=== PATIENT | female | born 1980 | race Caucasian/White ===

== ENCOUNTER 2017-12-02 13:20 | Emergency (ER) | payer OTHER ==
--- NOTE | 2017-12-02 13:48 | EDPHYS ---
Physician Documentation [facility] Name: Dionne Ventura Age: 37 yrs Sex: Female : 1980 Arrival Date: 12/02/2017 Time: 13:23 Bed 14 Private MD: out of town, doctor ED Physician Den Nogueira HPI: 12/02 14:09 This 37 yrs old Female presents to ER via Ambulatory with complaints of snw Asthma Exacerbation. 14:09 The patient presents to the emergency department with wheezing, Current therapy: snw albuterol inhaler, out because pharmacy would not fill proair. Onset: The symptoms/episode began/occurred gradually, 4 day(s) ago, and became persistent. Modifying factors: the symptoms are aggravated by damp environment. Associated signs and symptoms: The patient has no apparent associated signs or symptoms. Severity of symptoms: At their worst the symptoms were moderate. The patient has experienced similar episodes in the past. Dr. Sin. 6 mo , G1, hx of epilepsy. Seeing Neuro and OB. 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 - Social history:: Smoking status: unknown. - Ebola Screening: : Patient denies exposure to infectious person Patient denies travel to an Ebola-affected area in the 21 days before illness onset. ROS: 14:08 Constitutional: Negative for fever, chills, and weight loss, Eyes: Negative for injury, snw pain, redness, and discharge, ENT: Negative for injury, pain, and discharge, Neck: Negative for injury, pain, and swelling, Cardiovascular: Negative for chest pain, palpitations, and edema, Respiratory: Negative for cough, wheezing, and pleuritic chest pain, + SOB, especially at night Abdomen/GI: Negative for abdominal pain, nausea, vomiting, diarrhea, and constipation, Back: Negative for injury and pain, : Negative for injury, bleeding, discharge, and swelling, MS/Extremity: Negative for injury and deformity, Skin: Negative for injury, rash, and discoloration, Neuro: Negative for headache, weakness, numbness, tingling, and seizure. Exam: 14:04 Constitutional: This is a well developed, well nourished patient who is awake, alert, snw and in no acute distress. Head/Face: Normocephalic, atraumatic. Eyes: Pupils equal round and reactive to light, extra-ocular motions intact. Lids and lashes normal. Conjunctiva and sclera are non-icteric and not injected. Cornea within normal limits. Periorbital areas with no swelling, redness, or edema. ENT: Nares patent. No nasal discharge, no septal abnormalities noted. Tympanic membranes are normal and external auditory canals are clear. Oropharynx with no redness, swelling, or masses, exudates, or evidence of obstruction, uvula midline. Mucous membranes moist. Neck: Trachea midline, no thyromegaly or masses palpated, and no cervical lymphadenopathy. Supple, full range of motion without nuchal rigidity, or vertebral point tenderness. No Meningismus. Chest/axilla: Normal chest wall appearance and motion. Nontender with no deformity. No lesions are appreciated. Cardiovascular: Regular rate and rhythm with a normal S1 and S2. No gallops, murmurs, or rubs. Normal PMI, no JVD. No pulse deficits. Back: No spinal tenderness. No costovertebral tenderness. Full range of motion. Skin: Warm, dry with normal turgor. Normal color with no rashes, no lesions, and no evidence of cellulitis. MS/ Extremity: Pulses equal, no cyanosis. Neurovascular intact. Full, normal range of motion. Neuro: Awake and alert, GCS 15, oriented to person, place, time, and situation. Cranial nerves II-XII grossly intact. Motor strength 5/5 in all extremities. Sensory grossly intact. Cerebellar exam normal. Normal gait. Psych: Awake, alert, with orientation to person, place and time. Behavior, mood, and affect are within normal limits. 14:04 Respiratory: the patient does not display signs of respiratory distress, Respirations: shallow respirations, tachypnea, Breath sounds: wheezing: expiratory is heard diffusely. 14:04 Abdomen/GI: Inspection: gravid appearance, is noted, Bowel sounds: normal, Palpation: nontender. Vital Signs: 13:26 BP 116 / 71; Pulse 79; Resp 22; Temp 98.4; Pulse Ox 97% ; Weight 69.85 kg; Height 5 ft. sv 1 in. (154.94 cm); Pain 7/10; 14:23 Pulse 74; Resp 17; Pulse Ox 99% on R/A; Pain 0/10; ss 13:26 Body Mass Index 29.10 (69.85 kg, 154.94 cm) sv MDM: 13:35 Patient medically screened. snw 14:07 Data reviewed: vital signs, nurses notes. Data interpreted: Pulse oximetry: on room air snw is 97 %. Interpretation: normal. Counseling: I had a detailed discussion with the patient and/or guardian regarding: the historical points, exam findings, and any diagnostic results supporting the discharge/admit diagnosis, the need for outpatient follow up, to return to the emergency department if symptoms worsen or persist or if there are any questions or concerns that arise at home. Special discussion: Based on the history and exam findings, there is no indication for further emergent testing or inpatient evaluation. I discussed with the patient/guardian the need to see the OB Gyne specialist for further evaluation of the symptoms. I discussed with the patient/guardian the need to see the primary care provider for further evaluation of the symptoms. 12/02 13:43 Order name: FHT's; Complete Time: 13:53 snw Administered Medications: 13:55 Drug: Albuterol 2.5 mg Route: Inhalation; rb1 13:55 Drug: Decadron 10 mg Route: IM; Site: right deltoid; rb1 14:26 Follow up: Response: No adverse reaction; Marked relief of symptoms ss Disposition: 14:32 Co-signature as Attending Physician, Den Nogueira MD I agree with the assessment and roly plan of care. Disposition: 12/02/17 13:47 Discharged to Home. Impression: Unspecified asthma with (acute) exacerbation, state, Patient's unintentional underdosing of medication regimen for other reason. - Condition is Stable. - Discharge Instructions: Asthma, Adult, Medicine Refill at the Emergency Department, Medicines During , Immunizations and , Form - Asthma Action Plan, Adult, Second Trimester of , [id number]. - Prescriptions for Albuterol Sulfate 90 mcg/actuation - inhale 1-2 puff by INHALATION route every 4-6 hours; 1 Inhaler. - Medication Reconciliation Form, Thank You Letter, Antibiotic Education, Prescription Opioid Use form. - Follow up: Private Physician; When: 2 - 3 days; Reason: Recheck today's complaints, Continuance of care, Re-evaluation by your physician. Follow up: Emergency Department; When: As needed; Reason: Worsening of condition. Signatures: Brigid Field, RN Den Andrea MD MD cha Therrien, Shelly, JUDY-C CROTCH PIECE BASTER-Heather Arizmendi RN RN ss Corie Lucero RN RN rb1 Corrections: (The following items were deleted from the chart) 14:26 13:47 12/02/2017 13:47 Discharged to Home. Impression: Unspecified asthma with (acute) ss exacerbation; state; Patient's unintentional underdosing of medication regimen for other reason. Condition is Stable. Forms are Medication Reconciliation Form, Thank You Letter, Antibiotic Education, Prescription Opioid Use. Follow up: Private Physician; When: 2 - 3 days; Reason: Recheck today's complaints, Continuance of care, Re-evaluation by your physician. Follow up: Emergency Department; When: As needed; Reason: Worsening of condition. snw
--- NOTE | 2017-12-02 13:48 | ER ---
Nurse's Notes [facility] Name: Dionne Ventura Age: 37 yrs Sex: Female : 1980 Arrival Date: 12/02/2017 Time: 13:23 Bed 14 Private MD: out of town, doctor Diagnosis: Unspecified asthma with (acute) exacerbation; state;Patient's unintentional underdosing of medication regimen for other reason Presentation: 12/02 13:24 Presenting complaint: Patient states: SOB x4 hours ago. Dyspnea at night. Ran out of sv inhaler medication. Transition of care: patient was not received from another setting of care. Onset of symptoms was December 02, 2017. 13:24 Method Of Arrival: Ambulatory sv 13:24 Acuity: TRINIDAD 3 sv 14:25 Risk Assessment: Do you want to hurt yourself or someone else? Patient reports no ss desire to harm self or others. Initial Sepsis Screen: Does the patient meet any 2 criteria? No. Patient's initial sepsis screen is negative. Does the patient have a suspected source of infection? No. Patient's initial sepsis screen is negative. Care prior to arrival: None. 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 - Social history:: Smoking status: unknown. - Ebola Screening: : Patient denies exposure to infectious person Patient denies travel to an Ebola-affected area in the 21 days before illness onset. Screenin:20 Abuse screen: Denies threats or abuse. Denies injuries from another. Nutritional ss screening: No deficits noted. Tuberculosis screening: Never had TB. Fall Risk None identified. Assessment: 13:30 General: Appears in no apparent distress. comfortable, Behavior is calm, cooperative. rb1 Pain: Complains of pain in lungs Pain currently is 7 out of 10 on a pain scale. Neuro: Level of Consciousness is awake, alert, obeys commands, Oriented to person, place, time, situation. Cardiovascular: Capillary refill < 3 seconds is brisk in bilateral fingers. Respiratory: Breath sounds with wheezes bilaterally. 13:30 GI: No signs and/or symptoms were reported involving the gastrointestinal system. : rb1 No signs and/or symptoms were reported regarding the genitourinary system. Musculoskeletal: Range of motion: intact in all extremities. 14:23 Reassessment: Patient appears in no apparent distress at this time. Patient and/or ss family updated on plan of care and expected duration. Pain level reassessed. Patient states feeling better. Patient states symptoms have improved. Respiratory: Breath sounds are clear bilaterally. Derm: Skin is pink, warm \T\ dry. normal. Vital Signs: 13:26 BP 116 / 71; Pulse 79; Resp 22; Temp 98.4; Pulse Ox 97% ; Weight 69.85 kg; Height 5 ft. sv 1 in. (154.94 cm); Pain 7/10; 14:23 Pulse 74; Resp 17; Pulse Ox 99% on R/A; Pain 0/10; ss 13:26 Body Mass Index 29.10 (69.85 kg, 154.94 cm) sv Vitals: 13:51 Heart Tones: 150. dh3 ED Course: 13:23 Patient arrived in ED. mr 13:23 out of town, doctor is Private Physician. mr 13:25 Triage completed. sv 13:27 Arm band placed on left wrist. sv 13:35 Katharine Rizzo FNP-C is PHCP. snw 13:35 Den Nogueira MD is Attending Physician. snw 13:47 Corie Lucero, JEFRY is Primary Nurse. rb1 14:20 Patient has correct armband on for positive identification. ss 14:20 No provider procedures requiring assistance completed. Patient did not have IV access ss during this emergency room visit. Administered Medications: 13:55 Drug: Albuterol 2.5 mg Route: Inhalation; rb1 13:55 Drug: Decadron 10 mg Route: IM; Site: right deltoid; rb1 14:26 Follow up: Response: No adverse reaction; Marked relief of symptoms Outcome: 13:47 Discharge ordered by MD. cm 14:20 Discharged to home ambulatory. 14:20 Condition: improved 14:20 Discharge instructions given to patient, family, Instructed on discharge instructions, follow up and referral plans. medication usage, Demonstrated understanding of instructions, follow-up care, medications, Prescriptions given X 1. 14:26 Patient left the ED. Signatures: Brigid Field RN RN Katharine Rizzo, PET FOOD DEBONER-C PET FOOD DEBONER-Csnw Gabriela Grider mr Heather Abrams RN RN ss Corie Lucero RN RN [facility] Ameena Restrepo count includes the [facility]
[2017-12-02] MEDS ORDERED: ALBUTEROL 2.5 MG/3 ML NEB SOL ONE (13:50)
[2017-12-02] MEDS ORDERED: DEXAMETHASONE 10 MG/ML VIAL ONE (13:50)
== END 2017-12-02 14:26 | disposition home or self-care (01) ==
LOC: ER 13:20
DX: J45.901 Unspecified asthma with (acute) exacerbation (principal); Z91.138 Patient's unintentional underdosing of medication regimen for other reason; O99.352 Diseases of the nervous system complicating pregnancy, second trimester; G40.909 Epilepsy, unspecified, not intractable, without status epilepticus; Z88.0 Allergy status to penicillin; Z88.1 Allergy status to other antibiotic agents; Z88.2 Allergy status to sulfonamides; Z88.3 Allergy status to other anti-infective agents
CPT/HCPCS: 96372; 99284; J1100; 99218

== ENCOUNTER 2018-03-18 20:41 | Emergency (ER) | payer OTHER ==
--- OUTSIDE RECORDS SUMMARY | 2018-03-18 20:44 | XMS REPORT | Continuity of Care Document ---
:1980 Author Organization [facility] Care Team Providers Name Role Phone MD Pete, Trevor Unavailable Unavailable Insurance Providers Payer name Policy type / Policy ID Covered democrat ID Policy Sosa [place]age type [place] [employer] UNSPECIFIED REMIT PAYOR [[id number]] [place] UNSPECIFIED REMIT PAYOR [[id number]] [place] - TRAD[place]AL UNSPECIFIED REMIT PAYOR [[id number]] UNSPECIFIED REMIT PAYOR [[id number]] [place] TM[place] TRADITIONAL UNSPECIFIED REMIT PAYOR [[id number]] [place] TM[place] TRADITIONAL UNSPECIFIED REMIT PAYOR [[id number]] [place] TM[place] - TRADITIONAL UNSPECIFIED REMIT PAYOR [[id number]] [place] TM[place] - TRADITIONAL UNSPECIFIED REMIT PAYOR [[id number]] [place] TMHP - TRADITIONAL UNSPECIFIED REMIT PAYOR [[id number]] [place] TMHP - TRADITIONAL UNSPECIFIED REMIT PAYOR [[id number]] [place] TMHP - TRADITIONAL UNSPECIFIED REMIT PAYOR [[id number]] [place] TM[place] - TRADITIONAL UNSPECIFIED REMIT PAYOR [[id number]] [place] TM[place] - TRADITIONAL UNSPECIFIED REMIT PAYOR [[id number]] [place] TM[place] - TRADITIONAL UNSPECIFIED REMIT PAYOR [[id number]] [employer] [place] - COMMUNITY [place] STAR PL[place] ACS - TMHP - TRADITIONAL UNSPECIFIED REMIT PAYOR [[id number]] [place] - TMHP - TRADITIONAL UNSPECIFIED REMIT PAYOR [[id number]] Encounters Encounter Performer Location Date Lab Report Trevor Freeman MD [facility] Jan Allergies, Adverse Reactions, Alerts Type Substance Reaction Status Drug allergy SULFA Active Drug allergy AUGMENTIN Active Drug allergy CEPHALEXIN Active Drug allergy ADVIL Active Problems Problem Effective Dates Problem Status EPILEPSY Active ASTHMA Active INSOMNIA Active LOW BACK PAIN Jan 17, 2014 Active Procedures Date Description Comments Jan 17, 2014 smoking status Current every day smoker Jan 17, 2014 smoking/tobacco cessation, patient education yes and counseling Medications Medication Instructions Start Date Status OXCARBAZEPINE 600 MG TABS 1 po bid November 23, 2012 Active PROAIR HFA 108 (90 BASE) MCG/ACT AERS 2 puffs q 4 hrs prn Apr 07, 2013 Active CLONAZEPAM 1 MG TABS Take 1 po tid December 01, 2012 Active ZOLPIDEM TARTRATE 10 MG TABS 1 po qhs Aug 17, 2013 Active Vital Signs Date Description Test Result Jan 17, 2014 height E&M HEIGHT 62 in Jan 17, 2014 weight E&M WEIGHT 107 lb Jan 17, 2014 temperature E&M TEMPERATURE 98.4 deg f Jan 17, 2014 respiratory rate E&M RESP RATE 16 /min Jan 17, 2014 pulse rate E&M PULSE RATE 84 /min Jan 17, 2014 blood pressure, systolic BP SYSTOLIC 122 mm Hg Jan 17, 2014 blood pressure, diastolic BP DIASTOLIC 86 mm Hg Results Date Description Test Name Value Reference Interpretation Status Jan 17, hemoglobin, blood HGB 13.1 g/dL 12.0-16.0 2013Jan 17, hematocrit, blood HCT 38.0 % 36.0-48.0 2013Jan 17, platelet count PLATELETS 336 K/CMM 815-170 6029 /mm3 Jan 17, hemoglobin, blood HGB 13.1 g/dL 12.0-16.0 2013Jan 17, hematocrit, blood HCT 38.0 % 36.0-48.0 2013Jan 17, platelet count PLATELETS 336 K/CMM 684-222 0981 /mm3 Jan 17, sodium, serum SODIUM 140 MEQ/L 905-787 3777 mmol/L Jan 17, potassium, serum POTASSIUM 3.8 MEQ/L 3.5-5.1 2013 mmol/L Jan 17, creatinine, serum CREATININE 0.6 mg/dL 0.5-1.4 2013Jan 17, urea nitrogen, blood BUN 13 mg/dL 7-22 2013Jan 17, urea BUN/CREAT 22 null 6-25 2013 nitrogen/creatinine ratio, serum Jan 17, albumin, serum ALBUMIN 4.5 g/dL 3.5-5.0 2013Jan 17, calcium, serum CALCIUM 9.1 mg/dL 8.5-10.5 2013Jan 17, alanine SGPT (ALT) 17 U/L 0-65 2013 aminotransferase (SGPT), serum Jan 17, aspartate SGOT (AST) 14 U/L 0-37 2013 aminotransferase (SGOT), serum Jan 17, alkaline phosphatase, ALK PHOS 59 U/L 39-136 2013 serum Jan 17, sodium, serum SODIUM 140 MEQ/L 394-660 8077 mmol/L Jan 17, potassium, serum POTASSIUM 3.8 MEQ/L 3.5-5.1 2013 mmol/L Jan 17, creatinine, serum CREATININE 0.6 mg/dL 0.5-1.4 2013Jan 17, urea nitrogen, blood BUN 13 mg/dL 7-2013Jan 17, urea BUN/CREAT 22 null 6-25 2013 nitrogen/creatinine ratio, serum Jan 17, albumin, serum ALBUMIN 4.5 g/dL 3.5-5.0 2013Jan 17, calcium, serum CALCIUM 9.1 mg/dL 8.5-10.5 2013Jan 17, alanine SGPT (ALT) 17 U/L 0-65 2013 aminotransferase (SGPT), serum Jan 17, aspartate SGOT (AST) 14 U/L 0-37 2013 aminotransferase (SGOT), serum Jan 17, alkaline phosphatase, ALK PHOS 59 U/L 39-136 2013 serum
--- OUTSIDE RECORDS SUMMARY | 2018-03-18 20:44 | XMS REPORT | Continuity of Care Document ---
:1980 Author Organization [facility] Care Team Providers Name Role Phone MD Pete, Trevor Unavailable Unavailable Insurance Providers Payer name Policy type / Policy ID Covered green party ID Policy Sosa Coverage type [place] [employer] SOLUTIONS UNSPECIFIED REMIT PAYOR [[id number]] [place]: [place]UTIONS UNSPECIFIED REMIT PAYOR [[id number]] [place] TRADITIONAL UNSPECIFIED REMIT PAYOR [[id number]] UNSPECIFIED REMIT PAYOR [[id number]] [place] TM[place] - TRADITIONAL UNSPECIFIED REMIT PAYOR [[id number]] [place] TM[place] - TRADITIONAL UNSPECIFIED REMIT PAYOR [[id number]] [place] TM[place] - TRADITIONAL UNSPECIFIED REMIT PAYOR [[id number]] [place] TM[place] - TRADITIONAL UNSPECIFIED REMIT PAYOR [[id number]] [place] TMHP - TRADITIONAL UNSPECIFIED REMIT PAYOR [[id number]] [place] TMHP - TRADITIONAL UNSPECIFIED REMIT PAYOR [[id number]] [place] TMHP - TRADITIONAL UNSPECIFIED REMIT PAYOR [[id number]] [place] TMHP - TRADITIONAL UNSPECIFIED REMIT PAYOR [[id number]] [place] TM[place] - TRADITIONAL UNSPECIFIED REMIT PAYOR [[id number]] [place] TMHP - TRADITIONAL UNSPECIFIED REMIT PAYOR [[id number]] [employer] [place] - COMMUN[place] - STAR PL[place] ACS - TMHP - TRADITIONAL UNSPECIFIED REMIT PAYOR [[id number]] [place] TMHP - TRADITIONAL UNSPECIFIED REMIT PAYOR [[id number]] Encounters Encounter Performer Location Date Office Visit Trevor Freeman MD [facility] Jan 17, 2014 Allergies, Adverse Reactions, Alerts Type Substance Reaction [...] 2013Jan 17, platelet count PLATELETS 336 K/CMM 252-851 9182 /mm3 Jan 17, hemoglobin, blood HGB 13.1 g/dL 12.0-16.0 2013Jan 17, hematocrit, blood HCT 38.0 % 36.0-48.0 2013Jan 17, platelet count PLATELETS 336 K/CMM 994-288 0556 /mm3 Jan 17, sodium, serum SODIUM 140 MEQ/L 893-684 2852 mmol/L Jan 17, potassium, serum POTASSIUM 3.8 [...] Jan 17, sodium, serum SODIUM 140 MEQ/L 180-536 7988 mmol/L Jan 17, potassium, serum POTASSIUM 3.8 [...]
--- OUTSIDE RECORDS SUMMARY | 2018-03-18 20:44 | XMS REPORT | Continuity of Care Document ---
:1980 Author Organization Interface Problems Problem Status Onset Classification Date Comments Source Date Reported LOW BACK PAIN Active Condition 01/17/2014 [facility] EPILEPSY Active Condition 01/17/2014 Medical Group ASTHMA Active Condition 01/17/2014 Medical Group INSOMNIA Active Condition 01/17/2014 Medical Group Medications Medication Details Route Status Patient Ordering Order Source Instructions Provider Date ZOLPIDEM 1 po qhs Active TARTRATE 10 MG 014 Medical TABS Group PROAIR HFA 108 2 puffs q Active (90 BASE) 4 hrs prn 013 Medical MCG/ACT AERS Group CLONAZEPAM 1 MG Take 1 po Active TABS tid 013 Medical Group OXCARBAZEPINE 1 po bid Active 600 MG TABS 013 Medical Group Allergies, Adverse Reactions, Alerts Substance Category Reaction Severity Reaction Status Date Comments Source type Reported SULFA Drug SULFA allergy Medical Group AUGMENTIN Drug AUGMENTIN allergy Medical Group CEPHALEXIN Drug CEPHALEXIN allergy Medical Group ADVIL Drug ADVIL allergy Medical Group Immunizations Immunization Date Given Site Status Last Updated Comments Source Results Order Name Results Value Reference Date Interpretation Comments Source Range Chemistry SODIUM 140 135 - 145 MEQ/L 2013 Medical mmol/L Group Chemistry POTASSIUM 3.8 3.5 - 5.1 MEQ/L 2013 Medical mmol/L Group Chemistry CREATININE 0.6 0.5 - 1.4 mg/dL 2013 Medical Group Chemistry BUN 13 7 - 22 mg/dL 2013 Medical Group Chemistry BUN/CREAT 22 6 - 25 2013 Medical Group Chemistry ALBUMIN 4.5 3.5 - 5.0 g/dL 2013 Medical [facility] Chemistry CALCIUM 9.1 8.5 - 10.5 mg/dL 2013 Medical Group Chemistry SGPT (ALT) 17 U/L 0 - 65 2013 Medical Group Chemistry SGOT (AST) 14 U/L 0 - 37 2013 Medical Group Chemistry ALK PHOS 59 U/L 39 - 136 2013 Medical Group Chemistry SODIUM 140 135 - 145 MEQ/L 2013 Medical mmol/L Group Chemistry POTASSIUM 3.8 3.5 - 5.1 MEQ/L 2013 Medical mmol/L Group Chemistry CREATININE 0.6 0.5 - 1.4 mg/dL 2013 Medical Group Chemistry BUN 13 7 - 22 mg/dL 2013 Medical Group Chemistry BUN/CREAT 22 6 - 25 2013 Medical Group Chemistry ALBUMIN 4.5 3.5 - 5.0 g/dL 2013 Medical Group Chemistry CALCIUM 9.1 8.5 - 10.5 mg/dL 2013 Medical Group Chemistry SGPT (ALT) 17 U/L 0 - 65 2013 Medical Group Chemistry SGOT (AST) 14 U/L 0 - 37 2013 Medical Group Chemistry ALK PHOS 59 U/L 39 - 136 2013 Medical Group Hematology HGB 13.1 12.0 - 16.0 g/dL 2013 Medical Group Hematology HCT 38.0 % 36.0 - 48.0 2013 Medical Group Hematology PLATELETS 336 133 - 450 [facility] 2013 Medical /mm3 Group Hematology HGB 13.1 12.0 - 16.0 g/dL 2013 Medical Group Hematology HCT 38.0 % 36.0 - 48.0 2013 Medical [facility] Hematology PLATELETS 336 133 - 450 [facility] 2013 Medical /mm3 Group Vital Signs Vital Sign Value Date Comments Source Height 62 01/17/2014 Medical Group Weight 107 01/17/2014 Medical Group Temperature Oral (F) 98.4 F 01/17/2014 Medical Group Respitory Rate 16 01/17/2014 Medical Group Heart Rate 84 01/17/2014 Medical Group Systolic (mm Hg) 122 01/17/2014 Medical Group Diastolic (mm Hg) 86 01/17/2014 Medical Group Encounters Location Location Encounter Encounter Reason Attending ADM DC Status Source Details Type Number For Provider Date Date Visit [facility] Lab Report [id number] Trevor 01/17 01/17 [facility] [address], /2013 [facility] [place] [facility] Office [id number] Trevor 01/17 01/17 [place] Visit [address], [facility] [place] Outpatient [id number] TREVOR 02/14 [facility] [id number] ADILIA 10/22 [facility] [id number] [facility] 08/14 [facility] [id number] ADILIA 09/23 [facility] [id number] ADILIA 10/25 [facility] [id number] TREV[place] 11/20 [facility] [id number] TREV[facility] 12/13 Active [facility] [id number] ADILIA 01/13 Active [facility] [id number] ADILIA 02/07 Active [facility] [id number] ADILIA 02/21 Active [facility] [id number] ADILIA 02/28 Active [facility] [id number] TREVOR 04/08 Active [facility] [id number] ADILIA 04/15 Active [facility] [id number] ADILIA 05/06 Active [facility] [id number] ADILIA 05/13 Active [facility] [id number] ROSI 07/02 Active [facility] [id number] VINCENT 07/14 Active [facility] [id number] [facility] 07/25 Active [facility] Procedures Procedure Code Date Perfomer Comments Source smoking/tobacco 01/17/2014 yes Medical cessation, patient Group education and counseling
[2018-03-18] MEDS ORDERED: MEPERIDINE HCL 50 MG/ML AMP ONE (21:33)
[2018-03-18] MEDS ORDERED: PROMETHAZINE 25 MG/ML VIAL ONE (21:33)
[2018-03-18 21:56] LABS: Absolute Lymphocytes (CBC) 0.4 K/uL (0.7-4.9); Absolute Monocytes 0.5 K/uL (0.1-1.3); Basophils % 0.1 % (0-1.3); Eosinophils % 0.2 % (0-4.4); Hematocrit 30.1 % (36.0-45.0); Lymphocytes % 3.4 % (15.3-44.8); MCH 34.9 pg (27.0-35.0); MCV 99.8 fL (80-100); MPV 7.3 fL (7.6-11.3); Monocytes % 4.2 % (3.3-12.3); RBC Red Blood Cell Count 3.02 M/uL (3.86-4.86)
[2018-03-18 22:09] LABS: ALT/SGPT 16 U/L (12-78); AST/SGOT 18 U/L (15-37); Albumin 2.5 g/dL (3.4-5.0); Alkaline Phosphatase 68 U/L (45-117); BUN Blood Urea Nitrogen 13 mg/dL (7-18); Bicarbonate 25 mmol/L (21-32); Bilirubin Direct 0.1 mg/dL (0-0.2); Bilirubin Total 0.3 mg/dL (0.2-1.0); Glucose Level 106 mg/dL (74-106); Lipase 63 U/L (73-393); Potassium 3.4 mmol/L (3.5-5.1); Protein, Total 6.3 g/dL (6.4-8.2); Sodium Level 135 mmol/L (136-145)
[2018-03-18 22:30] LABS: Blood Morphology Comment NOT SEEN (NOT SEEN); Platelet Estimate ADEQ
--- NOTE | 2018-03-19 00:11 | ER ---
Nurse's Notes [facility] Name: Dionne Ventura Age: 38 yrs Sex: Female : 1980 Arrival Date: 03/18/2018 Time: 20:42 Bed 18 Private MD: Diagnosis: Post surgical pain secondary to Presentation: 03/18 20:43 Presenting complaint: Patient states: She had a March 17, she had some aj1 bloating afterward and was told it was gas. Now she's having constipation, and abdominal pain. Reports running fever at home of 102 a couple hours ago. Transition of care: patient was not received from another setting of care. Onset of symptoms was March 17, 2018. Risk Assessment: Do you want to hurt yourself or someone else? Patient reports no desire to harm self or others. Initial Sepsis Screen: Does the patient meet any 2 criteria? HR > 90 bpm. No. Patient's initial sepsis screen is negative. Does the patient have a suspected source of infection? Yes: Acute abdominal pain. Care prior to arrival: None. 20:43 Method Of Arrival: Wheelchair aj1 20:43 Acuity: TRINID[place] 3 aj1 Triage Assessment: 20:47 General: Appears uncomfortable, Behavior is cooperative, anxious, restless. Pain: aj1 Complains of pain in right lower quadrant and left lower quadrant Pain currently is 10 out of 10 on a pain scale. Neuro: Level of Consciousness is awake, alert, obeys commands. Cardiovascular: Patient's skin is warm and dry. Respiratory: Airway is patent Respiratory effort is even, unlabored, Respiratory pattern is regular, symmetrical. 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 - Social history:: Smoking status: Patient/guardian denies using tobacco. - Ebola Screening: : Patient denies travel to an Ebola-affected area in the 21 days before illness onset. Screenin:00 Abuse screen: Denies threats or abuse. Nutritional screening: No deficits noted. jd3 Tuberculosis screening: No symptoms or risk factors identified. Fall Risk Ambulatory Aid- None/Bed Rest/Nurse Assist (0 pts). Gait- Weak (10 pts.). Mental Status- Oriented to own ability (0 pts). Total Pablo Fall Scale indicates No Risk (0-24 pts). Assessment: 20:56 General: Appears uncomfortable, Behavior is cooperative, anxious. Pain: Complains of jd3 pain in abdomen Pain currently is 10 out of 10 on a pain scale. Quality of pain is described as sharp, tender. Neuro: Level of Consciousness is awake, alert, obeys commands, Oriented to person, place, time, situation. Cardiovascular: Capillary refill < 3 seconds Patient's skin is warm and dry. Respiratory: Airway is patent Respiratory effort is even, unlabored, Respiratory pattern is regular, symmetrical, Breath sounds are clear bilaterally. GI: Abdomen is round distended, Bowel sounds present X 4 quads. Reports lower abdominal pain, upper abdominal pain, bloating, constipation, cramping. : No signs and/or symptoms were reported regarding the genitourinary system. EENT: No signs and/or symptoms were reported regarding the EENT system. Derm: Skin is intact, Skin is dry, Skin is normal, Skin temperature is warm Wound noted suprapubic area Wound is Post surgery site. site looks clean, dry, no redness or swelling noted. Musculoskeletal: Circulation, motion, and sensation intact. Range of motion: intact in all extremities. 21:47 Reassessment: Patient appears in no apparent distress at this time. No changes from jd3 previously documented assessment. Patient and/or family updated on plan of care and expected duration. Pain level reassessed. Patient is alert, oriented x 3, equal unlabored respirations, skin warm/dry/pink. 22:49 Reassessment: Patient appears in no apparent distress at this time. No changes from jd3 previously documented assessment. Patient and/or family updated on plan of care and expected duration. Pain level reassessed. Patient is alert, oriented x 3, equal unlabored respirations, skin warm/dry/pink. 23:47 Reassessment: Patient appears in no apparent distress at this time. Patient and/or jd3 family updated on plan of care and expected duration. Pain level reassessed. Patient is alert, oriented x 3, equal unlabored respirations, skin warm/dry/pink. resting in bed with eyes closed, call light in reach. 03/19 00:22 Reassessment: Patient appears in no apparent distress at this time. Patient and/or jd3 family updated on plan of care and expected duration. Pain level reassessed. Patient is alert, oriented x 3, equal unlabored respirations, skin warm/dry/pink. discharge to [facility] to wait for ride. Vital Signs: 03/18 20:47 BP 120 / 78; Pulse 95; Resp 24; Temp 99.5(O); Pulse Ox 97% on R/A; Height 5 ft. 1 in. aj1 (154.94 cm) (R); Pain 10/10; 21:48 BP 95 / 80; Pulse 80; Resp 20 S; Pulse Ox 94% on R/A; jd3 22:48 BP 110 / 54; Pulse 76; Resp 20 S; Pulse Ox 96% on R/A; jd3 23:48 BP 133 / 90; Pulse 81; Resp 20 S; Temp 98.8(O); Pulse Ox 94% on R/A; jd3 ED Course: 20:42 Patient arrived in ED. es 20:46 Triage completed. aj1 20:47 Arm band placed on Patient placed in an exam room. aj1 20:56 Shimon Chapman, RN is Primary Nurse. jd3 21:01 Patient has correct armband on for positive identification. Placed in gown. Bed in low jd3 position. Call light in reach. Side rails up X 1. 21:07 Carlos Nathan PA is PHCP. jr8 21:07 Den Nogueira MD is Attending Physician. jr8 21:13 Missed attempt(s): 20 gauge in left antecubital area. Inserted saline lock: 22 gauge in lp1 right forearm, using aseptic technique. 22:02 Radiology exam delayed due to lab results not completed at this time. (BUN/Creatinine). vm2 22:[address] 2 22:32 Abdomen In Process Unspecified. EDMS 03/19 00:23 No provider procedures requiring assistance completed. IV discontinued, intact, jd3 bleeding controlled, No redness/swelling at site. Pressure dressing applied. Administered Medications: 03/18 21:34 Drug: Demerol 25 mg Route: IVP; Site: right forearm; [facility] 03/19 00:24 Follow up: Response: No adverse reaction jd3 03/18 21:34 Drug: Promethazine 12.5 mg Route: IVP; Site: right forearm; [facility] 03/19 00:25 Follow up: Response: No adverse reaction jd3 Outcome: 00:10 Discharge ordered by . 8 00:23 Discharged to home via wheelchair. jd3 00:23 Condition: stable 00:23 Discharge instructions given to patient, Instructed on discharge instructions, follow up and referral plans. Demonstrated understanding of instructions, follow-up care. 00:24 Patient left the ED. jd3 Signatures: Dispatcher [employer] Kelin Mcneil, RN RN aj1 Indu Dinero Laura, RN RN lp1 Carlos Nathan PA PA jr8 Lucia Cook 2 Shimon Chapman RN RN jd3 Corrections: (The following items were deleted from the chart) 03/18 23:50 23:46 BP 121 / 82; Pulse 55bpm; Resp 16bpm; Spontaneous; Pulse Ox 100% RA; jd3 jd3 23:52 23:47 Reassessment: Patient appears in no apparent distress at this time. Patient jd3 and/or family updated on plan of care and expected duration. Pain level reassessed. Patient is alert, oriented x 3, equal unlabored respirations, skin warm/dry/pink. jd3
--- NOTE | 2018-03-19 00:11 | EDPHYS ---
Physician Documentation [facility] Name: Dionne Ventura Age: 38 yrs Sex: Female : 1980 Arrival Date: 03/18/2018 Time: 20:42 Bed 18 Private MD: ED Physician Den Nogueira HPI: 03/18 21:50 This 38 yrs old Female presents to ER via Wheelchair with complaints of Post jr8 Surgical Pain. 21:50 The patient presents with abdominal pain that is diffuse. Onset: The symptoms/episode jr8 began/occurred acutely, today. The symptoms do not radiate. Associated signs and symptoms: none. The symptoms are described as vague. Modifying factors: The symptoms are alleviated by nothing, the symptoms are aggravated by movement. Severity of pain: At its worst the pain was moderate in the emergency department the pain is unchanged. The patient has not experienced similar symptoms in the past. The patient has been recently seen by a physician:. Patient had 03/17/18. Stated that stomach had gone back to almost near normal size post surgery. Was feeling ok till this AM when she was discharged. Stated that she noticed her abdomen to be getting larger. Stated that they attributed it to gas. Had bowel movent today. Came to ED tonight for abdominal pain that is getting worse with worsening of distention . 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 - Social history:: Smoking status: Patient/guardian denies using tobacco. - Ebola Screening: : Patient denies travel to an Ebola-affected area in the 21 days before illness onset. ROS: 21:50 Eyes: Negative for injury, pain, redness, and discharge, ENT: Negative for injury, jr8 pain, and discharge, Neck: Negative for injury, pain, and swelling, Cardiovascular: Negative for chest pain, palpitations, and edema, Respiratory: Negative for shortness of breath, cough, wheezing, and pleuritic chest pain, Back: Negative for injury and pain, MS/Extremity: Negative for injury and deformity, Skin: Negative for injury, rash, and discoloration, Neuro: Negative for headache, weakness, numbness, tingling, and seizure. 21:50 Abdomen/GI: Positive for abdominal pain, abdominal distension, Negative for nausea, vomiting, and diarrhea. Exam: 21:50 Eyes: Pupils equal round and reactive to light, extra-ocular motions intact. Lids and jr8 lashes normal. Conjunctiva and sclera are non-icteric and not injected. Cornea within normal limits. Periorbital areas with no swelling, redness, or edema. ENT: Nares patent. No nasal discharge, no septal abnormalities noted. Tympanic membranes are normal and external auditory canals are clear. Oropharynx with no redness, swelling, or masses, exudates, or evidence of obstruction, uvula midline. Mucous membranes moist. Neck: Trachea midline, no thyromegaly or masses palpated, and no cervical lymphadenopathy. Supple, full range of motion without nuchal rigidity, or vertebral point tenderness. No Meningismus. Cardiovascular: Regular rate and rhythm with a normal S1 and S2. No gallops, murmurs, or rubs. Normal PMI, no JVD. No pulse deficits. Respiratory: Lungs have equal breath sounds bilaterally, clear to auscultation and percussion. No rales, rhonchi or wheezes noted. No increased work of breathing, no retractions or nasal flaring. Back: No spinal tenderness. No costovertebral tenderness. Full range of motion. Skin: Warm, dry with normal turgor. Normal color with no rashes, no lesions, and no evidence of cellulitis. MS/ Extremity: Pulses equal, no cyanosis. Neurovascular intact. Full, normal range of motion. Neuro: Awake and alert, GCS 15, oriented to person, place, time, and situation. Cranial nerves II-XII grossly intact. Motor strength 5/5 in all extremities. Sensory grossly intact. Cerebellar exam normal. Normal gait. 21:50 Constitutional: The patient appears alert, awake, in obvious pain, uncomfortable. 21:50 Abdomen/GI: Inspection: distension, that is moderate, lower abdominal incision with gini noted. No erythema or discharge. No Dehiscence , Bowel sounds: active, Palpation: soft, in all quadrants, moderate abdominal tenderness, in the abdomen diffusely, mass, is not appreciated, rebound tenderness, is not appreciated, voluntary guarding, is not appreciated, involuntary guarding, is not appreciated, no appreciated organomegaly, Indicators: McBurney's point is not tender, Jones's sign is negative. Vital Signs: 20:47 BP 120 / 78; Pulse 95; Resp 24; Temp 99.5(O); Pulse Ox 97% on R/A; Height 5 ft. 1 in. aj1 (154.94 cm) (R); Pain 10/10; 21:48 BP 95 / 80; Pulse 80; Resp 20 S; Pulse Ox 94% on R/A; jd3 22:48 BP 110 / 54; Pulse 76; Resp 20 S; Pulse Ox 96% on R/A; jd3 23:48 BP 133 / 90; Pulse 81; Resp 20 S; Temp 98.8(O); Pulse Ox 94% on R/A; jd3 MDM: 21:07 Patient medically screened. jr8 03/19 00:08 Data reviewed: vital signs, nurses notes, lab test result(s), radiologic studies, CT jr8 scan, and as a result, I will discharge patient. Data interpreted: Pulse oximetry: on room air is 95 %. Interpretation: normal. Counseling: I had a detailed discussion with the patient and/or guardian regarding: the historical points, exam findings, and any diagnostic results supporting the discharge/admit diagnosis, lab results, radiology results, the need for outpatient follow up, an OB/Gyne specialist, to return to the emergency department if symptoms worsen or persist or if there are any questions or concerns that arise at home. Response to treatment: the patient's symptoms have markedly improved after treatment. ED course: No intraabdominal infection or acute finding noted on CT. surgical scar without acute finding. Patient doing better after medication. Told her that she still has a good amount of stool in colon. To continue laxative that they gave her. Needs to f/u with them tomorrow. If worse to come back . 03/18 21:48 Order name: Basic Metabolic Panel; Complete Time: 22:19 [facility] 03/18 21:48 Order name: Liver (Hepatic) Function; Complete Time: 22:19 [facility] 03/18 21:48 Order name: Lipase; Complete Time: 22:19 [facility] 03/18 21:48 Order name: Creatinine (Radiology Only); Complete Time: 22:19 [facility] 03/18 21:48 Order name: CBC with Automated Diff; Complete Time: 22:41 [facility] 03/18 21:50 Order name: Abdomen [facility] 03/18 21:57 Order name: Manual Differential; Complete Time: 22:41 [facility] 03/18 21:21 Order name: IV Saline Lock; Complete Time: 21:23 jr 03/18 21:21 Order name: Labs collected and sent; Complete Time: 21:38 jr Administered Medications: 03/18 21:34 Drug: Demerol 25 mg Route: IVP; Site: right forearm; [facility] 03/19 00:24 Follow up: Response: No adverse reaction jd3 03/18 21:34 Drug: Promethazine 12.5 mg Route: IVP; Site: right forearm; [facility] 03/19 00:25 Follow up: Response: No adverse reaction j Disposition: 06:51 Co-signature as Attending Physician, Den Nogueira MD I agree with the assessment and [facility] plan of care. Disposition: 03/19/18 00:10 Discharged to Home. Impression: Post surgical pain secondary to . - Condition is Stable. - Discharge Instructions: Delivery, Care After. - Medication Reconciliation Form, Thank You Letter, Antibiotic Education, Prescription Opioid Use form. - Follow up: Private Physician; When: Tomorrow; Reason: Recheck today's complaints, Continuance of care, Re-evaluation by your physician. - Problem is new. - Symptoms have improved. Signatures: Dispatcher [employer] Kelin Mcneil, RN RN Den Lopez MD MD cha Roszak, Josh, PA PA jr8 Shimon Chapman RN RN jd3 Corrections: (The following items were deleted from the chart) 03/18 21:56 21:52 Abdomen Pelvis W Con+CT.RAD.BRZ ordered. [facility] :58 21:52 BASIC METABOLIC PANEL+C.LAB.BRZ ordered. [facility] :58 21:52 CBC+H.LAB.BRZ ordered. [facility] 58 21:52 Creatinine for Radiology+C.LAB.BRZ ordered. [facility] 58 21:52 HEPATIC FUNCTION+C.LAB.BRZ ordered. [facility] :58 21:52 LIPASE+C.LAB.BRZ ordered. [facility] 03/19 00:24 00:10 03/19/2018 00:10 Discharged to Home. Impression: Post surgical pain secondary to jd3 . Condition is Stable. Forms are Medication Reconciliation Form, Thank You Letter, Antibiotic Education, Prescription Opioid Use. Follow up: Private Physician; When: Tomorrow; Reason: Recheck today's complaints, Continuance of care, Re-evaluation by your physician. Problem is new. Symptoms have improved. jr8
--- NOTE | 2018-03-19 08:44 | RAD REPORT ---
EXAM DESCRIPTION: CT - Abdomen Pelvis W Contrast - 03/19/2018 5:22 am CLINICAL HISTORY: Abdominal pain with constipation. yesterday COMPARISON: none. TECHNIQUE: Computed axial tomography of the abdomen pelvis was obtained. 100 cc Isovue-300 was admin istered intravenously. Oral contrast was not requested which limits evaluation of bowel. Preliminary report was generated by [employer] and reviewed prior to this dictation All CT scans are performed using dose optimization technique as appropriate and may include automated exposure control or mA/KV adjustment according to patient size. FINDINGS: The liver, pancreas, adrenal and kidneys appear unremarkable. Splenic granulomata are see n. There is no evidence of diverticulitis. A mild to moderate amount of stool is present throughout the colon. A uterus is seen without significant abnormality visualized. Post surgical changes of a ce sarean section are noted. A minimal amount of free fluid and pneumoperitoneum is expected. Minimal right pleural effusion is present. A pectus deformity is seen. IMPRESSION: Postsurgical changes of a section without visualization of a significant abnorm ality
== END 2018-03-19 00:24 | disposition home or self-care (01) ==
LOC: ER 20:41
DX: G89.18 Other acute postprocedural pain (principal); Z98.890 Other specified postprocedural states; F41.9 Anxiety disorder, unspecified; G40.909 Epilepsy, unspecified, not intractable, without status epilepticus; J45.909 Unspecified asthma, uncomplicated; Z88.0 Allergy status to penicillin; Z88.1 Allergy status to other antibiotic agents; Z88.2 Allergy status to sulfonamides; Z88.3 Allergy status to other anti-infective agents
CPT/HCPCS: 36415; 74177; 80048; 80076; 83690; 85025; 96374; 96375; 99284; J2175; J2550; Q9967

== ENCOUNTER 2018-04-26 11:10 | Emergency (ER) | payer OTHER ==
--- OUTSIDE RECORDS SUMMARY | 2018-04-26 11:13 | XMS REPORT | Summary of Care ---
:1980 Author Organization [facility] [place] Address [address] [place] [address]- Encounter HQ Carmelitar_dick(FIN) [id number] Date(s): 07/25/17 - 07/25/17 [facility] [place] [address] [place] [phone] Discharge Disposition: Home or Self Care Attending Physician: Trevor Freeman MD Vital Signs Most recent to oldest [Reference Range]: 1 Height 154.94 cm (07/25/17 2:14 PM) Temperature Oral [96.4-99.1 DegF] 98.0 DegF (07/25/17 2:14 PM) Blood Pressure [90-140/60-90 mmHg] 125/84 mmHg (07/25/17 2:14 PM) Peripheral Pulse Rate [60-100 bpm] 105 bpm *HI* (07/25/17 2:14 PM) Weight 54.364 kg (07/25/17 2:14 PM) Body Mass Index 22.65 m2 (07/25/17 2:14 PM) Problem List Condition Effective Dates Status Health Status Informant Anxiety states(Confirmed) < 10/23/15 Resolved Asthma1 Active Epilepsy(Confirmed) Active Epilepsy2 Active Insomnia3 Active Low back pain4 01/17/14 Resolved 1Data migrated from [employer] on 12/03/14.2Data migrated from [employer] on 12/03/14.3Data migrated from [employer] on 12/03/14.4Data migrated from [employer] on 12/03/14. Allergies, Adverse Reactions, Alerts Substance Reaction Severity Status penicillins Rash Active sulfa drugs1 vomiting Active ciprofloxacin Pruritic rash, NOS Active ibuprofen2 Active cephalexin3 Active aspirin vomiting Active Keflex Active 1Data migrated from [employer] on 02/02/15. Originally documented as SULFA.2Data migrated from [employer] on 11/04/14. Originally documented as ADVIL.3Data migrated from [employer] on 11/04/14. Originally documented as CEPHALEXIN. Medications No Known Medications Results No data available for this section Immunizations No data available for this section Procedures Procedure Date Related Diagnosis Body Site Status LEEP procedure of cervix Completed Tonsillectomy Completed Social History Social History Type Response Substance Abuse Use: None. Alcohol Never, Previous treatment: None. Smoking Status Current every day smoker; Type: Cigarettes; Concerns about tobacco use in household: No; Lives with someone who smokes; Cigarette Smoking Last 365 Days Yes; Reg Smoking Cessation Counseling Yes; Tobacco use per day: 4 ; Started at age: 15.0; entered on: 07/25/17 Assessment and Plan No data available for this section
--- OUTSIDE RECORDS SUMMARY | 2018-04-26 11:13 | XMS REPORT | Continuity of Care Document ---
:1980 [address] [facility] Care Team Providers Name Role Phone MD Pete, Trevor Unavailable Unavailable Insurance Providers Payer name Policy type / Policy ID Covered democrat ID Policy Sosa [place]age type [place] [employer] UNSPECIFIED REMIT PAYOR [[id number]] [place] [employer] U[place]PEC[employer]IED REMIT PAYOR [[id number]] [place] - TRADITIONAL UNSPECIFIED REMIT PAYOR [[id number]] UNSPECIFIED REMIT PAYOR [[id number]] [place] TRADITIONAL UNSPECIFIED REMIT PAYOR [[id number]] [place] TRADITIONAL UNSPECIFIED REMIT PAYOR [[id number]] [place] TRADITIONAL UNSPECIFIED REMIT PAYOR [[id number]] [place] TRADITIONAL UNSPECIFIED REMIT PAYOR [[id number]] [place] TRADITIONAL UNSPECIFIED REMIT PAYOR [[id number]] [place] - TRADITIONAL UNSPECIFIED REMIT PAYOR [[id number]] [place] - TRADITIONAL UNSPECIFIED REMIT PAYOR [[id number]] [place] - TRADITIONAL UNSPECIFIED REMIT PAYOR [[id number]] [place] TM[place] - TRADITIONAL UNSPECIFIED REMIT PAYOR [[id number]] [place] - TRADITIONAL UNSPECIFIED REMIT PAYOR [[id number]] [employer] [place] - COMM[place] - [place] [facility] - TRADITIONAL UNSPECIFIED REMIT PAYOR [[id number]] [place] [facility] - TRADITIONAL UNSPECIFIED REMIT PAYOR [[id number]] Encounters Encounter Performer Location Date Office Visit Trevor Freeman MD [facility] Jan 17, 2014 Allergies, Adverse Reactions, Alerts [...] 2013Jan 17, platelet count PLATELETS 336 K/CMM [phone] /mm3 Jan 17, hemoglobin, blood HGB 13.1 g/dL 12.0-16.0 2013Jan 17, hematocrit, blood HCT 38.0 % 36.0-48.0 2013Jan 17, platelet count PLATELETS 336 K/CMM [phone] /mm3 Jan 17, sodium, serum SODIUM 140 MEQ/L [phone] mmol/L Jan 17, potassium, serum POTASSIUM 3.8 [...] Jan 17, sodium, serum SODIUM 140 MEQ/L [phone] mmol/L Jan 17, potassium, serum POTASSIUM 3.8 [...]
--- OUTSIDE RECORDS SUMMARY | 2018-04-26 11:13 | XMS REPORT | Continuity of Care Document ---
:1980 Author Organization [facility] Care Team Providers Name Role Phone MD Pete, Trevor Unavailable Unavailable Insurance Providers Payer name Policy type / Policy ID Covered republican ID Policy Sosa Coverage type [place] [employer] UNSPECIFIED REMIT PAYOR [[id number]] [place] [employer] U[place]PECIFIED REMIT PAYOR [[id number]] [place] TM[place] - TRADITIONAL UNSPECIFIED REMIT PAYOR [[id number]] UNSPECIFIED REMIT PAYOR [[id number]] [place] TM[place] TRADITIONAL UNSPECIFIED REMIT PAYOR [[id number]] [place] TM[place] TRADITIONAL UNSPECIFIED REMIT PAYOR [[id number]] [place] TM[place] TRADITIONAL UNSPECIFIED REMIT PAYOR [[id number]] [place] TM[place] TRADITIONAL UNSPECIFIED REMIT PAYOR [[id number]] [place] TM[place] TRADITIONAL UNSPECIFIED REMIT PAYOR [[id number]] [place] TM[place] TRADITIONAL UNSPECIFIED REMIT PAYOR [[id number]] [place] TM[place] - TRADITIONAL UNSPECIFIED REMIT PAYOR [[id number]] [place] TM[place] - TRADITIONAL UNSPECIFIED REMIT PAYOR [[id number]] [place] TM[place] - TRADITIONAL UNSPECIFIED REMIT PAYOR [[id number]] [place] TM[place] - TRADITIONAL UNSPECIFIED REMIT PAYOR [[id number]] [employer] [place] - COMMUNITY CARE - STAR PL[place] TM[place] - TRADITIONAL UNSPECIFIED REMIT PAYOR [[id number]] [place] TMHP - TRADITIONAL UNSPECIFIED REMIT PAYOR [[id number]] Encounters Encounter Performer Location Date Lab Report Trevor Freeman MD [facility] Jan Allergies, Adverse Reactions, Alerts Type Substance [...] 2013Jan 17, platelet count PLATELETS 336 K/CMM 176-705 8619 /mm3 Jan 17, hemoglobin, blood HGB 13.1 g/dL 12.0-16.0 2013Jan 17, hematocrit, blood HCT 38.0 % 36.0-48.0 2013Jan 17, platelet count PLATELETS 336 K/CMM 361-984 6035 /mm3 Jan 17, sodium, serum SODIUM 140 MEQ/L 249-720 3651 mmol/L Jan 17, potassium, serum POTASSIUM 3.8 [...] Jan 17, sodium, serum SODIUM 140 MEQ/L [phone] mmol/L Jan 17, potassium, serum POTASSIUM 3.8 [...]
--- OUTSIDE RECORDS SUMMARY | 2018-04-26 11:13 | XMS REPORT | Summary of Care ---
:1980 Author Organization [facility] [place] Address [address] [place] [address]- Encounter HQ Carmelitar_dick(FIN) [id number] Date(s): 07/14/17 - 07/14/17 [facility] [place] [address] [place] [phone] Discharge Disposition: Home or Self Care Attending Physician: Toribio Estrada MD Vital Signs Most recent to oldest [Reference Range]: 1 Height 154.94 cm (07/14/17 4:05 PM) Temperature Oral [96.4-99.1 DegF] 98.2 DegF (07/14/17 4:05 PM) Blood Pressure [90-140/60-90 mmHg] 124/82 mmHg (07/14/17 4:05 PM) Weight 50.545 kg (07/14/17 4:05 PM) Body Mass Index 21.05 m2 (07/14/17 4:05 PM) Problem List Condition Effective Dates Status [...] 02/02/15. Originally documented as SULFA.2Data migrated from [employer] on 11/04/14. Originally documented as ADVIL.3Data migrated from [employer] on 11/04/14. Originally documented as CEPHALEXIN. Medications ProAir HFA 90 mcg/inh inhalation aerosol with adapter 180 microgram=2 puff, INHALER, Q4H, PRN wheezing, coughing, or shortness of breath, # 1 ea, 2 Refill(s), Pharmacy: [place] [id number] Start Date: 07/14/17 Stop Date: 10/12/17 Status: OrderedTamiFLU 75 mg oral capsule 75 mg, PO, Q12H, X 5 day, # 10 cap, 0 Refill(s), Pharmacy: [place] [id number] Start Date: 07/14/17 Stop Date: 07/14/17 Status: DiscontinuedTamiFLU 75 mg oral capsule 75 mg, PO, Q12H, X 5 day, # 10 cap, 0 Refill(s), Pharmacy: [id number] Start Date: 07/14/17 Stop Date: 07/19/17 Status: Completed Results No data available for this section [...]
--- OUTSIDE RECORDS SUMMARY | 2018-04-26 11:13 | XMS REPORT | Summary of Care ---
:1980 Author Organization [facility] [place] Address [address] [place] [address]- Encounter HQ Encntr_alias(FIN) [id number] Date(s): 09/15/17 - 09/16/17 [facility] [place] [address] [place] [phone] Vital Signs No data available for this section Problem List Condition Effective Dates Status Health Status Informant Anxiety states(Confirmed) < 10/23/15 Resolved Asthma1 Active Epilepsy(Confirmed) Active Epilepsy2 Active Insomnia3 Active Low back pain4 01/17/14 Resolved (Confirmed) Active 1Data migrated from [employer] on 12/03/14.2Data migrated from [employer] on 12/03/14.3Data migrated from [employer] on 12/03/14.4Data migrated from [employer] on 12/03/14. Allergies, Adverse Reactions, Alerts Substance Reaction Severity Status penicillins Rash Active sulfa drugs1 vomiting Active ciprofloxacin Pruritic rash, NOS Active ibuprofen2 Active clindamycin Active cephalexin3 Active aspirin vomiting Active Keflex Active 1Data migrated from [employer] on 02/02/15. Originally documented as SULFA.2Data migrated from [employer] on 11/04/14. Originally documented as ADVIL.3Data migrated from [employer] on 11/04/14. Originally documented as CEPHALEXIN. Medications No data available for this section Results No data available for this section Immunizations No data available for this section Procedures Procedure Date Related Diagnosis Body Site Status LEEP procedure of cervix Completed Tonsillectomy Completed Social History Social History Type Response Substance Abuse Use: Past. Type: Cocaine. Recreational Drug Route: Inhaled. IV drug use: No. Alcohol Never, Previous treatment: None. Smoking Status Former smoker; Type: Cigars; Concerns about tobacco use in household: No; Exposure to Tobacco Smoke None; Cigarette Smoking Last 365 Days Yes; Reg Smoking Cessation Counseling Yes; Tobacco use per day: 4; Started at age: [age]; entered on: 12/12/17 Assessment and Plan No data available for this section
--- OUTSIDE RECORDS SUMMARY | 2018-04-26 11:13 | XMS REPORT | Summary of Care ---
:1980 Author Organization [facility] [place] Address [address] [place] [address]- Encounter HQ Katelynnntr_dick(FIN) [id number] Date(s): 07/17/17 - 07/18/17 [facility] [place] [address] [place] [address] [phone] Vital Signs No data available for this [...] on 11/04/14. Originally documented as CEPHALEXIN. Medications Macrobid 100 mg oral capsule 100 mg=1 cap, PO, BID, X 7 day, # 14 cap, 0 Refill(s), Pharmacy: [facility] [id number] Start Date: 07/17/17 Stop Date: 07/24/17 Status: Completed Results No data available for [...]
--- OUTSIDE RECORDS SUMMARY | 2018-04-26 11:13 | XMS REPORT | Continuity of Care Document ---
:1980 Author Organization Interface Problems Problem Status Onset Classification Date Comments Source Date Reported Anxiety Resolved Problem 12/23/2017 Medical states 6 Group Low back Resolved Problem 12/23/2017 Data migrated Medical pain<sup>4</s 4 from Group up> [employer] on 12/03/14. LOW BACK PAIN Active Condition 01/17/2014 Medical 4 Group Asthma<sup>1< Active Problem 12/23/2017 Data migrated Medical /sup> from [facility] on 12/03/14. Epilepsy Active Problem 12/23/2017 Medical Group Epilepsy<sup> Active Problem 12/23/2017 Data migrated Medical 2</sup> from [facility] on 12/03/14. Insomnia<sup> Active Problem 12/23/2017 Data migrated Medical 3</sup> from Group [employer] on 12/03/14. Active Problem 12/23/2017 Medical Group EPILEPSY Active Condition 01/17/2014 Medical Group ASTHMA Active Condition 01/17/2014 Medical Group INSOMNIA Active Condition 01/17/2014 Medical Group Medications Medication Details Route Status Patient Ordering Order Source Instructions Provider Date Nitrofurantoin 100 mg=1 No Longer 100 MG Oral cap, PO, Active 018 Medical Capsule BID, X 7 Group [Macrobid] day, # 14 cap, 0 Refill(s), Pharmacy: [facility] [address] 200 ACTUAT 180 Active Albuterol 0.09 microgram=2 018 Medical MG/ACTUAT Metered puff, Group Dose Inhaler INHALER, [ProAir HFA] Q4H, PRN wheezing, coughing, or shortness of breath, # 1 ea, 2 Refill(s), Pharmacy: [facility] [address] Oseltamivir 75 MG 75 mg, PO, No Longer Oral Capsule Q12H, X 5 Active 018 Medical [Tamiflu] day, # 10 Group cap, 0 Refill(s), Pharmacy: [facility] 256 Oseltamivir 75 MG 75 mg, PO, Inactive Oral Capsule Q12H, X 5 018 Medical [Tamiflu] day, # 10 Group cap, 0 Refill(s), Pharmacy: [facility] 343 ZOLPIDEM TARTRATE 1 po qhs Active MH 10 MG TABS 014 Medical Group PROAIR HFA 108 2 puffs q 4 Active MH (90 BASE) MCG/ACT hrs prn 013 Medical AERS Group CLONAZEPAM 1 MG Take 1 po Active MH TABS tid 013 Medical Group OXCARBAZEPINE 600 1 po bid Active MH MG TABS 013 Medical Group Allergies, Adverse Reactions, Alerts Substance Category Reaction Severity Reaction Status Date Comments Source type Reported penicillins Assertion Rash Drug Active allergy Medical Group sulfa Assertion vomiting Drug Active Data drugs<sup>1< allergy migrated Medical /sup> from [facility] on 02/02/15. Originally documented as SULFA. ciprofloxaci Assertion Pruritic Drug Active n rash, NOS allergy Medical Group ibuprofen<ramirez Assertion Drug Active Data p>2</sup> allergy migrated Medical from [facility] on 11/04/14. Originally documented as ADVIL. clindamycin Assertion Drug Active allergy Medical Group cephalexin<s Assertion Drug Active Data up>3</sup> allergy migrated Medical from [facility] on 11/04/14. Originally documented as CEPHALEXIN . aspirin Assertion vomiting Drug Active allergy Medical Group Keflex Assertion Propensity Active to adverse Medical reactions Group to drug SULFA Drug SULFA allergy Medical Group AUGMENTIN Drug AUGMENTIN allergy Medical Group CEPHALEXIN Drug CEPHALEXIN allergy Medical Group ADVIL Drug ADVIL allergy Medical Group Immunizations Immunization Date Given Site Status Last Updated Comments Source Results Order Name Results Value Reference Date Interpretation Comments Source Range Chemistry SODIUM 140 135 - 145 01/17/ MEQ/L 2013 Medical mmol/L Group Chemistry POTASSIUM 3.8 3.5 - 5.1 01/17/ MEQ/L 2013 Medical mmol/L Group Chemistry CREATININE 0.6 0.5 - 1.4 01/17/ mg/dL 2013 Medical Group Chemistry BUN 13 [...] Group Hematology PLATELETS 336 133 - 450 K/CMM 2013 Medical /mm3 Group Hematology HGB 13.1 12.0 - 16.0 g/dL 2013 Medical Group Hematology HCT 38.0 % 36.0 - 48.0 2013 Medical Group Hematology PLATELETS 336 133 - 450 K/CMM 2013 Medical /mm3 Group Vital Signs Vital Sign Value Date Comments Source Height 154.94 cm 07/25/2017 Medical Group Weight 54.364 07/25/2017 Medical Group BMI Calculated 22.65 07/25/2017 Medical Group Temperature Oral (F) 98.0 F 07/25/2017 Medical Group Heart Rate 105 07/25/2017 Medical Group Systolic (mm Hg) 125 07/25/2017 Medical Group Diastolic (mm Hg) 84 07/25/2017 Medical Group Height 154.94 cm 07/14/2017 Medical Group Weight 50.545 07/14/2017 Medical Group Temperature Oral (F) 98.2 F 07/14/2017 Medical Group BMI Calculated 21.05 07/14/2017 Medical Group Systolic (mm Hg) 124 07/14/2017 Medical Group Diastolic (mm Hg) 82 07/14/2017 Medical Group Height 62 01/17/2014 Medical Group Weight 107 01/17/2014 Medical Group Temperature Oral (F) 98.4 F 01/17/2014 Medical Group Respitory Rate 16 01/17/2014 Medical Group Heart Rate 84 01/17/2014 Medical Group Systolic (mm Hg) 122 01/17/2014 Medical Group Diastolic (mm Hg) 86 01/17/2014 Medical Group Encounters Location Location Encounter Encounter Reason Attending ADM DC Status Source Details Type Number For Provider Date Date Visit [facility] Report [id number] 01/17 [place] 690 , Medical Medical MD Group Group [facility] Office [id number] 01/17 [facility] Visit 270 , Medical Medical MD Group Group [place] Outpatient [id number] TREVOR02/14 [facility] Outpatient [id number] ADILIA 10/22 [facility] [place] Outpatient [id number] TREVOR08/14 [facility] Outpatient [id number] ADILIA 09/23 [facility] [place] Outpatient [id number] ADILIA 10/25 [facility] Outpatient [id number] TREVOR11/20 [facility] [place] Outpatient [id number] TREVOR12/13 [facility] [place] Outpatient [id number] ADILIA 01/13 [facility] [place] Outpatient [id number] ADILIA [facility]07 [facility] [id number] ADILIA [facility] [place] [facility] [id number] ADILIA 02/[address] [facility] [place] Outpatient [id number] TREVOR 04/[address] [facility] [place] Outpatient [id number] ADILIA 04/[address] [facility] [id number] ADILIA 05/[address] [facility] [place] Outpatient [id number] ADILIA 05/[address] [facility] Out[facility] [id number] ROSI 07/[address] [facility] [id number] VINCENT 07/14 [facility] [id number] Vincent 07/14 07/15 Primary Estrada /2017 [facility] [place] [facility] Phone [phone] 07/17 07/19 Primary Message /2017 [facility] [place] Outpatient [id number] TREVOR 07/[address] [facility] Outpatient [id number] Trevor 07/25 07/26 Primary Janecek /2017 [facility] [place] [facility] Phone [phone] 09/15 09/17 Primary Message /2017 [facility] [place] Outpatient [id number] ABIEL 11/05 [facility] [place] Outpatient [id number] ABIEL 11/25 [facility] [place] Outpatient [id number] ABIEL 12/12 [facility] Outpatient [id number] ABIEL 04/10 [facility] Outpatient [id number] ABIEL 07/10 [facility] [place] Procedures Procedure Code Date Perfomer Comments Source smoking/tobacco 14 01/17/2014 yes Medical cessation, patient Group education and counseling LEEP procedure of [id number] Medical cervix Group Tonsillectomy [id number] Medical Group
--- NOTE | 2018-04-26 12:34 | EDPHYS ---
Physician Documentation [facility] Name: Dionne Ventura Age: 38 yrs Sex: Female : 1980 Arrival Date: 04/26/2018 Time: 11:13 Bed 15 Private MD: out of town, doctor ED Physician Kye Gray HPI: 04/26 12:42 This 38 yrs old Female presents to ER via Ambulatory with complaints of Runny jr8 Nose, Sore Throat. 12:42 The patient or guardian reports cough, that is intermittent, described as mild, jr8 rhinorrhea, sore throat. Onset: The symptoms/episode began/occurred acutely, 3 day(s) ago. Severity of symptoms: At their worst the symptoms were mild, in the emergency department the symptoms are unchanged. Modifying factors: The symptoms are alleviated by nothing, the symptoms are aggravated by nothing. Associated signs and symptoms: The patient has no apparent associated signs or symptoms. The patient has not experienced similar symptoms in the past. The patient has not recently seen a physician. 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 - Social history:: Smoking status: Patient/guardian denies using tobacco. - Ebola Screening: : Patient denies travel to an Ebola-affected area in the 21 days before illness onset. ROS: 12:42 Eyes: Negative for injury, pain, redness, and discharge, Neck: Negative for injury, jr8 pain, and swelling, Cardiovascular: Negative for chest pain, palpitations, and edema, Abdomen/GI: Negative for abdominal pain, nausea, vomiting, diarrhea, and constipation, Back: Negative for injury and pain, MS/Extremity: Negative for injury and deformity, Skin: Negative for injury, rash, and discoloration, Neuro: Negative for headache, weakness, numbness, tingling, and seizure. 12:42 ENT: Positive for rhinorrhea, sinus congestion, sore throat. 12:42 Respiratory: Positive for cough, Negative for dyspnea on exertion, shortness of breath, sputum production, wheezing. Exam: 12:42 Eyes: Pupils equal round and reactive to light, extra-ocular motions intact. Lids and jr8 lashes normal. Conjunctiva and sclera are non-icteric and not injected. Cornea within normal limits. Periorbital areas with no swelling, redness, or edema. ENT: Nares patent. No nasal discharge, no septal abnormalities noted. Tympanic membranes are normal and external auditory canals are clear. Oropharynx with no redness, swelling, or masses, exudates, or evidence of obstruction, uvula midline. Mucous membranes moist. Neck: Trachea midline, no thyromegaly or masses palpated, and no cervical lymphadenopathy. Supple, full range of motion without nuchal rigidity, or vertebral point tenderness. No Meningismus. Cardiovascular: Regular rate and rhythm with a normal S1 and S2. No gallops, murmurs, or rubs. Normal PMI, no JVD. No pulse deficits. Respiratory: Lungs have equal breath sounds bilaterally, clear to auscultation and percussion. No rales, rhonchi or wheezes noted. No increased work of breathing, no retractions or nasal flaring. Abdomen/GI: Soft, non-tender, with normal bowel sounds. No distension or tympany. No guarding or rebound. No evidence of tenderness throughout. Back: No spinal tenderness. No costovertebral tenderness. Full range of motion. Skin: Warm, dry with normal turgor. Normal color with no rashes, no lesions, and no evidence of cellulitis. MS/ Extremity: Pulses equal, no cyanosis. Neurovascular intact. Full, normal range of motion. Neuro: Awake and alert, GCS 15, oriented to person, place, time, and situation. Cranial nerves II-XII grossly intact. Motor strength 5/5 in all extremities. Sensory grossly intact. Cerebellar exam normal. Normal gait. Vital Signs: 11:27 BP 126 / 93; Pulse 69; Resp 16; Temp 97.2; Pulse Ox 98% on R/A; Weight 70.76 kg (R); aj1 Height 5 ft. 1 in. (154.94 cm) (R); 12:30 BP 122 / 82; Pulse 63; Resp 17; Pulse Ox 98% on R/A; rb1 13:15 BP 121 / 80; Pulse 64; Resp 16; Pulse Ox 99% on R/A; rb1 11:27 Body Mass Index 29.48 (70.76 kg, 154.94 cm) aj1 MDM: 11:38 Patient medically screened. jr8 12:33 Data reviewed: vital signs, nurses notes, and as a result, I will discharge patient. jr8 Data interpreted: Pulse oximetry: on room air is 98 %. Interpretation: normal. Counseling: I had a detailed discussion with the patient and/or guardian regarding: the historical points, exam findings, and any diagnostic results supporting the discharge/admit diagnosis, the need for outpatient follow up, a family practitioner, to return to the emergency department if symptoms worsen or persist or if there are any questions or concerns that arise at home. 04/26 11:47 Order name: Strep; Complete Time: 12:33 jr8 04/26 11:47 Order name: Influenza Screen (a \T\ B); Complete Time: 12:33 jr8 04/26 12:30 Order name: Throat Culture EDMS Administered Medications: No medications were administered Disposition: 15:17 Co-signature as Attending Physician, Kye Gray MD I agree with the assessment and kdr plan of care. Disposition: 04/26/18 12:33 Discharged to Home. Impression: Acute upper respiratory infection, unspecified. - Condition is Stable. - Discharge Instructions: Upper Respiratory Infection, Adult. - Prescriptions for Prednisone 20 mg Oral Tablet - take 1 tablet by ORAL route once daily for 5 days; 5 tablet. Tessalon Perles 100 mg Oral Capsule - take 1 capsule by ORAL route every 8 hours As needed; 15 capsule. - Medication Reconciliation Form, Thank You Letter, Antibiotic Education, Prescription Opioid Use form. - Follow up: Private Physician; When: 5 - 6 days; Reason: Recheck today's complaints, Continuance of care, Re-evaluation by your physician. - Problem is new. - Symptoms have improved. Signatures: Dispatcher [employer] EDKelin Patel RN RN aj1 Kye Gray MD MD kdr Roszak, Josh, PA PA jr8 Corie Lucero, RN RN rb1 Corrections: (The following items were deleted from the chart) 13:18 12:33 04/26/2018 12:33 Discharged to Home. Impression: Acute upper respiratory rb1 infection, unspecified. Condition is Stable. Forms are Medication Reconciliation Form, Thank You Letter, Antibiotic Education, Prescription Opioid Use. Follow up: Private Physician; When: 5 - 6 days; Reason: Recheck today's complaints, Continuance of care, Re-evaluation by your physician. Problem is new. Symptoms have improved. jr8
--- NOTE | 2018-04-26 12:34 | ER ---
Nurse's Notes [facility] Name: Dionne Ventura Age: 38 yrs Sex: Female : 1980 Arrival Date: 04/26/2018 Time: 11:13 Bed 15 Private MD: out of town, doctor Diagnosis: Acute upper respiratory infection, unspecified Presentation: 04/26 11:24 Presenting complaint: Patient states: She's had a sore throat, runny nose, and post aj1 nasal drip for the past 3 to 4 days. Denies fever. Reports pain with swallowing. Transition of care: patient was not received from another setting of care. Onset of symptoms was April 22, 2018. Risk Assessment: Do you want to hurt yourself or someone else? Patient reports no desire to harm self or others. Initial Sepsis Screen: Does the patient meet any 2 criteria? No. Patient's initial sepsis screen is negative. Does the patient have a suspected source of infection? No. Patient's initial sepsis screen is negative. Care prior to arrival: None. 11:24 Method Of Arrival: Ambulatory aj1 11:24 Acuity: TRINIDAD 4 aj1 Triage Assessment: 11:27 General: Appears in no apparent distress. uncomfortable, Behavior is calm, cooperative, aj1 appropriate for age. Pain: Complains of pain in left aspect of posterior pharynx and right aspect of posterior pharynx Pain currently is 8 out of 10 on a pain scale. EENT: Reports sore throat, pain while swallowing, runny nose, post nasal drip. Neuro: Level of Consciousness is awake, alert, obeys commands. Cardiovascular: Patient's skin is warm and dry. Respiratory: Airway is patent Respiratory effort is even, unlabored, Respiratory pattern is regular, symmetrical. 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 - Social history:: Smoking status: Patient/guardian denies using tobacco. - Ebola Screening: : Patient denies travel to an Ebola-affected area in the 21 days before illness onset. Screenin:35 Abuse screen: Denies threats or abuse. Nutritional screening: No deficits noted. rb1 Tuberculosis screening: No symptoms or risk factors identified. Fall Risk None identified. Assessment: 11:35 General: Appears uncomfortable, Behavior is calm, cooperative, Denies fever. Pain: rb1 Complains of pain in throat Pain currently is 6 out of 10 on a pain scale. Neuro: Level of Consciousness is awake, alert, obeys commands, Oriented to person, place, time, situation. Cardiovascular: Capillary refill < 3 seconds is brisk in bilateral fingers. Respiratory: Airway is patent Respiratory effort is even, unlabored, Respiratory pattern is regular, symmetrical. Respiratory: Reports shortness of breath cough that is non-productive. GI: No signs and/or symptoms were reported involving the gastrointestinal system. : No signs and/or symptoms were reported regarding the genitourinary system. EENT: Nares are clear with drainage noted Reports pain when swallowing. Derm: Skin is pink, warm \T\ dry. Musculoskeletal: Range of motion: intact in all extremities. 11:35 EENT: Throat is reddened. rb1 11:35 Respiratory: Breath sounds are clear bilaterally. rb1 12:30 Reassessment: Patient appears in no apparent distress at this time. No changes from rb1 previously documented assessment. 13:00 Reassessment: Patient appears in no apparent distress at this time. Patient and/or rb1 family updated on plan of care and expected duration. Pain level reassessed. Patient is alert, oriented x 3, equal unlabored respirations, skin warm/dry/pink. Vital Signs: 11:27 BP 126 / 93; Pulse 69; Resp 16; Temp 97.2; Pulse Ox 98% on R/A; Weight 70.76 kg (R); aj1 Height 5 ft. 1 in. (154.94 cm) (R); 12:30 BP 122 / 82; Pulse 63; Resp 17; Pulse Ox 98% on R/A; rb1 13:15 BP 121 / 80; Pulse 64; Resp 16; Pulse Ox 99% on R/A; rb1 11:27 Body Mass Index 29.48 (70.76 kg, 154.94 cm) 1 ED Course: 11:13 Patient arrived in ED. mr 11:13 out of town, doctor is Private Physician. mr 11:26 Triage completed. aj1 11:27 Arm band placed on Patient placed in an exam room. aj1 11:35 Patient has correct armband on for positive identification. Bed in low position. Call rb1 light in reach. Side rails up X 1. Pulse ox on. NIBP on. 11:38 Carlos Nathan PA is PHCP. jr8 11:38 Kye Gray MD is Attending Physician. jr8 11:39 Corie Lucero, RN is Primary Nurse. rb1 13:18 No provider procedures requiring assistance completed. Patient did not have IV access rb1 during this emergency room visit. Administered Medications: No medications were administered Outcome: 12:33 Discharge ordered by . jr8 13:18 Patient left the ED. rb1 13:18 Discharged to home ambulatory. rb1 13:18 Condition: stable 13:18 Discharge instructions given to patient, Instructed on discharge instructions, follow up and referral plans. medication usage, Demonstrated understanding of instructions, follow-up care, medications, Prescriptions given X 2. Signatures: Kelin Camp RN RN aj1 Dionne Grider mr Carlos Nathan PA PA jr8 Corie Lucero, RN RN rb1 Corrections: (The following items were deleted from the chart) 13:37 13:37 Respiratory: rb1 rb1
== END 2018-04-26 13:18 | disposition home or self-care (01) ==
LOC: ER 11:10
DX: J06.9 Acute upper respiratory infection, unspecified (principal); G40.909 Epilepsy, unspecified, not intractable, without status epilepticus; J45.909 Unspecified asthma, uncomplicated; F41.9 Anxiety disorder, unspecified; Z88.0 Allergy status to penicillin; Z88.2 Allergy status to sulfonamides; Z88.1 Allergy status to other antibiotic agents
CPT/HCPCS: 87070; 87081; 87804; 99283

== ENCOUNTER 2018-07-31 17:54 | Emergency (ER) | payer OTHER ==
--- OUTSIDE RECORDS SUMMARY | 2018-07-31 17:56 | XMS REPORT | Continuity of Care Document ---
:1980 Author Organization [facility] Care Team Providers Name Role Phone MD Pete, Trevor Unavailable Unavailable Insurance Providers Payer name Policy type / Policy ID Covered libertarian ID Policy Sosa Coverage type [place]IONS UNSPECIFIED REMIT PAYOR [[id number]] [place] [employer] UNSPECIFIED REMIT PAY[place] [[id number]] [place] TM[place] - TRADITIONAL UNSPECIFIED REMIT PAYOR [[id number]] UNSPECIFIED REMIT PAYOR [[id number]] [place] TMHP - TRADITIONAL UNSPECIFIED REMIT PAYOR [[id number]] [place] TM[place] - TRADITIONAL UNSPECIFIED REMIT PAYOR [[id number]] [place] TM[place] - TRADITIONAL UNSPECIFIED REMIT PAYOR [[id number]] [place] TM[place] - TRADITIONAL UNSPECIFIED REMIT PAYOR [[id number]] [place] TMHP - TRADITIONAL UNSPECIFIED REMIT PAYOR [[id number]] [place] TMHP - TRADITIONAL UNSPECIFIED REMIT PAYOR [[id number]] [place] TMHP - TRADITIONAL UNSPECIFIED REMIT PAYOR [[id number]] [place] TMHP - TRADITIONAL UNSPECIFIED REMIT PAYOR [[id number]] [place] TMHP - TRADITIONAL UNSPECIFIED REMIT PAYOR [[id number]] [place] TMHP - TRADITIONAL UNSPECIFIED REMIT PAYOR [[id number]] [employer] [place] - COMMUNITY C[place] - STAR PL[place] ACS - TMHP - TRADITIONAL UNSPECIFIED REMIT PAYOR [[id number]] [place] - TMHP - TRADITIONAL UNSPECIFIED REMIT PAYOR [[id number]] Encounters Encounter Performer Location Date Office Visit Trevor Freeman MD [facility] Jan 17, 2014 Allergies, Adverse Reactions, Alerts [...] 2013Jan 17, platelet count PLATELETS 336 K/CMM 208-675 9689 /mm3 Jan 17, hemoglobin, blood HGB 13.1 g/dL 12.0-16.0 2013Jan 17, hematocrit, blood HCT 38.0 % 36.0-48.0 2013Jan 17, platelet count PLATELETS 336 K/CMM 317-305 4557 /mm3 Jan 17, sodium, serum SODIUM 140 MEQ/L 748-005 9920 mmol/L Jan 17, potassium, serum POTASSIUM 3.8 [...] Jan 17, sodium, serum SODIUM 140 MEQ/L 820-075 2634 mmol/L Jan 17, potassium, serum POTASSIUM 3.8 [...]
--- OUTSIDE RECORDS SUMMARY | 2018-07-31 17:56 | XMS REPORT | Continuity of Care Document ---
:1980 Author Organization Interface Problems Problem Status Onset Classification Date Comments Source Date Reported Anxiety Resolved Problem 12/23/2017 Medical states 6 Group Low back Resolved Problem 12/23/2017 Data migrated Medical pain<sup>4</s 4 from Group up> Centricity on 12/03/14. LOW BACK PAIN Active Condition 01/17/2014 Medical 4 Group Asthma<sup>1< Active Problem 12/23/2017 Data migrated Medical /sup> from [facility] Centricity on 12/03/14. Epilepsy Active Problem 12/23/2017 Medical Group Epilepsy<sup> Active Problem 12/23/2017 Data migrated Medical 2</sup> from [facility] Centricity on 12/03/14. Insomnia<sup> Active Problem [...] day, # 14 cap, 0 Refill(s), Pharmacy: [place] [id number] 200 ACTUAT 180 Active Albuterol 0.09 microgram=2 018 Medical MG/ACTUAT Metered puff, Group Dose Inhaler INHALER, [ProAir HFA] Q4H, PRN wheezing, coughing, or shortness of breath, # 1 ea, 2 Refill(s), Pharmacy: [place] [id number] Oseltamivir 75 MG 75 mg, PO, No Longer Oral Capsule Q12H, X 5 Active 018 Medical [Tamiflu] day, # 10 Group cap, 0 Refill(s), Pharmacy: [facility] 256 Oseltamivir 75 MG 75 mg, PO, Inactive Oral Capsule Q12H, X 5 018 Medical [Tamiflu] day, # 10 Group cap, 0 Refill(s), Pharmacy: [facility] 343 ZOLPIDEM TARTRATE 1 po qhs [...] Data drugs<sup>1< allergy migrated Medical /sup> from [facility] on 02/02/15. Originally documented as SULFA. ciprofloxaci Assertion Pruritic Drug Active n rash, NOS allergy Medical Group ibuprofen<ramirez Assertion Drug Active Data p>2</sup> allergy migrated Medical from [facility] on 11/04/14. Originally documented as ADVIL. cephalexin<s Assertion Drug Active Data up>3</sup> allergy migrated Medical from [facility] on 11/04/14. Originally documented as CEPHALEXIN . aspirin Assertion vomiting Drug Active allergy Medical Group Keflex Assertion Propensity Active to adverse Medical reactions Group to drug clindamycin Assertion Drug Active allergy Medical Group SULFA Drug SULFA allergy Medical Group AUGMENTIN [...] 3.8 3.5 - 5.1 01/17/ MEQ/L 2013 [facility] mmol/L Group Chemistry CREATININE 0.6 0.5 - [...] Provider Date Date Visit [facility] Report [id number] 01/17 Supa 690 , Medical Medical MD Group Group [facility] Office [id number] 01/17 [facility] Visit 270 , Medical Medical MD Group Group [place] [facility] [id number] TREVOR02/14 [facility] [place] Outpatient [id number] ADILIA 10/22 [facility] [place] Outpatient [id number] TREVOR08/14 [facility] [place] Outpatient [id number] ADILIA 09/23 [facility] [place] Outpatient [id number] ADILIA 10/25 Formerly named [facility] [place] Outpatient [id number] TREVOR11/20 [facility] [place] Outpatient [id number] TREVOR12/13 [facility] [place] Outpatient [id number] ADILIA 01/13 [facility] [place] Outpatient [id number] ADILIA 02/07 [facility] [id number] ADILIA 02/21 [facility] [id number] ADILIA 02/28 [facility] [id number] TREVOR 04/08 [facility] [place] [facility] [id number] ADILIA 04/15 [facility] [id number] ADILIA 05/[address] [facility] [place] Outpatient [id number] ADILIA 05/13 [facility] [place] [facility] [id number] ROSI 07/[address] [facility] Outpatient [id number] VINCENT 07/[address] [facility] [place] MG Outpatient [id number] Vincent 07/14 07/15 Primary Estrada /2017 [facility] MG Phone [id number] 07/17 07/19 Primary Message /2017 [facility] Outpatient [id number] TREVOR 07/[address] [facility] Outpatient [id number] Trevor 07/25 07/26 Primary Janecek /2017 [facility] MG Phone [id number] 09/15 09/17 Primary Message /2017 [facility] Outpatient [id number] ABIEL 11/[address] [facility] [place] Outpatient [id number] ABIEL 11/[address] [facility] Outpatient [id number] ABIEL 12/[address] [facility] [place] Outpatient [id number] ABIEL 04/[address] [facility] [place] Outpatient [id number] ABIEL 07/[address] [facility] [place] Outpatient [id number] ABIEL 07/[address] [facility] Outpatient [id number] ABIEL 10/09 [facility] [place] Procedures Procedure Code Date Perfomer Comments Source smoking/tobacco 01/17/2014 yes Medical cessation, patient Group education and counseling LEEP procedure of [id number] Medical cervix Group Tonsillectomy [id number] Medical Group
--- OUTSIDE RECORDS SUMMARY | 2018-07-31 17:57 | XMS REPORT ---
:1980 Author Organization [facility] Address [address] [place] [id number] Care Team Providers Name Role Phone Unavailable Unavailable Unavailable Problems This patient has no known problems. Allergies, Adverse Reactions, Alerts This patient has no known allergies or adverse reactions. Medications This patient has no known medications.
--- OUTSIDE RECORDS SUMMARY | 2018-07-31 17:57 | XMS REPORT | Continuity of Care Document ---
:1980 Author Organization [facility] Care Team Providers Name Role Phone MD Pete, Trevor Unavailable Unavailable Insurance Providers Payer name Policy type / Policy ID Covered alliance party ID Policy Sosa Coverage type [place]OVITAS SOLUTIONS UNSPECIFIED REMIT PAYOR [[id number]] [place]: [place]UTIONS UNSPECIFIED REMIT PAYOR [[id number]] [place] - TRADITIONAL UNSPECIFIED REMIT PAYOR [[id number]] UNSPECIFIED REMIT [place]YOR [[id number]] [place] TM[place] - TRADITIONAL UNSPECIFIED REMIT PAYOR [[id number]] [place] TM[place] - TRADITIONAL UNSPECIFIED REMIT PAYOR [[id number]] [place] TMHP - TRADITIONAL UNSPECIFIED REMIT PAYOR [[id number]] [place] TMHP - TRADITIONAL UNSPECIFIED REMIT PAYOR [[id number]] [place] TMHP - TRADITIONAL UNSPECIFIED REMIT PAYOR [[id number]] [place] TMHP - TRADITIONAL UNSPECIFIED REMIT PAYOR [[id number]] [place] - TMHP - TRADITIONAL UNSPECIFIED REMIT PAYOR [[id number]] [place] TMHP - TRADITIONAL UNSPECIFIED REMIT PAYOR [[id number]] [place] TM[place] - TRADITIONAL UNSPECIFIED REMIT PAYOR [[id number]] [place]: [place] TM[place] - TRADITIONAL UNSPECIFIED REMIT PAYOR [[id number]] [employer] [place] - COMMUN[place] - STAR PL[place] - TMHP - TRADITIONAL UNSPECIFIED REMIT PAYOR [[id number]] [place] - TMHP - TRADITIONAL UNSPECIFIED REMIT PAYOR [[id number]] Encounters Encounter Performer Location Date Lab Report Trevor Freeman MD [facility] Jan Allergies, Adverse Reactions, Alerts Type [...] 2013Jan 17, platelet count PLATELETS 336 K/CMM 495-859 3935 /mm3 Jan 17, hemoglobin, blood HGB 13.1 g/dL 12.0-16.0 2013Jan 17, hematocrit, blood HCT 38.0 % 36.0-48.0 2013Jan 17, platelet count PLATELETS 336 K/CMM 244-166 1071 /mm3 Jan 17, sodium, serum SODIUM 140 MEQ/L 819-393 8440 mmol/L Jan 17, potassium, serum POTASSIUM 3.8 [...] Jan 17, sodium, serum SODIUM 140 MEQ/L 463-407 6460 mmol/L Jan 17, potassium, serum POTASSIUM 3.8 [...]
[2018-07-31] MEDS ORDERED: NA CHLORIDE 0.9% 1,000 ML ONE (18:29)
[2018-07-31] MEDS ORDERED: MORPHINE 4 MG/ML SYR ONE (18:29)
[2018-07-31] MEDS ORDERED: ONDANSETRON 4 MG/2 ML VIAL ONE (18:29)
[2018-07-31 18:40] LABS: Absolute Lymphocytes (CBC) 2.6 K/uL (0.7-4.9); Absolute Monocytes 0.5 K/uL (0.1-1.3); Absolute Neutrophil 4.7 K/uL (1.8-8.0); Basophils % 0.9 % (0-1.3); Eosinophils % 1.2 % (0-4.4); Hematocrit 39.7 % (36.0-45.0); Lymphocytes % 32.5 % (15.3-44.8); MPV 7.7 fL (7.6-11.3); RBC Red Blood Cell Count 4.07 M/uL (3.86-4.86)
[2018-07-31 18:53] LABS: ALT/SGPT 28 U/L (12-78); AST/SGOT 14 U/L (15-37); Albumin 4.2 g/dL (3.4-5.0); Alkaline Phosphatase 85 U/L (45-117); BUN Blood Urea Nitrogen 13 mg/dL (7-18); Bicarbonate 25 mmol/L (21-32); Bilirubin Direct < 0.1 mg/dL (0-0.2); Bilirubin Total 0.1 mg/dL (0.2-1.0); Glucose Level 92 mg/dL (74-106); Lipase 109 U/L (73-393); Potassium 3.8 mmol/L (3.5-5.1); Protein, Total 7.6 g/dL (6.4-8.2); Sodium Level 140 mmol/L (136-145)
[2018-07-31 19:03] LABS: Urine Blood NEGATIVE (NEG); Urine Glucose NEGATIVE (NEG); Urine Protein NEGATIVE (NEG); Urine Specific Gravity 1.025 (1.005-1.030)
[2018-07-31 19:04] LABS: Urine Bacteria 20-50 /HPF (<20); Urine Culture Reflex Order NOT NEEDED; Urine RBC <5 /HPF (NONE SEEN)
--- NOTE | 2018-07-31 21:41 | RAD REPORT ---
EXAM DESCRIPTION: CT - Abdomen Pelvis W Contrast - 07/31/2018 9:12 pm CLINICAL HISTORY: Abdominal pain. Right lower quadrant pain COMPARISON: March 2018 TECHNIQUE: Computed axial tomography of the abdomen and pelvis was obtained. 100 cc Isovue-300 is ad ministered intravenously. Oral contrast was given. There was extravasation of IV contrast into the ar m during the examination. The arm was elevated and cold compresses applied after the procedure. All CT scans are performed using dose optimization technique as appropriate and may include automated exposure control or mA/KV adjustment according to patient size. FINDINGS: The liver, pancreas and adrenals appear unremarkable. Splenic granulomata are seen. A 1 millimeter nonobstructing left renal calculus is present. Right kidney appears unremarkable. The appendix is normal caliber. There is no evidence of diverticulitis A 3.8 centimeter left ovarian cyst without significant free fluid Small umbilical hernia IMPRESSION: A 3.8 centimeter left ovarian cyst without significant free fluid
[2018-07-31] MEDS ORDERED: KETOROLAC 30 MG/ML INJ ONE (22:04)
--- NOTE | 2018-07-31 22:43 | ER ---
Nurse's Notes [facility] Name: Dionne Ventura Age: 38 yrs Sex: Female : 1980 Arrival Date: 07/31/2018 Time: 17:57 Bed 23 Private MD: Brady Acevedo H Diagnosis: Lower abdominal pain, unspecified;Other ovarian cysts Presentation: 07/31 17:57 Presenting complaint: Patient states: RLQ pain that radiates down to the RLE and right sv flank. Not urinating as much. Transition of care: patient was not received from another setting of care. Onset of symptoms is unknown. Care prior to arrival: None. 17:57 Method Of Arrival: Ambulatory sv 17:57 Acuity: TRINIDAD 3 sv 18:33 Risk Assessment: Do you want to hurt yourself or someone else? Patient reports no mg2 desire to harm self or others. Initial Sepsis Screen: Does the patient meet any 2 criteria? No. Patient's initial sepsis screen is negative. Does the patient have a suspected source of infection? No. Patient's initial sepsis screen is negative. STEWARD RACETRACK: 23:00 lmp unknown mg2 Historical: - Allergies: 17:58 Augmentin; sv 17:58 Ciprofloxacin; sv 17:58 Clindamycin; sv 17:58 PENICILLINS; sv 17:58 Sulfa (Sulfonamide Antibiotics); sv - Home Meds: 22:17 clonazepam 1 mg Oral tab 1 tab 3 times per day for Epilepsy and Anxiety [Active]; mg2 oxcarbazepine 600 mg Oral tab 2 times per day for epilepsy [Active]; Ventolin HFA 90 mcg/actuation Nebulizer HFAA 2 puffs every 6 hours [Active]; Zoloft 50 mg Oral tab 1 tab once daily [Active]; - PMHx: 17:58 Anxiety; epilepsy; Asthma; sv - PSHx: 17:58 ; Tonsillectomy; sv - Immunization history:: Flu vaccine status is unknown. - Social history:: Smoking status: unknown. - Ebola Screening: : No symptoms or risks identified at this time. Screenin:33 Abuse screen: Denies threats or abuse. Denies injuries from another. Nutritional mg2 screening: No deficits noted. Tuberculosis screening: No symptoms or risk factors identified. Fall Risk IV access (20 points). Assessment: 18:31 General: Appears in no apparent distress. comfortable, Behavior is calm, cooperative. mg2 Pain: Complains of pain in RLQ Pain radiates to right leg Pain currently is 9 out of 10 on a pain scale. Quality of pain is described as aching, Pain began gradually, 2-3 days ago. Is intermittent. Neuro: Level of Consciousness is awake, alert, obeys commands, Oriented to person, place, time, situation. Cardiovascular: Capillary refill < 3 seconds Patient's skin is warm and dry. Respiratory: Airway is patent Respiratory effort is even, unlabored, Respiratory pattern is regular, symmetrical. GI: Abdomen is round non-distended. GI: Reports lower abdominal pain. : Urine is clear. EENT: No signs and/or symptoms were reported regarding the EENT system. Derm: Skin is intact, is healthy with good turgor, Skin is pink, warm \T\ dry. normal. Musculoskeletal: Circulation, motion, and sensation intact. Capillary refill < 3 seconds. 19:53 Reassessment: Patient appears in no apparent distress at this time. Patient and/or mg2 family updated on plan of care and expected duration. Pain level reassessed. Patient is alert, oriented x 3, equal unlabored respirations, skin warm/dry/pink. 21:05 Reassessment: patient sent to ct scan. mg2 22:16 Reassessment: ultrasound at bedside now. mg2 Vital Signs: 17:58 BP 121 / 83; Pulse 73; Resp 20; Temp 97.6; Pulse Ox 96% ; Weight 74.39 kg; Height 5 ft. sv 2 in. (157.48 cm); Pain 9/10; 19:53 BP 126 / 75; Pulse 59; Resp 18; Pulse Ox 100% ; Pain 4/10; mg2 21:26 BP 118 / 75; Pulse 66; Resp 18; Pulse Ox 99% on R/A; ea 23:00 BP 120 / 79; Pulse 69; Resp 18; Pulse Ox 100% ; Pain 2/10; mg2 17:58 Body Mass Index 30.00 (74.39 kg, 157.48 cm) sv ED Course: 17:57 Patient arrived in ED. sb2 17:57 Brady Acevedo DO is Private Physician. sb2 17:58 Triage completed. sv 18:00 Bernardino Lama, JEFRY is Primary Nurse. mg2 18:00 Den Navarro PA is PHCP. cp 18:00 Jaswant Judge MD is Attending Physician. cp 18:00 Arm band placed on. sv 18:29 No provider procedures requiring assistance completed. Inserted saline lock: 22 gauge mg2 in right wrist, using aseptic technique. Blood collected. 18:33 Patient has correct armband on for positive identification. Placed in gown. Bed in low mg2 position. Side rails up X 1. Pulse ox on. NIBP on. Door closed. Warm blanket given. 20:[address] nj 21:13 CT completed. Patient tolerated procedure well. Patient moved back from CT. hi 21:13 CT Abd/Pelvis - W/Contrast In Process Unspecified. EDMS 23:00 IV discontinued, intact, bleeding controlled, No redness/swelling at site. Pressure mg2 dressing applied. 23:04 US Transvaginal Study (Probe) In Process Unspecified. EDMS Administered Medications: 18:29 Drug: NS 0.9% 1000 ml Route: IV; Rate: 1 bolus; Site: right wrist; mg2 18:29 Drug: morphine 2 mg Route: IVP; Site: right wrist; mg2 19:52 Follow up: Response: No adverse reaction; Marked relief of symptoms mg2 18:29 Drug: Zofran 4 mg Route: IVP; Site: right wrist; mg2 19:52 Follow up: Response: No adverse reaction; Marked relief of symptoms mg2 21:34 Drug: morphine 2 mg Route: IVP; Site: right wrist; ea 22:36 Follow up: Response: No adverse reaction; Marked relief of symptoms mg2 21:56 Drug: TORadol 30 mg Route: IVP; Site: right wrist; mg2 22:37 Follow up: Response: No adverse reaction; Marked relief of symptoms mg2 Outcome: 22:42 Discharge ordered by . cp 23:01 Discharged to home via wheelchair. mg2 23:01 Condition: stable 23:01 Discharge instructions given to patient, Instructed on discharge instructions, follow up and referral plans. medication usage, Demonstrated understanding of instructions, follow-up care, medications, Prescriptions given X 3. 23:01 Patient left the ED. mg2 Signatures: Dispatcher [employer] EDMS Brigid Field RN RN sv Page, Corey, PA PA cp Jordan, Nathan nj Antunez, Elena, RN RN ea Billeau, Sheri sb2 Bernardino Lama, RN RN mg2
--- NOTE | 2018-07-31 22:43 | EDPHYS ---
Physician Documentation [facility] Name: Dionne Ventura Age: 38 yrs Sex: Female : 1980 Arrival Date: 07/31/2018 Time: 17:57 Bed 23 Private MD: Brady Acevedo H ED Physician Jaswant Judge HPI: 07/31 18:15 This 38 yrs old Female presents to ER via Ambulatory with complaints of RT cp SIDE PAIN. 18:15 The patient presents with abdominal pain right lower quadrant. Onset: The cp symptoms/episode began/occurred 2-3 days ago. 18:15 The symptoms radiate to the right flank. Associated signs and symptoms: Pertinent cp positives: vaginal discharge, Pertinent negatives: blood in stools, constipation, diarrhea, dysuria, fever, hematuria, vomiting. Modifying factors: the symptoms are aggravated by pressure. Severity of pain: in the emergency department the pain is actually worse moderately. 18:15 The symptoms are described as achy. 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 - Social history:: Smoking status: unknown. - Ebola Screening: : No symptoms or risks identified at this time. ROS: 18:20 Constitutional: Negative for body aches, chills, fever, poor PO intake. cp 18:20 Eyes: Negative for injury, pain, redness, and discharge. cp 18:20 ENT: Negative for drainage from ear(s), ear pain, sore throat, difficulty swallowing, difficulty handling secretions. 18:20 Cardiovascular: Negative for chest pain, edema, palpitations. 18:20 Respiratory: Negative for cough, shortness of breath, wheezing. 18:20 Abdomen/GI: Positive for abdominal pain, nausea, Negative for vomiting, diarrhea, constipation, black/tarry stool, rectal bleeding. 18:20 Back: Positive for radiated pain, of the right low back, Negative for injury or acute deformity, decreased range of motion. 18:20 : Positive for vaginal discharge, Negative for urinary symptoms, vaginal bleeding. 18:20 Skin: Negative for cellulitis, rash. 18:20 Neuro: Negative for altered mental status, headache, weakness. 18:20 All other systems are negative. Exam: 18:30 Constitutional: The patient appears in no acute distress, alert, awake, cp non-diaphoretic, non-toxic, well developed, well nourished, uncomfortable. 18:30 Head/Face: Normocephalic, atraumatic. cp 18:30 Eyes: Periorbital structures: appear normal, Conjunctiva: normal, no exudate, no injection, Sclera: no appreciated abnormality, Lids and lashes: appear normal, bilaterally. 18:30 ENT: External ear(s): are unremarkable, Ear canal(s): are normal, clear, TM's: bulging, is not appreciated, bilaterally, dullness, bilaterally, erythema, is not appreciated, bilaterally, Nose: is normal, Mouth: Lips: moist, Oral mucosa: pink and intact, moist, Posterior pharynx: is normal, airway is patent, no erythema, no exudate. 18:30 Neck: ROM/movement: is normal, is supple, without pain, no range of motions limitations, no meningismus, no nuchal rigidity. 18:30 Chest/axilla: Inspection: normal, Palpation: is normal, no crepitus, no tenderness. 18:30 Cardiovascular: Rate: normal, Rhythm: regular. 18:30 Respiratory: the patient does not display signs of respiratory distress, Respirations: normal, no use of accessory muscles, no retractions, no splinting, no tachypnea, labored breathing, is not present, Breath sounds: are clear throughout, no decreased breath sounds, no stridor, no wheezing. 18:30 Abdomen/GI: Inspection: abdomen appears normal, Bowel sounds: active, all quadrants, Palpation: soft, in all quadrants, moderate abdominal tenderness, in the suprapubic area and right lower quadrant, rebound tenderness, is not appreciated, voluntary guarding, is elicited in the suprapubic area and right lower quadrant. 18:30 Back: pain, that is mild, of the right low back, ROM is normal, CVA tenderness, is absent. 18:30 Skin: cellulitis, is not appreciated, no rash present. 18:30 Neuro: Orientation: to person, place \T\ time. Mentation: is normal, Cerebellar function: is grossly normal, Motor: moves all fours, strength is normal, Sensation: is normal, Gait: is steady. 21:50 : Pelvic Exam: The exam is refused by the patient/guardian. The risks and cp consequences are understood by the patient. Vital Signs: 17:58 BP 121 / 83; Pulse 73; Resp 20; Temp 97.6; Pulse Ox 96% ; Weight 74.39 kg; Height 5 ft. sv 2 in. (157.48 cm); Pain 9/10; 19:53 BP 126 / 75; Pulse 59; Resp 18; Pulse Ox 100% ; Pain 4/10; mg2 21:26 BP 118 / 75; Pulse 66; Resp 18; Pulse Ox 99% on R/A; ea 23:00 BP 120 / 79; Pulse 69; Resp 18; Pulse Ox 100% ; Pain 2/10; mg2 17:58 Body Mass Index 30.00 (74.39 kg, 157.48 cm) sv MDM: 18:00 Patient medically screened. cp 19:00 Differential diagnosis: Ectopic , non-specific abd pain, Ovarian Torsion, cp Pelvic Inflammatory Disease, Pyelonephritis, Tubal Ovarian Abcess, Ureterolithiasis, urinary tract infection. 22:40 Data reviewed: vital signs, nurses notes, lab test result(s), radiologic studies, CT cp scan, ultrasound. 22:40 Counseling: I had a detailed discussion with the patient and/or guardian regarding: the cp historical points, exam findings, and any diagnostic results supporting the discharge/admit diagnosis, lab results, radiology results, the need for outpatient follow up, a family practitioner, an OB/Gyne specialist, to return to the emergency department if symptoms worsen or persist or if there are any questions or concerns that arise at home. Response to treatment: the patient's symptoms have mildly improved after treatment. Special discussion: Based on the patient's Hx, exam, and Dx evaluation, there is no indication for emergent surgery or inpatient Tx. It is understood by the patient/guardian that if the Sx's persist or worsen they need to return immediately for re-evaluation. ED course: VSS. CT abdomen/pelvis results discussed that reported negative appendicitis. Will discharge to home with RX for oral Macrobid and continued monitoring. 07/31 18:13 Order name: Basic Metabolic Panel 07/31 18:13 Order name: CBC with Diff 07/31 18:13 Order name: Creatinine for Radiology 07/31 18:13 Order name: Hepatic Function 07/31 18:13 Order name: Lipase 07/31 18:13 Order name: Urine Microscopic Only 07/31 18:32 Order name: Urine Dipstick--Ancillary (enter results) [facility] 07/31 18:32 Order name: Urine --Ancillary (enter results) [facility] 07/31 18:45 Order name: CBC with Automated Diff; Complete Time: 19:02 [facility] 07/31 19:02 Interpretation: Reviewed. 07/31 18:51 Order name: Creatinine (Radiology Only); Complete Time: 19:02 [facility] 07/31 18:53 Order name: Basic Metabolic Panel; Complete Time: 19:02 [facility] 07/31 19:02 Interpretation: Normal except: CL 108. 07/31 18:53 Order name: Liver (Hepatic) Function; Complete Time: 19:02 [facility] 07/31 19:02 Interpretation: Normal except: AST 14; BILIT 0.1. 07/31 18:53 Order name: Lipase; Complete Time: 19:02 [facility] 07/31 19:04 Order name: Urine --Ancillary; Complete Time: 19:38 [facility] 07/31 18:13 Order name: IV Saline Lock; Complete Time: 18:29 07/31 18:13 Order name: Labs collected and sent; Complete Time: 18:29 07/31 18:13 Order name: CT Abd/Pelvis - W/Contrast; Complete Time: 21:45 07/31 18:13 Order name: Urine Dipstick-Ancillary (obtain specimen); Complete Time: 18:29 07/31 18:13 Order name: Urine Test (obtain specimen); Complete Time: 18:29 07/31 19:04 Order name: Urine Dipstick-Ancillary; Complete Time: 19:38 EDMS 07/31 19:05 Order name: Urine Microscopic Only; Complete Time: 19:38 EDMS 07/31 19:38 Interpretation: Normal except: UBACT 20-50; SQEPI >50. cp 07/31 21:49 Order name: Transvaginal Study (Probe) cp Administered Medications: 18:29 Drug: NS 0.9% 1000 ml Route: IV; Rate: 1 bolus; Site: right wrist; mg2 18:29 Drug: morphine 2 mg Route: IVP; Site: right wrist; mg2 19:52 Follow up: Response: No adverse reaction; Marked relief of symptoms mg2 18:29 Drug: Zofran 4 mg Route: IVP; Site: right wrist; mg2 19:52 Follow up: Response: No adverse reaction; Marked relief of symptoms mg2 21:34 Drug: morphine 2 mg Route: IVP; Site: right wrist; ea 22:36 Follow up: Response: No adverse reaction; Marked relief of symptoms mg2 21:56 Drug: TORadol 30 mg Route: IVP; Site: right wrist; mg2 22:37 Follow up: Response: No adverse reaction; Marked relief of symptoms mg2 Disposition: 07/31/18 22:42 Discharged to Home. Impression: Lower abdominal pain, unspecified, Other ovarian cysts. - Condition is Stable. - Discharge Instructions: Abdominal Pain, Adult, Ovarian Cyst. - Prescriptions for Naprosyn 500 mg Oral Tablet - take 1 tablet by ORAL route 2 times per day take with food; 20 tablet. Tramadol 50 mg Oral Tablet - take 1 tablet by ORAL route every 8 hours as needed; 15 tablet. Macrobid 100 mg Oral Capsule - take 1 capsule by ORAL route every 12 hours for 7 days; 14 capsule. - Medication Reconciliation Form, Thank You Letter, Antibiotic Education, Prescription Opioid Use form. - Follow up: Private Physician; When: 2 - 3 days; Reason: Recheck today's complaints. - Problem is new. - Symptoms have improved. Addendum: 08/03/2018 07:03 Co-signature as Attending Physician, Jaswant yousif a2 Signatures: Dispatcher [employer] Brigid Jones RN RN sv Page, Corey, PA PA cp Antunez, Elena, RN RN ea Alzahri, Mohammad, MD MD ma2 Bernardino Lama RN RN mg2 Corrections: (The following items were deleted from the chart) 07/31 23:01 22:42 07/31/2018 22:42 Discharged to Home. Impression: Lower abdominal pain, mg2 unspecified; Other ovarian cysts. Condition is Stable. Forms are Medication Reconciliation Form, Thank You Letter, Antibiotic Education, Prescription Opioid Use. Follow up: Private Physician; When: 2 - 3 days; Reason: Recheck today's complaints. Problem is new. Symptoms have improved. cp
--- NOTE | 2018-08-01 07:50 | RAD REPORT ---
EXAM DESCRIPTION: US - Transvaginal Study Probe - 07/31/2018 11:03 pm CLINICAL HISTORY: Lower abdominal pain, preliminary findings provided at the time of the study. COMPARISON: None. TECHNIQUE: Endovaginal sonography was performed. FINDINGS: Both ovaries are identified. A 3 centimeter thin-walled anechoic left ovarian cyst is pres ent. No cyst rupture or hemorrhage findings seen. No solid mass of either ovary. No adnexal abnormali ties. Doppler evaluation shows good blood flow within the ovarian stroma. No urinary bladder abnormality seen. A 5-6 mm endometrial stripe is identified. No endometrial mass, polyp or abnormal fluid collections s een. Uterine size is normal. Myometrium is somewhat heterogeneous along the posterior margin. A poste rior fundal fibroid is possible but not confirmed. No blood or fluid in the cul de sac. IMPRESSION: Left ovarian 3 centimeter benign appearing cyst. No significant or suspicious left adnex al finding otherwise noted. No right ovarian or right adnexal suspicious finding. Uterine heterogeneity that may represent a posterior fundal fibroid. Significant acute uterine findin g is not seen.
== END 2018-07-31 23:01 | disposition home or self-care (01) ==
LOC: ER 17:54
DX: N83.299 Other ovarian cyst, unspecified side (principal); G40.909 Epilepsy, unspecified, not intractable, without status epilepticus; F41.9 Anxiety disorder, unspecified; J45.909 Unspecified asthma, uncomplicated; Z88.0 Allergy status to penicillin; Z88.1 Allergy status to other antibiotic agents; Z88.2 Allergy status to sulfonamides; Z88.3 Allergy status to other anti-infective agents
CPT/HCPCS: 36415; 74177; 76830; 80048; 80076; 81025; 83690; 85025; 96374; 96375; 99284; J2405; J7030; Q9967; 81003; 81015

== ENCOUNTER 2018-12-14 19:00 | Emergency (ER) | payer OTHER ==
--- OUTSIDE RECORDS SUMMARY | 2018-12-14 19:04 | XMS REPORT | Continuity of Care Document ---
:1980 Author Organization Interface Problems Problem Status Onset Classification Date Comments Source Date Reported Anxiety Resolved Problem 11/20/2018 Medical states 6 Group,Misc her Neuro Low back Resolved Problem 11/20/2018 Data migrated Medical pain<sup>4</s 4 from [facility] Group,Misc up> Centricity on her Neuro 12/03/14. LOW BACK PAIN Active Condition 01/17/2014 Medical 4 Group Asthma<sup>1< Active Problem 11/20/2018 Data migrated Medical /sup> from Group,Misc Centricity on her Neuro 12/03/14. Epilepsy Active Problem 11/20/2018 Medical Group,Mis her Neuro Epilepsy<sup> Active Problem 11/20/2018 Data migrated Medical 2</sup> from Group,Misc [facility]ricity on her Neuro 12/03/14. Hand pain Active Problem 11/20/2018 [facility], Medical Group Insomnia<sup> Active Problem 11/20/2018 Data migrated Medical 3</sup> from Group,Misc Centricity on her Neuro 12/03/14. Resolved Problem 11/20/2018 Medical Group,[facility] Carpal tunnel Active Problem 11/20/2018 [facility] syndrome, Neuro left upper limb EPILEPSY Active Condition 01/17/2014 Medical Group ASTHMA Active Condition 01/17/2014 Medical Group INSOMNIA Active Condition 01/17/2014 Medical Group Medications Medication Details Route Status Patient Ordering Order Source Instructions Provider Date lamotrigine 25 MG 25 mg=1 Active [facility] Tablet tab, PO, 019 Neuro [Lamictal] BID, # 60 tab, 3 Refill(s), Pharmacy: [facility] [id number] Clonazepam 1 MG 1 mg=1 tab, Active [facility] Tablet PO, TID, # 019 Neuro [Klonopin] 90 tab, 2 Refill(s), called to pharmacy OXcarbazepine 600 600 mg=1 Active [facility] mg oral tablet tab, PO, 019 Neuro TID, # 90 tab, 3 Refill(s), Pharmacy: [facility] 149 OXcarbazepine 600 See No Longer [facility] mg oral tablet Instruction Active 018 Neuro s, TAKE 1.5 TABLET BY MOUTH TWICE A DAY, # 90 tab, 3 Refill(s), Pharmacy: [facility] 149 Sertraline 50 MG 50 mg=1 Active [facility] Tablet tab, PO, 018 Neuro [Zoloft] Daily, # 30 tab, 0 Refill(s) Symbicort 160/4.5 2 puff, Active [facility] inhalation INHALATION, 018 Neuro aerosol with BID, 0 adapter Refill(s) Clonazepam 0.5 MG 0.5 mg=1 No Longer [facility] Tablet tab, PO, Active 018 Neuro [Klonopin] Bedtime, X 30 day, # 30 tab, 3 Refill(s), called to pharmacy Nitrofurantoin 100 mg=1 No Longer MH 100 MG Oral cap, PO, Active 018 Medical Capsule BID, X 7 Group [Macrobid] day, # 14 cap, 0 Refill(s), Pharmacy: [facility] [id number] 200 ACTUAT 180 Active Albuterol 0.09 microgram=2 018 Medical MG/ACTUAT Metered puff, Group Dose Inhaler INHALER, [ProAir HFA] Q4H, PRN wheezing, coughing, or shortness of breath, # 1 ea, 2 Refill(s), Pharmacy: [facility] 343 Oseltamivir 75 MG 75 mg, PO, No Longer MH Oral Capsule Q12H, X 5 Active 018 Medical [Tamiflu] day, # 10 Group cap, 0 Refill(s), Pharmacy: [facility] 256 Oseltamivir 75 MG 75 mg, PO, Inactive MH Oral Capsule Q12H, X 5 018 Medical [Tamiflu] day, # 10 Group cap, 0 Refill(s), Pharmacy: [facility] 343 ZOLPIDEM TARTRATE 1 po qhs [...] type Reported penicillins Assertion Rash Drug Active [facility] allergy Neuro sulfa Assertion vomiting Drug Active Data [facility] drugs<sup>1< allergy migrated Neuro /sup> from [facility] on 02/02/15. Originally documented as SULFA. ciprofloxaci Assertion Pruritic Drug Active [facility] n rash, NOS allergy Neuro ibuprofen<ramirez Assertion Drug Active Data [facility] p>2</sup> allergy migrated Neuro from [facility] on 11/04/14. Originally documented as ADVIL. cephalexin<s Assertion Drug Active Data [facility] up>3</sup> allergy migrated Neuro from [facility] on 11/04/14. Originally documented as CEPHALEXIN . aspirin Assertion vomiting Drug Active [facility] allergy Neuro Keflex Assertion Propensity Active [facility] to adverse Neuro reactions to drug clindamycin Assertion Drug Active [facility] allergy Neuro SULFA Drug SULFA allergy Medical Group AUGMENTIN [...] SGPT (ALT) 17 U/L 0 - 65 072013 Medical Group Chemistry SGOT (AST) 14 U/L [...] Group Hematology PLATELETS 336 133 - 450 K/CM 2013 Medical /mm3 Group Hematology HGB 13.1 12.0 - 16.0 g/dL 2013 Medical Group Hematology HCT 38.0 % 36.0 - 48.0 2013 Medical Group Hematology PLATELETS 336 133 - 450 K/[facility] 2013 Medical /mm3 Group Vital Signs Vital Sign Value Date Comments Source Weight 74.545 11/18/2018 [facility] Height 157.48 cm 11/18/2018 [facility] BMI Calculated 30.06 11/18/2018 [facility] Systolic (mm Hg) 94 [facility] Diastolic (mm Hg) 70 11/18/2018 [facility] Heart Rate 76 11/18/2018 [facility] Respitory Rate 16 11/18/2018 [facility] BMI Calculated 29.54 04/10/2018 [facility] Weight 70.909 04/10/2018 [facility] Height 154.94 cm 04/10/2018 [facility] Heart Rate 79 04/10/2018 [facility] Systolic (mm Hg) 110 04/10/2018 [facility] Diastolic (mm Hg) 81 04/10/2018 [facility] Height 154.94 cm 07/25/2017 Medical Group Weight [...] Type Number For Provider Date Date Visit [facility] Lab Report [id number] Trevor 01/17 01/17 [facility] 2690 [facility] [place] [facility] Office [id number] Trevor 01/17 01/17 [facility] Visit 227 Medical Medical MD [facility] [place] Outpatient [id number] 02/14 [facility] [place] Outpatient [id number] DAILIA 10/22 [facility] [place] Outpatient [id number] 08/14 [facility] Outpatient [id number] ADILIA 09/23 [facility] [place] Outpatient [id number] ADILIA 10/25 [facility] [place] [facility] [id number] TREVOR 11/20 [facility] [id number] TREVOR 12/13 [facility] Outpatient [id number] ADILIA 01/13 [facility]patient [id number] ADILIA 02/07 [facility] [place] Outpatient [id number] ADILIA 02/21 [facility]patient [id number] ADILIA 02/28 [facility]patient [id number] TREVOR 04/08 [facility]patient [id number] ADILIA 04/15 [facility] [place] Outpatient [id number] ADILIA 05/06 Active [facility] Outpatient [id number] ADILIA 05/13 [facility] [place] Outpatient [id number] ROSI 07/02 [facility] [place] Outpatient [id number] VINCENT 07/14 [facility] [place] [facility] Outpatient [id number] Vincent 07/14 07/15 Primary Estrada /2017 [facility] Phone [id number] 07/17 07/19 Primary Message /2017 [facility] Outpatient [id number] TREVOR 07/25 [facility] Outpatient [id number] Trevor 07/25 07/26 Primary Janecek /2017 [facility] Phone [id number] 09/15 09/17 Primary Message /2017 [facility] Outpatient [id number] ABIEL 11/05 [facility] [place] Outpatient [id number] ABIEL 11/25 Active [facility] Outpatient [id number] ABIEL 12/12 [facility] [id number] 03/31 04/02 Primary Medical /2017 [facility] Outpatient [id number] ABIEL 04/10 [facility] [place] [facility] Outpatient [id number] Abiel 04/10 04/11 [facility] Krell /2017 [facility] Phone [id number] 04/22 04/24 [facility] Message /2017 [facility] [place] [facility] Outpatient [id number] ABIEL 07/10 Active [facility] Outpatient [id number] ABIEL 07/17 [facility] [place] Outpatient [id number] Abiel 10/09 [facility] [place] [facility] Phone [id number] 11/12 11/14 [facility] Message /2018 [facility] Phone [id number] 11/12 11/14 [facility] Message /2018 [facility] Phone [id number] 11/12 11/14 [facility] Message /2018 [facility] [place] [facility] Outpatient [id number] Abiel 11/18 [facility] [place] [facility] Outpatient [id number] Abiel 11/18 11/19 [facility]2018 [facility] [place] [facility] Outpatient [id number] Abiel 01/20 [facility] [place] Procedures Procedure Code Date Perfomer Comments Source smoking/tobacco 14 01/17/2014 yes Medical cessation, patient Group education and counseling LEEP procedure of [id number] Medical cervix Group Tonsillectomy [id number] Medical Group LEEP procedure [place] [id number] [facility] cervix Tonsillectomy [id number] [facility]
--- OUTSIDE RECORDS SUMMARY | 2018-12-14 19:04 | XMS REPORT | Summary of Care ---
:1980 Author Organization [facility] [place] Address [address] [place] [address]- Care Team Providers Name Role Phone Galdino Hill Primary Care Physician Encounter [facility] Katelynnmilesvenu_dick(FIN) [id number] Date(s): 04/22/18 - 04/23/18 [facility] [place] [address] [place] [address]- [phone] Vital Signs No data available for this section Problem List Condition Effective Dates Status Health Status Informant Anxiety states(Confirmed) < 10/23/15 Resolved Asthma1 Active Epilepsy(Confirmed) Active Epilepsy2 Active Hand pain(Confirmed) Active Insomnia3 Active Low back pain4 01/17/14 Resolved (Confirmed) Resolved 1Data migrated from [facility] Centricity on [...] on 11/04/14. Originally documented as CEPHALEXIN. Medications OXcarbazepine 600 mg oral tablet See Instructions, TAKE 1.5 TABLET BY MOUTH TWICE A DAY, # 90 tab, 3 Refill(s), Pharmacy: [facility] [facility] [id number] Start Date: 04/22/18 Stop Date: 07/17/18 Status: Discontinued Results No data available for this section [...] 4; Started [age] age: [age]; entered on: 10/09/18 Assessment and Plan No data available for this section
--- OUTSIDE RECORDS SUMMARY | 2018-12-14 19:05 | XMS REPORT | Summary of Care ---
:1980 Author Organization [facility] [place] Address [address] [place] [address]- Care Team Providers Name Role Phone Toribio Estrada Primary Care Physician Encounter [facility] Katelynnmilesvenu_dick(FIN) [id number] Date(s): 11/12/18 - 11/13/18 [facility] [address], [place] [address]- [phone] Vital Signs No data available for this [...] on 11/04/14. Originally documented as CEPHALEXIN. Medications KlonoPIN 1 mg oral tablet 1 mg=1 tab, PO, TID, # 90 tab, 2 Refill(s), called to pharmacy Start Date: 11/12/18 Stop Date: 02/10/19 Status: OrderedOXcarbazepine 600 mg oral tablet 600 mg=1 tab, PO, TID, # 90 tab, 3 Refill(s), Pharmacy: [facility] [id number] Start Date: 11/12/18 Stop Date: 03/12/19 Status: Ordered Results No data available for this section [...]
--- OUTSIDE RECORDS SUMMARY | 2018-12-14 19:05 | XMS REPORT | Summary of Care ---
:1980 Author Organization [facility] Neu[facility] [place] Address [address] [place] [address]- Care Team Providers Name Role Phone Toribio Estrada Primary Care Physician Encounter [facility] Carmelitar_dick(FIN) [id number] Date(s): 11/12/18 - 11/13/18 [facility] [address], [place] [address]- [phone] Vital Signs No data available for this [...]
--- OUTSIDE RECORDS SUMMARY | 2018-12-14 19:05 | XMS REPORT | Continuity of Care Document ---
:1980 Author Organization [facility] Care Team Providers Name Role Phone MD Pete, Trevor Unavailable Unavailable Insurance Providers Payer name Policy type / Policy ID Covered libertarian ID Policy Sosa Coverage type [place] [employer] UNSPECIFIED REMIT PAYOR [[id number]] [place]: [place] [employer] U[place]PECIFIED REMIT PAYOR [[id number]] [place] - TRADITIONAL UNSPECIFIED REMIT PAYOR [[id number]] UNSPECIFIED [place]IT PAY[place] [[id number]] [place] TM[place] TRADITIONAL UNSPECIFIED [place]IT [place] [[id number]] [place] TM[place] TRADITIONAL UNSPECIFIED REMIT [place]YOR [[id number]] [place] TM[place] TRADITIONAL UNSPECIFIED REMIT PAYOR [[id number]] [place] - TMHP - TRADITIONAL UNSPECIFIED REMIT PAYOR [[id number]] [place] ACS - TMHP - TRADITIONAL UNSPECIFIED REMIT PAYOR [[id number]] [place] TMHP - TRADITIONAL UNSPECIFIED REMIT PAYOR [[id number]] [place] TM[place] - TRADITIONAL UNSPECIFIED REMIT PAYOR [[id number]] [place] TM[place] - TRADITIONAL UNSPECIFIED REMIT PAYOR [[id number]] [place] TM[place] TRADITIONAL UNSPECIFIED REMIT [place]YOR [[id number]] [place]: [place] TM[place] - TRADITIONAL UNSPECIFIED REMIT PAYOR [[id number]] [employer] [place] - COMMUN[place] STAR [place] - TMHP - TRADITIONAL UNSPECIFIED REMIT PAYOR [[id number]] [place] TMHP - TRADITIONAL UNSPECIFIED REMIT PAYOR [[id number]] Encounters Encounter Performer Location Date Office Visit Trevor Freeman MD [facility] Jan 17, 2014 Allergies, Adverse Reactions, Alerts [...] 2013Jan 17, platelet count PLATELETS 336 K/CMM [phone] /mm3 Jan 17, hemoglobin, blood HGB 13.1 g/dL 12.0-16.0 2013Jan 17, hematocrit, blood HCT 38.0 % 36.0-48.0 2013Jan 17, platelet count PLATELETS 336 K/CMM 508-064 4088 /mm3 Jan 17, sodium, serum SODIUM 140 MEQ/L 077-084 5660 mmol/L Jan 17, potassium, serum POTASSIUM 3.8 [...] Jan 17, sodium, serum SODIUM 140 MEQ/L [phone] mmol/L Jan 17, potassium, serum POTASSIUM 3.8 [...]
--- OUTSIDE RECORDS SUMMARY | 2018-12-14 19:05 | XMS REPORT | Summary of Care ---
:1980 Author Organization [facility] Address [address] [place] [address]- Care Team Providers Name Role Phone Toribio Estrada Primary Care Physician Encounter HQ Encntr_alilois(FIN) [id number] Date(s): 11/12/18 - 11/13/18 [facility] [place] [address] [place], [place] [address]- [phone] Vital Signs No data available for this [...]
--- OUTSIDE RECORDS SUMMARY | 2018-12-14 19:05 | XMS REPORT | Summary of Care ---
:1980 Author Organization [facility] [place] Address [address] [place] [address]- Encounter HQ Carmelitar_dick(FIN) [id number] Date(s): 04/10/18 - 04/10/18 [facility] [address] [place], [place] [address]- [phone] Discharge Disposition: Home or Self Care Attending Physician: Galdino Hill MD Referring Physician: Galdino Hill MD Vital Signs Most recent to oldest [Reference Range]: 1 Height 154.94 cm (04/10/18 8:52 AM) Blood Pressure [90-140/60-90 mmHg] 110/81 mmHg (04/10/18 8:52 AM) Peripheral Pulse Rate [60-100 bpm] 79 bpm (04/10/18 8:52 AM) Weight 70.909 kg (04/10/18 8:52 AM) Body Mass Index 29.54 m2 (04/10/18 8:52 AM) Problem List Condition Effective Dates Status Health [...] 11/04/14. Originally documented as CEPHALEXIN. Medications KlonoPIN 0.5 mg oral tablet 0.5 mg=1 tab, PO, Bedtime, X 30 day, # 30 tab, 3 Refill(s), called to pharmacy Start Date: 04/07/18 Stop Date: 06/05/18 Status: CompletedSymbicort 160/4.5 inhalation aerosol with adapter 2 puff, INHALATION, BID, 0 Refill(s) Start Date: 04/10/18 Status: OrderedZoloft 50 mg oral tablet 50 mg=1 tab, PO, Daily, # 30 tab, 0 Refill(s) Start Date: 04/10/18 Status: Ordered Results No data available for [...]
--- OUTSIDE RECORDS SUMMARY | 2018-12-14 19:05 | XMS REPORT | Summary of Care ---
:1980 Author Organization [facility] Address [address] [place] [address]- Care Team Providers Name Role Phone Toribio Estrada Primary Care Physician Encounter HQ Carmelitalondon(JUANA) [id number] Date(s): 11/18/18 - 11/18/18 [facility] [place] [address] [place] [address]- [phone] Discharge Disposition: Home or Self Care Attending Physician: Galdino Hill MD Referring Physician: Galdino Hill MD Vital Signs Most recent to oldest [Reference Range]: 1 Height 157.48 cm (11/18/18 1:37 PM) Blood Pressure [90-140/60-90 mmHg] 94/70 mmHg (11/18/18 1:37 PM) Respiratory Rate [14-20 BRMIN] 16 BRMIN (11/18/18 1:37 PM) Peripheral Pulse Rate [60-100 bpm] 76 bpm (11/18/18 1:37 PM) Weight 74.545 kg (11/18/18 1:37 PM) Body Mass Index 30.06 m2 (11/18/18 1:37 PM) Problem List Condition Effective Dates Status Health Status Informant Anxiety states(Confirmed) < 10/23/15 Resolved Asthma1 Active Carpal tunnel syndrome, left upper Active limb(Confirmed) Epilepsy(Confirmed) Active Epilepsy2 Active Hand pain(Confirmed) Active [...] on 11/04/14. Originally documented as CEPHALEXIN. Medications LaMICtal 25 mg oral tablet 25 mg=1 tab, PO, BID, # 60 tab, 3 Refill(s), Pharmacy: [facility] [facility] [id number] Start Date: 11/18/18 Stop Date: 03/18/19 Status: Ordered Results No data available for [...] 4; Started [age] age: [age]; entered on: 11/18/18 Assessment and Plan No data available for this section
--- OUTSIDE RECORDS SUMMARY | 2018-12-14 19:05 | XMS REPORT | Summary of Care ---
:1980 Author Organization [facility] [place] Address [address] [place] [address]- Encounter HQ Encntr_alias(FIN) [id number] Date(s): 03/31/18 - 04/01/18 [facility] [place] [address] [place] [address] [phone] Vital Signs No data available for this [...]
--- OUTSIDE RECORDS SUMMARY | 2018-12-14 19:06 | XMS REPORT ---
:1980 [facility] Address [address] [place] [address] Care Team Providers Name Role Phone Unavailable Unavailable Unavailable Problems This patient has no known problems. Allergies, Adverse Reactions, Alerts This patient has no known allergies or adverse reactions. Medications This patient has no known medications.
--- OUTSIDE RECORDS SUMMARY | 2018-12-14 19:06 | XMS REPORT | Continuity of Care Document ---
:1980 Author Organization [facility] Care Team Providers Name Role Phone MD Pete, Trevor Unavailable Unavailable Insurance Providers Payer name Policy type / Policy ID Covered alliance party ID Policy Sosa Coverage type [place] [employer] UNSPECIFIED REMIT PAYOR [[id number]] [place]: [place] UNSPECIFIED REMIT PAYOR [[id number]] [place] TRADITIONAL UNSPECIFIED REMIT PAYOR [[id number]] UNSPECIFIED REMIT PAYOR [[id number]] [place] - TRADITIONAL UNSPECIFIED REMIT PAYOR [[id number]] [place] - TRADITIONAL UNSPECIFIED REMIT PAYOR [[id number]] [place] - TRADITIONAL UNSPECIFIED REMIT PAYOR [[id number]] [place] TM[place] - TRADITIONAL UNSPECIFIED REMIT PAYOR [[id number]] [place] TM[place] - TRADITIONAL UNSPECIFIED REMIT PAYOR [[id number]] [place] TM[place] - TRADITIONAL UNSPECIFIED REMIT PAYOR [[id number]] [place] - TMHP - TRADITIONAL UNSPECIFIED REMIT PAYOR [[id number]] [place] TM[place] - TRADITIONAL UNSPECIFIED REMIT PAYOR [[id number]] [place] - TRADITIONAL UNSPECIFIED REMIT PAYOR [[id number]] [place] TM[place] - TRADITIONAL UNSPECIFIED REMIT PAYOR [[id number]] [employer] [place]: [place] - TM[place] - TRADITIONAL UNSPECIFIED REMIT PAYOR [[id number]] [place] TM[place] - TRADITIONAL UNSPECIFIED REMIT PAYOR [[id number]] Encounters Encounter Performer Location Date Lab Report Trevor Freeman MD [facility] Jan Allergies, Adverse Reactions, [...] 2013Jan 17, platelet count PLATELETS 336 K/CMM 657-503 3550 /mm3 Jan 17, hemoglobin, blood HGB 13.1 g/dL 12.0-16.0 2013Jan 17, hematocrit, blood HCT 38.0 % 36.0-48.0 2013Jan 17, platelet count PLATELETS 336 K/CMM 758-087 9258 /mm3 Jan 17, sodium, serum SODIUM 140 MEQ/L 472-732 7391 mmol/L Jan 17, potassium, serum POTASSIUM 3.8 [...] Jan 17, sodium, serum SODIUM 140 MEQ/L [phone] mmol/L Jan 17, potassium, serum POTASSIUM 3.8 [...]
[2018-12-14 20:17] LABS: Urine Blood NEGATIVE (NEG); Urine Glucose NEGATIVE (NEG); Urine Protein NEGATIVE (NEG)
[2018-12-14] MEDS ORDERED: MAGNE/ALUM HYDROXD 30 ML UCUP ONE (20:24)
[2018-12-14] MEDS ORDERED: LIDOCAINE VISCOUS 2% SOLN 15 ML UDC ONE (20:24)
--- NOTE | 2018-12-14 20:42 | EDPHYS ---
Physician Documentation [facility] Name: Dionne Ventura Age: 38 yrs Sex: Female : 1980 Arrival Date: 12/14/2018 Time: 19:06 Bed 10 Private MD: ED Physician Jaswant Judge HPI: 12/14 20:10 This 38 yrs old Female presents to ER via Ambulatory with complaints of Sore kb Throat. 20:10 The patient presents with sore throat. The patient describes throat pain as constant. kb Onset: The symptoms/episode began/occurred yesterday. Severity of symptoms: At their worst the symptoms were moderate, in the emergency department the symptoms are unchanged. Modifying factors: The symptoms are alleviated by nothing, the symptoms are aggravated by swallowing, Patient's oral intake status: limited fluid intake, limited food intake. Associated signs and symptoms: Pertinent positives: chills, Sore throat. The patient has not experienced similar symptoms in the past. The patient has not recently seen a physician. Historical: - Allergies: 19:27 Augmentin; aj 19:27 Ciprofloxacin; aj 19:27 Clindamycin; aj 19:27 PENICILLINS; aj 19:27 Sulfa (Sulfonamide Antibiotics); aj - Immunization history:: Adult Immunizations unknown. - Social history:: Smoking status: Patient/guardian denies using tobacco. ROS: 20:07 Neck: Negative for injury, pain, and swelling, Cardiovascular: Negative for chest pain, kb palpitations, and edema, Respiratory: Negative for shortness of breath, cough, wheezing, and pleuritic chest pain, Abdomen/GI: Negative for abdominal pain, nausea, vomiting, diarrhea, and constipation, MS/Extremity: Negative for injury and deformity, Skin: Negative for injury, rash, and discoloration, Neuro: Negative for headache, weakness, numbness, tingling, and seizure. 20:07 Constitutional: Positive for chills, Negative for body aches, fatigue, fever, malaise, poor PO intake, weight loss. 20:07 ENT: Positive for sore throat. Exam: 20:07 Constitutional: This is a well developed, well nourished patient who is awake, alert, kb and in no acute distress. Head/Face: Normocephalic, atraumatic. Neck: Trachea midline, no thyromegaly or masses palpated, and no cervical lymphadenopathy. Supple, full range of motion without nuchal rigidity, or vertebral point tenderness. No Meningismus. Chest/axilla: Normal chest wall appearance and motion. Nontender with no deformity. No lesions are appreciated. Cardiovascular: Regular rate and rhythm with a normal S1 and S2. No gallops, murmurs, or rubs. Normal PMI, no JVD. No pulse deficits. Respiratory: Lungs have equal breath sounds bilaterally, clear to auscultation and percussion. No rales, rhonchi or wheezes noted. No increased work of breathing, no retractions or nasal flaring. Abdomen/GI: Soft, non-tender, with normal bowel sounds. No distension or tympany. No guarding or rebound. No evidence of tenderness throughout. Skin: Warm, dry with normal turgor. Normal color with no rashes, no lesions, and no evidence of cellulitis. MS/ Extremity: Pulses equal, no cyanosis. Neurovascular intact. Full, normal range of motion. Neuro: Awake and alert, GCS 15, oriented to person, place, time, and situation. Cranial nerves II-XII grossly intact. Motor strength 5/5 in all extremities. Sensory grossly intact. Cerebellar exam normal. Normal gait. 20:07 ENT: External ear(s): are unremarkable, Ear canal(s): are normal, TM's: are normal, Nose: is normal, Mouth: is normal, Posterior pharynx: Airway: normal, no evidence of obstruction, Tonsils: bilaterally enlarged, Uvula: normal, midline, swelling, that is mild, erythema, that is mild, exudate, is not appreciated, peritonsillar mass, is not appreciated. Vital Signs: 19:27 BP 131 / 73; Pulse 63; Resp 19; Temp 98.0; Pulse Ox 99% on R/A; Weight 74.39 kg; Height aj 5 ft. 2 in. (157.48 cm); 20:51 ed1 19:27 Body Mass Index 30.00 (74.39 kg, 157.48 cm) aj 20:51 Unable to obtain discharge vitals. See nurses notes ed1 MDM: 19:44 Patient medically screened. kb 20:06 Data reviewed: vital signs, nurses notes. Data interpreted: Pulse oximetry: on room air kb is 99 %. Interpretation: normal. 20:41 Counseling: I had a detailed discussion with the patient and/or guardian regarding: the kb historical points, exam findings, and any diagnostic results supporting the discharge/admit diagnosis, lab results, the need for outpatient follow up, a family practitioner, to return to the emergency department if symptoms worsen or persist or if there are any questions or concerns that arise at home. 12/14 19:36 Order name: Strep; Complete Time: 20:41 kb 12/14 20:11 Order name: Urine Dipstick--Ancillary (enter results); Complete Time: 20:18 mw2 12/14 20:11 Order name: Urine --Ancillary (enter results); Complete Time: 20:18 mw2 12/14 20:44 Order name: Throat Culture EDUT Administered Medications: 20:12 Drug: GI Cocktail without - (Maalox Suspension 30 ml, Lidocaine Liquid 2 % 15 ed1 ml) Route: PO; Disposition: 12/15 02:20 Co-signature as Attending Physician, Jaswant Judge MD. ma2 Disposition: 12/14/18 20:41 Discharged to Home. Impression: Acute pharyngitis. - Condition is Stable. - Discharge Instructions: Pharyngitis, [id number], Sore Throat, [id number]. - Medication Reconciliation Form, Thank You Letter, Antibiotic Education, Prescription Opioid Use form. - Follow up: Emergency Department; When: As needed; Reason: Worsening of condition. Follow up: Private Physician; When: 2 - 3 days; Reason: Recheck today's complaints, Continuance of care, Re-evaluation by your physician. Signatures: Dispatcher [employer] EDMS Chiquita Pham, JUDY-C BUTTON MAKER-Jeanne Carlton RN RN Oksana Prakash RN RN ed1 Jaswant Judge MD MD ma2 Corrections: (The following items were deleted from the chart) 12/14 20:10 20:07 ENT: External ear(s): are unremarkable, Ear canal(s): are normal, TM's: are kb normal, Nose: is normal, Mouth: is normal, Posterior pharynx: Airway: normal, no evidence of obstruction, Tonsils: enlarged on the left, Uvula: normal, midline, swelling, that is mild, erythema, that is mild, exudate, is not appreciated, peritonsillar mass, is not appreciated, kb 20:53 20:41 12/14/2018 20:41 Discharged to Home. Impression: Acute pharyngitis. Condition is ed1 Stable. Forms are Medication Reconciliation Form, Thank You Letter, Antibiotic Education, Prescription Opioid Use. Follow up: Emergency Department; When: As needed; Reason: Worsening of condition. Follow up: Private Physician; When: 2 - 3 days; Reason: Recheck today's complaints, Continuance of care, Re-evaluation by your physician. kb
--- NOTE | 2018-12-14 20:42 | ER ---
Nurse's Notes [facility] Name: Dionne Ventura Age: 38 yrs Sex: Female : 1980 Arrival Date: 12/14/2018 Time: 19:06 Bed 10 Private MD: Diagnosis: Acute pharyngitis Presentation: 12/14 19:27 Presenting complaint: Patient states: Sore throat for 2 days. Care prior to arrival: aj None. 19:27 Method Of Arrival: Ambulatory aj 19:27 Acuity: TRINIDAD 4 aj Triage Assessment: 19:27 General: Appears in no apparent distress. comfortable, Behavior is calm, cooperative, aj appropriate for age. Pain: Complains of pain in left aspect of posterior pharynx and right aspect of posterior pharynx. EENT: Reports pain when swallowing. Respiratory: Airway is patent Respiratory effort is even, unlabored, Respiratory pattern is regular, symmetrical. Derm: Skin is intact, is healthy with good turgor, Skin is pink, warm \T\ dry. normal. Historical: - Allergies: 19:27 Augmentin; aj 19:27 Ciprofloxacin; aj 19:27 Clindamycin; aj 19:27 PENICILLINS; aj 19:27 Sulfa (Sulfonamide Antibiotics); aj - Immunization history:: Adult Immunizations unknown. - Social history:: Smoking status: Patient/guardian denies using tobacco. Screenin:53 Abuse screen: Denies threats or abuse. Denies injuries from another. Nutritional ed1 screening: No deficits noted. Tuberculosis screening: No symptoms or risk factors identified. Fall Risk None identified. Assessment: 19:53 General: Appears uncomfortable, Behavior is calm, cooperative. Pain: Complains of pain ed1 in throat Pain does not radiate. Pain currently is 8 out of 10 on a pain scale. Quality of pain is described as burning, Pain began 2-3 days ago. Is continuous. Neuro: Level of Consciousness is awake, alert, obeys commands, Oriented to person, place, time, situation. Cardiovascular: Denies chest pain, Heart tones S1 S2 present. Respiratory: Airway is patent Respiratory effort is even, unlabored, Respiratory pattern is regular, symmetrical, Breath sounds are clear bilaterally. Denies cough, shortness of breath. GI: No signs and/or symptoms were reported involving the gastrointestinal system. : No signs and/or symptoms were reported regarding the genitourinary system. EENT: Throat is reddened. Derm: Skin is intact, is healthy with good turgor, Skin is dry, Skin is normal, Skin temperature is warm. Musculoskeletal: Circulation, motion, and sensation intact. Range of motion: intact in all extremities. 20:51 Reassessment: Unable to reassess. Pt left room after speaking with Chiquita. No ed1 discharge instructions were given. Vital Signs: 19:27 BP 131 / 73; Pulse 63; Resp 19; Temp 98.0; Pulse Ox 99% on R/A; Weight 74.39 kg; Height aj 5 ft. 2 in. (157.48 cm); 20:51 ed1 19:27 Body Mass Index 30.00 (74.39 kg, 157.48 cm) aj 20:51 Unable to obtain discharge vitals. See nurses notes ed1 ED Course: 19:06 Patient arrived in ED. es 19:27 Triage completed. aj 19:27 Arm band placed on right wrist. Patient placed in waiting room, Patient notified of wait time. 19:42 Chiquita Pham FNP-C is PHCP. kb 19:42 Jaswant Judge MD is Attending Physician. kb 19:53 Oksana Cuellar, JEFRY is Primary Nurse. ed1 19:53 Patient has correct armband on for positive identification. Call light in reach. ed1 20:51 No provider procedures requiring assistance completed. Patient did not have IV access ed1 during this emergency room visit. Administered Medications: 20:12 Drug: GI Cocktail without - (Maalox Suspension 30 ml, Lidocaine Liquid 2 % 15 ed1 ml) Route: PO; Outcome: 20:41 Discharge ordered by . kb 20:51 Discharged to home ed1 20:51 Condition: good 20:51 Discharge instructions given to Unable to give discharge instructions 20:53 Patient left the ED. ed1 Signatures: Chiquita Pham FNP-C FNP-Jeanne Carlton RN RN aj Salyer, Edna Oksana Cuellar RN RN ed1
== END 2018-12-14 20:53 | disposition home or self-care (01) ==
LOC: ER 19:00
DX: J02.9 Acute pharyngitis, unspecified (principal); Z88.1 Allergy status to other antibiotic agents; Z88.0 Allergy status to penicillin; Z88.3 Allergy status to other anti-infective agents; Z88.2 Allergy status to sulfonamides
CPT/HCPCS: 81003; 81025; 87070; 87081; 99283

== ENCOUNTER 2019-09-05 14:09 | Emergency (ER) | payer OTHER ==
--- OUTSIDE RECORDS SUMMARY | 2019-09-05 14:12 | XMS REPORT ---
:1980 [facility] Address [address] [place] [address] Care Team Providers Name Role Phone Unavailable Unavailable Unavailable Problems This patient has no known problems. Allergies, Adverse Reactions, Alerts This patient has no known allergies or adverse reactions. Medications This patient has no known medications.
--- OUTSIDE RECORDS SUMMARY | 2019-09-05 14:13 | XMS REPORT | Summary of Care ---
:1980 Author Organization [facility] Address [address] [place] [address] Care Team Providers Name Role Phone Pcp, Patient Does Not Have A Primary Care Provider Reason for Visit Reason Comments Rx Concern/Question Medication Interaction Notification Encounter Details Date Type Department Care Team Description 07/20/2019 Telephone [facility] Women[facility] SinShari MD Rx Concern/Question Healthcare- [address] ([address], [address] Notification) [place] [id number] [phone] Allergies Active Allergy Reactions Severity Noted Date Comments Amoxicillin-Pot Clavulanate Hives 07/30/2017 Clindamycin Hives 07/30/2017 Penicillins Nausea and/or Vomiting 07/30/2017 Sulfa (Sulfonamide Antibiotics) Nausea and/or Vomiting 07/30/2017 documented as of this encounter (statuses as of 07/21/2019) Medications Medication Sig Dispensed Refills Start Date End Date Status albuterol 90 Inhale 2 Puffs 8.5 g 1 12/22/2017 Active mcg/actuation inhaler every 6 (six) hours as needed for Wheezing or Shortness of Breath. ipratropium 17 Inhale 2 Puffs 3 12.9 g 5 2018 Active mcg/actuation (three) times inhalerIndications: daily. Moderate persistent asthma, unspecified whether complicated clonazePAM 0.5 mg 0 03/04/2018 Active tablet OXcarbazepine 600 mg 0 03/20/2018 Active tablet fluconazole (DIFLUCAN) Take 1 tablet by 1 tablet 1 07/29/2018 Active 200 mg mouth daily. tabletIndications: Vaginal yeast infection meloxicam 15 mg tablet 0 11/20/2018 Active lamoTRIgine 25 mg 0 11/18/2018 Active tablet budesonide-formoterol Inhale 2 Puffs 2 10.2 g 0 03/17/2019 Active (SYMBICORT) 80-4.5 (two) times daily. mcg/actuation inhaler SERTraline (ZOLOFT) 50 Take 1 tablet by 30 tablet 0 03/17/2019 Active mg tabletIndications: mouth daily. depression Betamethasone Valerate Apply 2-3g to the 3 03/11/2019 Active 0.12 % foam affected area 2-4x/daily or as directed. Max 10 g/day clonazePAM 1 mg tablet TK 1 T PO TID 2 03/18/2019 Active norgestimate-ethinyl Take 1 tablet by 1 Package 12 03/31/2019 Active estradiol 0.25-35 mouth daily. mg-mcg per tabletIndications: Encounter for BCP ( control pills) initial prescription acyclovir 400 mg TAKE ONE TABLET BY 15 tablet 0 07/13/2019 Active tablet MOUTH THREE TIMES A DAY FOR 5 DAYS FOR OUTBREAK documented as of this encounter (statuses as of 07/21/2019) Active Problems Problem Noted Date wound infection 03/24/2018 delivery delivered 03/18/2018 Vaginal bleeding in , third trimester 03/16/2018 38 weeks gestation of 03/16/2018 High risk , antepartum 03/12/2018 Seizure disorder during in third trimester 03/12/2018 Herpes simplex type 2 (HSV-2) infection affecting , antepartum 2017 Obesity (BMI 30-39.9) 03/02/2018 Asthma complicating , antepartum 02/27/2018 Round ligament pain 01/19/2018 Excessive weight gain 01/19/2018 Herpes simplex virus type 2 (HSV-2) infection affecting in 2017 second trimester History of herpes genitalis 09/25/2017 Moderate persistent asthma with acute exacerbation 09/25/2017 Seizure disorder 09/25/2017 Anxiety disorder, unspecified type 09/25/2017 Bipolar affective disorder, remission status unspecified 09/25/2017 History of substance use 09/25/2017 Drug abuse, marijuana, quit 08/04/2017 Missed menses 08/04/2017 documented as of this encounter (statuses as of 07/21/2019) Resolved Problems Problem Noted Date Resolved Date Threatened premature labor in third trimester 03/03/2018 03/24/2018 36 weeks gestation of 03/03/2018 03/24/2018 documented as of this encounter (statuses as of 07/21/2019) Immunizations Name Administration Dates Next Due Influenza Virus Vaccine Quad .5 mL IM 6+ MO 04/14/2018 Rho (d) Immune Globulin 12/17/2017, 07/31/2017 Tdap 01/19/2018 documented as of this encounter Social History Tobacco Use Types Packs/Day Years Used Date Former Smoker Cigarettes Smokeless Tobacco: Never Used Alcohol Use Drinks/Week oz/Week Comments No Sex Assigned at Date Recorded Not on file Job Start Date Occupation Industry Not on file Not on file Not on file Travel History Travel Start Travel End No recent travel history available. documented as of this encounter Last Filed Vital Signs Not on filedocumented in this encounter Plan of Treatment Health Maintenance Due Date Last Done Comments PNEUMOCOCCAL 0-64 YEARS COMBINED SERIES (1 of - 01/27/1988 PPSV23) INFLUENZA VACCINE (#1) 2019 04/14/2018 PAP SMEAR 08/21/2022 08/21/2017 DTaP,Tdap,and Td Vaccines (2 - Td) 01/20/2028 01/19/2018 documented as of this encounter Results Not on filedocumented in this encounter Insurance Payer Benefit Plan / Subscriber ID Effective Dates Phone Address Type Group MEDICARE MEDICARE PART xxxxxxxxxxx 2005-Óscar [id number] [place] [id number] documented as of this encounter
--- OUTSIDE RECORDS SUMMARY | 2019-09-05 14:13 | XMS REPORT | Summary of Care ---
:1980 Author Organization [facility] Address [address] [place] [address] Care Team Providers Name Role Phone Pcp, Patient Does Not Have A Primary Care Provider Reason for Visit Reason Comments Notification Encounter Details Date Type Department Care Team Description 08/18/2019 Telephone [facility] Women's SinShari MD Notification Healthcare- [address] [facility], [address] [place] [address] [place] [phone] Allergies Active Allergy Reactions Severity Noted Date Comments Amoxicillin-Pot Clavulanate Hives 07/30/2017 Clindamycin Hives 07/30/2017 Penicillins Nausea and/or Vomiting 07/30/2017 Sulfa (Sulfonamide Antibiotics) Nausea and/or Vomiting 07/30/2017 documented as of this encounter (statuses as of 08/18/2019) Medications Medication Sig Dispensed Refills Start Date [...] as of this encounter (statuses as of 08/18/2019) Active Problems Problem Noted Date wound infection [...] as of this encounter (statuses as of 08/18/2019) Resolved Problems Problem Noted Date Resolved Date Threatened premature labor in third trimester 03/03/2018 03/24/2018 36 weeks gestation of 03/03/2018 03/24/2018 documented as of this encounter (statuses as of 08/18/2019) Immunizations Name Administration Dates Next Due Influenza [...] PNEUMOCOCCAL 0-64 YEARS COMBINED SERIES (1 of 1 - 01/27/1988 PPSV23) INFLUENZA VACCINE (#1) 2019 04/14/2018 PAP SMEAR 08/21/2022 08/21/2017 DTaP,Tdap,and Td Vaccines (2 - Td) 01/20/2028 01/19/2018 documented as of this encounter Results Not on filedocumented in this encounter Insurance Payer Benefit Plan / Subscriber ID Effective Dates Phone Address Type Group MEDICARE MEDICARE PART xxxxxxxxxxx 2005-Óscar [phone] [address] Medicare A & B t 2 [id number] [place] [id number] documented as of this encounter
--- OUTSIDE RECORDS SUMMARY | 2019-09-05 14:13 | XMS REPORT | Summary of Care ---
:1980 Author Organization [facility] Address [address] [place] [address] Care Team Providers Name Role Phone Pcp, Patient Does Not Have A Primary Care Provider Reason for Visit Reason Comments Refill Request Encounter Details Date Type Department Care Team Description 03/17/2019 Case Management [facility] Women's SinShari MD Refill Request [facility]- [address] [place] [address] [place], [place] [id number] Allergies Active Allergy Reactions Severity Noted Date Comments Amoxicillin-Pot Clavulanate Hives 07/30/2017 Clindamycin Hives 07/30/2017 Penicillins Nausea and/or Vomiting 07/30/2017 Sulfa (Sulfonamide Antibiotics) Nausea and/or Vomiting 07/30/2017 documented as of this encounter (statuses as of 03/17/2019) Medications Medication Sig Dispensed Refills Start Date End Date Status albuterol 90 Inhale 2 Puffs 8.5 g 1 12/22/2017 Active mcg/actuation every 6 (six) inhaler hours as needed for Wheezing or Shortness of Breath. ipratropium 17 Inhale 2 Puffs 12.9 g 5 2018 Active mcg/actuation 3 (three) times inhalerIndications: daily. Moderate persistent asthma, unspecified whether complicated clonazePAM 0.5 mg 0 03/04/2018 Active tablet OXcarbazepine 600 0 03/20/2018 Active mg tablet fluconazole Take 1 tablet 1 tablet 1 07/29/2018 Active (DIFLUCAN) 200 mg by mouth daily. tabletIndications: Vaginal yeast infection acyclovir 400 mg Take one tablet 15 tablet 1 11/13/2018 Active tablet by mouth three times daily X 5 days for outbreak meloxicam 15 mg 0 11/20/2018 Active tablet lamoTRIgine 25 mg 0 11/18/2018 Active tablet budesonide-formoter Inhale 2 Puffs 10.2 g 0 03/17/2019 Active ol (SYMBICORT) 2 (two) times 80-4.5 daily. mcg/actuation inhaler SERTraline (ZOLOFT) Take 1 tablet 30 tablet 0 03/17/2019 Active 50 mg by mouth daily. tabletIndications: depression budesonide-formoter Inhale 2 Puffs 10.2 g 6 2018 Discontinued ol 160-4.5 2 (two) times 9 mcg/actuation daily. inhalerIndications: Moderate persistent asthma, unspecified whether complicated SERTraline (ZOLOFT) Take 1 tablet 30 tablet 6 07/30/2018 Discontinued 50 mg by mouth daily. 9 tabletIndications: depression documented as of this encounter (statuses as of 03/17/2019) Active Problems Problem Noted Date wound infection [...] as of this encounter (statuses as of 03/17/2019) Resolved Problems Problem Noted Date Resolved Date Threatened premature labor in third trimester 03/03/2018 03/24/2018 36 weeks gestation of 03/03/2018 03/24/2018 documented as of this encounter (statuses as of 03/17/2019) Immunizations Name Administration Dates Next Due Influenza [...] filedocumented in this encounter Plan of Treatment Date Type Specialty Care Team Description 03/31/2019 Office Visit Obstetrics & Gynecology Shari Sin MD [address] [place] [address] [place] [address] [phone] Health Maintenance Due Date Last Done Comments INFLUENZA VACCINE (#1) 2019 04/14/2018 PAP SMEAR 08/21/2022 08/21/2017 DTaP,Tdap,and Td Vaccines (2 - Td) 01/20/2028 01/19/2018 PNEUMOCOCCAL 0-64 YEARS COMBINED Aged Out No longer eligible based on SERIES patient's age to complete this topic documented as of this encounter Results Not on filedocumented in this encounter Visit Diagnoses Diagnosis depression Mental disorders of mother, complicating , childbirth, or the puerperium, unspecified as to episode of care documented in this encounter Insurance Payer Benefit Plan / Subscriber ID Effective Dates Phone Address Type Group MEDICARE MEDICARE PART xxxxxxxxxxx 2005-Óscar [phone] [address] Medicare A & B t 2 [id number] [place] [id number] documented as of this encounter
--- OUTSIDE RECORDS SUMMARY | 2019-09-05 14:13 | XMS REPORT | Summary of Care ---
:1980 Author Organization [facility] Address [address] [place] [address] Care Team Providers Name Role Phone Pcp, Patient Does Not Have A Primary Care Provider Reason for Visit Reason Comments Refill Request Encounter Details Date Type Department Care Team Description 07/29/2019 Refill [facility] Women's SinShari MD Refill Request Healthcare- [address] [place] [address], [address] [place] [address] [place] [phone] Allergies Active Allergy Reactions Severity Noted Date Comments Amoxicillin-Pot Clavulanate Hives 07/30/2017 Clindamycin Hives 07/30/2017 Penicillins Nausea and/or Vomiting 07/30/2017 Sulfa (Sulfonamide Antibiotics) Nausea and/or Vomiting 07/30/2017 documented as of this encounter (statuses as of 08/03/2019) Medications Medication Sig Dispensed Refills Start Date [...] as of this encounter (statuses as of 08/03/2019) Active Problems Problem Noted Date wound infection [...] as of this encounter (statuses as of 08/03/2019) Resolved Problems Problem Noted Date Resolved Date Threatened premature labor in third trimester 03/03/2018 03/24/2018 36 weeks gestation of 03/03/2018 03/24/2018 documented as of this encounter (statuses as of 08/03/2019) Immunizations Name Administration Dates Next Due Influenza [...] BOX Medicare A & B t 2 [id number] [place] [id number] documented as of this encounter
--- OUTSIDE RECORDS SUMMARY | 2019-09-05 14:14 | XMS REPORT | Summary of Care ---
:1980 Author Organization [facility] Address [address] [place] [address] Care Team Providers Name Role Phone Pcp, Patient Does Not Have A Primary Care Provider Reason for Visit Reason Comments Notification Encounter Details Date Type Department Care Team Description 08/20/2019 Telephone [facility] Women's SinShari MD Notification Healthcare- [address] [facility], [address] [place] [address] [place] [phone] Allergies Active Allergy Reactions Severity Noted Date Comments Amoxicillin-Pot Clavulanate Hives 07/30/2017 Clindamycin Hives 07/30/2017 Penicillins Nausea and/or Vomiting 07/30/2017 Sulfa (Sulfonamide Antibiotics) Nausea and/or Vomiting 07/30/2017 documented as of this encounter (statuses as of 08/23/2019) Medications Medication Sig Dispensed Refills Start Date [...] as of this encounter (statuses as of 08/23/2019) Active Problems Problem Noted Date wound infection [...] as of this encounter (statuses as of 08/23/2019) Resolved Problems Problem Noted Date Resolved Date Threatened premature labor in third trimester 03/03/2018 03/24/2018 36 weeks gestation of 03/03/2018 03/24/2018 documented as of this encounter (statuses as of 08/23/2019) Immunizations Name Administration Dates Next Due Influenza [...] BOX Medicare A & B t 2 [id number] [place] [id number] documented as of this encounter
--- OUTSIDE RECORDS SUMMARY | 2019-09-05 14:14 | XMS REPORT | Summary of Care ---
:1980 Author Organization [facility] Address [address] [place] [address] Care Team Providers Name Role Phone Pcp, Patient Does Not Have A Primary Care Provider Reason for Visit Reason Comments Refill Request valtrex- patient needs to be seen. Encounter Details Date Type Department Care Team Description 08/24/2019 Telephone [facility] Women's SinShari MD Refill Request Healthcare- [address] (valtrex- patient [address] [place] [address], needs to be seen.) [address] [place] [address] [phone] Allergies Active Allergy Reactions Severity Noted Date Comments Amoxicillin-Pot Clavulanate Hives 07/30/2017 Clindamycin Hives 07/30/2017 Penicillins Nausea and/or Vomiting 07/30/2017 Sulfa (Sulfonamide Antibiotics) Nausea and/or Vomiting 07/30/2017 documented as of this encounter (statuses as of 08/24/2019) Medications Medication Sig Dispensed Refills Start Date [...] as of this encounter (statuses as of 08/24/2019) Active Problems Problem Noted Date wound infection [...] as of this encounter (statuses as of 08/24/2019) Resolved Problems Problem Noted Date Resolved Date Threatened premature labor in third trimester 03/03/2018 03/24/2018 36 weeks gestation of 03/03/2018 03/24/2018 documented as of this encounter (statuses as of 08/24/2019) Immunizations Name Administration Dates Next Due Influenza [...] BOX Medicare A & B t 2 [id number] [place] [phone] documented as of this encounter
--- OUTSIDE RECORDS SUMMARY | 2019-09-05 14:14 | XMS REPORT | Summary of Care ---
:1980 Author Organization [facility] Address [address] [place] [address] Care Team Providers Name Role Phone Pcp, Patient Does Not Have A Primary Care Provider Reason for Visit Reason Comments Refill Request Encounter Details Date Type Department Care Team Description 08/09/2019 Refill [facility] Women's SinShari MD Refill Request Healthcare- [address] [place] [address], [address] [place] [address] [place] [address] [phone] Allergies Active Allergy Reactions Severity Noted Date Comments Amoxicillin-Pot Clavulanate Hives 07/30/2017 Clindamycin Hives 07/30/2017 Penicillins Nausea and/or Vomiting 07/30/2017 Sulfa (Sulfonamide Antibiotics) Nausea and/or Vomiting 07/30/2017 documented as of this encounter (statuses as of 08/10/2019) Medications Medication Sig Dispensed Refills Start Date [...] as of this encounter (statuses as of 08/10/2019) Active Problems Problem Noted Date wound infection [...] as of this encounter (statuses as of 08/10/2019) Resolved Problems Problem Noted Date Resolved Date Threatened premature labor in third trimester 03/03/2018 03/24/2018 36 weeks gestation of 03/03/2018 03/24/2018 documented as of this encounter (statuses as of 08/10/2019) Immunizations Name Administration Dates Next Due Influenza [...] BOX Medicare A & B t 2 [id number] [place] [phone] documented as of this encounter
[2019-09-05 14:57] LABS: Absolute Lymphocytes (CBC) 1.2 K/uL (0.7-4.9); Basophils % 0.5 % (0-1.3); Hematocrit 36.4 % (36.0-45.0); Lymphocytes % 15.3 % (15.3-44.8); MPV 7.5 fL (7.6-11.3); RBC Red Blood Cell Count 3.89 M/uL (3.86-4.86)
--- NOTE | 2019-09-05 15:38 | RAD REPORT ---
EXAM DESCRIPTION: CT - [id number] - 09/05/2019 3:21 pm CLINICAL HISTORY: Trauma, head and neck injury. Headache COMPARISON: No comparisons TECHNIQUE: Axial 5 mm thick images of the head were obtained. Axial 2 mm thick images of the cervical spine were obtained with sagittal and coronal reconstruction images generated and reviewed. All CT scans are performed using dose optimization technique as appropriate and may include automated exposure control or mA/KV adjustment according to patient size. FINDINGS: CT HEAD WITHOUT CONTRAST: No acute hemorrhage, hydrocephalus or extra-axial collection is identified.No areas of brain edema or midline shift. The paranasal sinuses and mastoids are clear.The calvarium is intact. CT CERVICAL SPINE WITHOUT CONTRAST: No fracture or subluxation.Mild lower cervical spondylosis.No prevertebral soft tissues swelling is i dentified. 5 mm pleural abutting nodule right upper lobe posteriorly. IMPRESSION: No acute intracranial or cervical spine findings.
[2019-09-05] MEDS ORDERED: KETOROLAC 30 MG/ML INJ ONE (15:47)
[2019-09-05 16:17] LABS: Protime INR 0.99
[2019-09-05 16:39] LABS: ALT/SGPT 18 U/L (12-78); AST/SGOT 14 U/L (15-37); Albumin 3.5 g/dL (3.4-5.0); Alkaline Phosphatase 87 U/L (45-117); BUN Blood Urea Nitrogen 8 mg/dL (7-18); Bicarbonate 24 mmol/L (21-32); Bilirubin Direct < 0.1 mg/dL (0-0.2); Bilirubin Total 0.2 mg/dL (0.2-1.0); Glucose Level 95 mg/dL (74-106); Potassium 3.8 mmol/L (3.5-5.1); Protein, Total 7.3 g/dL (6.4-8.2); Sodium Level 133 mmol/L (136-145)
[2019-09-05 16:40] LABS: Urine Blood NEGATIVE (NEG); Urine Glucose NEGATIVE (NEG); Urine Protein NEGATIVE (NEG); Urine Specific Gravity 1.025 (1.005-1.030)
[2019-09-05 16:45] LABS: Barbiturates NEGATIVE (NEGATIVE); Benzodiazepines POSITIVE (NEGATIVE); Cocaine NEGATIVE (NEGATIVE); METHAMPHETAM NEGATIVE (NEGATIVE); Methadone NEGATIVE (NEGATIVE); Opiates NEGATIVE (NEGATIVE); Phencyclidine NEGATIVE (NEGATIVE); THC Cannibis NEGATIVE (NEGATIVE)
--- NOTE | 2019-09-05 17:16 | EDPHYS ---
Physician Documentation [facility] Name: Dionne Ventura Age: 39 yrs Sex: Female : 1980 Arrival Date: 09/05/2019 Time: 14:11 Bed 27 Private MD: HAI Physician Den Nogueira HPI: 09/04 14:50 This 39 yrs old Female presents to ER via EMS with complaints of Seizure. pm1 14:50 The patient presents with a history of multiple seizures, a total of 3, the episode(s) pm1 was witnessed, by a significant other, boyfriend. Character of seizure(s): unknown. Witnessed by boyfriend per EMS. No seizures in route. No apparent postictal period per EMS. Seizure onset: just prior to arrival. Context: Contributing factors: unknown. Seizure Hx: Seizure medications: clonazepam, Lamictal, tegretol, Patient reports compliance with medications. Associated injury: The patient did not suffer any apparent associated injury. EMS care: versed, IV. Current symptoms: headache. Patient sees Sergio for seizure management and treatment. Historical: - Allergies: 14:14 Augmentin; iw 14:14 Ciprofloxacin; iw 14:14 Clindamycin; iw 14:14 PENICILLINS; iw 14:14 Sulfa (Sulfonamide Antibiotics); iw - Home Meds: 14:14 clonazepam 1 mg Oral tab 1 tab 3 times per day for Epilepsy and Anxiety [Active]; iw oxcarbazepine 600 mg Oral tab 2 times per day for epilepsy [Active]; Ventolin HFA 90 mcg/actuation Nebulizer HFAA 2 puffs every 6 hours [Active]; Zoloft 50 mg Oral tab 1 tab once daily [Active]; - PMHx: 14:14 Anxiety; Asthma; epilepsy; iw - Immunization history:: Flu vaccine is up to date. - Social history:: Smoking status: Patient/guardian denies using tobacco. - History obtained from: spouse. ROS: 14:50 Constitutional: Negative for fever, chills, and weight loss, Respiratory: Negative for pm1 shortness of breath, cough, wheezing, and pleuritic chest pain. 14:50 Abdomen/GI: Negative for abdominal pain, nausea, vomiting, diarrhea, and constipation, Back: Negative for injury and pain, MS/Extremity: Negative for injury and deformity, Skin: Negative for injury, rash, and discoloration. 14:50 Cardiovascular: Positive for chest pain, Negative for edema, palpitations. 14:50 Neuro: Positive for headache, seizure activity, Negative for numbness, tingling, weakness. 14:50 All other systems are negative. Exam: 14:50 Constitutional: This is a well developed, well nourished patient who is awake, alert, pm1 and in no acute distress. Head/Face: Normocephalic, atraumatic. Cardiovascular: Regular rate and rhythm with a normal S1 and S2. No gallops, murmurs, or rubs. Normal PMI, no JVD. No pulse deficits. Respiratory: Lungs have equal breath sounds bilaterally, clear to auscultation and percussion. No rales, rhonchi or wheezes noted. No increased work of breathing, no retractions or nasal flaring. 14:50 Abdomen/GI: Soft, non-tender, with normal bowel sounds. No distension or tympany. No guarding or rebound. No evidence of tenderness throughout. Back: No spinal tenderness. No costovertebral tenderness. Full range of motion. Skin: Warm, dry with normal turgor. Normal color with no rashes, no lesions, and no evidence of cellulitis. MS/ Extremity: Pulses equal, no cyanosis. Neurovascular intact. Full, normal range of motion. 14:50 Chest/axilla: Inspection: normal, Palpation: tenderness, of the mid-sternal area, that totally reproduces the patient's complaints. 14:50 Neuro: Orientation: is normal, Mentation: is normal, Motor: is normal, moves all fours, Sensation: is normal, no obvious gross deficits. Vital Signs: 14:13 BP 132 / 101; Pulse 88; Resp 20; Temp 98.0; Pulse Ox 97% ; aj1 14:15 BP 132 / 101; Pulse 90; Resp 16; Pulse Ox 96% on R/A; Weight 74.39 kg; Height 5 ft. 4 iw in. (162.56 cm); Pain 10/10; 15:15 BP 117 / 81; Pulse 88; Resp 18; Pulse Ox 97% ; aj1 16:15 BP 125 / 85; Pulse 84; Resp 18; Pulse Ox 98% on R/A; aj1 17:15 BP 127 / 86; Pulse 82; Resp 18; Pulse Ox 97% on R/A; aj1 18:14 BP 113 / 84; Pulse 87; Resp 18; Pulse Ox 97% on R/A; aj1 14:15 Body Mass Index 28.15 (74.39 kg, 162.56 cm) iw [place] Coma Score: 16:15 Eye Response: spontaneous(4). Verbal Response: oriented(5). Motor Response: obeys aj1 commands(6). Total: 15. MDM: 14:20 Patient medically screened. roly 16:47 Data reviewed: vital signs. Data interpreted: Pulse oximetry: on room air is 96 %. pm1 Interpretation: normal. 17:14 Counseling: I had a detailed discussion with the patient and/or guardian regarding: the pm1 historical points, exam findings, and any diagnostic results supporting the discharge/admit diagnosis, lab results, radiology results, the need for outpatient follow up, for definitive care, a neurologist, to return to the emergency department if symptoms worsen or persist or if there are any questions or concerns that arise at home. 17:23 ED course: Informed patient that her Tegretol level is nontherapeutic despite pm1 compliance. Patient's only new medication is Ambien. Boyfriend believes that it is the likely drug interaction causing decreased level. Additionally patient has gained weight since taking Tegretol. Has taken it for 8 years. 09/04 14:36 Order name: Acetaminophen; Complete Time: 16:41 pm1 09/04 14:36 Order name: Basic Metabolic Panel; Complete Time: 16:41 pm1 09/04 14:36 Order name: CBC with Diff; Complete Time: 15:28 pm1 09/04 14:36 Order name: ETOH Level; Complete Time: 16:41 pm1 09/04 14:36 Order name: Hepatic Function; Complete Time: 16:41 pm1 09/04 14:36 Order name: PT-INR; Complete Time: 16:41 pm1 09/04 14:36 Order name: CT Head C Spine; Complete Time: 15:44 pm1 09/04 14:36 Order name: Ptt, Activated; Complete Time: 16:41 pm1 09/04 14:36 Order name: Salicylate; Complete Time: 17:15 pm1 09/04 14:36 Order name: Urine Drug Screen; Complete Time: 16:46 pm1 09/04 14:36 Order name: Carbamazepine (tegretol); Complete Time: 16:41 pm1 09/04 16:25 Order name: Urine Dipstick--Ancillary (enter results); Complete Time: 16:46 ms 09/04 16:25 Order name: Urine --Ancillary (enter results); Complete Time: 16:41 ms 09/04 14:36 Order name: Urine Test (obtain specimen); Complete Time: 14:56 pm1 09/04 14:36 Order name: EKG; Complete Time: 14:38 pm1 09/04 14:36 Order name: EKG - Nurse/Tech; Complete Time: 15:44 pm1 09/04 14:36 Order name: IV Saline Lock; Complete Time: 14:57 pm1 09/04 14:36 Order name: Labs collected and sent; Complete Time: 14:57 pm1 09/04 15:03 Order name: Labs - recollect needed; Complete Time: 15:58 ms Administered Medications: 15:57 Drug: TORadol - Ketorolac 15 mg Route: IVP; Site: right wrist; aj1 16:30 Follow up: Response: No adverse reaction; Pain is unchanged, physician notified; RASS: [facility] Alert and Calm (0) 17:40 Drug: morphine 4 mg {Note: RASS score 0 .} Route: IVP; Site: right hand; aj1 18:12 Follow up: Response: No adverse reaction; Pain is decreased; RASS: Alert and Calm (0) aj1 17:44 Drug: Zofran (Ondansetron) 4 mg Route: IVP; Site: right hand; aj1 18:12 Follow up: Response: No adverse reaction aj Disposition: 18:23 Co-signature as Attending Physician, Den Nogueira MD I agree with the assessment and roly plan of care. Disposition: 09/05/19 17:15 Discharged to Home. Impression: Epilepsy and recurrent seizures. - Condition is Stable. - Discharge Instructions: Seizure, Adult, [id number]. - Medication Reconciliation Form, Thank You Letter, Antibiotic Education, Prescription Opioid Use form. - Follow up: Emergency Department; When: As needed; Reason: Worsening of condition. Follow up: Galdino Hill MD; When: 2 - 3 days; Reason: Recheck today's complaints, Continuance of care, Re-evaluation by your physician. - Problem is new. - Symptoms have improved. Signatures: Dispatcher [employer] EDKelin Patel RN RN aj1 Den Nogueira MD MD cha Williams, Irene, RN Gabriela Jean ms CrispinCole, REHAB CONSULTANT REHAB CONSULTANT pm1 Corrections: (The following items were deleted from the chart) 18:15 17:15 09/05/2019 17:15 Discharged to Home. Impression: Epilepsy and recurrent seizures. aj1 Condition is Stable. Forms are Medication Reconciliation Form, Thank You Letter, Antibiotic Education, Prescription Opioid Use. Follow up: Emergency Department; When: As needed; Reason: Worsening of condition. Follow up: Galdino Hill; When: 2 - 3 days; Reason: Recheck today's complaints, Continuance of care, Re-evaluation by your physician. Problem is new. Symptoms have improved. pm1
--- NOTE | 2019-09-05 17:16 | ER ---
Nurse's Notes [facility] Name: Dionne Ventura Age: 39 yrs Sex: Female : 1980 Arrival Date: 09/05/2019 Time: 14:11 Bed 27 Private MD: Diagnosis: Epilepsy and recurrent seizures Presentation: 09/04 14:11 Chief complaint: EMS states: seizure X 3 in 30 min time span, witnessed by boyfriend, iw +hx of seizures, last episode was 4 months ago , EMS administered versed 5 mg intranasally , pt appears drowsy but cooperative, VSS. Coronavirus screen: The patient has NOT traveled to [place] in the past 14 days. Proceed with normal triage procedures. Ebola Screen: Patient negative for fever greater than or equal to 101.5 degrees Fahrenheit, and additional compatible Ebola Virus Disease symptoms Patient denies exposure to infectious person. Patient denies travel to an Ebola-affected area in the 21 days before illness onset. No symptoms or risks identified at this time. Initial Sepsis Screen: Does the patient meet any 2 criteria? No. Patient's initial sepsis screen is negative. Does the patient have a suspected source of infection? No. Patient's initial sepsis screen is negative. Risk Assessment: Do you want to hurt yourself or someone else? Patient reports no desire to harm self or others. 14:11 Method Of Arrival: EMS: [facility] iw 14:11 Acuity: TRINIDAD 3 iw 14:14 Care prior to arrival: Medication(s) given: versed 5 mg IN IV initiated. 24 right hand iw Glucose check: 94. Triage Assessment: 16:15 General: Appears in no apparent distress. comfortable, Behavior is calm, cooperative, aj1 appropriate for age. Historical: - Allergies: 14:14 Augmentin; iw 14:14 Ciprofloxacin; iw 14:14 Clindamycin; iw 14:14 PENICILLINS; iw 14:14 Sulfa (Sulfonamide Antibiotics); iw - Home Meds: 14:14 clonazepam 1 mg Oral tab 1 tab 3 times per day for Epilepsy and Anxiety [Active]; iw oxcarbazepine 600 mg Oral tab 2 times per day for epilepsy [Active]; Ventolin HFA 90 mcg/actuation Nebulizer HFAA 2 puffs every 6 hours [Active]; Zoloft 50 mg Oral tab 1 tab once daily [Active]; - PMHx: 14:14 Anxiety; Asthma; epilepsy; iw - Immunization history:: Flu vaccine is up to date. - Social history:: Smoking status: Patient/guardian denies using tobacco. - History obtained from: spouse. Screenin:31 Abuse screen: Denies threats or abuse. Denies injuries from another. Nutritional aj1 screening: No deficits noted. Tuberculosis screening: No symptoms or risk factors identified. 18:15 Fall Risk None identified. aj1 Assessment: 15:31 Pain: Complains of pain in scalp Pain radiates to scalp, back of head Pain currently is aj1 9 out of 10 on a pain scale. Pain began after seizure activity. Is. Neuro: Level of Consciousness is awake, alert, obeys commands, drowsy. 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 Full function Gait is not observed. Speech is normal, Facial symmetry appears normal, Reports headache occipital area, since Post ictal Seizure activity reported prior to arrival. Seizure was witnessed by patient's boyfriend, patient is not post-ictal at this time. Patient appears drowsy, but awaken easily to verbal stimuli and follows commands. Patient was given Versed by EMS prior to arrival to emergency room. 15:31 General: Appears in no apparent distress. comfortable, Behavior is calm, cooperative, aj1 appropriate for age. 15:31 Cardiovascular: Patient's skin is warm and dry. Respiratory: Airway is patent aj1 Respiratory effort is even, unlabored, Respiratory pattern is regular, symmetrical. GI: No signs and/or symptoms were reported involving the gastrointestinal system. : No signs and/or symptoms were reported regarding the genitourinary system. EENT: No signs and/or symptoms were reported regarding the EENT system. Derm: No signs and/or symptoms reported regarding the dermatologic system. Skin is pink, warm \T\ dry. normal. Musculoskeletal: No signs and/or symptoms reported regarding the musculoskeletal system. Circulation, motion, and sensation intact. 16:43 Reassessment: Patient appears in no apparent distress at this time. No changes from aj1 previously documented assessment. Patient and/or family updated on plan of care and expected duration. Pain level reassessed. Patient is alert, oriented x 3, equal unlabored respirations, skin warm/dry/pink. 17:45 Reassessment: Patient and/or family updated on plan of care and expected duration. Pain aj1 level reassessed. General: Appears in no apparent distress. comfortable, Behavior is calm, cooperative, appropriate for age. Neuro: Level of Consciousness is awake, alert, obeys commands, Oriented to person, place, time, situation. Cardiovascular: Patient's skin is warm and dry. Respiratory: Airway is patent Respiratory effort is even, unlabored, Respiratory pattern is regular, symmetrical. Derm: No signs and/or symptoms reported regarding the dermatologic system. Skin is pink, warm \T\ dry. normal. Musculoskeletal: No signs and/or symptoms reported regarding the musculoskeletal system. Circulation, motion, and sensation intact. 18:13 Reassessment: Patient appears in no apparent distress at this time. No changes from aj1 previously documented assessment. Patient and/or family updated on plan of care and expected duration. Pain level reassessed. Patient is alert, oriented x 3, equal unlabored respirations, skin warm/dry/pink. Vital Signs: 14:13 BP 132 / 101; Pulse 88; Resp 20; Temp 98.0; Pulse Ox 97% ; aj1 14:15 BP 132 / 101; Pulse 90; Resp 16; Pulse Ox 96% on R/A; Weight 74.39 kg; Height 5 ft. 4 iw in. (162.56 cm); Pain 10/10; 15:15 BP 117 / 81; Pulse 88; Resp 18; Pulse Ox 97% ; aj1 16:15 BP 125 / 85; Pulse 84; Resp 18; Pulse Ox 98% on R/A; aj1 17:15 BP 127 / 86; Pulse 82; Resp 18; Pulse Ox 97% on R/A; aj1 18:14 BP 113 / 84; Pulse 87; Resp 18; Pulse Ox 97% on R/A; aj1 14:15 Body Mass Index 28.15 (74.39 kg, 162.56 cm) iw Lauren Coma Score: 16:15 Eye Response: spontaneous(4). Verbal Response: oriented(5). Motor Response: obeys aj1 commands(6). Total: 15. ED Course: 14:11 Patient arrived in ED. iw 14:13 Triage completed. iw 14:14 Arm band placed on. iw 14:19 Cole Roa NP is PHCP. pm1 14:19 Den Nogueira MD is Attending Physician. pm1 14:30 Kelin Camp, RN is Primary Nurse. aj1 14:30 Seizure precautions initiated. aj1 15:21 CT completed. Patient tolerated procedure well. Patient moved back from CT. bq 15:21 CT Head C Spine In Process Unspecified. EDMS 15:31 Patient has correct armband on for positive identification. aj1 15:31 No provider procedures requiring assistance completed. aj1 15:44 EKG done, by ED staff. lt1 17:15 Galdino Hill MD is Referral Physician. pm1 18:15 IV discontinued, intact, bleeding controlled, No redness/swelling at site. Pressure aj1 dressing applied. Administered Medications: 15:57 Drug: TORadol - Ketorolac 15 mg Route: IVP; Site: right wrist; aj1 16:30 Follow up: Response: No adverse reaction; Pain is unchanged, physician notified; RASS: aj1 Alert and Calm (0) 17:40 Drug: morphine 4 mg {Note: RASS score 0 .} Route: IVP; Site: right hand; aj1 18:12 Follow up: Response: No adverse reaction; Pain is decreased; RASS: Alert and Calm (0) aj1 17:44 Drug: Zofran (Ondansetron) 4 mg Route: IVP; Site: right hand; aj1 18:12 Follow up: Response: No adverse reaction aj1 Outcome: 17:15 Discharge ordered by MD. pm1 18:15 Discharged to home via wheelchair, with significant other. aj1 18:15 Condition: good 18:15 Discharge instructions given to patient, significant other, Instructed on discharge instructions, follow up and referral plans. Demonstrated understanding of instructions, follow-up care. 18:15 Patient left the ED. aj1 Signatures: Dispatcher [employer] EDKY Kelin Camp, RN RN aj1 Odilia Britt bq Marianna Ellington, JEFRY RN iw Cole Roa, EMERY GRINDER EMERY GRINDER pm1 Oanh Cote lt1 Corrections: (The following items were deleted from the chart) 14:17 14:15 BP 132 / 101; Pulse 90bpm; Resp 16bpm; Pulse Ox 96% RA; iw iw 15:41 15:31 General: Appears uncomfortable, Behavior is calm, cooperative, drowsy, Reports aj1 fatigue for 0-12 hours, Headache and body aches status post epilepticus Denies aj1 : 15:31 General: Reports fatigue for 0-12 hours, Headache and body aches status post aj1 epilepticus. aj1 : 15:31 Neuro: Level of Consciousness is obeys commands, lethargic, post ictal, Oriented aj1 to person, place, time, situation, Appropriate for age Civil Engineering Project Manager are Moves all extremities. Speech is normal, Facial symmetry appears normal, Reports headache occipital area, since Post ictal Seizure activity Patient is post-ictal at this time. aj1 : 15:31 General: Appears uncomfortable, Behavior is calm, cooperative, drowsy, Reports aj1 fatigue for 0-12 hours, Headache and body aches Denies aj1
[2019-09-05] MEDS ORDERED: ONDANSETRON 4 MG/2 ML VIAL ONE (17:40)
[2019-09-05] MEDS ORDERED: MORPHINE 4 MG/ML SYR ONE (17:40)
[2019-09-05 19:13] VITALS: TEMP 98
[2019-09-05 19:20] VITALS: O2SAT 97
[2019-09-05 19:22] VITALS: BP 113/84
--- NOTE | 2019-09-06 15:35 | EKG ---
Test Date: 2019-09-05 Test Time: 14:30:47 Perforating Machine Operator: KRISHAN MEASUREMENT RESULTS: Intervals: Rate: 85 NH: 152 QRSD: 76 QT: 344 QTc: 409 Marshall: P: 58 NH: 152 QRS: 9 T: 44 INTERPRETIVE STATEMENTS: Normal sinus rhythm Possible Left atrial enlargement Low voltage QRS Inferior infarct, age undetermined Possible Anterolateral infarct, age undetermined Abnormal ECG Compared to ECG 03/15/2008 04:57:14 Low QRS voltage now present Myocardial infarct finding still present Electronically Signed On 09-06-19 15:34:22 TOBACCO WETTER by Wade Espinal
== END 2019-09-05 18:15 | disposition home or self-care (01) ==
LOC: ER 14:09
DX: G40.802 Other epilepsy, not intractable, without status epilepticus (principal); F41.9 Anxiety disorder, unspecified; J45.909 Unspecified asthma, uncomplicated
CPT/HCPCS: 93005; 85025; 80048; 36415; 80320; 80156; 80329 ×2; 81025; 85610; 80076; 80307 ×8; 85730; 81003; 70450; 72125; 99284; J2405

== ENCOUNTER 2019-09-06 13:10 | Emergency (ER) | payer OTHER ==
--- OUTSIDE RECORDS SUMMARY | 2019-09-06 13:13 | XMS REPORT ---
:1980 Author Organization [facility] Address [address] [place] [id number] Care Team Providers Name Role Phone Unavailable Unavailable Unavailable Problems This patient has no known problems. Allergies, Adverse Reactions, Alerts This patient has no known allergies or adverse reactions. Medications This patient has no known medications.
[2019-09-06 14:19] LABS: Absolute Lymphocytes (CBC) 1.4 K/uL (0.7-4.9); Basophils % 0.4 % (0-1.3); Lymphocytes % 21.2 % (15.3-44.8); MPV 7.7 fL (7.6-11.3); RBC Red Blood Cell Count 3.75 M/uL (3.86-4.86)
[2019-09-06 14:32] LABS: ALT/SGPT 14 U/L (12-78); AST/SGOT 14 U/L (15-37); Albumin 3.6 g/dL (3.4-5.0); Alkaline Phosphatase 86 U/L (45-117); BUN Blood Urea Nitrogen 9 mg/dL (7-18); Bicarbonate 25 mmol/L (21-32); Bilirubin Direct 0.1 mg/dL (0-0.2); Bilirubin Total 0.2 mg/dL (0.2-1.0); CKMB Creatine Kinase MB < 1.0 ng/mL (0.3-3.6); Creatine Phosphokinase 83 U/L (26-192); Glucose Level 87 mg/dL (74-106); Lipase 69 U/L (73-393); Magnesium 1.7 mg/dL (1.8-2.4); Potassium 3.9 mmol/L (3.5-5.1); Protein, Total 7.3 g/dL (6.4-8.2); Sodium Level 135 mmol/L (136-145)
[2019-09-06 15:18] LABS: Barbiturates NEGATIVE (NEGATIVE); Benzodiazepines POSITIVE (NEGATIVE); Cocaine NEGATIVE (NEGATIVE); METHAMPHETAM NEGATIVE (NEGATIVE); Methadone NEGATIVE (NEGATIVE); Opiates NEGATIVE (NEGATIVE); Phencyclidine NEGATIVE (NEGATIVE); THC Cannibis NEGATIVE (NEGATIVE)
--- NOTE | 2019-09-06 15:37 | EDPHYS ---
Physician Documentation [facility] Name: Dionne Ventura Age: 39 yrs Sex: Female : 1980 Arrival Date: 09/06/2019 Time: 13:18 Bed 27 Private MD: ED Physician Jhonny Schmitt HPI: 09/05 20:02 This 39 yrs old Female presents to ER via EMS with complaints of seizure. tw4 20:02 The patient presents with a history of multiple seizures, a total of 3. Character of tw4 seizure(s): Loss of consciousness: the patient experienced loss of consciousness, Motor activity: generalized. Seizure onset: just prior to arrival. Associated injury: The patient did not suffer any apparent associated injury. Historical: - Allergies: 14:17 Augmentin; vc 14:17 Ciprofloxacin; vc 14:17 Clindamycin; vc 14:17 PENICILLINS; vc 14:17 Sulfa (Sulfonamide Antibiotics); vc - Home Meds: 14:17 clonazepam 1 mg Oral tab 1 tab 3 times per day for Epilepsy and Anxiety [Active]; vc Ventolin HFA 90 mcg/actuation Nebulizer HFAA 2 puffs every 6 hours [Active]; oxcarbazepine 600 mg Oral tab 2 times per day for epilepsy [Active]; prednisone 20 mg Oral tab 3 tabs [Active]; mirtazapine 15 mg Oral tab 1 tab nightly [Active]; innospire elegance duc neb 4-6 hours PRN for SOB [Active]; ipratropium bromide 0.02 % inhalation soln 1.25 mL after meals and before bedtime [Active]; albuterol sulfate 2.5 mg /3 mL (0.083 %) Nebulizer nebu 3 mL every 6 hours [Active]; Symbicort 160-4.5 mcg/actuation inhalation HFAA 2 puffs 2 times per day [Active]; sertraline oral [Active]; - PMHx: 14:17 Anxiety; Asthma; epilepsy; vc - Immunization history:: Adult Immunizations up to date. - Social history:: Smoking status: Patient denies any tobacco usage or history of. ROS: 20:02 Constitutional: Negative for fever, chills, and weight loss, Cardiovascular: Negative tw4 for chest pain, palpitations, and edema, Respiratory: Negative for shortness of breath, cough, wheezing, and pleuritic chest pain, Abdomen/GI: Negative for abdominal pain, nausea, vomiting, diarrhea, and constipation, Back: Negative for injury and pain, MS/Extremity: Negative for injury and deformity, Skin: Negative for injury, rash, and discoloration. 20:02 Neuro: Positive for seizure activity, Negative for altered mental status, dizziness, gait disturbance, headache, loss of consciousness, numbness, tinnitus, tremor, weakness. Exam: 20:02 Constitutional: This is a well developed, well nourished patient who is awake, alert, tw4 and in no acute distress. Head/Face: Normocephalic, atraumatic. Chest/axilla: Normal chest wall appearance and motion. Nontender with no deformity. No lesions are appreciated. Cardiovascular: Regular rate and rhythm with a normal S1 and S2. No gallops, murmurs, or rubs. Normal PMI, no JVD. No pulse deficits. Respiratory: Lungs have equal breath sounds bilaterally, clear to auscultation and percussion. No rales, rhonchi or wheezes noted. No increased work of breathing, no retractions or nasal flaring. Abdomen/GI: Soft, non-tender, with normal bowel sounds. No distension or tympany. No guarding or rebound. No evidence of tenderness throughout. Back: No spinal tenderness. No costovertebral tenderness. Full range of motion. MS/ Extremity: Pulses equal, no cyanosis. Neurovascular intact. Full, normal range of motion. 20:02 Neuro: Orientation: to person, place \T\ time. Mentation: slow to respond, confused, somnolent, Memory: is normal, Cranial nerves: grossly normal, Motor: is normal, strength is 5/5 in all extremities, Sensation: no obvious gross deficits. Vital Signs: 13:15 BP 121 / 87; Pulse 71; Resp 20; Pulse Ox 96% on R/A; vc 14:30 BP 134 / 92; Pulse 65; Resp 16; Temp 98.4(O); Pulse Ox 99% on R/A; Pain 0/10; ls4 15:52 BP 135 / 98; Pulse 64; Resp 14; Temp 98.2(O); Pulse Ox 99% on R/A; Pain 0/10; ls4 MDM: 13:26 Patient medically screened. tw4 20:57 Differential diagnosis: drug overdose. Data reviewed: vital signs, nurses notes. Data tw4 interpreted: Pulse oximetry: Interpretation: normal. Counseling: I had a detailed discussion with the patient and/or guardian regarding: the historical points, exam findings, and any diagnostic results supporting the discharge/admit diagnosis. Special discussion: I discussed with the patient/guardian in detail that at this point there is no indication for admission to the hospital. It is understood, however, that if the symptoms persist or worsen the patient needs to return immediately for re-evaluation. 09/05 13:28 Order name: UDS 4 09/05 13:28 Order name: Basic Metabolic Panel tw4 09/05 13:28 Order name: CBC with Diff 4 09/05 13:28 Order name: Ckmb tw 09/05 13:28 Order name: CPK 09/05 13:28 Order name: Hepatic Function 09/05 13:28 Order name: Lipase 09/05 13:28 Order name: Magnesium 09/05 13:28 Order name: Cardiac monitoring; Complete Time: 13:57 4 09/05 13:28 Order name: IV Saline Lock; Complete Time: 13:57 4 09/05 13:28 Order name: Labs collected and sent; Complete Time: 15:56 tw4 09/05 13:28 Order name: NPO; Complete Time: 13:57 tw4 09/05 13:28 Order name: O2 Per Protocol; Complete Time: 13:57 4 09/05 13:28 Order name: O2 Sat Monitoring; Complete Time: 13:57 4 09/05 13:28 Order name: Urine Dipstick-Ancillary (obtain specimen); Complete Time: 15:14 tw4 Administered Medications: No medications were administered Disposition: 09/06/19 15:36 Discharged to Home. Impression: Epilepsy and recurrent seizures. - Condition is Stable. - Discharge Instructions: Seizure, Adult. - Medication Reconciliation Form, Thank You Letter, Antibiotic Education, Prescription Opioid Use form. - Follow up: Private Physician; When: Upon discharge from the Emergency Department; Reason: Recheck today's complaints, Continuance of care, Re-evaluation by your physician. Follow up: Galdino Hill MD; When: Upon discharge from the Emergency Department; Reason: If symptoms return, Recheck today's complaints, Continuance of care. - Problem is new. - Symptoms have improved. Signatures: Dispatcher [employer] Jhonny Shrestha MD MD tw4 Mari De Anda RN RN ls4 Lulú Khan RN RN Corrections: (The following items were deleted from the chart) 16:05 15:36 09/06/2019 15:36 Discharged to Home. Impression: Epilepsy and recurrent seizures. ls4 Condition is Stable. Forms are Medication Reconciliation Form, Thank You Letter, Antibiotic Education, Prescription Opioid Use. Follow up: Private Physician; When: Upon discharge from the Emergency Department; Reason: Recheck today's complaints, Continuance of care, Re-evaluation by your physician. Follow up: Galdino Hill; When: Upon discharge from the Emergency Department; Reason: If symptoms return, Recheck today's complaints, Continuance of care. Problem is new. Symptoms have improved. tw4
--- NOTE | 2019-09-06 15:37 | ER ---
Nurse's Notes [facility] Name: Dionne Ventura Age: 39 yrs Sex: Female : 1980 Arrival Date: 09/06/2019 Time: 13:18 Bed 27 Private MD: Diagnosis: Epilepsy and recurrent seizures Presentation: 09/05 13:15 Chief complaint: EMS states: Patient had four witnessed seizures. The first one lasted vc one minute and was witnessed by family. The last three we witnessed and they lasted 20-30 seconds each.". Coronavirus screen: The patient has NOT traveled to [place] in the past 14 days. Proceed with normal triage procedures. Ebola Screen: No symptoms or risks identified at this time. 13:15 Method Of Arrival: EMS: [facility] vc 13:15 Initial Sepsis Screen: Does the patient meet any 2 criteria? No. Patient's initial vc sepsis screen is negative. Does the patient have a suspected source of infection? No. Patient's initial sepsis screen is negative. Risk Assessment: Do you want to hurt yourself or someone else? Patient reports no desire to harm self or others. 13:15 Acuity: TRINIDAD 3 vc Historical: - Allergies: 14:17 Augmentin; vc 14:17 Ciprofloxacin; vc 14:17 Clindamycin; vc 14:17 PENICILLINS; vc 14:17 Sulfa (Sulfonamide Antibiotics); vc - Home Meds: 14:17 clonazepam 1 mg Oral tab 1 tab 3 times per day for Epilepsy and Anxiety [Active]; vc Ventolin HFA 90 mcg/actuation Nebulizer HFAA 2 puffs every 6 hours [Active]; oxcarbazepine 600 mg Oral tab 2 times per day for epilepsy [Active]; prednisone 20 mg Oral tab 3 tabs [Active]; mirtazapine 15 mg Oral tab 1 tab nightly [Active]; innospire elegance duc neb 4-6 hours PRN for SOB [Active]; ipratropium bromide 0.02 % inhalation soln 1.25 mL after meals and before bedtime [Active]; albuterol sulfate 2.5 mg /3 mL (0.083 %) Nebulizer nebu 3 mL every 6 hours [Active]; Symbicort 160-4.5 mcg/actuation inhalation HFAA 2 puffs 2 times per day [Active]; sertraline oral [Active]; - PMHx: 14:17 Anxiety; Asthma; epilepsy; vc - Immunization history:: Adult Immunizations up to date. - Social history:: Smoking status: Patient denies any tobacco usage or history of. Screenin:38 Abuse screen: Denies threats or abuse. Denies injuries from another. Nutritional ls4 screening: No deficits noted. Tuberculosis screening: No symptoms or risk factors identified. Fall Risk None identified. Assessment: 14:00 General: Appears in no apparent distress. Behavior is listless, Post ictal . Pain: ls4 Denies pain. Neuro: Level of Consciousness is post ictal, Oriented to not speaking . Seizure activity reported prior to arrival. witnessed by ems. Cardiovascular: No deficits noted. Respiratory: No deficits noted. GI: No deficits noted. : No deficits noted. Derm: No deficits noted. Musculoskeletal: No deficits noted. 15:37 Reassessment: Patient appears in no apparent distress at this time. Patient and/or ls4 family updated on plan of care and expected duration. Pain level reassessed. Patient is alert, oriented x 3, equal unlabored respirations, skin warm/dry/pink. Patient states symptoms have improved. ANSWERING QUESTIONS BETTER. STILL DROWSY AND WEEK . 15:52 Reassessment: Patient appears in no apparent distress at this time. Patient and/or ls4 family updated on plan of care and expected duration. Pain level reassessed. Patient is alert, oriented x 3, equal unlabored respirations, skin warm/dry/pink. STATES THAT NEUROLOGIST CALLED IN PRESCRIPTIONS FOR PATIENT AND HE WOULD LIKE TO TAKE HER HOME. PT IMPROVED. Vital Signs: 13:15 BP 121 / 87; Pulse 71; Resp 20; Pulse Ox 96% on R/A; vc 14:30 BP 134 / 92; Pulse 65; Resp 16; Temp 98.4(O); Pulse Ox 99% on R/A; Pain 0/10; ls4 15:52 BP 135 / 98; Pulse 64; Resp 14; Temp 98.2(O); Pulse Ox 99% on R/A; Pain 0/10; ls4 ED Course: 13:18 Patient arrived in ED. vc 13:26 Jhonny Schmitt MD is Attending Physician. tw4 13:48 Mari De Anda RN is Primary Nurse. ls4 14:00 Arm band placed on. ls4 14:00 Patient has correct armband on for positive identification. Bed in low position. Call ls4 light in reach. Side rails up X 1. 14:02 Triage completed. vc 15:34 Galdino Hill MD is Referral Physician. tw4 15:38 No provider procedures requiring assistance completed. Maintain EMS IV. Dressing ls4 intact. Good blood return noted. Site clean \\T\\ dry. Gauge \\T\\ site: 24 LEFT HAND . Patient maintains SpO2 saturation greater than 95% on room air. 15:54 intact, bleeding controlled, No redness/swelling at site. Pressure dressing applied. ls4 Administered Medications: No medications were administered Outcome: 15:36 Discharge ordered by MD. tw4 15:53 Discharged to home ambulatory, with family. ls4 15:53 Condition: stable 15:53 Discharge instructions given to patient, family, Instructed on discharge instructions, follow up and referral plans. medication usage, Demonstrated understanding of instructions, follow-up care, medications. 16:05 Patient left the ED. ls4 Signatures: Jhonny Schmitt MD MD [facility] Mari De Anda, RN RN 4 Lulú Khan, RN RN Corrections: (The following items were deleted from the chart) 03/03 01:54 03/02 15:28 BP 134 / 92; Pulse 65bpm; Resp 16bpm; Pulse Ox 99% RA; Temp 98.4F Oral; ls4 Pain 0/10; ls4
[2019-09-06 16:11] VITALS: O2SAT 99
[2019-09-06 16:12] VITALS: BP 135/98; TEMP 98.2
== END 2019-09-06 16:05 | disposition home or self-care (01) ==
LOC: ER 13:10
DX: G40.909 Epilepsy, unspecified, not intractable, without status epilepticus (principal); Z88.0 Allergy status to penicillin; Z88.1 Allergy status to other antibiotic agents; Z88.2 Allergy status to sulfonamides; J45.909 Unspecified asthma, uncomplicated; F41.9 Anxiety disorder, unspecified
CPT/HCPCS: 36415; 80048; 80076; 80307; 82550; 82553; 83690; 83735; 85025; 99284

== ENCOUNTER 2020-08-03 09:03 | Emergency (ER) | payer OTHER ==
--- OUTSIDE RECORDS SUMMARY | 2020-08-03 09:10 | XMS REPORT | Summary of Care ---
:1980 Author Organization [facility] [place] Address [address] [place] [address]- phone Encounter HQ Carmelitar_dick(FIN) [phone] Date(s): 05/09/20 - 05/09/20 [facility] [address] [place] [address]- [phone] Discharge Disposition: Home or Self Care Attending Physician: Galdino Hill MD Vital Signs Most recent to oldest [Reference Range]: 1 Height 157.48 cm (05/09/20 9:36 AM) Blood Pressure [90-140/60-90 mmHg] 130/91 mmHg (05/09/20 9:36 AM) Respiratory Rate [14-20 BRMIN] 16 BRMIN (05/09/20 9:36 AM) Peripheral Pulse Rate [60-100 bpm] 83 bpm (05/09/20 9:36 AM) Weight 81.818 kg (05/09/20 9:36 AM) Body Mass Index 32.99 m2 (05/09/20 9:36 AM) Problem List Condition Effective Dates Status Health Status Informant Anxiety states(Confirmed) < 10/23/15 Resolved Asthma1 Active Carpal tunnel syndrome, left upper Active limb(Confirmed) Epilepsy2 Active Epilepsy(Confirmed) Active Hand pain(Confirmed) Active Insomnia3 Active Low back pain4 01/17/14 Resolved Migraine(Confirmed) Active (Confirmed) Resolved 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 Allergies, Adverse Reactions, Alerts Substance Reaction Severity Status penicillins Rash Active sulfa drugs1 vomiting Active aspirin vomiting Active Keflex Active ciprofloxacin Pruritic rash, NOS Active ibuprofen2 Active cephalexin3 Active clindamycin Active 1Data migrated from [employer] on 02/02/15. Originally documented as SULFA.2 Data migrated from [employer] on 11/04/14. Originally documented as ADVIL.3Data migrated from [employer] on 11/04/14. Originally documented as CEPHALEXIN. Medications lamoTRIgine 100 mg oral tablet = 1 tab, PO, BID, # 60 tab, 2 Refill(s), Pharmacy: [facility], 157.48, cm, 05/09/20 9:36:00 CABLE FORMER, Height, 81.818, kg, 05/09/20 9:36:00 CABLE FORMER, Weight Start Date: 05/09/20 Stop Date: 08/07/20 Status: Ordered Results No data available for this section Immunizations No data available for this section Procedures Procedure Date Related Diagnosis Body Site Status LEEP procedure of cervix Com pleted Tonsillectomy Completed Social History Social History Type Response Alcohol Never, Previous treatment: N one. Substance Abuse Use: Past. Type: Cocaine. Recreational Drug Route: Inhaled. IV drug use: No. Smoking Status Former smoker; Type: Cigars; Concerns about tobacco use in household: No; Exposure to Tobacco Smoke None; Cigarette Smoking Last 365 Days Yes; Reg Smoking Cessation Counseling Yes; Tobacco use per day: 4; Started at age: 15.0; 1 entered on: 05/09/20 1Quit 3 yrs ago Assessment and Plan No data available for this section
--- OUTSIDE RECORDS SUMMARY | 2020-08-03 09:10 | XMS REPORT | Continuity of Care Document ---
:1980 Author Organization [employer] Care Team Providers Name Role Phone [employer] [place] Unavailable Un available Problems Problem Status Onset Classification Date Comments Sourc e Date Reported Anxiety state Resolved 10/23/19 Problem 05/12/2020 Me dical (finding) 16 Group,[facility] her Neuro Low back pain Resolved 01/18/20 Problem 05/12/2020 Data migrated H Medical (disorder) 14 from [facility] on her Ne uro 12/03/14. LOW BACK PAIN Active 01/18/20 Condition 01/17/2014 [facility] dical 14 Group Asthma Active Problem 05/12/2020 Data migrated [facility] dical (disorder) from [facility],Mis c Centricity on her Ne uro 12/03/14. Epilepsy Active Problem 05/12/2020 Data migrated [facility] dical (disorder) from [facility],Mis c Centricity on her Ne uro 12/03/14. Hand pain Active Problem 05/12/2020 Medica l (finding) Group,[facility] her Neuro Insomnia Active Problem 05/12/2020 Data migrated [facility] dical (disorder) from [facility],Mis c Centricity on her Ne uro 12/03/14. Patient Resolved Problem 05/12/2020 Medica l currently Group,[facility] her Neuro (finding) Carpal tunnel Active Problem 05/12/2020 Me dical syndrome Group,Misc (disorder) her Neuro Status Active Problem 05/12/2020 [facility] epilepticus due Neur o to complex partial epileptic seizure (disorder) Migraine Active Problem 05/12/2020 [facility] (disorder) Neuro EPILEPSY Active Condition 01/17/2014 Medica l Group ASTHMA Active Condition 01/17/2014 Medica l Group INSOMNIA Active Condition 01/17/2014 Medica l Group Medications Medication Details Route Status Patient Ordering Order Source Instructions Provider Date lamotrigine 100 = 1 tab, Active Mischer MG Oral Tablet PO, BID, # 020 Neuro 60 tab, 2 Refill(s), Pharmacy: [facility] 149, 157.48, cm, 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, Height, 81.818, kg, 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, Weight sertraline 50 mg See Active Mischer oral tablet Instruction 020 Neuro s, TAKE ONE TABLET BY MOUTH DAILY, # 30 tab, 2 Refill(s), Pharmacy: [facility] [id number], 157.48, cm, 12/23/19 16:09:00 CDT, Height, 77.273, kg, 12/23/19 16:09:00 CDT, Weight lamotrigine 100 = 1 tab, Active Mischer MG Oral Tablet PO, BID, # 020 Neuro 60 tab, 2 Refill(s), Pharmacy: [facility] 149, 157.48, cm, 12/23/19 16:09:00 CDT, Height, 77.273, kg, 12/23/19 16:09:00 CDT, Weight Mirtazapine 15 MG See Active Mische r Oral Tablet Instruction 020 Neuro s, TAKE ONE TABLET BY MOUTH EVERY NIGHT AT BEDTIME, # 30 tab, 4 Refill(s), Pharmacy: [facility] [id number], 157.48, cm, 12/23/19 16:09:00 CDT, Height, 77.273, kg, 12/23/19 16:09:00 CDT, Weight sertraline 50 mg See Active Mischer oral tablet Instruction 020 Neuro s, TAKE ONE TABLET BY MOUTH DAILY, # 30 tab, 0 Refill(s), Pharmacy: [facility] [id number], 157.48, cm, 12/23/19 16:09:00 CDT, Height, 77.273, kg, 12/23/19 16:09:00 CDT, Weight OXcarbazepine 600 = 1 tab, Active Misch er mg oral tablet PO, TID, # 020 Neuro 90 tab, 5 Refill(s), Pharmacy: [facility] 149, 157.48, cm, 12/23/19 16:09:00 CDT, Height, 77.273, kg, 06/18/20 16:09:00 CDT, Weight sertraline 50 mg See Active Mischer oral tablet Instruction 020 Neuro s, # 30 tab, Refill(s) 1, TAKE ONE TABLET BY MOUTH DAILY, Pharmacy: [place] [address] 4 ML Diazepam 15 mg, NC, Active Mischer 0.005 MG/MG ONCE, # 1 020 Neuro Prefilled kit, 2 Applicator Refill(s), Pharmacy: [place] [address] lamotrigine 100 100 mg = 1 Active Misch er MG Oral Tablet tab, PO, 020 Neuro BID, # 60 tab, 2 Refill(s), Pharmacy: [place] [address] OXcarbazepine 600 = 1 tab, Active Misch er mg oral tablet PO, TID, # 020 Neuro 90 tab, Refill(s) 5, Pharmacy: [place] [address] Mirtazapine 15 MG = 1 tab, Active Misch er Oral Tablet PO, 020 Neuro Bedtime, # 30 tab, Refill(s) 5, Pharmacy: [place] [address] Mirtazapine 15 MG = 1 tab, Active Misch er Oral Tablet PO, 019 Neuro Bedtime, # 30 tab, Refill(s) 2, Pharmacy: [place] [address] Sertraline 50 MG 50 mg = 1 Active Misch er Oral Tablet tab, PO, 019 Neuro [Zoloft] Daily, # 30 tab, 3 Refill(s), Pharmacy: [place] [address] Mirtazapine 15 MG 15 mg = 1 No Longer Mi marry Oral Tablet tab, PO, Active 019 Neuro [Remeron] Bedtime, # 30 tab, 1 Refill(s), Pharmacy: [place] [address] Clonazepam 1 MG 1 mg = 1 Active Mischer Oral Tablet tab, PO, 019 Neuro [Klonopin] TID, # 90 tab, 2 Refill(s), called to pharmacy Acetaminophen 300 1 - 2 tab, Active Mis fanny MG / Codeine PO, Q4H, 019 Neuro Phosphate 30 MG PRN Pain, # Oral Tablet 20 tab, 0 [Tylenol with Refill(s) Codeine #3] lamotrigine 25 MG 50 mg = 2 Active Misc her Oral Tablet tab, PO, 019 Neuro [Lamictal] BID, # 120 tab, 2 Refill(s), Pharmacy: [place] [address] lamotrigine 25 MG 50 mg = 2 No Longer Mi marry Oral Tablet tab, PO, Active 019 Neuro [Lamictal] BID, X 30 day, # 120 tab, 2 Refill(s), [id number] lamotrigine 25 MG 25 mg = 1 Active Misc her Oral Tablet tab, PO, 019 Neuro [Lamictal] BID, # 60 tab, 3 Refill(s), Pharmacy: [place] [address] Clonazepam 1 MG 1 mg = 1 Active Mischer Oral Tablet tab, PO, 019 Neuro [Klonopin] TID, # 90 tab, 2 Refill(s), called to pharmacy OXcarbazepine 600 600 mg = 1 Active Mis fanny mg oral tablet tab, PO, 019 Neuro TID, # 90 tab, 3 Refill(s), Pharmacy: [place] [address] OXcarbazepine 600 600 mg = 1 No Longer M ischer mg oral tablet tab, PO, Active 019 Neuro TID, X 30 day, # 90 tab, 3 Refill(s), Pharmacy: [place] [address] Clonazepam 1 MG 1 mg = 1 No Longer Misch er Oral Tablet tab, PO, Active 018 Neuro [Klonopin] TID, X 30 day, # 90 tab, 1 Refill(s), called to pharmacy Clonazepam 1 MG 1 mg = 1 No Longer Misch er Oral Tablet tab, PO, Active 018 Neuro [Klonopin] Bedtime, X 30 day, # 30 tab, 1 Refill(s), called to pharmacy OXcarbazepine 600 See No Longer Misc her mg oral tablet Instruction Active 018 Neuro s, TAKE 1.5 TABLET BY MOUTH TWICE A DAY, # 90 tab, 3 Refill(s), Pharmacy: [place] [address] Sertraline 50 MG 50 mg = 1 Active Misch er Oral Tablet tab, PO, 018 Neuro [Zoloft] Daily, # 30 tab, 0 Refill(s) Symbicort 160/4.5 2 puff, Active Mische r inhalation INHALATION, 018 Neuro aerosol with BID, 0 adapter Refill(s) Clonazepam 0.5 MG 0.5 mg = 1 No Longer M ischer Oral Tablet tab, PO, Active 018 Neuro [Klonopin] Bedtime, X 30 day, # 30 tab, 3 Refill(s), called to pharmacy Nitrofurantoin 100 mg = 1 No Longer MH 100 MG Oral cap, PO, Active 018 Medical Capsule BID, X 7 Group [Macrobid] day, # 14 cap, 0 Refill(s), Pharmacy: [place] [id number] 200 ACTUAT 180 Active MH Albuterol 0.09 microgram = 018 Medic al MG/ACTUAT Metered 2 puff, Group Dose Inhaler INHALER, [ProAir HFA] Q4H, PRN wheezing, coughing, or shortness of breath, # 1 ea, 2 Refill(s), Pharmacy: [facility] 343 Oseltamivir 75 MG 75 mg, PO, No Longer M H Oral Capsule Q12H, X 5 Active 018 Medical [Tamiflu] day, # 10 Group cap, 0 Refill(s), Pharmacy: [facility] 256 Oseltamivir 75 MG 75 mg, PO, Inactive MH Oral Capsule Q12H, X 5 018 Medical [Tamiflu] day, # 10 Group cap, 0 Refill(s), Pharmacy: [facility] 343 ZOLPIDEM TARTRATE 1 po qhs Active MH 10 MG TABS 014 Medical Group PROAIR HFA 108 2 puffs q 4 Active MH (90 BASE) MCG/ACT hrs prn 013 Medica l AERS Group CLONAZEPAM 1 MG Take 1 po Active MH TABS tid 013 Medical Group OXCARBAZEPINE 600 1 po bid Active MH MG TABS 013 Medical Group Allergies, Adverse Reactions, Alerts Substance Category Reaction Severity Reaction Status Date Comments S ource type Reported penicillins Assertion Rash Drug Active Mi marry allergy Neuro sulfa Assertion vomiting Drug Active Data Misch er drugs<sup>1< allergy migrated Ne uro /sup> from [facility] on 02/02/15. Originally documented as SULFA. ciprofloxaci Assertion Pruritic Drug Active Mischer n rash, NOS allergy Neuro ibuprofen<ramirez Assertion Drug Active Data M ischer p>2</sup> allergy migrated Neuro from [employer] on 11/04/14. Originally documented as ADVIL. clindamycin Assertion Drug Active Mi marry allergy Neuro cephalexin<s Assertion Drug Active Data M ischer up>3</sup> allergy migrated Neur o from [employer] on 11/04/14. Originally documented as CEPHALEXIN . aspirin Assertion vomiting Drug Active Misch er allergy Neuro Keflex Assertion Propensity Active Mis fanny to adverse Neuro reactions to drug SULFA Drug SULFA allergy Medical Group AUGMENTIN Drug AUGMENTIN allergy Medical Group CEPHALEXIN Drug CEPHALEXIN allergy Medical Group ADVIL Drug ADVIL allergy Medical Group Immunizations No Data Provided for This Section Results Order Name Results Value Reference Date Interpretation Comments Vida rce Range Chemistry SODIUM 140 135 - 145 MEQ/L 2013 Medical Group Chemistry POTASSIUM 3.8 3.5 - 5.1 MEQ/L 2013 Medical Group Chemistry CREATININE 0.6 0.5 - 1.4 2013 Medical Group Chemistry BUN 13 7 - 22 2013 Medical Group Chemistry BUN/CREAT 22 6 - 25 2013 Medical Group Chemistry ALBUMIN 4.5 3.5 - 5.0 2013 Medical Group Chemistry CALCIUM 9.1 8.5 - 10.5 2013 Medical Group Chemistry SGPT (ALT) 17 0 - 65 2013 Medical Group Chemistry SGOT (AST) 14 0 - 37 2013 [facility] Group Chemistry ALK PHOS 59 39 - 136 2013 [facility] Chemistry SODIUM 140 135 - 145 MEQ/L 2013 Medical Group Chemistry POTASSIUM 3.8 3.5 - 5.1 MEQ/L 2013 Medical Group Chemistry CREATININE 0.6 0.5 - 1.4 2013 Medical Group Chemistry BUN 13 7 - 22 2013 [facility] Chemistry BUN/CREAT 22 6 - 25 2013 [facility] Chemistry ALBUMIN 4.5 3.5 - 5.0 2013 Medical [facility] Chemistry CALCIUM 9.1 8.5 - 10.5 2013 Medical [facility] Chemistry SGPT (ALT) 17 0 - 65 2013 Medical [facility] Chemistry SGOT (AST) 14 0 - 37 2013 Medical [facility] Chemistry ALK PHOS 59 39 - 136 2013 Medical [facility] Hematology HGB 13.1 12.0 - 16.0 2013 Medical [facility] Hematology HCT 38.0 36.0 - 48.0 2013 [facility] Hematology PLATELETS 336 133 - 450 [facility] 2013 [facility] Hematology HGB 13.1 12.0 - 16.0 2013 [facility] Hematology HCT 38.0 36.0 - 48.0 2013 [facility] Hematology PLATELETS 336 133 - 450 [facility] 2013 [facility] Pathology Reports No Data Provided for This Section Diagnostic Reports No Data Provided for This Section Consultation Notes No Data Provided for This Section Discharge Summaries No Data Provided for This Section History and Physicals No Data Provided for This Section Vital Signs Vital Sign Value Date Comments Source Systolic (mm Hg) 130 [facility]09[facility]2020 [facility] Diastolic (mm Hg) 91 05/09/2020 [facility] Heart Rate 83 05/09/2020 [facility] Respitory Rate 16 05/09/2020 [facility] Height 157.48 cm 05/09/2020 [facility] Weight 81.818 05/09/2020 [facility] BMI Calculated 32.99 05/09/2020 [facility] Systolic (mm Hg) 132 12/23/2019 [facility] Leah ro Diastolic (mm Hg) 90 12/23/2019 [facility] Heart Rate 76 12/23/2019 [facility] Respitory Rate 16 12/23/2019 [facility] Height 157.48 cm 12/23/2019 [facility] Weight 77.273 12/23/2019 [facility] BMI Calculated 31.16 12/23/2019 [facility] Systolic (mm Hg) 109 09/22/2019 [facility] Leah ro Diastolic (mm Hg) 81 09/22/2019 [facility] Heart Rate 78 09/22/2019 [facility] Respitory Rate 16 09/22/2019 [facility] Height 160.02 cm 09/22/2019 [facility] Neuro Weight 75 09/22/2019 [facility] Neuro BMI Calculated 29.29 09/22/2019 [facility] Neuro Systolic (mm Hg) 140 09/07/2019 [facility] Leah ro Diastolic (mm Hg) 96 09/07/2019 [facility] Ne uro Heart Rate 72 09/07/2019 [facility] Respitory Rate 16 09/07/2019 [facility] Neuro Height 160.02 cm 09/07/2019 [facility] Neuro Weight 75 09/07/2019 [facility] Neuro BMI Calculated 29.29 09/07/2019 [facility] BMI Calculated 29.11 01/20/2019 [facility] Weight 74.545 01/20/2019 [facility] Height 160.02 cm 01/20/2019 [facility] Neuro Systolic (mm Hg) 116 01/20/2019 [facility] Leah ro Diastolic (mm Hg) 82 01/20/2019 [facility] Heart Rate 76 01/20/2019 [facility] Respitory Rate 16 01/20/2019 [facility] Weight 74.545 11/18/2018 [facility] Height 157.48 cm 11/18/2018 [facility] BMI Calculated 30.06 11/18/2018 [facility] Systolic (mm Hg) 94 11/18/2018 [facility] Diastolic (mm Hg) 70 11/18/2018 [facility] Heart Rate 76 11/18/2018 [facility] Respitory Rate 16 11/18/2018 [facility] Height 157.48 cm 07/17/2018 [facility] BMI Calculated 20.53 07/17/2018 [facility] Weight 50.909 07/17/2018 [facility] Systolic (mm Hg) 121 07/17/2018 [facility] Leah ro Diastolic (mm Hg) 74 07/17/2018 [facility] Heart Rate 71 07/17/2018 [facility] Respitory Rate 16 07/17/2018 [facility] BMI Calculated 29.54 04/10/2018 [facility] Weight 70.909 04/10/2018 [facility] Height 154.94 cm 04/10/2018 [facility] Heart Rate 79 04/10/2018 [facility] Neuro Systolic (mm Hg) 110 04/10/2018 [facility] Leah ro Diastolic (mm Hg) 81 04/10/2018 [facility] Ne uro Height 154.94 cm 07/25/2017 [facility] p Weight 54.364 07/25/2017 Medical Gr[facility] p BMI Calculated 22.65 07/25/2017 Medical Gr oup Temperature Oral (F) 98.0 F 07/25/2017 [facility]i [facility] Group Heart Rate 105 07/25/2017 Medical Grou p Systolic (mm Hg) 125 07/25/2017 Medical Group Diastolic (mm Hg) 84 07/25/2017 Medical Group Height 154.94 cm 07/14/2017 Medical Grou p Weight 50.545 07/14/2017 Medical Grou p Temperature Oral (F) 98.2 F 07/14/2017 [facility]i [facility] Group BMI Calculated 21.05 07/14/2017 Medical Gr oup Systolic (mm Hg) 124 07/14/2017 Medical Group Diastolic (mm Hg) 82 07/14/2017 Medical Group Height 62 01/17/2014 Medical Grou p Weight 107 01/17/2014 Medical Grou p Temperature Oral (F) 98.4 F 01/17/2014 Medi harlan Group Respitory Rate 16 01/17/2014 Medical Gr oup Heart Rate 84 01/17/2014 Medical Grou p Systolic (mm Hg) 122 01/17/2014 Medical Group Diastolic (mm Hg) 86 01/17/2014 Medical Group Encounters Location Location Encounter Encounter Reason Attending ADM DC Stat us Source Details Type Number For Provider Date Date Visit [facility] Lab Report [id number] 01/17 [facility] 269 Medical Medical MD Group Group [facility] Office [id number] Trevor 01/17 01/17 [facility] Supa Visit 227 Medical Medical MD Group Group [place] [facility] [id number] TREVOR 02/14 [facility] Outpatient [id number] ADILIA 10/22 [facility] [place] Outpatient [id number] TREVOR 08/14 [facility] [place] Outpatient [id number] ADILIA 09/23 [facility] [place] Outpatient [id number] ADILIA 10/25 [facility] Outpatient [id number] TREVOR 11/20 [facility] Outpatient [id number] TREVOR 12/13 [facility] [place] Outpatient [id number] ADILIA 01/13 [facility]2017 Sup[facility] Outpatient [id number] ADILIA 02/07 [facility] [place] [facility] [id number] ADILIA 02/21 [facility] Outpatient [id number] ADILIA 02/28 [facility] [place] Outpatient [id number] TREVOR 04/08 Active [facility] Outpatient [id number] ADILIA 04/15 Active [facility] [place] Outpatient [id number] ADILIA 05/06 Active [facility] Outpatient [id number] ADILIA 05/13 Active [facility] [place] Outpatient [id number] ROSI 07/02 Active [facility] Outpatient [id number] TORIBIO 07/14 Active [facility] Outpatient [id number] Toribio 07/14 07/15 Primary Estrada /2017 [facility] Phone [id number] 07/17 07/19 Primary Message /2017 [facility] Outpatient [id number] [facility] [id number] Trevor 07/25 07/26 MH Primary Janecek /2017 [facility] Phone [phone] 09/15 09/17 Primary Message /2017 [facility] Outpatient [id number] ABIEL 11/[address] [facility] Supa Outpatient [id number] ABIEL 11/[address] [facility] Outpatient [id number] ABIEL 12/[address] [facility] [id number] 03/31 04/02 Primary Medical /2017 [facility] Outpatient [id number] ABIEL 04/10 Active [facility] Outpatient [id number] Abiel 04/10 04/11 [facility] [place] /2017 [facility] [place] [facility] Phone [id number] 04/22 04/24 Misc her Neurology Message /2017 [facility] [place] [facility] Phone [id number] 06/05 06/07 Misc her Neurology Message /2017 [facility] [place] [facility] Phone [id number] 06/05 06/07 Misc her Neurology Message /2017 [facility] [place] [facility] Phone [id number] 06/08 06/10 Primary Message /2017 [facility] MNA Phone [id number] 06/09 06/11 Misc her Neurology Message /2017 [facility] [place] Outpatient [id number] ABIEL 07/10 Active [facility] Ambulatory [id number] Abiel 07/10 07/10 [facility] Neu[facility] Pre-Reg [place] /2018 [facility] [place] Outpatient [id number] ABIEL 07/17 Active [facility] Outpatient [id number] Abiel 07/17 07/18 [facility] [place]rell /2018 [facility] [place] Outpatient [id number] Abiel 10/09 Active [facility] [place] [facility] Phone [id number] 11/12 11/14 Misc her Neurology Message /2018 [facility] [place] [facility] Phone [id number] 11/12 11/14 Misc her Neurology Message /2018 [facility] [place] [facility] Phone [id number] 11/12 11/14 Misc her Neurology Message /2018 [facility] [place] Outpatient [id number] Abiel 11/18 Active [facility] Outpatient [id number] Abiel 11/18 11/19 [facility] [place] /2018 [facility] [place] Outpatient [id number] Abiel 01/20 Active [facility] [place] [facility] Outpatient [id number] Abiel 01/20 01/21 [facility] [place] /2018 [facility] [place] Outpatient [id number] Abiel 04/07 Active [facility] Ambulatory [id number] Abiel 04/07 04/07 [facility] Pre-Reg [place] [facility] [place] Outpatient [id number] Abiel 04/21 Active [facility] [place] Outpatient [id number] Abiel 04/21 Active [facility] Ambulatory [id number] Abiel 04/21 04/21 [facility] Pre-Reg [place] [facility] [place] [facility] Outpatient [id number] Abiel 04/21 04/22 [facility] [place] /2018 [facility] [place] Outpatient [id number] Abiel 05/26 Active [facility] Ambulatory [id number] Abiel 05/26 05/26 [facility] Pre-Reg [place] [facility] [place] Outpatient [id number] Abiel 08/20 Active [facility] Ambulatory [id number] Abiel 08/20 08/20 [facility] Pre-Reg [place] /2019 [facility] [place] Outpatient [id number] Abiel 09/06 Active [facility] [place] [facility] Outpatient [id number] Abiel 09/06 09/07 [facility] [place] /2019 [facility] [place] Outpatient [id number] Abiel 09/21 Active [facility] [place] [facility] Outpatient [id number] Abiel 09/21 09/22 [facility]2019 [facility] [place] Outpatient [id number] Abiel 12/22 [facility] [place] [facility] Outpatient [id number] Abiel 12/22 12/23 [facility] /2019 [facility] [place] [facility] Between [id number] 01/09 01/10 Mis fanny Neurology Visit /2019 [facility] [place] [facility] Between [id number] 02/09 02/10 Mis fanny Neurology Visit /2019 [facility] [place] Outpatient [id number] Abiel 03/24 Active [facility] [place] Outpatient [id number] Abiel 03/24 Active [facility] Ambulatory [id number] Abiel 03/24 03/24 [facility] Pre-Reg [place] /2019 [facility] [place] [facility] Ambulatory [id number] Abiel 03/24 03/24 [facility] Pre-Reg [place] /2019 [facility] [place] Outpatient [id number] Abiel 05/09 Active [facility] [place] [facility] Outpatient [id number] Abiel 05/09 05/10 [facility] [place] /2019 [facility] [place] Outpatient [id number] Abiel 09/05 [facility] [place] Procedures Procedure Code Date Perfomer Comments Source smoking/tobacco 14 01/17/2014 yes Medica l cessation, patient Group education and counseling LEEP procedure of [id number] [facility] harlan cervix [facility] [id number] Medical Group,[facility] Assessment and Plan No Data Provided for This Section Plan of Care No Data Provided for This Section Social History Social History Date Source Social History TypeResponse 11/05/2017 Medical [facility] Substance Abuse Use: Past. Type: Cocaine. Recreational Drug Route: I nhaled. IV drug use: No. Alcohol Never, Previous treatment: None. Smoking Status Former smoker; Type: Cigars; Concerns ab out tobacco use in household: No; Exposure to Tobacco Smoke None; Cigarette Smoking Last 365 Days Yes; Reg Smoking Cessation Counseling Yes; Tobacco use per day: 4; Started at age: 15.0; entered on: 11/18/18 Social History TypeResponse 02/14/2015 [facility] Never, Previous treatment: None. Substance Abuse Use: Past. Type: Cocaine. Recreational Drug Route: I nhaled. IV drug use: No. Smoking Status Former smoker; Type: Cigars; Concerns ab out tobacco use in household: No; Exposure to Tobacco Smoke None; Cigarette Smoking Last 365 Days Yes; Reg Smoking Cessation Counseling Yes; Tobacco use per day: 4; Started at age: 15.0; 1 entered on: 05/09/20 1Quit 3 yrs ago Family History No Data Provided for This Section Advance Directives No Data Provided for This Section Functional Status No Data Provided for This Section
--- OUTSIDE RECORDS SUMMARY | 2020-08-03 09:11 | XMS REPORT | Summary of Care ---
:1980 Author Organization [facility] Address [address] [place] [id number] Care Team Providers Name Role Phone Pcp, Does Not Have A Primary Care Provider Reason for Visit Reason Comments Rx Concern/Question diflucan for vaginitis Encounter Details Date Type Department Care Team Description 06/20/2020 Telephone [facility] Jesse Chiu, Rx C oncern/Question [facility] Ritu [place] (diflucan for [address] [place] [address] [address] [place] [address] [place], [place] [phone] Allergies Active Allergy Reactions Severity Noted Date Comments Amoxicillin-Pot Clavulanate Hives 07/30/2017 Clindamycin Hives 07/30/2017 Penicillins Nausea and/or Vomiting 07/30/2017 Sulfa (Sulfonamide Antibiotics) Nausea and/or Vomiting 07/30/2017 documented as of this encounter (statuses as of 06/20/2020) Medications Medication Sig Dispensed Refills Start Date End Date Status albuterol 90 Inhale 2 Puffs 8.5 g 1 12/22/2017 A ctive mcg/actuation inhaler every 6 (six) hours as needed for Wheezing or Shortness of Breath. ipratropium 17 Inhale 2 Puffs 3 12.9 g 5 2018 Active mcg/actuation (three) times inhalerIndications: daily. Moderate persistent asthma, unspecified whether complicated clonazePAM 0.5 mg 0 03/04/2018 A ctive tablet OXcarbazepine 600 mg 0 03/20/2018 Active tablet fluconazole (DIFLUCAN) Take 1 tablet by 1 tablet 1 07/29/2018 Active 200 mg mouth daily. tabletIndications: Vaginal yeast infection meloxicam 15 mg tablet 0 11/20/2018 Active lamoTRIgine 25 mg 0 11/18/2018 A ctive tablet budesonide-formoterol Inhale 2 Puffs 2 10.2 g 0 03/17/2019 Active (SYMBICORT) 80-4.5 (two) times daily. mcg/actuation inhaler SERTraline (ZOLOFT) 50 Take 1 tablet by 30 tablet 0 03/17/2019 Active mg tabletIndications: mouth daily. depression Betamethasone Valerate Apply 2-3g to the 3 9 Active 0.12 % foam affected area 2-4x/daily or as directed. Max 10 g/day clonazePAM 1 mg tablet TK 1 T PO TID 2 03/18/2019 Active acyclovir 400 mg TAKE ONE TABLET BY 15 tablet 0 07/13/2019 Active tablet MOUTH THREE TIMES A DAY FOR 5 DAYS FOR OUTBREAK mirtazapine 15 mg 0 04/11/2020 A ctive tablet zolpidem 10 mg tablet 0 04/13/2020 Active norgestimate-ethinyl Take 1 tablet by 1 Package 12 05/02/2020 Active estradioL 0.25-35 mouth daily. 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, antepartum 03/12/2018 Obesity (BMI 30-39.9) 03/02/2018 Asthma complicating , antepartum 02/27/2018 Round ligament pain 01/19/2018 Excessive weight gain 01/19/2018 Herpes simplex virus type 2 (HSV-2) infection affectin g in 12/13/2017 second trimester History of herpes genitalis 09/25/2017 Moderate persistent asthma with acute exacerbation Seizure disorder 09/25/2017 Anxiety disorder, unspecified type 09/25/2017 Bipolar affective disorder, remission status unspecifi ed 09/25/2017 History of substance use 09/25/2017 Drug abuse, marijuana, quit 08/04/2017 Missed menses 08/04/2017 documented as of this encounter (statuses as of 06/20/2020) Resolved Problems Problem Noted Date Resolved Date Threatened premature labor in third trimester 03/03/2018 03/24/2018 36 weeks gestation of 03/03/2018 03/24/20 18 documented as of this encounter (statuses as of 06/20/2020) Immunizations Name Administration Dates Next Due Influenza Virus Vaccine Quad .5 mL IM 6+ MO 04/14/2018 Rho (d) Immune Globulin 12/17/2017, 07/31/2017 TDAP 01/19/2018 documented as of this encounter Social History Tobacco Use Types Packs/Day Years Used Date Former Smoker Cigarettes Smokeless Tobacco: Never Used Alcohol Use Drinks/Week oz/Week Comments No Sex Assigned at Date Recorded Not on file documented as of this encounter Last Filed Vital Signs Not on filedocumented in this encounter Miscellaneous Notes Telephone Encounter - Kev Munguia MA - 06/20/2020 1:34 PM CSTCalled patient regarding Diflucan Rx refill request. Explained that we cannot send Rx w/o evaluation in clinic. Patient declined and stated that she would just take OTC Monistat for her symptoms. Kev Munguia MA 06/20/2020 1:35 PM documented in this encounter Plan of Treatment Date Type Specialty Care Team Description 05/02/2021 Office Visit Obstetrics & Gynecology Jesse Chiu PA-C [address] [place] [address] [phone] Health Maintenance Due Date Last Done Comments PNEUMOCOCCAL 0-64 YEARS COMBINED SERIES (1 of - 01[birth year]27/1988 PPSV23) Depression Screening 1994 INFLUENZA VACCINE (#1) 2020 04/14/2018 PAP SMEAR 08/21/2022 08/21/2017 DTaP,Tdap,and Td Vaccines (2 - Td) 01/20/2028 01/19/2018 documented as of this encounter Results Not on filedocumented in this encounter Insurance Payer Benefit Plan / Subscriber ID Effective Phone Address T e Group Dates [facility] [id number] 2020-Pres Medic are Adv HEALTHCARE - HEALTH[place]ARE [place] O MEDICARE documented as of this encounter
--- OUTSIDE RECORDS SUMMARY | 2020-08-03 09:11 | XMS REPORT | Continuity of Care Document ---
:1980 Author Organization [facility] t Address [address] [place] [address] Care Team Providers Name Role Phone Apple SANFORD Attending Clinician Doctor Unassigned, Name Attending Clinician Unavailable Yahir Hill Attending Clinician 2, Lab Attending Clinician Unavailable Eric Freeman Attending Clinician Cash Estrada Attending Clinician Problems Condition Condition Condition Status Onset Resolution Last Treating Co mments Source Name Details Category Date Date Treatment Clinician Date LOW BACK Condition Active 2014-01-17 M emoria PAIN 01-17 17:25:00 l LOW BACK 00:00: Candido n PAIN 00 Active 01/17/2014 Condition 4 Medical [facility] Patient Problem Resolve 2020-05-12 Mem oria currently d 01:54:55 l Patient Kareen nn (finding) currently (finding) Resolved Problem 05/12/2020 [facility] her Neuro Asthma Problem Active 2020-05-12 Memor ia (disorder) 01:54:55 l Asthma Supa (disorder) Active Problem 05/12/2020 Data migrated from [facility] [employer] on 12/03/14. [facility] her Neuro Epilepsy Problem Active 2020-05-12 Mem oria (disorder) 01:54:55 l Epilepsy Candido n (disorder) Active Problem 05/12/2020 Data migrated from [facility] [employer] on 12/03/14. [facility] her Neuro Hand pain Problem Active 2020-05-12 Me moria (finding) 01:54:55 l Hand Supa pain (finding) Active Problem 05/12/2020 Medical [facility] [place] her Neuro Insomnia Problem Active 2020-05-12 Mem oria (disorder) 01:54:55 l Insomnia Candido n (disorder) Active Problem 05/12/2020 Data migrated from [employer] [employer] on 12/03/14. 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 (disorder) Active Problem 05/12/2020 [facility] Migraine Problem Active 2020-05-12 Mem oria (disorder) 01:54:55 l Migraine Candido n (disorder) [facility] EPILEPSY Condition Active 2014-01-17 M emoria 17:25:00 l EPILEPSY Candido n Active Condition 01/17/2014 Medical Group ASTHMA Condition Active 2014-01-17 Mem oria 17:25:00 l ASTHMA Supa Active Condition 01/17/2014 Medical Group INSOMNIA Condition Active 2014-01-17 M emoria 17:25:00 l INSOMNIA Candido n Active Condition 01/17/2014 Medical [facility] History of Past Illness Condition Condition Condition Status Onset Resolution Last Treating Co mments Source Name Details Category Date Date Treatment Clinician Date Anxiety Problem Resolve 2020-05-12 2020-05-12 Memoria state d 4-18 01:54:55 01:54:55 l (finding) Anxiety 00:00: Herm chauncey state 00 (finding) Resolved 10/23/2015 Problem 05/12/2020 Medical [facility] her Neuro Low back Problem Resolve 2020-05-12 2020-05-12 Memoria pain d 7-14 01:54:55 01:54:55 l (disorder) Low back 00:00: He rmann pain 00 (disorder) Resolved 01/17/2014 Problem 05/12/2020 Data migrated from [facility] on 12/03/14. Medical Group,[facility] [place] her Neuro Allergies, Adverse Reactions, Alerts Allergy Allergy Status Severity Reaction(s) Onset Inactive Treating Comm ents Source Name Type Date Date Clinician penicill penicill Active Memori a ins ins l Supa sulfa sulfa Active Memoria drugs<ramirez drugs<ramirez l p>1</sup p>1</sup Candido n > > ciproflo ciproflo Active Memori a xacin xacin l Supa ibuprofe ibuprofe Active Memori a n<sup>2< n<sup>2< l /sup> /sup> [place] clindamy clindamy Active Memori a brionna brionna l [place] aspirin aspirin Active Memoria l Supa Keflex Keflex Active Memoria l Supa SULFA SULFA Active Memoria l [place] AUGMENTI AUGMENTI Active Memori a N N l Supa CEPHALEX CEPHALEX Active Memori a IN IN l Supa ADVIL ADVIL Active Memoria l Supa Social History Social Habit Start Date Stop Date Quantity Comments Source Social History 2015-02-14 2015-02-14 [facility] 15:20:00 15:20:00 Medications Ordered Filled Start Stop Current Ordering Indication Dosage Frequency Signature Comments Components Source Medication Medication Date Date Medication? 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, Weight sertraline 2019-0 Yes See Memoria 50 mg oral 8-06 Instructio l tablet 19:38: ns, TAKE [place] 00 ONE TABLET BY MOUTH DAILY, # 30 tab, 2 Refill(s), Pharmacy: [facility] [id number], 157.48, cm, 12/23/19 16:09:00 CDT, Height, 77.273, kg, 12/23/19 16:09:00 CDT, Weight lamotrigine 2020-0 Yes = 1 tab, Me moria 100 MG Oral 7-23 PO, BID, # l Tablet 19:05: 60 tab, 2 Candido n 00 Refill(s), Pharmacy: [facility] [address], 157.48, cm, 12/23/19 16:09:00 CDT, Height, 77.273, kg, 12/23/19 16:09:00 CDT, Weight Mirtazapine 2020-0 Yes See Memori a 15 MG Oral 7-06 Instructio l Tablet 20:56: ns, TAKE [place] 00 ONE TABLET BY MOUTH EVERY NIGHT AT BEDTIME, # 30 tab, 4 Refill(s), Pharmacy: [facility] [id number], 157.48, cm, 12/23/19 16:09:00 CDT, Height, 77.273, kg, 12/23/19 16:09:00 CDT, Weight sertraline 2020-0 Yes See Memoria 50 mg oral 7-06 Instructio l tablet 20:56: ns, TAKE Supa 00 ONE TABLET BY MOUTH DAILY, # 30 tab, 0 Refill(s), Pharmacy: [facility] [id number], 157.48, cm, 12/23/19 16:09:00 CDT, Height, 77.273, kg, 12/23/19 16:09:00 CDT, Weight OXcarbazepi 2020-0 Yes = 1 tab, Me moria ne 600 mg 6-18 PO, TID, # l oral tablet 21:24: 90 tab, 5 H ermann 00 Refill(s), Pharmacy: [facility] [address], 157.48, cm, 12/23/19 16:09:00 CDT, Height, 77.273, kg, 12/23/19 16:09:00 CDT, Weight sertraline 2020-0 Yes See Memoria 50 mg oral 5-04 Instructio l tablet 19:59: ns, # 30 [place] 06 tab, Refill(s) 1, TAKE ONE TABLET BY MOUTH DAILY, Pharmacy: [facility] [address] 4 ML 2020-0 Yes 15 mg, [place], Memoria Diazepam 3-03 ONCE, # 1 l 0.005 MG/MG 19:33: kit, 2 Herm chauncey Prefilled 00 Refill(s), Applicator Pharmacy: [facility] [facility] [address] lamotrigine 2020-0 Yes 100 mg = 1 Memoria 100 MG Oral 3-02 tab, PO, l Tablet 20:12: BID, # 60 Candido n 00 tab, 2 Refill(s), Pharmacy: [facility] [address] OXcarbazepi 2019-0 Yes = 1 tab, Me moria ne 600 mg 1-03 PO, TID, # l oral tablet 14:32: 90 tab, Her ugalde 49 Refill(s) 5, Pharmacy: [facility] [address] Mirtazapine Yes = 1 tab, Me moria 15 MG Oral 1-03 PO, l Tablet 14:32: Bedtime, # Kareen nn 49 30 tab, Refill(s) 5, Pharmacy: [facility] [address] Mirtazapine 2018-07 Yes = 1 tab, Me moria 15 MG Oral 0-17 PO, l Tablet 13:25: Bedtime, # Kareen nn 18 30 tab, Refill(s) 2, Pharmacy: [facility] [address] Sertraline 2018-07 Yes 50 mg = 1 Me moria 50 MG Oral 0-16 tab, PO, l Tablet 22:39: Daily, Nita Cowart [Zoloft] 00 30 tab, 3 Refill(s), Pharmacy: [facility] [address] Mirtazapine No 15 mg = 1 M emoria 15 MG Oral 8-21 tab, PO, l Tablet 14:15: Bedtime, # Kareen nn [Remeron] 00 30 tab, 1 Refill(s), Pharmacy: [facility] [address] Clonazepam Yes 1 mg = 1 Mem oria 1 MG Oral 8-09 tab, PO, l Tablet 13:21: TID, # 90 Candido n [Klonopin] 03 tab, 2 Refill(s), called to pharmacy Acetaminoph Yes 1 - 2 tab, Memoria en 300 MG / 7-17 PO, Q4H, l Codeine 15:42: PRN Pain, Kareen nn Phosphate 00 # 20 tab, 30 MG Oral 0 Tablet Refill(s) [Tylenol with Codeine #3] lamotrigine Yes 50 mg = 2 M emoria 25 MG Oral 5-30 tab, PO, l Tablet 14:46: BID, # 120 Kareen nn [Lamictal] 22 tab, 2 Refill(s), Pharmacy: [facility] [address] lamotrigine No 50 mg = 2 M emoria 25 MG Oral 5-29 tab, PO, l Tablet 15:36: BID, X 30 Candido n [Lamictal] 55 day, # 120 tab, 2 Refill(s), Pharmacy: [facility] [id number] lamotrigine Yes 25 mg = 1 M emoria 25 MG Oral 5-15 tab, PO, l Tablet 19:55: BID, # 60 Candido n [Lamictal] 00 tab, 3 Refill(s), Pharmacy: [facility] [facility] [address] Clonazepam Yes 1 mg = 1 Mem oria 1 MG Oral 5-09 tab, PO, l Tablet 21:18: TID, # 90 Candido n [Klonopin] 58 tab, 2 Refill(s), called to pharmacy OXcarbazepi Yes 600 mg = 1 Memoria ne 600 mg 5-09 tab, PO, l oral tablet 21:18: TID, # 90 H ermann 44 tab, 3 Refill(s), Pharmacy: [facility] [address] OXcarbazepi No 600 mg = 1 Memoria ne 600 mg 1-11 tab, PO, l oral tablet 17:19: TID, X 30 H ermann 01 day, # 90 tab, 3 Refill(s), Pharmacy: [facility] [address] Clonazepam 2017-07 No 1 mg = 1 Mem oria 1 MG Oral 2-05 tab, PO, l Tablet 15:08: TID, X 30 Candido n [Klonopin] 46 day, # 90 tab, 1 Refill(s), called to pharmacy Clonazepam 2017-07 No 1 mg = 1 Mem oria 1 MG Oral 2-01 tab, PO, l Tablet 00:27: Bedtime, X Kareen nn [Klonopin] 00 30 day, # 30 tab, 1 Refill(s), called to pharmacy OXcarbazepi 2017-07 No See Memori a ne 600 mg 0-17 Instructio l oral tablet 15:32: ns, TAKE He rmann 51 1.5 TABLET BY MOUTH TWICE A DAY, # 90 tab, 3 Refill(s), Pharmacy: [facility] [address] Sertraline 2017-07 Yes 50 mg = 1 Me moria 50 MG Oral 0-05 tab, PO, l Tablet 14:19: Daily, # [place] [Zoloft] 00 30 tab, 0 Refill(s) Symbicort 2017-07 Yes 2 puff, Memor ia 160/4.5 0-05 INHALATION l inhalation 14:16: , BID, 0 Her ugalde aerosol 00 Refill(s) with adapter Clonazepam 2017-07 No 0.5 mg = 1 M emoria 0.5 MG Oral 0-02 tab, PO, l Tablet 22:08: Bedtime, X Kareen nn [Klonopin] 29 30 day, # 30 tab, 3 Refill(s), called to pharmacy Nitrofurant No 100 mg = 1 Memoria oin 100 MG 1-11 cap, PO, l Oral 18:27: BID, X 7 [place] Capsule 00 day, # 14 [Macrobid] cap, 0 Refill(s), Pharmacy: [facility] [facility] [address] 200 ACTUAT Yes 180 Memoria Albuterol 1-08 microgram l 0.09 22:29: = 2 puff, [place] MG/ACTUAT 02 INHALER, Metered Q4H, PRN Dose wheezing, Inhaler coughing, [ProAir or HFA] shortness of breath, # 1 ea, 2 Refill(s), Pharmacy: [facility] 343 Oseltamivir No 75 mg, PO, Memoria 75 MG Oral 1-08 Q12H, X 5 l Capsule 22:24: day, # 10 Kareen nn [Tamiflu] 57 cap, 0 Refill(s), Pharmacy: [facility] 256 Oseltamivir No 75 mg, PO, Memoria 75 MG Oral 1-08 Q12H, X 5 l Capsule 22:21: day, # 10 Kareen nn [Tamiflu] 00 cap, 0 Refill(s), Pharmacy: [facility] 343 ZOLPIDEM Yes 1 po qhs Memor ia TARTRATE 10 2-11 l MG TABS 00:00: [place] 00 PROAIR HFA 2012-07 Yes 2 puffs q Me moria 108 (90 0-02 4 hrs prn l BASE) 00:00: [place] MCG/ACT 00 AERS CLONAZEPAM Yes Take 1 po Me moria 1 MG TABS 5-28 tid l 00:00: Supa 00 OXCARBAZEPI Yes 1 po bid Me moria NE 600 MG 5-20 l TABS 00:00: [place] 00 Vital Signs Vital Name Observation Time Observation Value Comments Source Systolic (mm Hg) 2020-05-09 15:36:00 Farooq rial Supa Diastolic (mm Hg) 2020-05-09 15:36:00 Mem orial [place] Heart Rate 2020-05-09 15:36:00 Memorial Supa Respitory Rate 2020-05-09 15:36:00 Memori al [place] Height 2020-05-09 15:36:00 157.48 cm Memorial Supa Weight 2020-05-09 15:36:00 Memorial [place] BMI Calculated 2020-05-09 15:36:00 Memori al [place] Systolic (mm Hg) 2019-12-23 21:09:00 Farooq rial [place] Diastolic (mm Hg) 2019-12-23 21:09:00 Mem orial Supa Heart Rate 2019-12-23 21:09:00 [facility] Supa Respitory Rate 2019-12-23 21:09:00 Memori al Supa Height 2019-12-23 21:09:00 157.48 cm Memorial Supa Weight 2019-12-23 21:09:00 Memorial [place] BMI Calculated 2019-12-23 21:09:00 Memori al Supa Systolic (mm Hg) 2019-09-22 21:21:00 Farooq rial Supa Diastolic (mm Hg) 2019-09-22 21:21:00 Mem orial [place] Heart Rate 2019-09-22 21:21:00 [facility] Supa Respitory Rate 2019-09-22 21:21:00 Memori al Supa Height 2019-09-22 21:21:00 160.02 cm Memorial [place] Weight 2019-09-22 21:21:00 Memorial Supa BMI Calculated 2019-09-22 21:21:00 Memori al Supa Systolic (mm Hg) 2019-09-07 19:15:00 Farooq rial Supa Diastolic (mm Hg) 2019-09-07 19:15:00 Mem orial Supa Heart Rate 2019-09-07 19:15:00 Memorial Supa Respitory Rate 2019-09-07 19:15:00 Memori al [place] Height 2019-09-07 19:15:00 160.02 cm Memorial [place] Weight 2019-09-07 19:15:00 Memorial Supa BMI Calculated 2019-09-07 19:15:00 Memori al [place] BMI Calculated 2019-01-20 15:32:00 Memori al Supa Weight 2019-01-20 15:32:00 Memorial Supa Height 2019-01-20 15:32:00 160.02 cm [facility] Supa Systolic (mm Hg) 2019-01-20 15:32:00 Farooq rial [place] Diastolic (mm Hg) 2019-01-20 15:32:00 Mem orial Supa Heart Rate 2019-01-20 15:32:00 Memorial Supa Respitory Rate 2019-01-20 15:32:00 Memori al [place] Weight 2018-11-18 18:37:00 [facility] Supa Height 2018-11-18 18:37:00 157.48 cm Memorial Supa BMI Calculated 2018-11-18 18:37:00 Memori al Supa Systolic (mm Hg) 2018-11-18 18:37:00 Farooq rial [place] Diastolic (mm Hg) 2018-11-18 18:37:00 Mem orial Supa Heart Rate 2018-11-18 18:37:00 Memorial [place] Respitory Rate 2018-11-18 18:37:00 Memori al [place] Height 2018-07-17 16:56:00 157.48 cm Memorial Supa BMI Calculated 2018-07-17 16:56:00 Memori al [place] Weight 2018-07-17 16:56:00 Memorial [place] Systolic (mm Hg) 2018-07-17 16:56:00 Farooq rial Supa Diastolic (mm Hg) 2018-07-17 16:56:00 Mem orial [place] Heart Rate 2018-07-17 16:56:00 Memorial [place] Respitory Rate 2018-07-17 16:56:00 Memori al [place] BMI Calculated 2018-04-10 13:52:00 Memori al Supa Weight 2018-04-10 13:52:00 [facility] Supa Height 2018-04-10 13:52:00 154.94 cm Memorial [place] Heart Rate 2018-04-10 13:52:00 Memorial [place] Systolic (mm Hg) 2018-04-10 13:52:00 Farooq rial Supa Diastolic (mm Hg) 2018-04-10 13:52:00 Mem orial Supa Height 2017-07-25 20:14:00 154.94 cm [facility] Supa Weight 2017-07-25 20:14:00 [facility] [place] BMI Calculated 2017-07-25 20:14:00 Memori al Supa Temperature Oral (F) 2017-07-25 20:14:00 98.0 F Memorial [place] Heart Rate 2017-07-25 20:14:00 [facility] [place] Systolic (mm Hg) 2017-07-25 20:14:00 Farooq rial [place] Diastolic (mm Hg) 2017-07-25 20:14:00 Mem orial [place] Height 2017-07-14 22:05:00 154.94 cm Memorial [place] Weight 2017-07-14 22:05:00 Memorial [place] Temperature Oral (F) 2017-07-14 22:05:00 98.2 F [facility] [place] BMI Calculated 2017-07-14 22:05:00 Memori al [place] Systolic (mm Hg) 2017-07-14 22:05:00 Farooq rial [place] Diastolic (mm Hg) 2017-07-14 22:05:00 Mem orial [place] Height 2014-01-17 21:21:31 [facility] Supa Weight 2014-01-17 21:21:31 [facility] Supa Temperature Oral (F) 2014-01-17 21:21:31 98.4 F [facility] Supa Respitory Rate 2014-01-17 21:21:31 Memori al Supa Heart Rate 2014-01-17 21:21:31 Memorial [place] Systolic (mm Hg) 2014-01-17 21:21:31 Farooq rial [place] Diastolic (mm Hg) 2014-01-17 21:21:31 Mem orial [place] Procedures Procedure Date / Time Performed Performing Clinician [facility] e smoking/tobacco cessation, 2014-01-17 21:21:31 M emorial Supa patient education and counseling LEEP procedure of cervix Alyssaoria l Supa Tonsillectomy [facility]a Encounters Start End Encounter Admission Attending Care Care Encounter Source Date/Time Date/Time Type Type Clinicians Facility Department ID 2020-06-20 2020-06-20 SISI Bhakta [id number] 00:00:00 00:00:00 Elaina Chaney [id number] [place] [id number] Professio [phone] [facility] 134 [facility] 2020-06-20 2020-06-20 Telephone [facility] [id number] 00:00:00 00:00:00 Elaina Chaney [id number] [place] [id number] Professio [phone] [facility] 134 [facility] 2020-05-21 2020-05-21 Orders Doctor RADHA [id number] 00:00:00 00:00:00 Only Unassigned, LATRICE [id number] [place] [facility] [id number] [facility] 2020-05-09 2020-05-09 Outpatient RILEY HillSCHER RILEYSCHER [id number] 09:30:00 23:59:59 [place] 19 [facility] 2020-05-09 2020-05-09 [facility] [id number] 00:00:00 00:00:00 Elaina Chaney [id number] [place] [id number] Professio [phone] [facility] 134 [facility] 2020-05-04 2020-05-04 Case [facility] [id number] 00:00:00 00:00:00 Management Elaina Chaney [id number] [place] [id number] Professio [id number] [address] 2020-05-02 2020-05-02 News Internship 2, Adc Lab [facility] [id number] 11:01:55 11:16:55 Visit Ritu [id number] [place] [id number] Professio [id number] [address] 2020-03-24 2020-03-24 Outpatient RILEY HillSCHER LAURAMISCHER [id number] 15:30:00 15:30:00 [place] 17 [facility] 2020-03-24 2020-03-24 Outpatient RILEY HillSCHER LAURAMISCHER [id number] 15:30:00 15:30:00 [place] 18 Yahir 2020-02-10 2020-02-11 Outpatient MHMISCHER MHMISCHER [id number] 14:38:26 14:38:26 54 2020-01-10 2020-01-11 Outpatient MHMISCHER MHMISCHER [id number] 15:55:56 15:55:56 53 2019-12-23 2019-12-23 Outpatient Krenelsy, MHMISCHER MHMISCHER [id number] 15:45:00 23:59:59 [place] 16 Yahir 2019-09-22 2019-09-22 Outpatient Sergio, MHMISCHER MHMISCHER [id number] 16:15:00 23:59:59 [place] 13 Yahir 2019-09-07 2019-09-07 Outpatient Krenelsy, MHMISCHER MHMISCHER [id number] 13:00:00 23:59:59 [place] 15 Yahir 2019-08-20 2019-08-20 Outpatient Sergio, MHMISCHER MHMISCHER [id number] 16:30:00 16:30:00 [place] 14 Yahir 2019-05-26 2019-05-26 Outpatient Sergio, MHMISCHER MHMISCHER [id number] 11:45:00 11:45:00 [place] 12 Yahir 2019-04-21 2019-04-21 Outpatient Sergio, MHMISCHER MHMISCHER [id number] 15:00:00 23:59:59 [place] 11 Yahir 2019-04-21 2019-04-21 Outpatient Sergio, MHMISCHER MHMISCHER [id number] 11:00:00 11:00:00 [place] 09 Yahir 2019-04-07 2019-04-07 Outpatient Sergio, MHMISCHER MHMISCHER [id number] 15:00:00 15:00:00 [place] 10 Yahir 2019-01-20 2019-01-20 Outpatient Sergio, MHMISCHER MHMISCHER [id number] 10:45:00 23:59:59 [place] 08 Yahir 2018-11-18 2018-11-18 Outpatient Krell, MHMISCHER MHMISCHER [id number] 13:45:00 23:59:59 [place] 07 Yahir 2018-11-12 2018-11-13 Outpatient MHMISCHER MHMISCHER [id number] 14:08:52 23:59:59 41 2018-11-12 2018-11-13 Outpatient MHMISCHER MHMISCHER [id number] 14:05:59 23:59:59 40 2018-11-12 2018-11-13 Outpatient MHMISCHER MHMISCHER [id number] 13:56:37 23:59:59 39 2018-07-17 2018-07-17 Outpatient Sergio, MHMISCHER MHMISCHER [id number] 11:00:00 23:59:59 Galdinochapincito Sinclair 2018-07-10 2018-07-10 Outpatient Sergio, MHMISCHER MHMISCHER [id number] 09:00:00 09:00:00 Galdinochapincito Sinclair 2018-06-09 2018-06-10 Outpatient MHMISCHER MHMISCHER [id number] 11:57:00 23:59:59 38 2018-06-08 2018-06-09 Outpatient MHMG MHMG [id number] 13:59:00 23:59:59 37 2018-06-05 2018-06-06 Outpatient MHMISCHER MHMISCHER [id number] 14:42:00 23:59:59 36 2018-06-05 2018-06-06 Outpatient MHMISCHER MHMISCHER [id number] 10:16:00 23:59:59 35 2018-04-22 2018-04-23 Outpatient MHMISCHER MHMISCHER [id number] 10:14:00 23:59:59 34 2018-04-10 2018-04-10 Outpatient Sergio, MHMISCHER MHMISCHER [id number] 09:00:00 23:59:59 Galdinochapincito Sinclair 2018-03-31 2018-04-01 Outpatient MHMG MH[facility] [id number] 09:16:00 23:59:59 33 2017-09-15 2017-09-16 Outpatient MHMG MHMG [id number] 08:44:00 23:59:59 32 2017-07-25 2017-07-25 Outpatient Pete, MHMG MHMG [id number] 14:15:00 23:59:59 Trevor Reyes 2017-07-17 2017-07-18 Outpatient MH[facility] MH[facility] [id number] 10:56:00 23:59:59 31 2017-07-14 2017-07-14 Kinjal Estrada [facility] [id number] 16:00:00 23:59:59 Toribio Cash 16 Results Test Description Test Time Test Comments Results Result Comments Source Chemistry 2014-01-17 140 MEQ/L [facility] K[facility]en nn 22:25:00 Chemistry 2014-01-17 3.8 MEQ/L [facility] [place] nn 22:25:00 Chemistry 2014-01-17 0.6 [facility] [place] nn 22:25:00 Chemistry 2014-01-17 13 [facility] K[facility]en nn 22:25:00 Chemistry 2014-01-17 22:25:00 Test Item Value Reference Range Interpretation Comme nts BUN/CREAT (test code = BUN/CREAT) 22 1 6 Memorial LmucewnNxpefgygk9069-86-07 22:25:004.5[facility] HermannChemistry 2014-01-17 22:25:009.1[facility] BwpnlydFnfwmjbly9984-71-15 22:25:0017Mem[facility] IpdcosuGokaysduc6582-70-82 22:25:0014Memorial DgpjgenRoizbvhvt4373-30-76 22:25:0059Memorial ZhoovzjBmvtjsnmq6721-12-20 22:25:59801 MEQ/LMemorial Supa Gquyivrwp6404-15-52 22:25:003.8 MEQ/LMemorial LcqdskwDsotwwpyh7946-86-43 22:25:000.6Memorial WwiveeeXbptljfpc0774-01-48 22:25:0013[facility] Supa Nvcolojau9173-07-80 22:25:00 Test Item Value Reference Range Interpretation Comments BUN/CREAT (test code = BUN/CREAT) 22 12-29 Memorial PgfhaznXbrpgaebu1046-20-34 22:25:004.5[facility] HermannChemistry 2014-01-17 22:25:009.1[facility]orial OonouriFpvcwhnql2289-63-01 22:25:0017Mem[facility] KgcmcyoJsahzgnel5115-50-11 22:25:0014Mem[facility] ApeorqjClnnpjupt8382-63-74 22:25:0059Mem[facility] FawkbzmEpfiiesvem5483-08-47 22:25:0013.1[facility] Supa Jayatmumpz7124-93-42 22:25:0038.0[facility] TaoxfvhLiubuzeudg5019-28-59 22:25:00 336 K/CMMMemorial GgwidfwYxitsymswu4851-16-13 22:25:0013.1[facility] Zmavghivqp0059-42-51 22:25:0038.0[facility]orial WxwtmydMldxmlrbhi0506-26-05 22:25:00 336 K/CMMMemorial Supa
--- OUTSIDE RECORDS SUMMARY | 2020-08-03 09:11 | XMS REPORT | Summary of Care ---
:1980 Author Organization [facility] Address [address] [place] [address] Care Team Providers Name Role Phone Pcp, Does Not Have A Primary Care Provider Reason for Visit Reason Comments Refill Request Encounter Details Date Type Department Care Team Description 06/20/[address] [facility] Women's Ratna Chiu PA-C Refill Request Healthcare- [address] 146 [facility] [address] [place] [address] [place] [address] 112 [phone] Allergies Active Allergy Reactions Severity Noted Date [...] Visit Obstetrics & Gynecology Jesse Chiu PA-C [address] [place] [address] [phone] Health Maintenance Due Date Last Done Comments PNEUMOCOCCAL 0-64 YEARS COMBINED SERIES (1 of - 01/27/1988 PPSV23) Depression Screening 1994 INFLUENZA VACCINE (#1) 2020 04/14/2018 PAP SMEAR 08/21/2022 08/21/2017 DTaP,Tdap,and Td Vaccines (2 - Td) 01/20/2028 01/19/2018 documented as of this encounter Results Not on filedocumented in this encounter Visit Diagnoses Diagnosis Vaginal yeast infection Candidiasis of vulva and vagina documented in this encounter Insurance Payer Benefit Plan / Subscriber ID Effective Phone Address T ype Group Dates [place] [id number] 2020-Pres Medic are Adv HEALTHCARE - [place] MEDICARE documented as of this encounter
--- OUTSIDE RECORDS SUMMARY | 2020-08-03 09:11 | XMS REPORT | Summary of Care ---
:1980 Author Organization [facility] Address [address] [place] [id number] Care Team Providers Name Role Phone Pcp, Does Not Have A Primary Care Provider Reason for Visit Reason Comments Assessment yeast infection Encounter Details Date Type Department Care Team Description 05/09/2020 Telephone [facility] Women's Jesse Chiu Asse ssment (yeast [facility] infection) [address] [place] [address], [address] [place] [id number] [place], [place] [phone] Allergies Active Allergy Reactions Severity Noted Date Comments Amoxicillin-Pot Clavulanate Hives 07/30/2017 Clindamycin Hives 07/30/2017 Penicillins Nausea and/or Vomiting 07/30/2017 Sulfa (Sulfonamide Antibiotics) Nausea and/or Vomiting 07/30/2017 documented as of this encounter (statuses as of 05/09/2020) Medications Medication Sig Dispensed Refills Start Date [...] as of this encounter (statuses as of 05/09/2020) Active Problems Problem Noted Date wound infection [...] as of this encounter (statuses as of 05/09/2020) Resolved Problems Problem Noted Date Resolved Date Threatened premature labor in third trimester 03/03/2018 03/24/2018 36 weeks gestation of 03/03/2018 03/24/20 18 documented as of this encounter (statuses as of 05/09/2020) Immunizations Name Administration Dates Next Due Influenza Virus Vaccine Quad .5 mL IM 6+ MO 04/14/2018 Rho (d) Immune Globulin 12/17/2017, 07/31/2017 TDAP 01/19/2018 documented as of this encounter Social History Tobacco Use Types Packs/Day Years Used Date Former Smoker Cigarettes Smokeless Tobacco: Never Used Alcohol Use Drinks/Week oz/Week Comments No Sex Assigned at Date Recorded Not on file COVID-19 Exposure Response Date Recorded In the last month, have you been in contact with No / Unsure 05/02/2020 10:12 AM CDT someone who was confirmed or suspected to have Coronavirus / COVID-19? documented as of this encounter Last Filed Vital Signs Not on filedocumented in this encounter Miscellaneous Notes Telephone Encounter - Lucia Sanders RN - 05/09/2020 1:15 PM CSTRN spoke with patient, name and verified. RN advised patient that it can take a week for full resolution of symptoms especially if the vagina was very irritated when treatment started. Patient verbalized understanding. 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 documented in this encounter Plan of Treatment Date Type Specialty Care Team Description 05/02/2021 Office Visit Obstetrics & Gynecology [place] , Jesse, [place] [phone] Health Maintenance Due Date Last Done Comments PNEUMOCOCCAL 0-64 YEARS COMBINED SERIES (1 of 1 - 01/27/1988 PPSV23) Depression Screening 1994 INFLUENZA VACCINE (#1) 2020 04/14/2018 PAP SMEAR 08/21/2022 08/21/2017 DTaP,Tdap,and Td Vaccines (2 - Td) 01/20/2028 01/19/2018 documented as of this encounter Results Not on filedocumented in this encounter Insurance Payer Benefit Plan / Subscriber ID Effective Phone Address T ype Group Dates [facility] [id number] 2020-Pres Medic are Adv HEALTHCARE - HEALTHCARE DUAL ent [place]NA[place] COM[place]TE O MEDICARE documented as of this encounter
--- OUTSIDE RECORDS SUMMARY | 2020-08-03 09:11 | XMS REPORT | Summary of Care ---
:1980 Author Organization [facility] Address [address] [place] [address] Care Team Providers Name Role Phone Pcp, Does Not Have A Primary Care Provider Encounter Details Date Type Department Care Team Description 05/21/2020 Orders Only [facility] Doctor Unassigned, No [address] [facility] [place] [address] [address] [place] [address] Allergies Active Allergy Reactions Severity Noted Date Comments Amoxicillin-Pot Clavulanate Hives 07/30/2017 Clindamycin Hives 07/30/2017 Penicillins Nausea and/or Vomiting 07/30/2017 Sulfa (Sulfonamide Antibiotics) Nausea and/or Vomiting 07/30/2017 documented as of this encounter (statuses as of 05/26/2020) Medications Medication Sig Dispensed Refills Start Date [...] as of this encounter (statuses as of 05/26/2020) Active Problems Problem Noted Date wound infection [...] as of this encounter (statuses as of 05/26/2020) Resolved Problems Problem Noted Date Resolved Date Threatened premature labor in third trimester 03/03/2018 03/24/2018 36 weeks gestation of 03/03/2018 03/24/20 18 documented as of this encounter (statuses as of 05/26/2020) Immunizations Name Administration Dates Next Due Influenza [...] Visit Obstetrics & Gynecology Jesse Chiu PA-C [address] [place] [address] [phone] Health Maintenance Due Date Last Done Comments PNEUMOCOCCAL 0-64 YEARS COMBINED SERIES (1 of - 01/27/1988 PPSV23) Depression Screening 1994 INFLUENZA VACCINE (#1) 2020 04/14/2018 PAP SMEAR 08/21/2022 08/21/2017 DTaP,Tdap,and Td Vaccines (2 - Td) 01/20/2028 01/19/2018 documented as of this encounter Procedures Procedure Name Priority Date/Time Associated Diagnosis Comme nts AUTHORIZATION FOR RELEASE Routine 05/21/2020 12:01 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
--- NOTE | 2020-08-03 09:59 | EDPHYS ---
Physician Documentation [facility] Name: Dionne Ventura Age: 40 yrs Sex: Female : 1980 Arrival Date: 08/03/2020 Time: 09:07 Bed 19 Private MD: Brady Acevedo H ED Physician Kye Gray HPI: 08/03 09:53 This 40 yrs old Female presents to ER via Ambulatory with complaints of Sore cp Throat. 09:53 The patient presents with sore throat. cp 09:53 Onset: The symptoms/episode began/occurred yesterday. Modifying factors: the symptoms cp are aggravated by swallowing. Associated signs and symptoms: Pertinent positives: dysphagia, body aches, Pertinent negatives cough, fever. Historical: - Allergies: 09:35 Augmentin; aa5 09:35 Ciprofloxacin; aa5 09:35 Clindamycin; aa5 09:35 PENICILLINS; aa5 09:35 Sulfa (Sulfonamide Antibiotics); aa5 - PMHx: 09:35 Anxiety; Asthma; epilepsy; aa5 - Immunization history:: Adult Immunizations unknown. - Social history:: Smoking status: Patient denies any tobacco usage or history of. ROS: 09:54 Eyes: Negative for injury, pain, redness, and discharge. cp 09:54 Constitutional: Positive for body aches, Negative for chills, fever. 09:54 ENT: Positive for sore throat, Negative for ear pain, difficulty handling secretions. 09:54 Respiratory: Negative for cough, shortness of breath, wheezing. 09:54 Abdomen/GI: Negative for abdominal pain, nausea, vomiting, and diarrhea. 09:54 Skin: Negative for rash. 09:54 Neuro: Negative for altered mental status, headache, weakness. 09:54 All other systems are negative. Exam: 09:55 Head/Face: Normocephalic, atraumatic. cp 09:55 Constitutional: The patient appears in no acute distress, alert, awake, non-toxic, well developed, well nourished. 09:55 Eyes: Periorbital structures: appear normal, Conjunctiva: normal, no exudate, no injection, Sclera: no appreciated abnormality, Lids and lashes: appear normal, bilaterally. 09:55 ENT: External ear(s): are unremarkable, Ear canal(s): are normal, clear, TM's: dullness, bilaterally, Nose: is normal, Mouth: Lips: moist, Oral mucosa: pink and intact, moist, Posterior pharynx: Airway: no evidence of obstruction, patent, Tonsils: surgically absent on right, Uvula: midline, erythema, that is marked, exudate, is not appreciated. 09:55 Neck: ROM/movement: is normal, is supple, no meningismus, Lymph nodes: lymphadenopathy is appreciated, anterior cervical nodes. 09:55 Chest/axilla: Inspection: normal. 09:55 Cardiovascular: Rate: normal. 09:55 Respiratory: the patient does not display signs of respiratory distress, Respirations: normal, no use of accessory muscles, no retractions. Vital Signs: 09:35 BP 132 / 85; Pulse 81; Resp 16 S; Temp 98.1(O); Pulse Ox 98% on R/A; Weight 79.38 kg aa5 (R); Height 5 ft. 2 in. (157.48 cm) (R); Pain 10/10; 09:35 Body Mass Index 32.01 (79.38 kg, 157.48 cm) aa5 MDM: 09:51 Patient medically screened. cp 09:55 Differential diagnosis: epiglottitis, gonzalez-king virus, group A strep tonsillitis, cp influenza, sharyn's angina, peritonsillar abscess pharyngitis, retropharyngeal abcess. 09:58 Data reviewed: vital signs, nurses notes, and as a result, I will discharge patient. cp 09:58 Counseling: I had a detailed discussion with the patient and/or guardian regarding: the cp historical points, exam findings, and any diagnostic results supporting the discharge/admit diagnosis, to return to the emergency department if symptoms worsen or persist or if there are any questions or concerns that arise at home. Response to treatment: the patient's symptoms have mildly improved after treatment, and as a result, I will discharge patient. 08/03 09:52 Order name: Strep cp Administered Medications: 09:54 Drug: GI Cocktail without - (Maalox Suspension 30 ml, Lidocaine Liquid 2 % 15 iw ml) Route: PO; Disposition: 12:20 Co-signature as Attending Physician, Kye Gray MD I agree with the assessment and kdr plan of care. Disposition: 08/03/20 09:58 Discharged to Home. Impression: Streptococcal pharyngitis. - Condition is Stable. - Discharge Instructions: Strep Throat. - Prescriptions for Ibuprofen 800 mg Oral Tablet - take 1 tablet by ORAL route every 8 hours As needed take with food; 30 tablet. Keflex 500 mg Oral Capsule - take 1 capsule by ORAL route every 8 hours for 10 days; 30 capsule. Lidocaine Viscous - take 5 milliliter by ORAL route every 4 hours As needed swish and swallow; 1 bottle. - Medication Reconciliation Form, Thank You Letter, Antibiotic Education, Prescription Opioid Use form. - Follow up: Brady Acevedo DO; When: 1 - 2 days; Reason: Worsening of condition. - Problem is new. - Symptoms have improved. Signatures: Dispatcher [employer] EDMS Kye Gray MD MD [facility] Marianna Ellington RN RN iw Mandi Gómez RN RN aa5 Den Navarro PA PA cp Corrections: (The following items were deleted from the chart) 10:07 09:58 08/03/2020 09:58 Discharged to Home. Impression: Streptococcal pharyngitis. iw Condition is Stable. Forms are Medication Reconciliation Form, Thank You Letter, Antibiotic Education, Prescription Opioid Use. Follow up: Brady Acevedo; When: 1 - 2 days; Reason: Worsening of condition. Problem is new. Symptoms have improved. cp
--- NOTE | 2020-08-03 09:59 | ER ---
Nurse's Notes [facility] Name: Dionne Ventura Age: 40 yrs Sex: Female : 1980 Arrival Date: 08/03/2020 Time: 09:07 Bed 19 Private MD: Brady Acevedo H Diagnosis: Streptococcal pharyngitis Presentation: 08/03 09:35 Chief complaint: Patient states: sore throat that began yesterday. aa5 09:35 Coronavirus screen: sore throat. Ebola Screen: Patient negative for fever greater than aa5 or equal to 101.5 degrees Fahrenheit, and additional compatible Ebola Virus Disease symptoms. Initial Sepsis Screen: Does the patient meet any 2 criteria? No. Patient's initial sepsis screen is negative. Does the patient have a suspected source of infection? No. Patient's initial sepsis screen is negative. Risk Assessment: Do you want to hurt yourself or someone else? Patient reports no desire to harm self or others. Onset of symptoms was July 2020. 09:35 Method Of Arrival: Ambulatory aa5 09:35 Acuity: TRINIDAD 4 aa5 Historical: - Allergies: 09:35 Augmentin; aa5 09:35 Ciprofloxacin; aa5 09:35 Clindamycin; aa5 09:35 PENICILLINS; aa5 09:35 Sulfa (Sulfonamide Antibiotics); aa5 - PMHx: 09:35 Anxiety; Asthma; epilepsy; aa5 - Immunization history:: Adult Immunizations unknown. - Social history:: Smoking status: Patient denies any tobacco usage or history of. Screenin:59 Abuse screen: Denies threats or abuse. Denies injuries from another. Nutritional iw screening: No deficits noted. Tuberculosis screening: No symptoms or risk factors identified. Fall Risk None identified. Assessment: 09:58 General: Appears in no apparent distress. Behavior is calm, cooperative. General: iw Reports feeling ill for. Pain: Complains of pain in throat. Neuro: Level of Consciousness is awake, alert, obeys commands, Oriented to person, place, time, situation, Moves all extremities. Cardiovascular: Patient's skin is warm and dry. Respiratory: Airway is patent Respiratory effort is even, unlabored. EENT: Throat is reddened has enlarged tonsils bilaterally. Derm: Skin is intact, is healthy with good turgor. Vital Signs: 09:35 BP 132 / 85; Pulse 81; Resp 16 S; Temp 98.1(O); Pulse Ox 98% on R/A; Weight 79.38 kg aa5 (R); Height 5 ft. 2 in. (157.48 cm) (R); Pain 10/10; 09:35 Body Mass Index 32.01 (79.38 kg, 157.48 cm) aa5 ED Course: 09:07 Patient arrived in ED. am4 09:08 Brady Acevedo DO is Private Physician. am4 09:35 Arm band placed on. aa5 09:37 Triage completed. aa5 09:44 Den Navarro PA is PHCP. cp 09:44 Kye Gray MD is Attending Physician. cp 09:58 Brady Acevedo DO is Referral Physician. cp 09:58 Strep Sent. iw 09:59 No provider procedures requiring assistance completed. Patient did not have IV access iw during this emergency room visit. Administered Medications: 09:54 Drug: GI Cocktail without - (Maalox Suspension 30 ml, Lidocaine Liquid 2 % 15 iw ml) Route: PO; Outcome: 09:58 Discharge ordered by MD. cp 10:07 Patient left the ED. iw Signatures: Marianna Ellington RN RN Mandi Gómez RN RN aa5 Den Navarro PA PA cp Myriam Oreilly am4 Corrections: (The following items were deleted from the chart) 09:37 09:35 79.38 kg Reported; Height 5 ft. 2 in. Reported; BMI: 32.0; aa5 aa5 09:59 09:58 General: Reports fever for feeling ill for iw iw 18:06 09:37 Mandi Gómez, RN is Primary Nurse. aa5 aa5
[2020-08-03] MEDS ORDERED: MAGNES/ALUMIN/SIMET 30ML UCUP ONE (10:08)
[2020-08-03] MEDS ORDERED: LIDOCAINE VISCOUS 2% SOLN 15 ML UDC ONE (10:08)
[2020-08-03 10:19] VITALS: BP 132/85; TEMP 98.1; O2SAT 98
== END 2020-08-03 10:07 | disposition home or self-care (01) ==
LOC: ER 09:03
DX: J02.0 Streptococcal pharyngitis (principal); F41.9 Anxiety disorder, unspecified; J45.909 Unspecified asthma, uncomplicated; G40.909 Epilepsy, unspecified, not intractable, without status epilepticus
CPT/HCPCS: 87070; 87081; 99283

== ENCOUNTER 2021-01-21 18:19 | Emergency (ER) | payer OTHER ==
--- OUTSIDE RECORDS SUMMARY | 2021-01-21 18:23 | XMS REPORT | Continuity of Care Document ---
:1980 Author Organization [facility] t Address [address] [place] [address] Care Team Providers Name Role Phone SergioYahir Attending Clinician Alexis Desai DO Attending Clinician Apple SANFORD Attending Clinician Doctor Unassigned, Name Attending Clinician Unavailable 2, Lab Attending Clinician Unavailable Eric Freeman Attending Clinician Cash Estrada Attending Clinician Problems Condition Condition Condition Status Onset Resolution Last Treating Co mments Source Name Details Category Date Date Treatment Clinician Date LOW BACK Condition Active 2014-01-17 M emoria PAIN 7-14 17:25:00 l LOW BACK 00:00: Candido n PAIN 00 Active 01/17/2014 Condition 4 Medical [facility] Patient Problem Resolve 2020-12-09 Mem oria currently d 01:35:54 l Patient Kareen nn (finding) currently (finding) Resolved Problem 12/09/2020 Medical [facility] her Neuro Asthma Problem Active 2020-12-09 Memor ia (disorder) 01:35:54 l Asthma [place] (disorder) Active Problem 12/09/2020 Data migrated from [employer] on 12/03/14. [facility] her Neuro Carpal Problem Active 2020-12-09 Memor ia tunnel 01:35:54 l syndrome Carpal Candido n (disorder) tunnel syndrome (disorder) Active [facility] Epilepsy Problem Active 2020-12-09 Mem oria (disorder) 01:35:54 l Epilepsy Cand[place] n (disorder) Active Problem 12/09/2020 Data migrated from [employer] on 12/03/14. [facility] her Neuro Hand pain Problem Active 2020-12-09 Me moria (finding) 01:35:54 l Hand Supa pain (finding) Active Problem 12/09/2020 [facility] her Neuro Insomnia Problem Active 2020-12-09 Mem oria (disorder) 01:35:54 l Insomnia Cand[place] n (disorder) Active Problem 12/09/2020 Data migrated from [employer] on 12/03/14. 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 (disorder) [facility] Problem Active 2020-12-09 Mem oria (disorder) 01:35:54 l Migraine Cand[place] n (disorder) Active [facility] Depressive Problem Active 2020-12-09 M emoria disorder 01:35:54 l (disorder) Candido n Depressive disorder (disorder) Active Problem 12/09/2020 [facility] 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) Active Problem 12/09/2020 [facility] Neuro EPILEPSY Condition Active 2014-01-17 M emoria 17:25:00 l EPILEPSY Cand[place] n Active Condition 01/17/2014 [facility] ASTHMA Condition Active 2014-01-17 Mem oria 17:25:00 l ASTHMA [place] Active Condition 01/17/2014 Medical Group INSOMNIA Condition Active 2014-01-17 M emoria 17:25:00 l INSOMNIA Cand[place] n Active Condition 01/17/2014 Medical Group Anxiety Problem Resolve 2016-0 2020-12-09 2020-12-09 Memoria state d 4-18 01:35:54 01:35:54 l (finding) Anxiety 00:00: Herm chauncey state 00 (finding) Resolved 10/23/2015 Problem 12/09/2020 Medical Group,[facility] her Neuro Low back Problem Resolve 2020-12-09 2020-12-09 Memoria pain d 7-14 01:35:54 01:35:54 l (disorder) Low back 00:00: Nato rmann pain 00 (disorder) Resolved 01/17/2014 Problem 12/09/2020 Data migrated from [facility] on 12/03/14. Medical Group,[facility] her Neuro Allergies, Adverse Reactions, Alerts Allergy Allergy Status Severity Reaction(s) Onset Inactive Treating Comm ents Source Name Type Date Date Clinician penicill penicill Active Memori a ins ins l Supa sulfa sulfa Active Memoria drugs<ramirez drugs<ramirez l p>1</sup p>1</sup Candido n > > ciproflo ciproflo Active Memori a xacin xacin l [place] ibuprofe ibuprofe Active Memori a n<sup>2< n<sup>2< l /sup> /sup> [place] clindamy clindamy Active Memori a brionna brionna l [place] cephalex cephalex Active Memori a in<sup>3 in<sup>3 l </sup> </sup> Supa aspirin aspirin Active Memoria l Supa SULFA SULFA Active Memoria l Supa AUGMENTI AUGMENTI Active Memori a N N l [place] CEPHALEX CEPHALEX Active Memori a IN IN l [place] ADVIL ADVIL Active Memoria l Supa Social History Social Habit Start Date Stop Date Quantity Comments Source Social History 2017-11-05 2017-11-05 [facility] guido 18:52:09 18:52:09 Medications Ordered Filled Start Stop Current Ordering Indication Dosage Frequency Signature Comments Components Source Medication Medication Date Date Medication? Clinician (SIG) Name Name Mirtazapine Yes 15 mg = 1 M emoria 15 MG Oral 3-02 tab, PO, l Tablet 16:00: Bedtime, # Kareen nn 00 30 tab, 3 Refill(s), Pharmacy: [facility] 149, 157.48, cm, 08/11/20 13:52:00 GAGGERMAN, Height, 82.273, kg, 08/11/20 13:52:00 GAGGERMAN, Weight sertraline Yes 100 mg = 1 M emoria 100 mg oral 3-02 tab, PO, l tablet 15:58: Daily, # [place] 00 30 tab, 5 Refill(s), Pharmacy: [place] [address], 157.48, cm, 08/11/20 13:52:00 GAGGERMAN, Height, 82.273, kg, 08/11/20 13:52:00 GAGGERMAN, Weight Rimegepant Yes 75 mg = 1 Me moria 75 MG 2-05 tab, PO, l Disintegrat 20:13: ONCE, 0 Her ugalde ing Oral 00 Refill(s) Tablet [Nurtec] zolpidem 10 Yes 0 Memori a mg oral 2-05 Refill(s) l tablet 20:11: [place] 00 OXcarbazepi Yes = 1 tab, Me moria ne 600 mg 2-05 PO, BID, # l oral tablet 20:11: 60 tab, 4 H ermann 00 Refill(s), Pharmacy: [place] [address], 157.48, cm, 08/11/20 13:52:00 GAGGERMAN, Height, 82.273, kg, 08/11/20 13:52:00 GAGGERMAN, Weight rizatriptan No See Memori a 5 mg oral 1-24 Instructio l tablet, 21:34: ns, PLACE Kareen nn disintegrat 00 ONE TABLET ing BY MOUTH DAILY NEEDED FOR MIGRAINE HEADACHE, # 10 unknown unit, 2 Refill(s), Pharmacy: [facility] [id number], 157.48, cm, 05/09/20 9:36:00 GAGGERMAN, Height, 81.818, kg, 05/09/20 9:36:00 GAGGERMAN, Weight Mirtazapine 2019-07 No See Memori a 15 MG Oral 2-01 Instructio l Tablet 14:41: ns, TAKE [place] 00 ONE TABLET BY MOUTH EVERY NIGHT AT BEDTIME, # 30 tab, 3 Refill(s), Pharmacy: [facility] [id number], 157.48, cm, 05/09/20 9:36:00 GAGGERMAN, Height, 81.818, kg, 05/09/20 9:36:00 GAGGERMAN, Weight sertraline 2019-07 No See Memoria 50 mg oral 1-06 Instructio l tablet 02:09: ns, TAKE [place] 00 ONE TABLET BY MOUTH DAILY, # 30 tab, 5 Refill(s), Pharmacy: [facility] [id number], 157.48, cm, 05/09/20 9:36:00 GAGGERMAN, Height, 81.818, kg, 05/09/20 9:36:00 GAGGERMAN, Weight lamotrigine 2020-1 Yes = 1 tab, Me moria 100 MG Oral 1-03 PO, BID, # l Tablet 15:51: 60 tab, 2 Candido n 00 Refill(s), Pharmacy: [facility] 149, 157.48, cm, 05/09/20 9:36:00 GAGGERMAN, Height, 81.818, kg, 05/09/20 9:36:00 GAGGERMAN, Weight sertraline 2020-0 Yes See Memoria 50 mg oral 8-06 Instructio l tablet 19:38: ns, TAKE Supa 00 ONE TABLET BY MOUTH DAILY, # 30 tab, 2 Refill(s), Pharmacy: [facility] [id number], 157.48, cm, 12/23/19 16:09:00 CDT, Height, 77.273, kg, 12/23/19 16:09:00 CDT, Weight lamotrigine 2020-0 Yes = 1 tab, Me moria 100 MG Oral 7-23 PO, BID, # l Tablet 19:05: 60 tab, 2 Candido n 00 Refill(s), Pharmacy: [facility] 149, 157.48, cm, 12/23/19 16:09:00 CDT, Height, 77.273, kg, 12/23/19 16:09:00 CDT, Weight Mirtazapine 2020-0 Yes See Memori a 15 MG Oral 7-06 Instructio l Tablet 20:56: ns, TAKE Supa 00 ONE TABLET BY MOUTH EVERY NIGHT AT BEDTIME, # 30 tab, 4 Refill(s), Pharmacy: [facility] [id number], 157.48, cm, 12/23/19 16:09:00 CDT, Height, 77.273, kg, 12/23/19 16:09:00 CDT, Weight sertraline 2020-0 Yes See Memoria 50 mg oral 7-06 Instructio l tablet 20:56: ns, TAKE Supa 00 ONE TABLET BY MOUTH DAILY, # 30 tab, 0 Refill(s), Pharmacy: [facility] [id number], 157.48, cm, 12/23/19 16:09:00 CDT, Height, 77.273, kg, 12/23/19 16:09:00 CDT, Weight OXcarbazepi 2020-0 Yes = 1 tab, Me moria ne 600 mg 6-18 PO, TID, # l oral tablet 21:24: 90 tab, 5 H ermann 00 Refill(s), Pharmacy: [place] [address], 157.48, cm, 12/23/19 16:09:00 CDT, Height, 77.273, kg, 12/23/19 16:09:00 CDT, Weight sertraline 2019-0 Yes See Memoria 50 mg oral 5-04 Instructio l tablet 19:59: ns, # 30 [place] 06 tab, Refill(s) 1, TAKE ONE TABLET BY MOUTH DAILY, Pharmacy: [place] [address] 4 ML 2019-0 Yes 15 mg, [place], Memoria Diazepam 3-03 ONCE, # 1 l 0.005 MG/MG 19:33: kit, 2 Herm chauncey Prefilled 00 Refill(s), Applicator Pharmacy: [place] [address] lamotrigine 2019-0 Yes 100 mg = 1 Memoria 100 MG Oral 3-02 tab, PO, l Tablet 20:12: BID, # 60 Candido n 00 tab, 2 Refill(s), Pharmacy: [place] [address] OXcarbazepi 2020-0 Yes = 1 tab, Me moria ne 600 mg 1-03 PO, TID, # l oral tablet 14:32: 90 tab, Her ugalde 49 Refill(s) 5, Pharmacy: [place] [address] Mirtazapine 2020-0 Yes = 1 tab, Me moria 15 MG Oral 1-03 PO, l Tablet 14:32: Bedtime, # Kareen nn 49 30 tab, Refill(s) 5, Pharmacy: [place] [address] Mirtazapine 2018-07 Yes = 1 tab, Me moria 15 MG Oral 0-17 PO, l Tablet 13:25: Bedtime, # Kareen nn 18 30 tab, Refill(s) 2, Pharmacy: [place] [address] Sertraline 2018-07 Yes 50 mg = 1 Me moria 50 MG Oral 0-16 tab, PO, l Tablet 22:39: Daily, # Supa [Zoloft] 00 30 tab, 3 Refill(s), Pharmacy: [place] [address] Mirtazapine No 15 mg = 1 M emoria 15 MG Oral 8-21 tab, PO, l Tablet 14:15: Bedtime, # Kareen nn [Remeron] 00 30 tab, 1 Refill(s), Pharmacy: [place] [address] Clonazepam Yes 1 mg = 1 Mem [...] nn [Lamictal] 22 tab, 2 Refill(s), Pharmacy: [place] [address] lamotrigine No 50 mg = 2 M emoria 25 MG Oral 5-29 tab, PO, l Tablet 15:36: BID, X 30 Candido n [Lamictal] 55 day, # 120 tab, 2 Refill(s), Pharmacy: [facility] [id number] lamotrigine 2018- Yes 25 mg = 1 M emoria 25 MG Oral 5-15 tab, PO, l Tablet 19:55: BID, # 60 Candido n [Lamictal] 00 tab, 3 Refill(s), Pharmacy: [place] [address] Clonazepam Yes 1 mg = 1 Mem oria 1 MG Oral 5-09 tab, PO, l Tablet 21:18: TID, # 90 Candido n [Klonopin] 58 tab, 2 Refill(s), called to pharmacy OXcarbazepi Yes 600 mg = 1 Memoria ne 600 mg 5-09 tab, PO, l oral tablet 21:18: TID, # 90 H ermann 44 tab, 3 Refill(s), Pharmacy: [place] [address] OXcarbazepi No 600 mg = 1 Memoria ne 600 mg 1-11 tab, PO, l oral tablet 17:19: TID, X 30 H ermann 01 day, # 90 tab, 3 Refill(s), Pharmacy: [place] [address] Clonazepam 2017-07 No 1 mg = 1 [...] DAY, # 90 tab, 3 Refill(s), Pharmacy: [place] [address] Sertraline 2017-07 Yes 50 mg = 1 Me moria 50 MG Oral 0-05 tab, PO, l Tablet 14:19: Daily, # Supa [Zoloft] 00 30 tab, 0 Refill(s) Symbicort [...] PO, l Oral 18:27: BID, X 7 Supa Capsule 00 day, # 14 [Macrobid] cap, 0 Refill(s), Pharmacy: [facility] 343 200 ACTUAT 2018-0 Yes 180 Memoria Albuterol 1-08 microgram l 0.09 22:29: = 2 puff, [place] MG/ACTUAT 02 INHALER, Metered Q4H, PRN Dose wheezing, Inhaler coughing, [ProAir or HFA] shortness of breath, # 1 ea, 2 Refill(s), Pharmacy: [facility] 343 Oseltamivir 0 No 75 mg, PO, Memoria 75 MG Oral 1-08 Q12H, X 5 l Capsule 22:24: day, # 10 Kareen nn [Tamiflu] 57 cap, 0 Refill(s), Pharmacy: [facility] 256 Oseltamivir 2018-0 No 75 mg, PO, Memoria 75 MG Oral 1-08 Q12H, X 5 l Capsule 22:21: day, # 10 Kareen nn [Tamiflu] 00 cap, 0 Refill(s), Pharmacy: [place] [address] ZOLPIDEM 2013-0 Yes 1 po qhs Memor ia TARTRATE 10 2-11 l MG TABS 00:00: [place] 00 PROAIR HFA 2012- Yes 2 puffs q Me moria 108 (90 0-02 4 hrs prn l BASE) 00:00: Supa MCG/ACT 00 AERS CLONAZEPAM 2012-0 Yes Take 1 po Me moria 1 MG TABS 5-28 tid l 00:00: [place] 00 OXCARBAZEPI 2012-0 Yes 1 po bid Me moria NE 600 MG 5-20 l TABS 00:00: [place] 00 Vital Signs Vital Name Observation Time Observation Value Comments Source Systolic (mm Hg) 2020-12-06 14:13:00 Farooq gilson Abdiann Diastolic (mm Hg) 2020-12-06 14:13:00 [facility] loyda Cowart Heart Rate 2020-12-06 14:13:00 [facility] Resp[facility] 2020-12-06 14:13:00 Carmen Hunter Height 2020-12-06 14:13:00 157.48 cm [facility] Weight 2020-12-06 14:13:00 [facility] BMI Calculated 2020-12-06 14:13:00 Carmen Hunter Systolic (mm Hg) 2020-09-05 15:23:00 Farooq rial [place] Diastolic (mm Hg) 2020-09-05 15:23:00 Mem orial [place] Heart Rate 2020-09-05 15:23:00 [facility] [place] Respitory Rate 2020-09-05 15:23:00 Memori al Supa Systolic (mm Hg) 2020-08-11 19:24:00 Farooq rial Supa Diastolic (mm Hg) 2020-08-11 19:24:00 Mem orial [place] Heart Rate 2020-08-11 19:24:00 [facility] [place] Respitory Rate 2020-08-11 19:24:00 Memori al [place] Height 2020-08-11 19:24:00 157.48 cm [facility] [place] Weight 2020-08-11 19:24:00 [facility] [place] BMI Calculated 2020-08-11 19:24:00 Memori al [place] Systolic (mm Hg) 2020-05-09 15:36:00 Farooq rial Supa Diastolic (mm Hg) 2020-05-09 15:36:00 Mem orial [place] Heart Rate 2020-05-09 15:36:00 Memorial Supa Respitory Rate 2020-05-09 15:36:00 Memori al [place] Height 2020-05-09 15:36:00 157.48 cm [facility] [place] Weight 2020-05-09 15:36:00 [facility] [place] BMI Calculated 2020-05-09 15:36:00 Memori al [place] Systolic (mm Hg) 2019-12-23 21:09:00 Farooq rial Supa Diastolic (mm Hg) 2019-12-23 21:09:00 Mem orial Supa Heart Rate 2019-12-23 21:09:00 Memorial Supa Respitory Rate 2019-12-23 21:09:00 Memori al Supa Height 2019-12-23 21:09:00 157.48 cm [facility] [place] Weight 2019-12-23 21:09:00 [facility] [place] BMI Calculated 2019-12-23 21:09:00 Memori al [place] Systolic (mm Hg) 2019-09-22 21:21:00 Farooq rial [place] Diastolic (mm Hg) 2019-09-22 21:21:00 Mem orial [place] Heart Rate 2019-09-22 21:21:00 [facility] [place] Respitory Rate 2019-09-22 21:21:00 Memori al Supa Height 2019-09-22 21:21:00 160.02 cm Memorial Supa Weight 2019-09-22 21:21:00 [facility] Supa BMI Calculated 2019-09-22 21:21:00 Memori al Supa Systolic (mm Hg) 2019-09-07 19:15:00 Farooq rial [place] Diastolic (mm Hg) 2019-09-07 19:15:00 Mem orial Supa Heart Rate 2019-09-07 19:15:00 [facility] [place] Respitory Rate 2019-09-07 19:15:00 Memori al Supa Height 2019-09-07 19:15:00 160.02 cm [facility] [place] Weight 2019-09-07 19:15:00 [facility] [place] BMI Calculated 2019-09-07 19:15:00 Memori al Supa BMI Calculated 2019-01-20 15:32:00 Memori al [place] Weight 2019-01-20 15:32:00 Memorial Supa Height 2019-01-20 15:32:00 160.02 cm [facility] [place] Systolic (mm Hg) 2019-01-20 15:32:00 Farooq rial Supa Diastolic (mm Hg) 2019-01-20 15:32:00 Mem orial [place] Heart Rate 2019-01-20 15:32:00 Memorial Supa Respitory Rate 2019-01-20 15:32:00 Memori al [place] Weight 2018-11-18 18:37:00 [facility] Supa Height 2018-11-18 18:37:00 157.48 cm [facility] [place] BMI Calculated 2018-11-18 18:37:00 Memori al [place] Systolic (mm Hg) 2018-11-18 18:37:00 Farooq rial Supa Diastolic (mm Hg) 2018-11-18 18:37:00 Mem orial [place] Heart Rate 2018-11-18 18:37:00 Memorial Supa Respitory Rate 2018-11-18 18:37:00 Memori al Supa Height 2018-07-17 16:56:00 157.48 cm [facility] [place] BMI Calculated 2018-07-17 16:56:00 Memori al [place] Weight 2018-07-17 16:56:00 [facility] [place] Systolic (mm Hg) 2018-07-17 16:56:00 Farooq rial Supa Diastolic (mm Hg) 2018-07-17 16:56:00 Mem orial Supa Heart Rate 2018-07-17 16:56:00 [facility] [place] Respitory Rate 2018-07-17 16:56:00 Memori al Supa BMI Calculated 2018-04-10 13:52:00 Memori al Supa Weight 2018-04-10 13:52:00 [facility] [place] Height 2018-04-10 13:52:00 154.94 cm [facility] [place] Heart Rate 2018-04-10 13:52:00 [facility] [place] Systolic (mm Hg) 2018-04-10 13:52:00 Farooq rial Supa Diastolic (mm Hg) 2018-04-10 13:52:00 Mem orial [place] Height 2017-07-25 20:14:00 154.94 cm [facility] [place] Weight 2017-07-25 20:14:00 Memorial Supa BMI Calculated 2017-07-25 20:14:00 Memori al Supa Temperature Oral (F) 2017-07-25 20:14:00 98.0 F [facility] Supa Heart Rate 2017-07-25 20:14:00 [facility] Supa Systolic (mm Hg) 2017-07-25 20:14:00 Farooq rial [place] Diastolic (mm Hg) 2017-07-25 20:14:00 Mem orial [place] Height 2017-07-14 22:05:00 154.94 cm Memorial Supa Weight 2017-07-14 22:05:00 [facility] Supa Temperature Oral (F) 2017-07-14 22:05:00 98.2 F Memorial Supa BMI Calculated 2017-07-14 22:05:00 Memori al [place] Systolic (mm Hg) 2017-07-14 22:05:00 Farooq rial Supa Diastolic (mm Hg) 2017-07-14 22:05:00 Mem orial [place] Height 2014-01-17 21:21:31 Memorial Supa Weight 2014-01-17 21:21:31 [facility] [place] Temperature Oral (F) 2014-01-17 21:21:31 98.4 F [facility] Supa Respitory Rate 2014-01-17 21:21:31 Memori al Supa Heart Rate 2014-01-17 21:21:31 Memorial Supa Systolic (mm Hg) 2014-01-17 21:21:31 Farooq rial [place] Diastolic (mm Hg) 2014-01-17 21:21:31 Mem orial [place] Procedures Procedure Date / Time Performed Performing Clinician [facility] e smoking/tobacco cessation, 2014-01-17 21:21:31 M emorifeng Cowart patient education and counseling LEEP procedure of cervix Memoria l [place] Tonsillectomy [facility] Encounters Start End Encounter Admission Attending Care Care Encounter Source Date/Time Date/Time Type Type Clinicians Facility Department ID 2020-12-06 2020-12-06 Outpatient Sergio, MHMISCHER MHMISCHER [id number] 09:00:00 23:59:59 [place] 23 Yahir 2020-12-06 2020-12-06 Outpatient Sergio, MHMISCHER MHMISCHER [id number] 13:30:00 13:30:00 [place] 22 Yahir 2020-10-17 2020-10-18 Outpatient MHMISCHER MHMISCHER [id number] 15:34:08 23:59:59 44 2020-09-26 2020-09-27 Outpatient MHMISCHER MHMISCHER [id number] 09:02:19 23:59:59 43 2020-09-25 2020-09-25 Patient Lloyd [facility] [id number] 00:00:00 00:00:00 Outreach Odilon GARCIA [id number] [facility] [id number] JYOTI [id number] 2020-09-05 2020-09-05 Outpatient Sergio, MHMISCHER MHMISCHER [id number] 09:30:00 23:59:59 [place] 20 Yahir 2020-08-11 2020-08-11 Outpatient Sergio, MHMISCHER MHMISCHER [id number] 13:30:00 23:59:59 [place] 21 Yahir 2020-08-04 2020-08-05 Outpatient MHMISCHER MHMISCHER [id number] 11:34:53 23:59:59 42 2020-06-20 2020-06-20 Refbarak Chiu [facility] [id number] 00:00:00 00:00:00 Elaina Chaney [id number] [place] [id number] Professio [phone] [facility] 134 [facility] 2020-06-20 2020-06-20 Telephone [facility] [id number] 00:00:00 00:00:00 Elaina Chaney [id number] [place] [id number] Professio [phone] [facility] 134 [facility] 2020-05-21 2020-05-21 Orders Doctor RADHA [id number] 00:00:00 00:00:00 Only Unassigned, LATRICE [id number] [place] [facility] [id number] 2020-05-09 2020-05-09 Outpatient RILEY HillSCHER LAURAMISCHER [id number] 09:30:00 23:59:59 [place] 19 [facility] 2020-05-09 2020-05-09 [facility] [id number] 00:00:00 00:00:00 Elaina Chaney [id number] [place] [id number] Professio [phone] [facility] 134 [facility] 2020-05-04 2020-05-04 [facility] [id number] 00:00:00 00:00:00 Management Elaina Chaney [id number] [place] [id number] Professio [phone] [facility] 134 [facility] 2020-05-02 2020-05-02 Conversion Developer 2, Adc Lab [facility] [id number] 11:01:55 11:16:55 Visit Ritu [id number] [place] [id number] Professio [phone] [facility] 353 [facility] 2020-03-24 2020-03-24 Outpatient RILEY HillSCHER MHMISCHER [id number] 15:30:00 15:30:00 [place] 17 [facility] 2020-03-24 2020-03-24 Outpatient RILEY HillSCHER MHMISCHER [id number] 15:30:00 15:30:00 [place] 18 Yahir 2020-02-10 2020-02-11 Outpatient MHMISCHER MHMISCHER [id number] 14:38:26 14:38:26 54 2020-01-10 2020-01-11 Outpatient MHMISCHER MHMISCHER [id number] 15:55:56 15:55:56 53 2019-12-23 2019-12-23 Outpatient Sergio, MHMISCHER MHMISCHER [id number] 15:45:00 23:59:59 [place] 16 Yahir 2019-09-22 2019-09-22 Outpatient Sergio, MHMISCHER MHMISCHER [id number] 16:15:00 23:59:59 [place] 13 Yahir 2019-09-07 2019-09-07 Outpatient Sergio, MHMISCHER MHMISCHER [id number] 13:00:00 23:59:59 [place] 15 Yahir 2019-08-20 2019-08-20 Outpatient Sergio, MHMISCHER MHMISCHER [id number] 16:30:00 16:30:00 [place] 14 Yahir 2019-05-26 2019-05-26 Outpatient Sergio, MHMISCHER MHMISCHER [id number] 11:45:00 11:45:00 [place] 12 Yahir 2019-04-21 2019-04-21 Outpatient Sergio, MHMISCHER MHMISCHER [id number] 15:00:00 23:59:59 [place] 11 Yahir 2019-04-21 2019-04-21 Outpatient Sergio, MHMISCHER MHMISCHER [id number] 11:00:00 11:00:00 [place] 09 Yahir 2019-04-07 2019-04-07 Outpatient Sergio, MHMISCHER MHMISCHER [id number] 15:00:00 15:00:00 [place] 10 Yahir 2019-01-20 2019-01-20 Outpatient Sergio, MHMISCHER MHMISCHER [id number] 10:45:00 23:59:59 [place] 08 Yahir 2018-11-18 2018-11-18 Outpatient Jamelll, MHMISCHER MHMISCHER [id number] 13:45:00 23:59:59 [place] 07 Yahir 2018-11-12 2018-11-13 Outpatient MHMISCHER MHMISCHER [id number] 14:08:52 23:59:59 41 2018-11-12 2018-11-13 Outpatient MHMISCHER MHMISCHER [id number] 14:05:59 23:59:59 40 2018-11-12 2018-11-13 Outpatient MHMISCHER MHMISCHER [id number] 13:56:37 23:59:59 39 2018-07-17 2018-07-17 Outpatient Sergio, MHMISCHER MHMISCHER [id number] 11:00:00 23:59:59 Galdinochapincito Sinclair 2018-07-10 2018-07-10 Outpatient Sergio, MHMISCHER MHMISCHER [id number] 09:00:00 09:00:00 Galdinochapincito Sinclair 2018-06-09 2018-06-10 Outpatient MHMISCHER MHMISCHER [id number] 11:57:00 23:59:59 38 2018-06-08 2018-06-09 Outpatient [facility] [id number] 13:59:00 23:59:59 37 2018-06-05 2018-06-06 Outpatient MHMISCHER MHMISCHER [id number] 14:42:00 23:59:59 36 2018-06-05 2018-06-06 Outpatient MHMISCHER MHMISCHER [id number] 10:16:00 23:59:59 35 2018-04-22 2018-04-23 Outpatient MHMISCHER MHMISCHER [id number] 10:14:00 23:59:59 34 2018-04-10 2018-04-10 Outpatient Sergio, MHMISCHER MHMISCHER [id number] 09:00:00 23:59:59 Galdinochapincito Sinclair 2018-03-31 2018-04-01 Outpatient [facility] [id number] 09:16:00 23:59:59 33 2017-09-15 2017-09-16 Outpatient [facility] [id number] 08:44:00 23:59:59 32 2017-07-25 2017-07-25 Outpatient Pete, [facility] [id number] 14:15:00 23:59:59 Trevor Reyes 2017-07-17 2017-07-18 Outpatient [facility] [id number] 10:56:00 23:59:59 31 2017-07-14 2017-07-14 MARILEE Allison [facility] [id number] 16:00:00 23:59:59 Toribio Castrejon 16 Results Test Description Test Time Test Comments Results Result Comments Source CHEM PANEL 2020-05-25 83 [facility] 18:33:00 CHEM PANEL 2020-05-25 9 [facility] 18:33:00 CHEM PANEL 2020-05-25 0.60 [facility] 18:33:00 CHEM PANEL 2020-05-25 116 [facility] 18:33:00 CHEM PANEL 2020-05-25 134 [facility] 18:33:00 CHEM PANEL 2020-05-25 129 [facility] 18:33:00 CHEM PANEL 2020-05-25 4.3 [facility] 18:33:00 CHEM PANEL 2020-05-25 95 [facility] 18:33:00 CHEM PANEL 2020-05-25 25 [facility] 18:33:00 CHEM PANEL 2020-05-25 9.5 [facility] 18:33:00 CHEM PANEL 2020-05-25 7.5 [facility] 18:33:00 CHEM PANEL 2020-05-25 4.5 [facility] 18:33:00 CHEM PANEL 2020-05-25 3.0 [facility] 18:33:00 CHEM PANEL 2020-05-25 1.5 [facility] 18:33:00 CHEM PANEL 2020-05-25 0.3 [facility] 18:33:00 CHEM PANEL 2020-05-25 77 [facility] 18:33:00 CHEM PANEL 2020-05-25 15 [facility] 18:33:00 CHEM PANEL 2020-05-25 11 [facility] 18:33:00 HEMATOLOGY 2020-05-25 8.5 [facility] 18:33:00 HEMATOLOGY 2020-05-25 3.90 [facility] 18:33:00 HEMATOLOGY 2020-05-25 12.4 [facility] 18:33:00 HEMATOLOGY 2020-05-25 36.6 [facility] 18:33:00 HEMATOLOGY 2020-05-25 93.8 [facility] 18:33:00 HEMATOLOGY 2020-05-25 18:33:00 Test Item Value Reference Range Interpretation Comme nts MCH (test code = MCH) 31.8 pg 27.0-33.0 [facility] [id number] 18:33:[facility].9[facility] 2020-05-25 18:33:0012.2[facility] [id number] 18:33:75150Dpnrkiwp VlyhjwrJRAMWRTPKK7866-65-57 18:33:009.4[facility] BgikmnsBNTKAIQVUF4547-95-82 18:33:665029Elxugwbk VjkhhniAPHIZMLPBF8667-55-82 18:33:949075Roxrvukr [place] LQPZXZSSUM2654-55-57 18:33:86078Eflgvhvd DdvyfqmXTMTUMRIHT9369-51-51 18:33:62065 [facility] WhysmhuEDNJNSXTXA6272-60-57 18:33:0051[facility] HermannHEMATOLOGY 2020-05-25 18:33:0071[facility] XceopeeBMTTRJSXYJ7495-15-24 18:33:0022.7[facility] EonbweoEZGZIOZFAT8075-78-53 18:33:004.1[facility] MykelinGOZZHUIZNR9896-44-28 18:33:001.6[facility] AkdqeaaJPGEGCFXWY4649-65-63 18:33:000.6[facility] [place] ISSIKMAQUK0871-86-66 18:33:0020.5[facility] IplfqfbTTUCSALISB4315-42-48 18:33:00 1.7[facility] RrvqbrgJgumgrcrb4876-45-90 22:25:65901 MEQ/LMemorial Supa Heovxjfwo5576-62-94 22:25:003.8 MEQ/LMemorial ApioshmFpvmcqsay2902-15-82 22:25:000.6[facility] BhwgkhcFdrazbmtb8128-92-16 22:25:0013[facility] [place] Kjmpuffbj0333-84-82 22:25:00 Test Item Value Reference Range Interpretation Comments BUN/CREAT (test code = BUN/CREAT) 22 1 6-25 [facility] RdcxsfpXazfyljal9887-60-98 22:25:004.5[facility] HermannChemistry 2014-01-17 22:25:009.1[facility] RxklbtnQcrlbwyqh8359-36-81 22:25:0017[facility] AggdnaiInxjejkml0522-54-51 22:25:0014[facility] NodoplgXkzjhgtah5126-82-44 22:25:0059[facility] DhdskqxRqeroanad4421-84-68 22:25:84915 MEQ/LMemorial Supa Bhpxktkor7277-34-71 22:25:003.8 MEQ/LMemorial CecarrvWdtufznme2765-36-22 22:25:000.6[facility] VjslesgNzandotwt7429-39-45 22:25:0013[facility] Supa Qrstvfwzn5228-18-17 22:25:00 Test Item Value Reference Range Interpretation Comments BUN/CREAT (test code = BUN/CREAT) 22 12-29 [facility] WcatdmtAwzxaccad8115-57-61 22:25:004.5[facility] HermannChemistry 2014-01-17 22:25:009.1[facility] RzvsnkiCcxwqtrze4826-66-43 22:25:0017[facility] IlbyqswIzsrsxlfg9169-80-70 22:25:0014[facility] HnbaoruHrgaezgxf8234-89-42 22:25:0059[facility] QyxbsxyClppnwbrox9084-20-68 22:25:0013.1[facility] [place] Ilumvtfizu0958-97-14 22:25:0038.0[facility] UwcviwhFoyoqriuez2738-30-27 22:25:00 336 K/CMMMemorial QwaulvbJbozgijcok9278-44-67 22:25:0013.1[facility] [place] Hgrioxhklu7687-06-15 22:25:0038.0[facility] FbnbpkiIsxrwzehka2092-69-50 22:25:00 336 K/CMMMemorial [place]
--- NOTE | 2021-01-21 19:57 | ER ---
Nurse's Notes [facility] Name: Dionne Ventura Age: 40 yrs Sex: Female : 1980 Arrival Date: 01/21/2021 Time: 18:21 Bed 13 Private MD: Diagnosis: Superficial foreign body of left ear, initial encounter Presentation: 01/21 18:35 Chief complaint: Patient states: Black ball of hearing aid came off in L ear for 1 day. ll1 + pain, no drainage or fever. Coronavirus screen: Client denies travel out of the [place] in the last 14 days. At this time, the client does not indicate any symptoms associated with coronavirus-19. Ebola Screen: Patient denies travel to an Ebola-affected area in the 21 days before illness onset. Initial Sepsis Screen: Does the patient meet any 2 criteria? No. Patient's initial sepsis screen is negative. Does the patient have a suspected source of infection? No. Patient's initial sepsis screen is negative. Risk Assessment: Do you want to hurt yourself or someone else? Patient reports no desire to harm self or others. Onset of symptoms was January 21, 2021. 18:35 Method Of Arrival: Ambulatory ll1 18:35 Acuity: TRINIDAD 4 ll1 Historical: - Allergies: 18:36 Augmentin; ll1 18:36 Ciprofloxacin; ll1 18:36 Clindamycin; ll1 18:36 Sulfa (Sulfonamide Antibiotics); ll1 - PMHx: 18:36 Anxiety; Asthma; epilepsy; ll1 - PSHx: 18:36 Tonsillectomy; section; ll1 - Immunization history:: Client reports receiving the 2nd dose of the Covid vaccine, Flu vaccine is up to date. - Social history:: Smoking status: Patient denies any tobacco usage or history of. Screenin:58 Abuse screen: Denies threats or abuse. Denies injuries from another. Nutritional tr6 screening: No deficits noted. Tuberculosis screening: No symptoms or risk factors identified. Fall Risk None identified. Assessment: 18:58 General: Appears uncomfortable, Behavior is cooperative, appropriate for age, Reports. tr6 Pain: Complains of pain in left ear. Neuro: No deficits noted. Cardiovascular: No deficits noted. Respiratory: No deficits noted. GI: No deficits noted. : No deficits noted. EENT: Reports pain in left ear Parent/caregiver reports the patient having pt reports that piece of hearing aid is stuck in her left ear. Derm: No deficits noted. Musculoskeletal: No deficits noted. 19:00 Reassessment: Patient appears in no apparent distress at this time. Patient and/or jb4 family updated on plan of care and expected duration. Pain level reassessed. Patient is alert, oriented x 3, equal unlabored respirations, skin warm/dry/pink. 19:30 Reassessment: Provider is at the bedside. jb4 20:05 Reassessment: Patient appears in no apparent distress at this time. Patient and/or jb4 family updated on plan of care and expected duration. Pain level reassessed. Patient is alert, oriented x 3, equal unlabored respirations, skin warm/dry/pink. Vital Signs: 18:35 BP 126 / 82; Pulse 71; Resp 15; Temp 97.8; Pulse Ox 97% ; Weight 65.77 kg; Height 5 ft. ll1 2 in. (157.48 cm); Pain 10/10; 18:35 Body Mass Index 26.52 (65.77 kg, 157.48 cm) ll1 ED Course: 18:21 Patient arrived in ED. ds1 18:36 Triage completed. ll1 18:37 Arm band placed on. ll1 18:39 Jayne Worley, JEFRY is Primary Nurse. tr6 18:46 Cornell Zaidi PA is PHCP. jmm 18:46 Kvng Crooks MD is Attending Physician. jmm 18:58 Resting quietly. Awaiting ED provider evaluation. tr6 18:58 Patient has correct armband on for positive identification. Bed in low position. Call tr6 light in reach. Side rails up X 1. Door closed. Noise minimized. Visitors limited. Lights dimmed. Moved to private room. 18:58 No provider procedures requiring assistance completed. tr6 19:32 Primary Nurse role handed off by Jayne Worley, JEFRY tt3 19:39 Lee Drake, JEFRY is Primary Nurse. jb4 19:56 Brigid Restrepo MD is Referral Physician. jmm 20:05 Patient did not have IV access during this emergency room visit. jb4 Administered Medications: No medications were administered Outcome: 19:57 Discharge ordered by . jmm 20:05 Discharged to home ambulatory. jb4 20:05 Condition: stable 20:05 Discharge instructions given to patient, Instructed on discharge instructions, follow up and referral plans. Demonstrated understanding of instructions, follow-up care. 20:06 Patient left the ED. jb4 Signatures: Cornell Zaidi PA PA jmm Sanford, Demi ds1 Lee Drake RN RN jb4 Jamie Madera RN RN ll1 Chidi Jackson 3 Jayne Worley RN RN tr6 Corrections: (The following items were deleted from the chart) 18:37 18:36 Allergies: PENICILLINS; ll1 ll1
--- NOTE | 2021-01-21 19:58 | EDPHYS ---
Physician Documentation [facility] Name: Dionne Ventura Age: 40 yrs Sex: Female : 1980 Arrival Date: 01/21/2021 Time: 18:21 Bed 13 Private MD: ED Physician Kvng Crooks HPI: 01/21 19:38 This 40 yrs old Female presents to ER via Ambulatory with complaints of jmm Foreign Body In Ear. 19:38 The patient presents with a foreign body sensation. Onset: The symptoms/episode jmm began/occurred today. Modifying factors: The symptoms are alleviated by nothing, the symptoms are aggravated by nothing. Associated signs and symptoms: Pertinent negatives: cough, fever, lightheadedness, nausea, rhinorrhea, shortness of breath, sore throat, tinnitus, vertigo, vomiting. It is unknown whether or not the patient has had similar symptoms in the past. Historical: - Allergies: 18:36 Augmentin; ll1 18:36 Ciprofloxacin; ll1 18:36 Clindamycin; ll1 18:36 Sulfa (Sulfonamide Antibiotics); ll1 - PMHx: 18:36 Anxiety; Asthma; epilepsy; ll1 - PSHx: 18:36 Tonsillectomy; section; ll1 - Immunization history:: Client reports receiving the 2nd dose of the Covid vaccine, Flu vaccine is up to date. - Social history:: Smoking status: Patient denies any tobacco usage or history of. ROS: 19:38 Constitutional: Negative for fever, chills, and weight loss. jmm 19:38 Respiratory: Negative for shortness of breath, cough, wheezing, and pleuritic chest pain, Abdomen/GI: Negative for abdominal pain, nausea, vomiting, diarrhea, and constipation, Neuro: Negative for headache, weakness, numbness, tingling, and seizure. 19:38 ENT: Positive for ear pain, foreign body sensation. 19:38 All other systems are negative. Exam: 19:38 Constitutional: This is a well developed, well nourished patient who is awake, alert, jmm and in no acute distress. Head/Face: atraumatic. Eyes: EOMI, no conjunctival erythema appreciated 19:38 Neck: Trachea midline, Supple Respiratory: Normal respirations, no respiratory distress appreciated Abdomen/GI: Non distended, soft Back: Normal ROM Skin: General appearance color normal MS/ Extremity: Moves all extremities, no obvious deformities appreciated, no edema noted to the lower extremities Neuro: Awake and alert, normal gait Psych: Behavior is normal, Mood is normal, Patient is cooperative and pleasant 19:38 ENT: Ear canal(s): foreign body, a piece of plastic, in the left external ear canal. Vital Signs: 18:35 BP 126 / 82; Pulse 71; Resp 15; Temp 97.8; Pulse Ox 97% ; Weight 65.77 kg; Height 5 ft. ll1 2 in. (157.48 cm); Pain 10/10; 18:35 Body Mass Index 26.52 (65.77 kg, 157.48 cm) ll1 Procedures: 19:55 Performed Ear Canal FB Removal. Removed with aligator foreceps. Patient tolerated well. [facility] MDM: 19:38 Patient medically screened. [facility] 19:55 Data reviewed: vital signs, nurses notes. Counseling: I had a detailed discussion with kenzie the patient and/or guardian regarding: the historical points, exam findings, and any diagnostic results supporting the discharge/admit diagnosis, the need for outpatient follow up, to return to the emergency department if symptoms worsen or persist or if there are any questions or concerns that arise at home. Administered Medications: No medications were administered Disposition Summary: 01/21/21 19:57 Discharge Ordered Location: Home [facility] Condition: Stable [facility] Diagnosis - Superficial foreign body of left ear, initial encounter [facility] Followup: [facility] - With: Brigid Restrepo MD - When: 2 - 3 days - Reason: Recheck today's complaints, Continuance of care, Re-evaluation by your physician Discharge Instructions: - Discharge Summary Sheet [facility] - Ear Foreign Body [facility] Forms: - Medication Reconciliation Form [facility] - Thank You Letter [facility] - Antibiotic Education [facility] - Prescription Opioid Use [facility] Addendum: 01/23/2021 23:21 Co-signature as Attending Physician, Kvng Crooks MD. r n Signatures: Cornell Zaidi PA PA jmm Nieto, Roman, MD MD rn Lewis, Lynsay, RN RN ll1 Corrections: (The following items were deleted from the chart) 01/21 18:37 18:36 Allergies: PENICILLINS; ll1 ll1
[2021-01-21 20:11] VITALS: BP 126/82; TEMP 97.8; O2SAT 97
== END 2021-01-21 20:06 | disposition home or self-care (01) ==
LOC: ER 18:19
PROC: 09C4XZZ Extirpation of Matter from Left External Auditory Canal, External Approach (ICD-10-PCS; principal; 2021-01-21)
DX: T16.2XXA Foreign body in left ear, initial encounter (principal); Z88.1 Allergy status to other antibiotic agents; Z88.2 Allergy status to sulfonamides; Z88.3 Allergy status to other anti-infective agents
CPT/HCPCS: 99281

== ENCOUNTER 2022-11-23 12:58 | Emergency (ER) | payer OTHER ==
--- OUTSIDE RECORDS SUMMARY | 2022-11-23 13:07 | XMS REPORT | Continuity of Care Document ---
:1980 Author Organization [facility] t Address [address] [place] [address] [address] [place] [address] Care Team Providers Name Role Phone Markus Acevedo MD Primary Care Physician Brady Acevedo Attending Clinician Unavailable NELI OLEA Attending Clinician Unavailable Neli Olea PA-C Attending Clinician Pob, [facility] Main Attending Clinician Unavailable Doctor Unassigned, Kramer Attending Clinician Unavailable Galdino Hill Attending Clinician CRISTOBAL CHISHOLM Attending Clinician Unavailable CRISTOBAL CHISHOLM Attending Clinician Unavailable Annel Loomis MD Attending Clinician ANNEL LOOMIS Attending Clinician Unavailable Odilon Desai DO Attending Clinician 2, [facility] Attending Clinician Unavailable Shari Sin MD Attending Clinician Trevor Freeman Attending Clinician Toribio Estrada Attending Clinician Payers Payer Name Policy Type Policy Number Effective Date Expiration Date S stewart MEDICARE PART A [id number] 2005 \T\ B 00:00:00 Problems Condition Condition Condition Status Onset Resolution Last Treating Co mments Source Name Details Category Date Date Treatment Clinician Date Lump or Lump or Disease Active 2020-07 Univers mass in mass in 1-05 ity of breast breast 00:00: [place] 00 [facility] Branch Family Family Disease Active 2020-07 Univers history of history of 1-05 it y of breast breast 00:00: [place] cancer cancer Medical Branch Disease Active Unive rs wound wound 9-18 ity of infection infection 00:00: a s [facility] Branch Disease Active Unive rs delivery delivery 9-12 ity of delivered delivered 00:00: s [facility] Branch High risk High risk Disease Active Uni vers , , 9-06 it y of antepartum antepartum [place] [facility] [place] Seizure Seizure Disease Active Univers disorder disorder 9-06 ity of during during 00:00: [place] 00 Medi harlan in third in third Branch trimester trimester 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 00:00: [place] (HSV-2) (HSV-2) Medical infection infection Bran ch affecting affecting , , antepartum antepartum Obesity Obesity Disease Active Univers (BMI (BMI 8-27 ity of 30-39.9) 30-39.9) 00:00: [place] [facility] Branch Asthma Asthma Disease Active Univers complicati complicati 8-24 it y of ng ng 00:00: [place] , , 00 Me dical antepartum antepartum Br anch Excessive Excessive Disease Active Uni vers weight weight 7-16 ity of gain gain 00:00: Medical Branch Herpes Herpes Disease Active Univers simplex simplex 6-09 ity of virus type virus [place] (HSV-2[place] 2 (HSV-2) Medi harlan infection infection Bran ch affecting affecting in second in second trimester trimester History of History of Disease Active U nivers herpes herpes 3-22 ity of genitalis genitalis [place] [facility] Seizure Seizure Disease Active Univers disorder disorder 3-22 ity of 00:00: Medical Branch Anxiety Anxiety Disease Active Univers disorder, disorder, 3-22 ity of unspecifie unspecifie [place] type d type Medical [place] Bipolar Bipolar Disease Active Univers affective affective 3-22 ity of disorder, disorder, [place] 00 [place] harlan status status Branch unspecifie unspecifie d d History of History of Disease Active U nivers substance substance 3-22 ity of use use 00:00: [place] 00 Medical Branch 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 persistent 3-22 it y of asthma asthma 00:00: [place] with acute with acute 00 Me dical exacerbati exacerbati Br anch on on Drug Drug Disease Active Univers abuse, abuse, 1-29 ity of marijuana, marijuana, [place] 00 [place] Patient Patient Problem Resolve 2022 M emoria currently currently d 04:15:35 l Cand[place] n (finding) (finding) Resolved Problem 2022 [facility] her Neuro Asthma Asthma Problem Active 2022 Farooq shamika (disorder) (disorder) 04:15:35 l Active Supa Problem 2022 Data migrated from [employer] on 12/03/14. 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 12:14:08 l s s Supa (disorder) (disorder) Active Problem 07/21/2022 [facility] Depressive Depressiv Problem Active 2022-07-21 Memoria disorder e disorder 12:14:08 l (disorder) (disorder) [place] Active Problem 07/21/2022 [facility] Migraine Migraine Problem Active 2022-07-21 Memoria (disorder) (disorder) 12:14:08 l Active Supa Problem 07/21/2022 [facility] 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 y 12:14:08 l on-related localizati [place] epilepsy on-related (disorder) epilepsy (disorder) Active Problem 07/21/2022 [facility] Anxiety Anxiety Problem Resolve 2015-2022-01-26 2022 Memoria state state d 4-18 04:15:35 04:15:35 l (finding) (finding) 00:00: [place] chauncey Resolved 00 10/23/2015 Problem 2022 Medical Group,[facility] her Neuro Low back Low back Problem Resolve 2013-2022-01-26 2022 Memoria pain pain d 7-14 04:15:35 04:15:35 l (disorder) (disorder) 00:00: [place] Resolved 00 01/17/2014 Problem 2022 [facility] 12/03/14. Medical Group,[facility] her Neuro Allergies, Adverse Reactions, Alerts Allergy Allergy Status Severity Reaction(s) Onset Inactive Treating Comm ents Source Name Type Date Date Clinician Amoxicil Propensi Active Hives Univer s gal-Pot ty to 1-24 ity of Clavulan adverse 00:00: [place] ate reaction 00 Medical s Branch Clindamy Propensi Active Hives Univer s brionna ty to 1-24 ity of adverse 00:00: [place] reaction 00 Medical s Branch Penicill Propensi Active Nausea Univer s ins ty to and/or 1-24 ity of adverse Vomiting 00:00: [place] reaction 00 Medical s Branch Sulfa Propensi Active Nausea Univers (Sulfona ty to and/or 1-24 ity of mide adverse Vomiting 00:00: [place] Antibiot reaction 00 Medica l ics) s Branch AMOXICIL DRUG Active Hives Univers GAL-POT -24 ity of CLAVULAN 00:00: [place] ATE 00 Medical Branch CLINDAMY DRUG Active Hives Univers BRIONNA INGREDI -24 ity of 00:00: [place] 00 Medical Branch PENICILL Drug Active N/V Univers INS Class -24 ity of 00:00: [place] 00 Medical Branch SULFA Drug Active N/V Univers (SULFONA Class -24 ity of MIDE 00:00: [place] ANTIBIOT 00 Medical ICS) Branch Penicill Propensi Active Nausea Pt states Uni vers ins ty to and/or 07-30 she has ity of adverse Vomiting 00:00: taken [place] reaction 00 before Medical s with no Branch reaction Sulfa Propensi Active Nausea Univers (Sulfona ty to and/or 07-30 ity of mide adverse Vomiting 00:00: [place] Antibiot reaction 00 Medica l ics) s Branch penicill penicill Active Memori a ins ins l Supa sulfa sulfa Active Memoria drugs<ramirez drugs<ramirez l p>1</sup p>1</sup Candido n > > ciproflo ciproflo Active Memori a xacin xacin l Supa ibuprofe ibuprofe Active Memori a n<sup>2< n<sup>2< l /sup> /sup> [place] cephalex cephalex Active Memori a in<sup>3 in<sup>3 l </sup> </sup> [place] aspirin aspirin Active Memoria l [place] clindamy clindamy Active Memori a brionna brionna l [place] Social History Social Habit Start Date Stop Date Quantity Comments Source History of Cigarette Smoker Universi ty of tobacco use [facility] Exposure to 2022-07-28 2022-08-07 Not sure University of SARS-CoV-2 00:00:00 10:49:00 [facility] (event) Branch Alcohol intake 2022-08-07 2022-08-07 Current University of 00:00:00 00:00:00 non-drinker of [facility] alcohol (finding) Branch Tobacco use and 2022-08-07 2022-08-07 Smokeless tobacco Un iversity of exposure 00:00:00 00:00:00 non-user [facility] Social History 2022-07-18 2022-07-18 [facility] guido 17:14:44 17:14:44 Social History 2017-11-05 [facility] 18:52:09 Smoking Status Start Date Stop Date Source Tobacco smoking status 2022-07-18 16:19:18 2022-07-18 16:19:18 [facility] Medications Ordered Filled Start Stop Current Ordering Indication Dosage Frequency Signature Comments Components Source Medication Medication Date Date Medication? Clinician (SIG) Name Name fluconazole Yes [id number] 150mg Take 1 Univers (DIFLUCAN) 2-03 tablet by ity of 150 mg 00:00: mouth [place] tablet 00 every 72 Medical ([facility]) hours. OXcarbazepi Yes See Memori a ne 600 mg 1-12 Instructio l oral tablet 17:10: ns, TAKE He rmann 00 ONE TABLET BY MOUTH TWICE A DAY, # 60 tab, 5 Refill(s), Pharmacy: [facility] [id number], 160.02, cm, 07/18/22 10:45:00 [address]ED [employer], Height, 65.909, kg, 07/18/22 10:45:00 USED [employer], Weight OXcarbazepi Yes See Memori a ne 600 mg 1-12 Instructio l oral tablet 17:10: ns, TAKE He rmann 00 ONE TABLET BY MOUTH TWICE A DAY, # 60 tab, 5 Refill(s), Pharmacy: [facility] [id number], 160.02, cm, 07/18/22 10:45:00 USED [employer], Height, 65.909, kg, 07/18/22 10:45:00 USED [employer], Weight acetaminoph Yes 1-2 tab, Me moria en-hydrocod 1-12 PO, Q4-6H, l one 325 16:46: PRN Pain, Kareen nn mg-7.5 mg 00 # 30 tab, oral tablet 0 Refill(s) acetaminoph Yes 1-2 tab, Me moria en-hydrocod 1-12 PO, Q4-6H, l one 325 16:46: PRN Pain, Kareen nn mg-7.5 mg 00 # 30 tab, oral tablet 0 Refill(s) sertraline 2021-07 Yes See Memoria 50 mg oral 2-05 Instructio l tablet 19:55: ns, TAKE Supa 00 ONE TABLET BY MOUTH DAILY, # 90 tab, 0 Refill(s), Pharmacy: [facility] [id number], 161.29, cm, 10/12/21 10:47:00 CDT, Height, 60.091, kg, 10/12/21 10:47:00 CDT, Weight sertraline 2021-07 Yes See Memoria 50 mg oral 2-05 Instructio l tablet 19:55: ns, TAKE Supa 00 ONE TABLET BY MOUTH DAILY, # 90 tab, 0 Refill(s), Pharmacy: [facility] [id number], 161.29, cm, 10/12/21 10:47:00 CDT, Height, 60.091, kg, 10/12/21 10:47:00 CDT, Weight sertraline Yes 100 mg = 1 M emoria 100 mg oral 8-11 tab, PO, l tablet 16:00: Daily, # [place] 00 30 tab, 4 Refill(s), Pharmacy: [facility] [id number], 161.29, cm, 10/12/21 10:47:00 CDT, Height, 60.091, kg, 10/12/21 10:47:00 CDT, Weight sertraline Yes 100 mg = 1 M emoria 100 mg oral 8-11 tab, PO, l tablet 16:00: Daily, # [place] 00 30 tab, 4 Refill(s), Pharmacy: [facility] [id number], 161.29, cm, 10/12/21 10:47:00 CDT, Height, 60.091, kg, 10/12/21 10:47:00 CDT, Weight Diastat 0 Yes 15 mg, OK, Farooq shamika AcuDial 20 7-29 ONCE, # 1 l mg rectal 14:46: kit, 2 Candido n kit 00 Refill(s), Pharmacy: [facility] [id number], 161.29, cm, 10/12/21 10:47:00 CDT, Height, 60.091, kg, 10/12/21 10:47:00 CDT, Weight Diastat Yes 15 mg, [place], Farooq shamika AcuDial 20 7- ONCE, # 1 l mg rectal 14:46: kit, 2 Candido n kit 00 Refill(s), Pharmacy: [facility] [id number], 161.29, cm, 10/12/21 10:47:00 CDT, Height, 60.091, kg, 10/12/21 10:47:00 CDT, Weight SUMAtriptan Yes See Memori a Succinate 7-29 Instructio l Syringe 6 14:44: ns, INJECT He rmann mg/0.5 mL 00 ONE subcutaneou SYRINGE s solution UNDER THE SKIN ONCE DAILY NEEDED, # 3 mL, 1 Refill(s), Pharmacy: [facility] [id number], 161.29, cm, 10/12/21 10:47:00 CDT, Height, 60.091, kg, 10/12/21 10:47:00 CDT, Weight SUMAtriptan Yes See Memori a Succinate - Instructio l Syringe 6 14:44: ns, INJECT He rmann mg/0.5 mL 00 ONE subcutaneou SYRINGE s solution UNDER THE SKIN ONCE DAILY NEEDED, # 3 mL, 1 Refill(s), Pharmacy: [facility] [id number], 161.29, cm, 10/12/21 10:47:00 CDT, Height, 60.091, kg, 10/12/21 10:47:00 CDT, Weight sertraline Yes 50 mg = 1 Me moria 50 mg oral 7-20 tab, PO, l tablet 16:07: Daily, # [place] 00 30 tab, 4 Refill(s), Pharmacy: [facility] [id number], 161.29, cm, 10/12/21 10:47:00 CDT, Height, 60.091, kg, 10/12/21 10:47:00 CDT, Weight sertraline Yes 50 mg = 1 Me moria 50 mg oral 7-20 tab, PO, l tablet 16:07: Daily, # Supa 00 30 tab, 4 Refill(s), Pharmacy: [facility] [id number], 161.29, cm, 10/12/21 10:47:00 CDT, Height, 60.091, kg, 10/12/21 10:47:00 CDT, Weight sertraline 2021-0 Yes 50 mg = 1 Me moria 50 mg oral 7-20 tab, PO, l tablet 16:07: Daily, # [place] 00 30 tab, 4 Refill(s), Pharmacy: [facility] [id number], 161.29, cm, 10/12/21 10:47:00 CDT, Height, 60.091, kg, 10/12/21 10:47:00 CDT, Weight sertraline 2021-0 Yes See Memoria 100 mg oral 7-06 Instructio l tablet 14:13: ns, TAKE Supa 00 ONE TABLET BY MOUTH DAILY, # 30 tab, 3 Refill(s), Pharmacy: [facility] [id number], 161.29, cm, 10/12/21 10:47:00 CDT, Height, 60.091, kg, 10/12/21 10:47:00 CDT, Weight sertraline 2021-0 Yes See Memoria 100 mg oral 7-06 Instructio l tablet 14:13: ns, TAKE Supa 00 ONE TABLET BY MOUTH DAILY, # 30 tab, 3 Refill(s), Pharmacy: [facility] [id number], 161.29, cm, 10/12/21 10:47:00 CDT, Height, 60.091, kg, 10/12/21 10:47:00 CDT, Weight sertraline 2021-0 Yes See Memoria 100 mg oral 7-06 Instructio l tablet 14:13: ns, TAKE [place] 00 ONE TABLET BY MOUTH DAILY, # 30 tab, 3 Refill(s), Pharmacy: [facility] [id number], 161.29, cm, 10/12/21 10:47:00 CDT, Height, 60.091, kg, 10/12/21 10:47:00 CDT, Weight OXcarbazepi 2021-0 Yes See Memori a ne 600 mg 6-07 Instructio l oral tablet 15:19: ns, TAKE He rmann 00 ONE TABLET BY MOUTH TWICE A DAY, # 60 tab, 5 Refill(s), Pharmacy: [facility] [id number], 161.29, cm, 10/12/21 10:47:00 CDT, Height, 60.091, kg, 10/12/21 10:47:00 CDT, Weight OXcarbazepi 2021-0 Yes See Memori a ne 600 mg 6-07 Instructio l oral tablet 15:19: ns, TAKE He rmann 00 ONE TABLET BY MOUTH TWICE A DAY, # 60 tab, 5 Refill(s), Pharmacy: [facility] [id number], 161.29, cm, 10/12/21 10:47:00 CDT, Height, 60.091, kg, 10/12/21 10:47:00 CDT, Weight OXcarbazepi 2021-0 Yes See Memori a ne 600 mg 6-07 Instructio l oral tablet 15:19: ns, TAKE He rmann 00 ONE TABLET BY MOUTH TWICE A DAY, # 60 tab, 5 Refill(s), Pharmacy: [facility] [id number], 161.29, cm, 10/12/21 10:47:00 CDT, Height, 60.091, kg, 10/12/21 10:47:00 CDT, Weight baclofen 10 2021-0 Yes = 1 tab, Me moria mg oral 5-23 PO, l tablet 16:41: Bedtime, # Kareen nn 00 30 tab, 2 Refill(s), Pharmacy: [facility] [id number], 161.29, cm, 10/12/21 10:47:00 CDT, Height, 60.091, kg, 10/12/21 10:47:00 CDT, Weight baclofen 10 2021-0 Yes = 1 tab, Me moria mg oral 5-23 PO, l tablet 16:41: Bedtime, # Kareen nn 00 30 tab, 2 Refill(s), Pharmacy: [facility] [id number], 161.29, cm, 10/12/21 10:47:00 CDT, Height, 60.091, kg, 10/12/21 10:47:00 CDT, Weight baclofen 10 2021-0 No 10 mg = 1 M emoria mg oral 4-22 tab, PO, l tablet 15:01: BID, # 60 Candido n 00 tab, 2 Refill(s), Pharmacy: [facility] [id number], 161.29, cm, 10/12/21 10:47:00 CDT, Height, 60.091, kg, 10/12/21 10:47:00 CDT, Weight baclofen 10 0 No 10 mg = 1 M emoria mg oral 4-22 tab, PO, l tablet 15:01: BID, # 60 Candido n 00 tab, 2 Refill(s), Pharmacy: [facility] [id number], 161.29, cm, 10/12/21 10:47:00 CDT, Height, 60.091, kg, 10/12/21 10:47:00 CDT, Weight baclofen 10 0 No 10 mg = 1 M emoria mg oral 4-22 tab, PO, l tablet 15:01: BID, # 60 Candido n 00 tab, 2 Refill(s), Pharmacy: [facility] [id number], 161.29, cm, 10/12/21 10:47:00 CDT, Height, 60.091, kg, 10/12/21 10:47:00 CDT, Weight sertraline 2021-0 Yes See Memoria 100 mg oral 2-16 Instructio l tablet 21:06: ns, TAKE Supa 00 ONE TABLET BY MOUTH DAILY, # 30 tab, 4 Refill(s), Pharmacy: [facility] [id number], 157.48, cm, 04/12/21 10:20:00 CDT, Height, 55.455, kg, 04/12/21 10:20:00 CDT, Weight sertraline 2021-0 Yes See Memoria 100 mg oral 2-16 Instructio l tablet 21:06: ns, TAKE Supa 00 ONE TABLET BY MOUTH DAILY, # 30 tab, 4 Refill(s), Pharmacy: [facility] [id number], 157.48, cm, 04/12/21 10:20:00 CDT, Height, 55.455, kg, 04/12/21 10:20:00 CDT, Weight sertraline 2021-0 Yes See Memoria 100 mg oral 2-16 Instructio l tablet 21:06: ns, TAKE Supa 00 ONE TABLET BY MOUTH DAILY, # 30 tab, 4 Refill(s), Pharmacy: [facility] [id number], 157.48, cm, 04/12/21 10:20:00 CDT, Height, 55.455, kg, 04/12/21 10:20:00 CDT, Weight lamoTRIgine 2022-0 Yes See Memori a 150 mg oral 2-11 Instructio l tablet 20:45: ns, TAKE Supa 00 ONE TABLET BY MOUTH TWICE A DAY, # 180 tab, 5 Refill(s), Pharmacy: [facility] [id number], 157.48, cm, 04/12/21 10:20:00 CDT, Height, 55.455, kg, 04/12/21 10:20:00 CDT, Weight lamotrigine 2022-0 Yes See Memori a 150 MG Oral 2-11 Instructio l Tablet 20:45: ns, TAKE Supa 00 ONE TABLET BY MOUTH TWICE A DAY, # 180 tab, 5 Refill(s), Pharmacy: [facility] [id number], 157.48, cm, 04/12/21 10:20:00 CDT, Height, 55.455, kg, 04/12/21 10:20:00 CDT, Weight lamotrigine 2022-0 Yes See Memori a 150 MG Oral 2-11 Instructio l Tablet 20:45: ns, TAKE Supa 00 ONE TABLET BY MOUTH TWICE A DAY, # 180 tab, 5 Refill(s), Pharmacy: [facility] [id number], 157.48, cm, 04/12/21 10:20:00 CDT, Height, 55.455, kg, 04/12/21 10:20:00 CDT, Weight lamoTRIgine 2022-0 Yes See Memori a 150 mg oral 2-11 Instructio l tablet 20:45: ns, TAKE [place] 00 ONE TABLET BY MOUTH TWICE A DAY, # 180 tab, 5 Refill(s), Pharmacy: [facility] [id number], 157.48, cm, 04/12/21 10:20:00 CDT, Height, 55.455, kg, 04/12/21 10:20:00 CDT, Weight lamotrigine 2022-0 Yes See Memori a 150 MG Oral 2-11 Instructio l Tablet 20:45: ns, TAKE [place] 00 ONE TABLET BY MOUTH TWICE A DAY, # 180 tab, 5 Refill(s), Pharmacy: [facility] [id number], 157.48, cm, 04/12/21 10:20:00 CDT, Height, 55.455, kg, 04/12/21 10:20:00 CDT, Weight baclofen 10 2021-0 Yes 10 mg = 1 M emoria mg oral 1-26 tab, PO, l tablet 17:24: Bedtime, # Kareen nn 00 30 tab, 3 Refill(s), Pharmacy: [facility] [id number], 157.48, cm, 04/12/21 10:20:00 CDT, Height, 55.455, kg, 04/12/21 10:20:00 CDT, Weight baclofen 10 2021-0 Yes 10 mg = 1 M emoria mg oral 1-26 tab, PO, l tablet 17:24: Bedtime, # Kareen nn 00 30 tab, 3 Refill(s), Pharmacy: [facility] [id number], 157.48, cm, 04/12/21 10:20:00 CDT, Height, 55.455, kg, 04/12/21 10:20:00 CDT, Weight baclofen 10 2021-0 Yes 10 mg = 1 M emoria mg oral 1-26 tab, PO, l tablet 17:24: Bedtime, # Kareen nn 00 30 tab, 3 Refill(s), Pharmacy: [facility] [id number], 157.48, cm, 04/12/21 10:20:00 CDT, Height, 55.455, kg, 04/12/21 10:20:00 CDT, Weight SUMAtriptan 2022-0 Yes 6 mg, Memor ia Succinate 1-14 SUB-Q, l Syringe 6 15:05: ONCE, # 5 Her ugalde mg/0.5 mL 00 ea, 1 subcutaneou Refill(s), s solution Pharmacy: [facility] [id number], 157.48, cm, 04/12/21 10:20:00 CDT, Height, 55.455, kg, 04/12/21 10:20:00 CDT, Weight SUMAtriptan 2022-0 Yes 6 mg, Memor ia Succinate 1-14 SUB-Q, l Syringe 6 15:05: ONCE, # 5 Her ugalde mg/0.5 mL 00 ea, 1 subcutaneou Refill(s), s solution Pharmacy: [facility] [id number], 157.48, cm, 04/12/21 10:20:00 CDT, Height, 55.455, kg, 04/12/21 10:20:00 CDT, Weight SUMAtriptan 2-0 Yes 6 mg, Memor ia Succinate 1-14 SUB-Q, l Syringe 6 15:05: ONCE, # 5 Her ugalde mg/0.5 mL 00 ea, 1 subcutaneou Refill(s), s solution Pharmacy: [facility] [id number], 157.48, cm, 04/12/21 10:20:00 CDT, Height, 55.455, kg, 04/12/21 10:20:00 CDT, Weight eletriptan 2020-07 Yes = 1 tab, Mem oria 40 mg oral 1-04 PO, Daily, l tablet 14:27: PRN Supa 00 NEEDED FOR MIGRAINE HEADACHE (NOVEMBER REPEAT DOSE IN, # 6 tab, 3 Refill(s), Pharmacy: [facility] [id number], 157.48, cm, 04/12/21 10:20:00 CDT, Height, 55.455, kg, 04/12/21 10:20:00 CDT, Weight eletriptan 2020-07 Yes = 1 tab, Mem oria 40 mg oral 1-04 PO, Daily, l tablet 14:27: PRN Supa 00 NEEDED FOR MIGRAINE HEADACHE (NOVEMBER REPEAT DOSE IN, # 6 tab, 3 Refill(s), Pharmacy: [facility] [id number], 157.48, cm, 04/12/21 10:20:00 CDT, Height, 55.455, kg, 04/12/21 10:20:00 CDT, Weight eletriptan 2020-07 Yes = 1 tab, Mem oria 40 mg oral 1-04 PO, Daily, l tablet 14:27: PRN Supa 00 NEEDED FOR MIGRAINE HEADACHE (NOVEMBER REPEAT DOSE IN, # 6 tab, 3 Refill(s), Pharmacy: [facility] [id number], 157.48, cm, 04/12/21 10:20:00 CDT, Height, 55.455, kg, 04/12/21 10:20:00 CDT, Weight Relpax 40 2020-07 No 40 mg = 1 Mem oria mg oral 0-21 tab, PO, l tablet 13:48: Daily, PRN Kareen nn 00 for migraine headache, may repeat dose once in 2 hours, X 3 day, # 6 tab, 0 Refill(s), Pharmacy: [facility] [id number], 157.48, cm, 04/12/21 10:20:00 CDT, Height, 55.455, kg, 04/12/21 10:20:00 CDT, Weight Relpax 40 2020-07 No 40 mg = 1 Mem oria mg oral 0-21 tab, PO, l tablet 13:48: Daily, PRN Kareen nn 00 for migraine headache, may repeat dose once in 2 hours, X 3 day, # 6 tab, 0 Refill(s), Pharmacy: [facility] [id number], 157.48, cm, 04/12/21 10:20:00 CDT, Height, 55.455, kg, 04/12/21 10:20:00 CDT, Weight Relpax 40 2020-07 No 40 mg = 1 Mem oria mg oral 0-21 tab, PO, l tablet 13:48: Daily, PRN Kareen nn 00 for migraine headache, may repeat dose once in 2 hours, X 3 day, # 6 tab, 0 Refill(s), Pharmacy: [facility] [id number], 157.48, cm, 04/12/21 10:20:00 CDT, Height, 55.455, kg, 04/12/21 10:20:00 CDT, Weight lamotrigine Yes See Memori a 150 MG Oral 8-20 Instructio l Tablet 15:07: ns, TAKE [place] 00 ONE TABLET BY MOUTH TWICE A DAY, # 180 tab, 2 Refill(s), Pharmacy: [facility] [id number], 157.48, cm, 12/06/20 9:13:00 CDT, Height, 75.455, kg, 12/06/20 9:13:00 CDT, Weight lamotrigine Yes See Memori a 150 MG Oral 8-20 Instructio l Tablet 15:07: ns, TAKE [place] 00 ONE TABLET BY MOUTH TWICE A DAY, # 180 tab, 2 Refill(s), Pharmacy: [facility] [id number], 157.48, cm, 12/06/20 9:13:00 CDT, Height, 75.455, kg, 12/06/20 9:13:00 CDT, Weight lamotrigine 0 Yes See Memori a 150 MG Oral 8-20 Instructio l Tablet 15:07: ns, TAKE [place] 00 ONE TABLET BY MOUTH TWICE A DAY, # 180 tab, 2 Refill(s), Pharmacy: [facility] [id number], 157.48, cm, 12/06/20 9:13:00 CDT, Height, 75.455, kg, 12/06/20 9:13:00 CDT, Weight OXcarbazepi 0 Yes = 1 tab, Me moria ne 600 mg 6-17 PO, BID, # l oral tablet 18:42: 60 tab, 4 H ermann 00 Refill(s), Pharmacy: [facility] [id number], 157.48, cm, 12/06/20 9:13:00 CDT, Height, 75.455, kg, 12/06/20 9:13:00 CDT, Weight OXcarbazepi 0 Yes = 1 tab, Me moria ne 600 mg 6-17 PO, BID, # l oral tablet 18:42: 60 tab, 4 H ermann 00 Refill(s), Pharmacy: [facility], 157.48, cm, 12/06/20 9:13:00 CDT, Height, 75.455, kg, 12/06/20 9:13:00 CDT, Weight OXcarbazepi 0 Yes = 1 tab, Me moria ne 600 mg 6-17 PO, BID, # l oral tablet 18:42: 60 tab, 4 H ermann 00 Refill(s), Pharmacy: [facility], 157.48, cm, 12/06/20 9:13:00 CDT, Height, 75.455, kg, 12/06/20 9:13:00 CDT, Weight Ubrelvy 100 2020-0 Yes See Memori a mg oral 6-02 Instructio l tablet 23:00: ns, TAKE Supa 00 ONE TABLET BY MOUTH NEEDED FOR MIGRAINE MAY REPEAT DOSE AFTER 2 HOURS MAX DOSE 200MG/24 HOURS, # 10 tab, 2 Refill(s), Pharmacy: [facility] [id number], 157.48, cm, 12/06/20 9:13:00 CDT, Height, 75.455, kg, 12/06/20 9:13:00... Ubrelvy 100 1-0 Yes See Memori a mg oral 6-02 Instructio l tablet 23:00: ns, TAKE Supa 00 ONE TABLET BY MOUTH NEEDED FOR MIGRAINE MAY REPEAT DOSE AFTER 2 HOURS MAX DOSE 200MG/24 HOURS, # 10 tab, 2 Refill(s), Pharmacy: [facility] [id number], 157.48, cm, 12/06/20 9:13:00 CDT, Height, 75.455, kg, 12/06/20 9:13:00... Mirtazapine 2020-0 Yes 15 mg = 1 M emoria 15 MG Oral 3-02 tab, PO, l Tablet 16:00: Bedtime, # Kare[place] nn 00 30 tab, 3 Refill(s), Pharmacy: [facility] 149, 157.48, cm, 08/11/20 13:52:00 [facility] [facility], Height, 82.273, kg, 08/11/20 13:52:00 [facility] [facility], Weight mirtazapine 2020-0 Yes 15 mg = 1 M emoria 15 mg oral 3-02 tab, PO, l tablet 16:00: Bedtime, # K[place] nn 00 30 tab, 3 Refill(s), Pharmacy: [facility] 149, 157.48, cm, 08/11/20 13:52:00 [facility], Height, 82.273, kg, 08/11/20 13:52:00 [facility], Weight Mirtazapine 1-0 Yes 15 mg = 1 M emoria 15 MG Oral 3-02 tab, PO, l Tablet 16:00: Bedtime, # [place] nn 00 30 tab, 3 Refill(s), Pharmacy: [facility] 149, 157.48, cm, 08/11/20 13:52:00 [facility], Height, 82.273, kg, 08/11/20 13:52:00 [facility] [facility], Weight mirtazapine 2020-0 Yes 15 mg = 1 M emoria 15 mg oral 3-02 tab, PO, l tablet 16:00: Bedtime, # Kareen nn 00 30 tab, 3 Refill(s), Pharmacy: [facility] 149, 157.48, cm, 08/11/20 13:52:00 [facility], Height, 82.273, kg, 08/11/20 13:52:00 [facility] [facility], Weight Mirtazapine 2020-0 Yes 15 mg = 1 M emoria 15 MG Oral 3-02 tab, PO, l Tablet 16:00: Bedtime, # K[place] nn 00 30 tab, 3 Refill(s), Pharmacy: [facility] 149, 157.48, cm, 08/11/20 13:52:00 [facility], Height, 82.273, kg, 08/11/20 13:52:00 [facility] [facility], Weight sertraline 2020-0 Yes 100 mg = 1 M emoria 100 mg oral 3-02 tab, PO, l tablet 15:58: Daily, # [place] 00 30 tab, 5 Refill(s), Pharmacy: [facility] 149, 157.48, cm, 08/11/20 13:52:00 [facility] [facility], Height, 82.273, kg, 08/11/20 13:52:00 [facility] [facility], Weight sertraline 2020-0 Yes 100 mg = 1 M emoria 100 mg oral 3-02 tab, PO, l tablet 15:58: Daily, # Supa 00 30 tab, 5 Refill(s), Pharmacy: [facility] 149, 157.48, cm, 08/11/20 13:52:00 [facility] [employer] [facility], Height, 82.273, kg, 08/11/20 13:52:00 [facility] [facility], Weight sertraline 2020-0 Yes 100 mg = 1 M emoria 100 mg oral 3-02 tab, PO, l tablet 15:58: Daily, # [place] 00 30 tab, 5 Refill(s), Pharmacy: [facility] 149, 157.48, cm, 08/11/20 13:52:00 [facility] [facility], Height, 82.273, kg, 08/11/20 13:52:00 [facility] [facility], Weight Rimegepant 2020-0 Yes 75 mg = 1 Me moria 75 MG 2-05 tab, PO, l Disintegrat 20:13: ONCE, 0 Her ugalde ing Oral 00 Refill(s) Tablet [[facility]] [facility] ODT 0 Yes 75 mg = 1 Me moria 75 mg oral 2-05 tab, PO, l tablet, 20:13: ONCE, 0 Suap disintegrat 00 Refill(s) ing Rimegepant 2020-0 Yes 75 mg = 1 Me moria 75 MG 2-05 tab, PO, l Disintegrat 20:13: ONCE, 0 Her ugalde ing Oral 00 Refill(s) Tablet [[facility]] Rimegepant 2020-0 Yes 75 mg = 1 Me moria 75 MG 2-05 tab, PO, l Disintegrat 20:13: ONCE, 0 Her ugalde ing Oral 00 Refill(s) Tablet [[facility]] [place] ODT 0 Yes 75 mg = 1 Me moria 75 mg oral 2-05 tab, PO, l tablet, 20:13: ONCE, 0 Supa disintegrat 00 Refill(s) ing OXcarbazepi 0 Yes = 1 tab, Me moria ne 600 mg 2-05 PO, BID, # l oral tablet 20:11: 60 tab, 4 H ermann 00 Refill(s), Pharmacy: [place] [address], 157.48, cm, 08/11/20 13:52:00 [facility] [employer], Height, 82.273, kg, 08/11/20 13:52:00 [facility] [employer] [facility], Weight zolpidem 10 2020-0 Yes 0 Memori a mg oral 2-05 Refill(s) l tablet 20:11: [place] 00 zolpidem 10 2020-0 Yes 0 Memori a mg oral 2-05 Refill(s) l tablet 20:11: [place] 00 OXcarbazepi 2020-0 Yes = 1 tab, Me moria ne 600 mg 2-05 PO, BID, # l oral tablet 20:11: 60 tab, 4 H ermann 00 Refill(s), Pharmacy: [facility] 149, 157.48, cm, 08/11/20 13:52:00 [facility] [facility] [employer] [facility], Height, 82.273, kg, 08/11/20 13:52:00 [facility] [facility] [employer] [facility], Weight OXcarbazepi 2020-0 Yes = 1 tab, Me moria ne 600 mg 2-05 PO, BID, # l oral tablet 20:11: 60 tab, 4 H ermann 00 Refill(s), Pharmacy: [place] [address], 157.48, cm, 08/11/20 13:52:00 [facility] [employer] [facility], Height, 82.273, kg, 08/11/20 13:52:00 [facility] [facility], Weight zolpidem 10 Yes 0 Memori a mg oral 2-05 Refill(s) l tablet 20:11: Supa 00 rizatriptan No See Memori a 5 mg oral 1-24 Instructio l tablet, 21:34: ns, PLACE [place] nn disintegrat 00 ONE TABLET ing BY MOUTH DAILY NEEDED FOR MIGRAINE HEADACHE, # 10 unknown unit, 2 Refill(s), Pharmacy: [facility] [id number], 157.48, cm, 05/09/20 9:36:00 [facility] [employer] [facility], Height, 81.818, kg, 05/09/20 9:36:00 [facility] [employer] [facility], Weight rizatriptan No See Memori a 5 mg oral 1-24 Instructio l tablet, 21:34: ns, PLACE [place] nn disintegrat 00 ONE TABLET ing BY MOUTH DAILY NEEDED FOR MIGRAINE HEADACHE, # 10 unknown unit, 2 Refill(s), Pharmacy: [facility] [id number], 157.48, cm, 05/09/20 9:36:00 [facility] [facility] [employer] [facility], Height, 81.818, kg, 05/09/20 9:36:00 [facility] [facility] [employer] [facility], Weight rizatriptan No See Memori a 5 mg oral 1-24 Instructio l tablet, 21:34: ns, PLACE [place] nn disintegrat 00 ONE TABLET ing BY MOUTH DAILY NEEDED FOR MIGRAINE HEADACHE, # 10 unknown unit, 2 Refill(s), Pharmacy: [facility] [id number], 157.48, cm, 05/09/20 9:36:00 [facility] [employer], Height, 81.818, kg, 05/09/20 9:36:00 [facility] [employer], Weight Mirtazapine 2019- No See Memori a 15 MG Oral 2-01 Instructio l Tablet 14:41: ns, TAKE [place] 00 ONE TABLET BY MOUTH EVERY NIGHT AT BEDTIME, # 30 tab, 3 Refill(s), Pharmacy: [facility] [id number], 157.48, cm, 05/09/20 9:36:00 [facility] [employer] [facility], Height, 81.818, kg, 05/09/20 9:36:00 [facility] [employer] [facility], Weight Mirtazapine 2020- No See Memori a 15 MG Oral 2-01 Instructio l Tablet 14:41: ns, TAKE [place] 00 ONE TABLET BY MOUTH EVERY NIGHT AT BEDTIME, # 30 tab, 3 Refill(s), Pharmacy: [facility] [id number], 157.48, cm, 05/09/20 9:36:00 [facility] [employer] [facility], Height, 81.818, kg, 05/09/20 9:36:00 [facility] [employer] [facility], Weight Mirtazapine 2019- No See Memori a 15 MG Oral 2-01 Instructio l Tablet 14:41: ns, TAKE [place] 00 ONE TABLET BY MOUTH EVERY NIGHT AT BEDTIME, # 30 tab, 3 Refill(s), Pharmacy: [facility] [id number], 157.48, cm, 05/09/20 9:36:00 [facility] [employer], Height, 81.818, kg, 05/09/20 9:36:00 [facility] [employer], Weight sertraline 2019- No See Memoria 50 mg oral 1-06 Instructio l tablet 02:09: ns, TAKE Supa 00 ONE TABLET BY MOUTH DAILY, # 30 tab, 5 Refill(s), Pharmacy: [facility] [id number], 157.48, cm, 05/09/20 9:36:00 [address] [employer] [facility], Height, 81.818, kg, 05/09/20 9:36:00 [facility] [employer] [facility], Weight sertraline 2019- No See Memoria 50 mg oral 1-06 Instructio l tablet 02:09: ns, TAKE [place] 00 ONE TABLET BY MOUTH DAILY, # 30 tab, 5 Refill(s), Pharmacy: [facility] [id number], 157.48, cm, 05/09/20 9:36:00 [facility] [employer], Height, 81.818, kg, 05/09/20 9:36:00 [facility] [employer] [facility], Weight sertraline 2020- No See Memoria 50 mg oral 1-06 Instructio l tablet 02:09: ns, TAKE [place] 00 ONE TABLET BY MOUTH DAILY, # 30 tab, 5 Refill(s), Pharmacy: [facility] [id number], 157.48, cm, 05/09/20 9:36:00 [facility] [employer] [facility], Height, 81.818, kg, 05/09/20 9:36:00 [address] [employer] [facility], Weight lamotrigine 2019-07 Yes = 1 tab, Me moria 100 MG Oral 1-03 PO, BID, # l Tablet 15:51: 60 tab, 2 [place] n 00 Refill(s), Pharmacy: [facility] 149, 157.48, cm, 05/09/20 9:36:00 [address] [employer] [facility], Height, 81.818, kg, 05/09/20 9:36:00 [facility] [employer] [facility], Weight lamotrigine 2019-07 Yes = 1 tab, Me moria 100 MG Oral 1-03 PO, BID, # l Tablet 15:51: 60 tab, 2 [place] n 00 Refill(s), Pharmacy: [facility] 149, 157.48, cm, 05/09/20 9:36:00 [facility] [employer] [facility], Height, 81.818, kg, 05/09/20 9:36:00 [facility] [employer] [facility], Weight lamotrigine 2019-07 Yes = 1 tab, Me moria 100 MG Oral 1-03 PO, BID, # l Tablet 15:51: 60 tab, 2 [place] n 00 Refill(s), Pharmacy: [facility] 149, 157.48, cm, 05/09/20 9:36:00 [address] [employer] [facility], Height, 81.818, kg, 05/09/20 9:36:00 [address] [facility], Weight norgestimat 2019- Yes [id number] 1{tbl} Take 1 Univers e-ethinyl 0-27 tablet by ity o f estradioL 00:00: mouth [place] 0.25-35 00 daily. Medical mg-mcg per Branch tablet norgestimat 2020- Yes [id number] 1{tbl} Take 1 Univers e-ethinyl 0-27 tablet by ity o f estradioL 00:00: mouth [place] 0.25-35 00 daily. Medical mg-mcg per Branch tablet norgestimat 2020- Yes [id number] 1{tbl} Take 1 Univers e-ethinyl 0-27 tablet by ity o f estradioL 00:00: mouth [place] 0.25-35 00 daily. Medical mg-mcg per Branch tablet norgestimat 2020- Yes [id number] 1{tbl} Take 1 Univers e-ethinyl 0-27 tablet by ity o f estradioL 00:00: mouth [place] 0.25-35 00 daily. Medical mg-mcg per Branch tablet norgestimat 2020- Yes [id number] 1{tbl} Take 1 Univers e-ethinyl 0-27 tablet by ity o f estradioL 00:00: mouth [place] 0.25-35 00 daily. Medical mg-mcg per Branch tablet norgestimat 2020- Yes [id number] 1{tbl} Take 1 Univers e-ethinyl 0-27 tablet by ity o f estradioL 00:00: mouth [place] 0.25-35 00 daily. Medical mg-mcg per Branch tablet norgestimat 2020- Yes [id number] 1{tbl} Take 1 Univers e-ethinyl 0-27 tablet by ity o f estradioL 00:00: mouth [place] 0.25-35 00 daily. Medical mg-mcg per Branch tablet norgestimat 2020- Yes [id number] 1{tbl} Take 1 Univers e-ethinyl 0-27 tablet by ity o f estradioL 00:00: mouth [place] 0.25-35 00 daily. Medical mg-mcg per Branch tablet norgestimat 2020- Yes [id number] 1{tbl} Take 1 Univers e-ethinyl 0-27 tablet by ity o f estradioL 00:00: mouth [place] 0.25-35 00 daily. Medical mg-mcg per Branch tablet norgestimat 2020- Yes [id number] 1{tbl} Take 1 Univers e-ethinyl 0-27 tablet by ity o f estradioL 00:00: mouth [place] 0.25-35 00 daily. Medical mg-mcg per Branch tablet norgestimat 2020- Yes [id number] 1{tbl} Take 1 Univers e-ethinyl 0-27 tablet by ity o f estradioL 00:00: mouth [place] 0.25-35 00 daily. Medical mg-mcg per Branch tablet norgestimat 2020- Yes [id number] 1{tbl} Take 1 Univers e-ethinyl 0-27 tablet by ity o f estradioL 00:00: mouth [place] 0.25-35 00 daily. Medical mg-mcg per Branch tablet norgestimat 2019-07 Yes [id number] 1{tbl} Take 1 Univers e-ethinyl 0-27 tablet by ity o f estradioL 00:00: mouth [place] 0.25-35 00 daily. Medical mg-mcg per Branch tablet zolpidem 10 2019-07 Yes Univer s mg tablet 0-08 ity of 00:00: [facility] [place] [facility] zolpidem 10 2019-07 Yes Univer s mg tablet 0-08 ity of 00:00: [facility] [place] [facility] zolpidem 10 2019-07 Yes Univer s mg tablet 0-08 ity of 00:00: [facility] [place] [facility] zolpidem 10 2019-07 Yes Univer s mg tablet 0-08 ity of 00:00: [facility] [place] [facility] zolpidem 10 2019-07 Yes Univer s mg tablet 0-08 ity of 00:00: [facility] [place] [facility] zolpidem 10 2019-07 Yes Univer s mg tablet 0-08 ity of 00:00: [facility] [place] [facility] zolpidem 10 2019-07 Yes Univer s mg tablet 0-08 ity of 00:00: [facility] [place] [facility] zolpidem 10 2019-07 Yes Univer s mg tablet 0-08 ity of 00:00: [facility] [place] [facility] zolpidem 10 2019-07 Yes Univer s mg tablet 0-08 ity of 00:00: [facility] [place] [facility] zolpidem 10 2019-07 Yes Univer s mg tablet 0-08 ity of 00:00: [facility] [place] [facility] zolpidem 10 2019-07 Yes Univer s mg tablet 0-08 ity of 00:00: [facility] [place] [facility] zolpidem 10 2019-07 Yes Univer s mg tablet 0-08 ity of 00:00: [facility] [place] [facility] zolpidem 10 2019-07 Yes Univer s mg tablet 0-08 ity of 00:00: [facility] [place] [facility] mirtazapine 2019-07 Yes Univer s 15 mg 0-06 ity of tablet 00:00: [facility] [place] [facility] mirtazapine 2019-07 Yes Univer s 15 mg 0-06 ity of tablet 00:00: [facility] [place] [facility] mirtazapine 2019-07 Yes Univer s 15 mg 0-06 ity of tablet 00:00: [place] [facility] mirtazapine 2020-1 Yes Univer s 15 mg 0-06 ity of tablet 00:00: [place] [facility] mirtazapine 2020-1 Yes Univer s 15 mg 0-06 ity of tablet 00:00: [place] [facility] mirtazapine 2020- Yes Univer s 15 mg 0-06 ity of tablet 00:00: [place] [facility] mirtazapine 2020-1 Yes Univer s 15 mg 0-06 ity of tablet 00:00: [place] [facility] mirtazapine 2020-1 Yes Univer s 15 mg 0-06 ity of tablet 00:00: [place] [facility] mirtazapine 2020- Yes Univer s 15 mg 0-06 ity of tablet 00:00: [place] [facility] mirtazapine 2020- Yes Univer s 15 mg 0-06 ity of tablet 00:00: [address] mirtazapine 2020- Yes Univer s 15 mg 0-06 ity of tablet 00:00: [address] mirtazapine 2020- Yes Univer s 15 mg 0-06 ity of tablet 00:00: [address] mirtazapine 2019- Yes Univer s 15 mg 0-06 ity of tablet 00:00: [address] sertraline 2020-0 Yes See Memoria 50 mg oral 8-06 Instructio l tablet 19:38: ns, TAKE [place] 00 ONE TABLET BY MOUTH DAILY, # 30 tab, 2 Refill(s), Pharmacy: [facility] [id number], 157.48, cm, 12/23/19 16:09:00 CDT, Height, 77.273, kg, 12/23/19 16:09:00 CDT, Weight sertraline 2020-0 Yes See Memoria 50 mg oral 8-06 Instructio l tablet 19:38: ns, TAKE [place] 00 ONE TABLET BY MOUTH DAILY, # 30 tab, 2 Refill(s), Pharmacy: [facility] [id number], 157.48, cm, 12/23/19 16:09:00 CDT, Height, 77.273, kg, 12/23/19 16:09:00 CDT, Weight sertraline 2020-0 Yes See Memoria 50 mg oral 8-06 Instructio l tablet 19:38: ns, TAKE [place] 00 ONE TABLET BY MOUTH DAILY, # 30 tab, 2 Refill(s), Pharmacy: [facility] [id number], 157.48, cm, 12/23/19 16:09:00 CDT, Height, 77.273, kg, 12/23/19 16:09:00 CDT, Weight lamotrigine 2020-0 Yes = 1 tab, Me moria 100 MG Oral 7-23 PO, BID, # l Tablet 19:05: 60 tab, 2 [place] n 00 Refill(s), Pharmacy: [facility] 149, 157.48, cm, 12/23/19 16:09:00 CDT, Height, 77.273, kg, 12/23/19 16:09:00 CDT, Weight lamotrigine 2020-0 Yes = 1 tab, Me moria 100 MG Oral 7-23 PO, BID, # l Tablet 19:05: 60 tab, 2 [place] n 00 Refill(s), Pharmacy: [facility] 149, 157.48, cm, 12/23/19 16:09:00 CDT, Height, 77.273, kg, 12/23/19 16:09:00 CDT, Weight lamotrigine 2020-0 Yes = 1 tab, Me moria 100 MG Oral 7-23 PO, BID, # l Tablet 19:05: 60 tab, 2 [place] n 00 Refill(s), Pharmacy: [facility] 149, 157.48, cm, 12/23/19 16:09:00 CDT, Height, 77.273, kg, 12/23/19 16:09:00 CDT, Weight Mirtazapine 2020-0 Yes See Memori a 15 MG Oral 7-06 Instructio l Tablet 20:56: ns, TAKE Supa 00 ONE TABLET BY MOUTH EVERY NIGHT AT BEDTIME, # 30 tab, 4 Refill(s), Pharmacy: [facility] [id number], 157.48, cm, 12/23/19 16:09:00 CDT, Height, 77.273, kg, 12/23/19 16:09:00 CDT, Weight sertraline 2020-0 Yes See Memoria 50 mg oral 7-06 Instructio l tablet 20:56: ns, TAKE [place] 00 ONE TABLET BY MOUTH DAILY, # 30 tab, 0 Refill(s), Pharmacy: [facility] [id number], 157.48, cm, 12/23/19 16:09:00 CDT, Height, 77.273, kg, 12/23/19 16:09:00 CDT, Weight Mirtazapine 2020-0 Yes See Memori a 15 MG Oral 7-06 Instructio l Tablet 20:56: ns, TAKE Supa 00 ONE TABLET BY MOUTH EVERY NIGHT AT BEDTIME, # 30 tab, 4 Refill(s), Pharmacy: [facility] [id number], 157.48, cm, 12/23/19 16:09:00 CDT, Height, 77.273, kg, 12/23/19 16:09:00 CDT, Weight sertraline 2020-0 Yes See Memoria 50 mg oral 7-06 Instructio l tablet 20:56: ns, TAKE Supa 00 ONE TABLET BY MOUTH DAILY, # 30 tab, 0 Refill(s), Pharmacy: [facility] [id number], 157.48, cm, 12/23/19 16:09:00 CDT, Height, 77.273, kg, 12/23/19 16:09:00 CDT, Weight Mirtazapine 2020-0 Yes See Memori a 15 MG Oral 7-06 Instructio l Tablet 20:56: ns, TAKE Supa 00 ONE TABLET BY MOUTH EVERY NIGHT AT BEDTIME, # 30 tab, 4 Refill(s), Pharmacy: [facility] [id number], 157.48, cm, 12/23/19 16:09:00 CDT, Height, 77.273, kg, 12/23/19 16:09:00 CDT, Weight sertraline 2020-0 Yes See Memoria 50 mg oral 7-06 Instructio l tablet 20:56: ns, TAKE Supa 00 ONE TABLET BY MOUTH DAILY, # 30 tab, 0 Refill(s), Pharmacy: [facility] [id number], 157.48, cm, 12/23/19 16:09:00 CDT, Height, 77.273, kg, 12/23/19 16:09:00 CDT, Weight OXcarbazepi 2020-0 Yes = 1 tab, Me moria ne 600 mg 6-18 PO, TID, # l oral tablet 21:24: 90 tab, 5 H [place] 00 Refill(s), Pharmacy: [facility] 149, 157.48, cm, 12/23/19 16:09:00 CDT, Height, 77.273, kg, 12/23/19 16:09:00 CDT, Weight OXcarbazepi 2020-0 Yes = 1 tab, Me moria ne 600 mg 6-18 PO, TID, # l oral tablet 21:24: 90 tab, 5 H [place] 00 Refill(s), Pharmacy: [place] [address], 157.48, cm, 12/23/19 16:09:00 CDT, Height, 77.273, kg, 12/23/19 16:09:00 CDT, Weight OXcarbazepi 2020-0 Yes = 1 tab, Me moria ne 600 mg 6-18 PO, TID, # l oral tablet 21:24: 90 tab, 5 H [place] 00 Refill(s), Pharmacy: [facility] 149, 157.48, cm, 12/23/19 16:09:00 CDT, Height, 77.273, kg, 12/23/19 16:09:00 CDT, Weight sertraline 2020-0 Yes See Memoria 50 mg oral 5-04 Instructio l tablet 19:59: ns, # 30 [place] 06 tab, Refill(s) 1, TAKE ONE TABLET BY MOUTH DAILY, Pharmacy: [place] [address] sertraline 2020-0 Yes See Memoria 50 mg oral 5-04 Instructio l tablet 19:59: ns, # 30 Supa 06 tab, Refill(s) 1, TAKE ONE TABLET BY MOUTH DAILY, Pharmacy: [place] [address] sertraline 2020-0 Yes See Memoria 50 mg oral 5-04 Instructio l tablet 19:59: ns, # 30 [place] 06 tab, Refill(s) 1, TAKE ONE TABLET BY MOUTH DAILY, Pharmacy: [place] [address] 4 ML 2020-0 Yes 15 mg, OK, Memoria Diazepam 3-03 ONCE, # 1 l 0.005 MG/MG 19:33: kit, 2 Herm chauncey Prefilled 00 Refill(s), Applicator Pharmacy: [place] [address] 4 ML 2020-0 Yes 15 mg, OK, Memoria Diazepam 3-03 ONCE, # 1 l 0.005 MG/MG 19:33: kit, 2 Herm chauncey Prefilled 00 Refill(s), [facility]ator Pharmacy: [place] [address] 4 ML 2020-0 Yes 15 mg, OK, Memoria Diazepam 3-03 ONCE, # 1 l 0.005 MG/MG 19:33: kit, 2 Herm chauncey Prefilled 00 Refill(s), [facility] Pharmacy: [place] [address] lamotrigine 2020-0 Yes 100 mg = 1 Memoria 100 MG Oral 3-02 tab, PO, l Tablet 20:12: BID, # 60 [place] 00 tab, 2 Refill(s), Pharmacy: [place] [address] lamotrigine 2020-0 Yes 100 mg = 1 Memoria 100 MG Oral 3-02 tab, PO, l Tablet 20:12: BID, # 60 [place] 00 tab, 2 Refill(s), Pharmacy: [place] [address] lamotrigine 2020-0 Yes 100 mg = 1 Memoria 100 MG Oral 3-02 tab, PO, l Tablet 20:12: BID, # 60 [place] 00 tab, 2 Refill(s), Pharmacy: [place] [address] acyclovir 2020-0 Yes TAKE ONE Univ ers 400 mg 1-07 TABLET BY ity of tablet 00:00: MOUTH [place] 00 THREE Medical TIMES A Branch DAY FOR 5 DAYS FOR OUTBREAK acyclovir 2020-0 Yes TAKE ONE Univ ers 400 mg 1-07 TABLET BY ity of tablet 00:00: MOUTH [place] 00 THREE Medical TIMES A Branch DAY FOR 5 DAYS FOR OUTBREAK acyclovir 2020-0 Yes TAKE ONE Univ ers 400 mg 1-07 TABLET BY ity of tablet 00:00: MOUTH [place] 00 THREE Medical TIMES A Branch DAY FOR 5 DAYS FOR OUTBREAK acyclovir 2020-0 Yes TAKE ONE Univ ers 400 mg 1-07 TABLET BY ity of tablet 00:00: MOUTH [place] 00 THREE Medical TIMES A Branch DAY FOR 5 DAYS FOR OUTBREAK acyclovir 2020-0 Yes TAKE ONE Univ ers 400 mg 1-07 TABLET BY ity of tablet 00:00: MOUTH [place] 00 THREE Medical TIMES A Branch DAY FOR 5 DAYS FOR OUTBREAK acyclovir 2020-0 Yes TAKE ONE Univ ers 400 mg 1-07 TABLET BY ity of tablet 00:00: MOUTH [place] 00 THREE Medical TIMES A Branch DAY FOR 5 DAYS FOR OUTBREAK acyclovir 2020-0 Yes TAKE ONE Univ ers 400 mg 1-07 TABLET BY ity of tablet 00:00: MOUTH [place] 00 THREE Medical TIMES A Branch DAY FOR 5 DAYS FOR OUTBREAK acyclovir 2020-0 Yes TAKE ONE Univ ers 400 mg 1-07 TABLET BY ity of tablet 00:00: MOUTH [place] 00 THREE Medical TIMES A Branch DAY FOR 5 DAYS FOR OUTBREAK acyclovir 2020-0 Yes TAKE ONE Univ ers 400 mg 1-07 TABLET BY ity of tablet 00:00: MOUTH [place] 00 THREE Medical TIMES A Branch DAY FOR 5 DAYS FOR OUTBREAK acyclovir 2020-0 Yes TAKE ONE Univ ers 400 mg 1-07 TABLET BY ity of tablet 00:00: MOUTH [place] 00 THREE Medical TIMES A Branch DAY FOR 5 DAYS FOR OUTBREAK acyclovir 2020-0 Yes TAKE ONE Univ ers 400 mg 1-07 TABLET BY ity of tablet 00:00: MOUTH [place] 00 THREE Medical TIMES A Branch DAY FOR 5 DAYS FOR OUTBREAK acyclovir 2020-0 Yes TAKE ONE Univ ers 400 mg 1-07 TABLET BY ity of tablet 00:00: MOUTH [place] 00 THREE Medical TIMES A Branch DAY FOR 5 DAYS FOR OUTBREAK acyclovir 2020-0 Yes TAKE ONE Univ ers 400 mg 1-07 TABLET BY ity of tablet 00:00: MOUTH [place] 00 THREE Medical TIMES A Branch DAY FOR 5 DAYS FOR OUTBREAK OXcarbazepi 2020-0 Yes = 1 tab, Me moria ne 600 mg 1-03 PO, TID, # l oral tablet 14:32: 90 tab, Her ugalde 49 Refill(s) 5, Pharmacy: [place] [address] Mirtazapine 2020-0 Yes = 1 tab, Me moria 15 MG Oral 1-03 PO, l Tablet 14:32: Bedtime, # Kareen nn 49 30 tab, Refill(s) 5, Pharmacy: [place] [address] OXcarbazepi 2020-0 Yes = 1 tab, Me moria ne 600 mg 1-03 PO, TID, # l oral tablet 14:32: 90 tab, Her ugalde 49 Refill(s) 5, Pharmacy: [place] [address] Mirtazapine 2020-0 Yes = 1 tab, Me moria 15 MG Oral 1-03 PO, l Tablet 14:32: Bedtime, # K[place] nn 49 30 tab, Refill(s) 5, Pharmacy: [place] [address] OXcarbazepi 2020-0 Yes = 1 tab, Me moria ne 600 mg 1-03 PO, TID, # l oral tablet 14:32: 90 tab, Her ugalde 49 Refill(s) 5, Pharmacy: [place] [address] Mirtazapine Yes = 1 tab, Me moria 15 MG Oral 1-03 PO, l Tablet 14:32: Bedtime, # Kareen nn 49 30 tab, Refill(s) 5, Pharmacy: [place] [address] KlonoPIN 2018-07 Yes 1 mg = 1 Mem oria mg oral 2-13 tab, PO, l tablet 23:26: TID, # 90 [place] n 48 tab, 1 Refill(s), called to pharmacy KlonoPIN 2018-07 Yes 1 mg = 1 Mem oria mg oral 2-13 tab, PO, l tablet 23:26: TID, # 90 [place] 48 tab, 1 Refill(s), called to pharmacy Mirtazapine 2018-07 Yes = 1 tab, Me moria 15 MG Oral 0-17 PO, l Tablet 13:25: Bedtime, # Kareen nn 18 30 tab, Refill(s) 2, Pharmacy: [place] [address] Mirtazapine 2018-07 Yes = 1 tab, Me moria 15 MG Oral 0-17 PO, l Tablet 13:25: Bedtime, # Kareen nn 18 30 tab, Refill(s) 2, Pharmacy: [place] [address] Mirtazapine 2018-07 Yes = 1 tab, Me moria 15 MG Oral 0-17 PO, l Tablet 13:25: Bedtime, # Kareen nn 18 30 tab, Refill(s) 2, Pharmacy: [place] [address] Sertraline 2018-07 Yes 50 mg = 1 Me moria 50 MG Oral 0-16 tab, PO, l Tablet 22:39: Daily, # Supa [Zoloft] 00 30 tab, 3 Refill(s), Pharmacy: [facility] [facility] [id number] Sertraline 2018-07 Yes 50 mg = 1 Me moria 50 MG Oral 0-16 tab, PO, l Tablet 22:39: Daily, # Supa [Zoloft] 00 30 tab, 3 Refill(s), Pharmacy: [facility] [facility] [id number] Sertraline 2018-07 Yes 50 mg = 1 Me moria 50 MG Oral 0-16 tab, PO, l Tablet 22:39: Daily, # Supa [Zoloft] 00 30 tab, 3 Refill(s), Pharmacy: [facility] [id number] clonazePAM 2018- Yes TK 1 T PO Un rozina 1 mg tablet 9-12 TID ity of 00:00: [place] [facility] clonazePAM 2019-0 Yes TK 1 T PO Un rozina 1 mg tablet 9-12 TID ity of 00:00: [place] [facility] clonazePAM 2019-0 Yes TK 1 T PO Un rozina 1 mg tablet 9-12 TID ity of 00:00: [place] [facility] clonazePAM 2018- Yes TK 1 T PO Un rozina 1 mg tablet 9-12 TID ity of 00:00: [place] [facility] clonazePAM 2019-0 Yes TK 1 T PO Un rozina 1 mg tablet 9-12 TID ity of 00:00: [address] clonazePAM 2019-0 Yes TK 1 T PO Un rozina 1 mg tablet 9-12 TID ity of 00:00: [address] [facility] clonazePAM 2018-0 Yes TK 1 T PO Un rozina 1 mg tablet 9-12 TID ity of 00:00: [address] [facility] clonazePAM 2019-0 Yes TK 1 T PO Un rozina 1 mg tablet 9-12 TID ity of 00:00: [place] [facility] clonazePAM 2019-0 Yes TK 1 T PO Un rozina 1 mg tablet 9-12 TID ity of 00:00: [place] [facility] clonazePAM 2019-0 Yes TK 1 T PO Un rozina 1 mg tablet 9-12 TID ity of 00:00: [place] [facility] clonazePAM 2019-0 Yes TK 1 T PO Un rozina 1 mg tablet 9-12 TID ity of 00:00: [place] [facility] clonazePAM 2019-0 Yes TK 1 T PO Un rozina 1 mg tablet 9-12 TID ity of 00:00: [place] [facility] clonazePAM 2019-0 Yes TK 1 T PO Un rozina 1 mg tablet 9-12 TID ity of 00:00: [place] [facility] budesonide- 2019-0 Yes 2{puff} Inhale 2 [facility] formoterol 9-11 Puffs 2 ity of (SYMBICORT) 00:00: (two) [place] 80-4.5 00 times Medical mcg/actuati daily. Branch on inhaler SERTraline Yes [id number] 50mg Take 1 U nivers (ZOLOFT) 50 9-11 tablet by ity of mg tablet 00:00: mouth [place] 00 daily. [facility] budesonide- Yes 2{puff} Inhale 2 [facility] formoterol 9-11 Puffs 2 ity of (SYMBICORT) 00:00: (two) [place] 80-4.5 00 times Medical mcg/actuati daily. Branch on inhaler SERTraline Yes [id number] 50mg Take 1 U nivers (ZOLOFT) 50 9-11 tablet by ity of mg tablet 00:00: mouth [place] 00 daily. [facility] budesonide- Yes 2{puff} Inhale 2 Univers formoterol 9-11 Puffs 2 ity of (SYMBICORT) 00:00: (two) [place] 80-4.5 00 times Medical mcg/actuati daily. Branch on inhaler SERTraline Yes [id number] 50mg Take 1 U nivers (ZOLOFT) 50 9-11 tablet by ity of mg tablet 00:00: mouth [place] 00 daily. Medical Branch budesonide- Yes 2{puff} Inhale 2 [facility] formoterol 9-11 Puffs 2 ity of (SYMBICORT) 00:00: (two) [place] 80-4.5 00 times Medical mcg/actuati daily. Branch on inhaler SERTraline Yes [id number] 50mg Take 1 U nivers (ZOLOFT) 50 9-11 tablet by ity of mg tablet 00:00: mouth [place] 00 daily. Medical Branch budesonide- Yes 2{puff} Inhale 2 Univers formoterol 9-11 Puffs 2 ity of (SYMBICORT) 00:00: (two) [place] 80-4.5 00 times Medical mcg/actuati daily. Branch on inhaler SERTraline Yes [id number] 50mg Take 1 U nivers (ZOLOFT) 50 9-11 tablet by ity of mg tablet 00:00: mouth [place] 00 daily. Medical Branch budesonide- Yes 2{puff} Inhale 2 Univers formoterol 9-11 Puffs 2 ity of (SYMBICORT) 00:00: (two) [place] 80-4.5 00 times Medical mcg/actuati daily. Branch on inhaler SERTraline Yes [id number] 50mg Take 1 U nivers (ZOLOFT) 50 9-11 tablet by ity of mg tablet 00:00: mouth [place] 00 daily. Medical Branch budesonide- Yes 2{puff} Inhale 2 Univers formoterol 9-11 Puffs 2 ity of (SYMBICORT) 00:00: (two) [place] 80-4.5 00 times Medical mcg/actuati daily. Branch on inhaler SERTraline Yes [id number] 50mg Take 1 U nivers (ZOLOFT) 50 9-11 tablet by ity of mg tablet 00:00: mouth [place] 00 daily. Medical Branch budesonide- Yes 2{puff} Inhale 2 Univers formoterol 9-11 Puffs 2 ity of (SYMBICORT) 00:00: (two) [place] 80-4.5 00 times Medical mcg/actuati daily. Branch on inhaler SERTraline Yes [id number] 50mg Take 1 U nivers (ZOLOFT) 50 9-11 tablet by ity of mg tablet 00:00: mouth [place] 00 daily. Medical Branch budesonide- Yes 2{puff} Inhale 2 Univers formoterol 9-11 Puffs 2 ity of (SYMBICORT) 00:00: (two) [place] 80-4.5 00 times Medical mcg/actuati daily. Branch on inhaler SERTraline Yes [id number] 50mg Take 1 U nivers (ZOLOFT) 50 9-11 tablet by ity of mg tablet 00:00: mouth [place] 00 daily. Medical Branch budesonide- Yes 2{puff} Inhale 2 Univers formoterol 9-11 Puffs 2 ity of (SYMBICORT) 00:00: (two) [place] 80-4.5 00 times Medical mcg/actuati daily. Branch on inhaler SERTraline Yes [id number] 50mg Take 1 U nivers (ZOLOFT) 50 9-11 tablet by ity of mg tablet 00:00: mouth [place] 00 daily. Medical Branch budesonide- Yes 2{puff} Inhale 2 Univers formoterol 9-11 Puffs 2 ity of (SYMBICORT) 00:00: (two) [place] 80-4.5 00 times Medical mcg/actuati daily. Branch on inhaler SERTraline Yes [id number] 50mg Take 1 U nivers (ZOLOFT) 50 9-11 tablet by ity of mg tablet 00:00: mouth [place] 00 daily. Medical Branch budesonide- Yes 2{puff} Inhale 2 [facility] formoterol 9-11 Puffs 2 ity of (SYMBICORT) 00:00: (two) [place] 80-4.5 00 times Medical mcg/actuati daily. Branch on inhaler SERTraline Yes [id number] 50mg Take 1 U nivers (ZOLOFT) 50 9-11 tablet by ity of mg tablet 00:00: mouth [place] 00 daily. Medical Branch budesonide- Yes 2{puff} Inhale 2 Univers formoterol 9-11 Puffs 2 ity of (SYMBICORT) 00:00: (two) [place] 80-4.5 00 times Medical mcg/actuati daily. Branch on inhaler SERTraline Yes [id number] 50mg Take 1 U nivers (ZOLOFT) 50 9-11 tablet by ity of mg tablet 00:00: mouth [place] 00 daily. Medical Branch Betamethaso Yes Apply 2-3g Univers ne Valerate 9-05 to the ity of 0.12 % foam 00:00: affected [place] 00 area Medical 2-4x/daily Branch or as directed. Max 10 g/day Betamethaso Yes Apply 2-3g Univers ne Valerate 9-05 to the ity of 0.12 % foam 00:00: affected [place] 00 area Medical 2-4x/daily Branch or as directed. Max 10 g/day Betamethaso Yes Apply 2-3g Univers ne Valerate 9-05 to the ity of 0.12 % foam 00:00: affected [place] 00 area Medical 2-4x/daily Branch or as directed. Max 10 g/day Betamethaso Yes Apply 2-3g Univers ne Valerate 9-05 to the ity of 0.12 % foam 00:00: affected [place] 00 area Medical 2-4x/daily Branch or as directed. Max 10 g/day Betamethaso Yes Apply 2-3g Univers ne Valerate 9-05 to the ity of 0.12 % foam 00:00: affected [place] 00 area Medical 2-4x/daily Branch or as directed. Max 10 g/day Betamethaso Yes Apply 2-3g Univers ne Valerate 9-05 to the ity of 0.12 % foam 00:00: affected [place] 00 area Medical 2-4x/daily Branch or as directed. Max 10 g/day Betamethaso Yes Apply 2-3g Univers ne Valerate 9-05 to the ity of 0.12 % foam 00:00: affected [place] 00 area Medical 2-4x/daily Branch or as directed. Max 10 g/day Betamethaso Yes Apply 2-3g Univers ne Valerate 9-05 to the ity of 0.12 % foam 00:00: affected [place] 00 area Medical 2-4x/daily Branch or as directed. Max 10 g/day Betamethaso Yes Apply 2-3g Univers ne Valerate 9-05 to the ity of 0.12 % foam 00:00: affected [place] 00 area Medical 2-4x/daily Branch or as directed. Max 10 g/day Betamethaso Yes Apply 2-3g Univers ne Valerate 9-05 to the ity of 0.12 % foam 00:00: affected [place] 00 area Medical 2-4x/daily Branch or as directed. Max 10 g/day Betamethaso Yes Apply 2-3g Univers ne Valerate 9-05 to the ity of 0.12 % foam 00:00: affected [place] 00 area Medical 2-4x/daily Branch or as directed. Max 10 g/day Betamethaso Yes Apply 2-3g Univers ne Valerate 9-05 to the ity of 0.12 % foam 00:00: affected [place] 00 area Medical 2-4x/daily Branch or as directed. Max 10 g/day Betamethaso Yes Apply 2-3g Univers ne Valerate 03-11 to the ity of 0.12 % foam 00:00: affected [place] 00 area Medical 2-4x/daily Branch or as directed. Max 10 g/day Mirtazapine No 15 mg = 1 M emoria 15 MG Oral 8-21 tab, PO, l Tablet 14:15: Bedtime, Nita Mathur nn [Remeron] 00 30 tab, 1 Refill(s), Pharmacy: [facility] [address] Mirtazapine No 15 mg = 1 M emoria 15 MG Oral 8-21 tab, PO, l Tablet 14:15: Bedtime, Nita Mathur nn [Remeron] 00 30 tab, 1 Refill(s), Pharmacy: [facility] [facility] [address] Mirtazapine No 15 mg = 1 M emoria 15 MG Oral 8-21 tab, PO, l Tablet 14:15: Bedtime, # Kareen nn [Remeron] 00 30 tab, 1 Refill(s), Pharmacy: [facility] [address] Clonazepam Yes 1 mg = 1 Mem oria 1 MG Oral 8-09 tab, PO, l Tablet 13:21: TID, # 90 Candido n [Klonopin] 03 tab, 2 Refill(s), called to pharmacy Clonazepam Yes 1 mg = 1 Mem oria 1 MG Oral 8-09 tab, PO, l Tablet 13:21: TID, # 90 [place] n [Klonopin] 03 tab, 2 Refill(s), called to pharmacy Clonazepam Yes 1 mg = 1 Mem [...] 0 Tablet Refill(s) [Tylenol with Codeine #3] Tylenol Yes 1 - 2 tab, Farooq shamika with 7-17 PO, Q4H, l Codeine #3 15:42: PRN Pain, He rmann oral tablet 00 # 20 tab, 0 Refill(s) Acetaminoph 2019-0 Yes 1 - 2 tab, Memoria en 300 MG / 7-17 PO, Q4H, l Codeine 15:42: PRN Pain, Kraeen nn Phosphate 00 # 20 tab, 30 MG Oral 0 Tablet Refill(s) [Tylenol with Codeine #3] Acetaminoph 2019-0 Yes 1 - 2 tab, Memoria en 300 MG / 7-17 PO, Q4H, l Codeine 15:42: PRN Pain, Kareen nn Phosphate 00 # 20 tab, 30 MG Oral 0 Tablet Refill(s) [Tylenol with Codeine #3] Tylenol 2019-0 Yes 1 - 2 tab, Farooq shamika with 7-17 PO, Q4H, l Codeine #3 15:42: PRN Pain, He rmann oral tablet 00 # 20 tab, 0 Refill(s) lamotrigine 2019-0 Yes 50 mg = 2 M emoria 25 MG Oral 5-30 tab, PO, l Tablet 14:46: BID, # 120 Kareen nn [Lamictal] 22 tab, 2 Refill(s), Pharmacy: [facility] [facility] [address] lamotrigine 2019-0 Yes 50 mg = 2 M emoria 25 MG Oral 5-30 tab, PO, l Tablet 14:46: BID, # 120 Kareen nn [Lamictal] 22 tab, 2 Refill(s), Pharmacy: [facility] [facility] [address] lamotrigine 2019 Yes 50 mg = 2 M emoria 25 MG Oral 5-30 tab, PO, l Tablet 14:46: BID, # 120 Kareen nn [Lamictal] 22 tab, 2 Refill(s), Pharmacy: [place] [address] lamotrigine 2019-0 No 50 mg = 2 M emoria 25 MG Oral 5-29 tab, PO, l Tablet 15:36: BID, X 30 Candido n [Lamictal] 55 day, # 120 tab, 2 Refill(s), Pharmacy: [facility] [id number] lamotrigine 2019-0 No 50 mg = 2 M emoria 25 MG Oral 5-29 tab, PO, l Tablet 15:36: BID, X 30 Candido n [Lamictal] 55 day, # 120 tab, 2 Refill(s), Pharmacy: [facility] lamotrigine No 50 mg = 2 M emoria 25 MG Oral 5-29 tab, PO, l Tablet 15:36: BID, X 30 Candido n [Lamictal] 55 day, # 120 tab, 2 Refill(s), Pharmacy: [facility] meloxicam 2020- No Univers 15 mg 5-17 11-05 ity of tablet 00:00: 00:00 [place] 00 : [facility] lamotrigine Yes 25 mg = 1 M emoria 25 MG Oral 5-15 tab, PO, l Tablet 19:55: BID, # 60 Candido n [Lamictal] 00 tab, 3 Refill(s), Pharmacy: [place] [address] lamotrigine Yes 25 mg = 1 M emoria 25 MG Oral 5-15 tab, PO, l Tablet 19:55: BID, # 60 Candido n [Lamictal] 00 tab, 3 Refill(s), Pharmacy: [place] [address] lamotrigine Yes 25 mg = 1 M emoria 25 MG Oral 5-15 tab, PO, l Tablet 19:55: BID, # 60 Candido n [Lamictal] 00 tab, 3 Refill(s), Pharmacy: [place] [address] lamoTRIgine Yes Univer s 25 mg 5-15 ity of tablet 00:00: [address] lamoTRIgine Yes Univer s 25 mg 5-15 ity of tablet 00:00: [address] lamoTRIgine Yes Univer s 25 mg 5-15 ity of tablet 00:00: [address] lamoTRIgine Yes Univer s 25 mg 5-15 ity of tablet 00:00: [place] [facility] lamoTRIgine 0 Yes Univer s 25 mg 5-15 ity of tablet 00:00: [address] lamoTRIgine 0 Yes Univer s 25 mg 5-15 ity of tablet 00:00: [address] lamoTRIgine Yes Univer s 25 mg 5-15 ity of tablet 00:00: [address] lamoTRIgine 2019 Yes Univer s 25 mg 5-15 ity of tablet 00:00: [address] lamoTRIgine 0 Yes Univer s 25 mg 5-15 ity of tablet 00:00: [address] lamoTRIgine 0 Yes Univer s 25 mg 5-15 ity of tablet 00:00: [address] lamoTRIgine Yes Univer s 25 mg 5-15 ity of tablet 00:00: [address] lamoTRIgine 0 Yes Univer s 25 mg 5-15 ity of tablet 00:00: [address] lamoTRIgine Yes Univer s 25 mg 5-15 ity of tablet 00:00: [address] Clonazepam Yes 1 mg = 1 Mem oria 1 MG Oral 5-09 tab, PO, l Tablet 21:18: TID, # 90 Candido n [Klonopin] 58 tab, 2 Refill(s), called to pharmacy Clonazepam Yes 1 mg = 1 Mem oria 1 MG Oral 5-09 tab, PO, l Tablet 21:18: TID, # 90 Candido n [Klonopin] 58 tab, 2 Refill(s), called to pharmacy Clonazepam Yes 1 mg = 1 Mem oria 1 MG Oral 5-09 tab, PO, l Tablet 21:18: TID, # 90 Candido n [Klonopin] 58 tab, 2 Refill(s), called to pharmacy OXcarbazepi Yes 600 mg = 1 Memoria ne 600 mg 5-09 tab, PO, l oral tablet 21:18: TID, # 90 H ermann 44 tab, 3 Refill(s), Pharmacy: [place] [address] OXcarbazepi Yes 600 mg = 1 Memoria ne 600 mg 5-09 tab, PO, l oral tablet 21:18: TID, # 90 H ermann 44 tab, 3 Refill(s), Pharmacy: [place] [address] OXcarbazepi Yes 600 mg = 1 Memoria ne 600 mg 5-09 tab, PO, l oral tablet 21:18: TID, # 90 H ermann 44 tab, 3 Refill(s), Pharmacy: [place] [address] fluconazole 2020- No [id number] 200mg Take 1 Univers (DIFLUCAN) 07-29 tablet by ity of 200 mg 00:00: 00:00 mouth [place] tablet 00 :00 daily. Medical Branch OXcarbazepi No 600 mg = 1 Memoria ne 600 mg 1-11 tab, PO, l oral tablet 17:19: TID, X 30 H ermann 01 day, # 90 tab, 3 Refill(s), Pharmacy: [place] [address] OXcarbazepi No 600 mg = 1 Memoria ne 600 mg -11 tab, PO, l oral tablet 17:19: TID, X 30 H ermann 01 day, # 90 tab, 3 Refill(s), Pharmacy: [place] [address] OXcarbazepi No 600 mg = 1 Memoria ne 600 mg -11 tab, PO, l oral tablet 17:19: TID, X 30 H ermann 01 day, # 90 tab, 3 Refill(s), Pharmacy: [place] [address] Clonazepam 2017-07 No 1 mg = 1 [...] 30 tab, 1 Refill(s), called to pharmacy Clonazepam 2017-07 No 1 mg = 1 Mem oria 1 MG Oral 2-01 tab, PO, l Tablet 00:27: Bedtime, X Kareen nn [Klonopin] day, # 30 tab, 1 Refill(s), called to pharmacy Clonazepam 2017-07 No 1 mg = 1 Mem oria 1 MG Oral 2-01 tab, PO, l Tablet 00:27: Bedtime, X Kareen nn [Klonopin] 30 day, # 30 tab, 1 Refill(s), called to pharmacy OXcarbazepi 2017-07 No See Memori a ne 600 mg 0-17 Instructio l oral tablet 15:32: ns, TAKE He rmann 51 1.5 TABLET BY MOUTH TWICE A DAY, # 90 tab, 3 Refill(s), [address] No See Memori a ne 600 mg 0-17 Instructio l oral tablet 15:32: ns, TAKE He rmann 51 1.5 TABLET BY MOUTH TWICE A DAY, # 90 tab, 3 Refill(s), [address] No See Memori a ne 600 mg 0-17 Instructio l oral tablet 15:32: ns, TAKE He rmann 51 1.5 TABLET BY MOUTH TWICE A DAY, # 90 tab, 3 Refill(s), Pharmacy: [place] [address] Sertraline 2017-07 Yes 50 mg = 1 Me moria 50 MG Oral 0-05 tab, PO, l Tablet 14:19: Daily, # [place] [Zoloft] 00 30 tab, 0 Refill(s) Sertraline 2017-07 Yes 50 mg = 1 Me moria 50 MG Oral 0-05 tab, PO, l Tablet 14:19: Daily, # [place] [Zoloft] 00 30 tab, 0 Refill(s) Sertraline 2017-07 Yes 50 mg = 1 Me moria 50 MG Oral 0-05 tab, PO, l Tablet 14:19: Daily, # [place] [Zoloft] 00 30 tab, 0 Refill(s) Symbicort 2017-07 Yes 2 puff, Memor ia 160/4.5 0-05 INHALATION l inhalation 14:16: , BID, 0 Her ugalde aerosol 00 Refill(s) with adapter Symbicort 2017-07 Yes 2 puff, Memor ia 160/4.5 0-05 INHALATION l inhalation 14:16: , BID, 0 Her ugalde aerosol 00 Refill(s) with adapter Symbicort 2017-07 Yes 2 puff, Memor ia 160/4.5 0-05 INHALATION l inhalation 14:16: , BID, 0 Her ugalde aerosol 00 Refill(s) with adapter Clonazepam 2017-07 No 0.5 mg = 1 M emoria 0.5 MG Oral 0-02 tab, PO, l Tablet 22:08: Bedtime, X Kareen nn [Klonopin] 30 day, # 30 tab, 3 Refill(s), called to pharmacy Clonazepam 2017-07 No 0.5 mg = 1 M emoria 0.5 MG Oral 0-02 tab, PO, l Tablet 22:08: Bedtime, X Kareen nn [Klonopin] 30 day, # 30 tab, 3 Refill(s), called to pharmacy Clonazepam 2017-07 No 0.5 mg = 1 M emoria 0.5 MG Oral 0-02 tab, PO, l Tablet 22:08: Bedtime, X Kareen nn [Klonopin] 30 day, # 30 tab, 3 Refill(s), called to pharmacy OXcarbazepi Yes Univer s ne 600 mg 9-14 ity of tablet 00:00: [place] [facility] OXcarbazepi 0 Yes Univer s ne 600 mg 9-14 ity of tablet 00:00: [place] [facility] OXcarbazepi 2018-0 Yes Univer s ne 600 mg 9-14 ity of tablet 00:00: [place] [facility] OXcarbazepi 2018-0 Yes Univer s ne 600 mg 9-14 ity of tablet 00:00: [place] [facility] OXcarbazepi 2018-0 Yes Univer s ne 600 mg 9-14 ity of tablet 00:00: [place] [facility] OXcarbazepi 2018-0 Yes Univer s ne 600 mg 9-14 ity of tablet 00:00: [place] [facility] OXcarbazepi 2018-0 Yes Univer s ne 600 mg 9-14 ity of tablet 00:00: [place] [facility] OXcarbazepi 2017-0 Yes Univer s ne 600 mg 9-14 ity of tablet 00:00: [place] 00 Medical Branch OXcarbazepi 2018-0 Yes Univer s ne 600 mg 9-14 ity of tablet 00:00: [place] 00 Medical Branch OXcarbazepi 2018-0 Yes Univer s ne 600 mg 9-14 ity of tablet 00:00: [place] [facility] OXcarbazepi 2018-0 Yes Univer s ne 600 mg 9-14 ity of tablet 00:00: [place] [facility] OXcarbazepi 2017-0 Yes Univer s ne 600 mg 9-14 ity of tablet 00:00: [place] [facility] OXcarbazepi 2017-0 Yes Univer s ne 600 mg 9-14 ity of tablet 00:00: [place] [facility] clonazePAM 2018-0 2020- No Univer s 0.5 mg 8-29 11-05 ity of tablet 00:00: 00:00 [place] 00 :00 Medical Branch ipratropium 0 Yes [id number] 2{puff} Inhale 2 Univers 17 7-23 Puffs 3 ity of mcg/actuati 00:00: (three) [place] on inhaler 00 times Medical daily. Branch ipratropium Yes [id number] 2{puff} Inhale 2 Univers 17 7-23 Puffs 3 ity of mcg/actuati 00:00: (three) [place] on inhaler 00 times Medical daily. Branch ipratropium Yes [id number] 2{puff} Inhale 2 Univers 17 7-23 Puffs 3 ity of mcg/actuati 00:00: (three) [place] on inhaler 00 times Medical daily. Branch ipratropium Yes [id number] 2{puff} Inhale 2 Univers 17 7-23 Puffs 3 ity of mcg/actuati 00:00: (three) [place] on inhaler 00 times Medical daily. Branch ipratropium Yes [id number] 2{puff} Inhale 2 Univers 17 7-23 Puffs 3 ity of mcg/actuati 00:00: (three) [place] on inhaler 00 times Medical daily. Branch ipratropium Yes [id number] 2{puff} Inhale 2 Univers 17 7-23 Puffs 3 ity of mcg/actuati 00:00: (three) [place] on inhaler 00 times Medical daily. Branch ipratropium 2017- Yes [id number] 2{puff} Inhale 2 Univers 17 7-23 Puffs 3 ity of mcg/actuati 00:00: (three) [place] on inhaler 00 times Medical daily. Branch ipratropium 2017- Yes [id number] 2{puff} Inhale 2 Univers 17 7-23 Puffs 3 ity of mcg/actuati 00:00: (three) [place] on inhaler 00 times Medical daily. Branch ipratropium 2017- Yes [id number] 2{puff} Inhale 2 Univers 17 7-23 Puffs 3 ity of mcg/actuati 00:00: (three) [place] on inhaler 00 times Medical daily. Branch ipratropium 2017- Yes [id number] 2{puff} Inhale 2 Univers 17 7-23 Puffs 3 ity of mcg/actuati 00:00: (three) [place] on inhaler 00 times Medical daily. Branch ipratropium 2017- Yes [id number] 2{puff} Inhale 2 Univers 17 7-23 Puffs 3 ity of mcg/actuati 00:00: (three) [place] on inhaler 00 times Medical daily. Branch ipratropium 2017- Yes [id number] 2{puff} Inhale 2 Univers 17 7-23 Puffs 3 ity of mcg/actuati 00:00: (three) [place] on inhaler 00 times Medical daily. Branch ipratropium 2017- Yes [id number] 2{puff} Inhale 2 Univers 17 7-23 Puffs 3 ity of mcg/actuati 00:00: (three) [place] on inhaler 00 times Medical daily. Branch albuterol Yes 2{puff} Inhale 2 U nivers 90 6-18 Puffs ity of mcg/actuati 00:00: every 6 [place] as on inhaler 00 (six) Medical hours as Branch needed for Wheezing or Shortness of Breath. albuterol Yes 2{puff} Inhale 2 U nivers 90 6-18 Puffs ity of mcg/actuati 00:00: every 6 [place] as on inhaler 00 (six) Medical hours as Branch needed for Wheezing or Shortness of Breath. albuterol 2018-0 Yes 2{puff} Inhale 2 U nivers 90 6-18 Puffs ity of mcg/actuati 00:00: every 6 [place] as on inhaler 00 (six) Medical hours as Branch needed for Wheezing or Shortness of Breath. albuterol 2017-0 Yes 2{puff} Inhale 2 U nivers 90 6-18 Puffs ity of mcg/actuati 00:00: every 6 [place] on inhaler 00 (six) Medical hours as Branch needed for Wheezing or Shortness of Breath. albuterol 2017-0 Yes 2{puff} Inhale 2 U nivers 90 6-18 Puffs ity of mcg/actuati 00:00: every 6 [place] as on inhaler 00 (six) Medical hours as Branch needed for Wheezing or Shortness of Breath. albuterol 2017-0 Yes 2{puff} Inhale 2 U nivers 90 6-18 Puffs ity of mcg/actuati 00:00: every 6 [place] as on inhaler 00 (six) Medical hours as Branch needed for Wheezing or Shortness of Breath. albuterol 0 Yes 2{puff} Inhale 2 U nivers 90 6-18 Puffs ity of mcg/actuati 00:00: every 6 [place] as on inhaler 00 (six) Medical hours as Branch needed for Wheezing or Shortness of Breath. albuterol 0 Yes 2{puff} Inhale 2 U nivers 90 6-18 Puffs ity of mcg/actuati 00:00: every 6 [place] as on inhaler 00 (six) Medical hours as Branch needed for Wheezing or Shortness of Breath. albuterol 2017-0 Yes 2{puff} Inhale 2 U nivers 90 6-18 Puffs ity of mcg/actuati 00:00: every 6 [place] as on inhaler 00 (six) Medical hours as Branch needed for Wheezing or Shortness of Breath. albuterol 2018-0 Yes 2{puff} Inhale 2 U nivers 90 6-18 Puffs ity of mcg/actuati 00:00: every 6 [place] as on inhaler 00 (six) Medical hours as Branch needed for Wheezing or Shortness of Breath. albuterol 2017-0 Yes 2{puff} Inhale 2 U nivers 90 6-18 Puffs ity of mcg/actuati 00:00: every 6 [place] as on inhaler 00 (six) Medical hours as Branch needed for Wheezing or Shortness of Breath. albuterol Yes 2{puff} Inhale 2 U nivers 90 6-18 Puffs ity of mcg/actuati 00:00: every 6 [place] as on inhaler 00 (six) Medical hours as Branch needed for Wheezing or Shortness of Breath. albuterol Yes 2{puff} Inhale 2 U nivers 90 6-18 Puffs ity of mcg/actuati 00:00: every 6 [place] as on inhaler 00 (six) Medical hours as Branch needed for Wheezing or Shortness of Breath. Prenate Yes 1 cap, PO, Farooq shamika mini with 5-02 Daily, 0 l DHA 18:46: Refill(s) [place] 00 folic acid Yes Daily, 0 Mem oria 5-02 Refill(s) l 18:46: [place] 00 Prenate Yes 1 cap, PO, Farooq shamika mini with 5-02 Daily, 0 l DHA 18:46: Refill(s) [place] 00 folic acid 0 Yes Daily, 0 Mem oria 5-02 Refill(s) l 18:46: [place] 00 Nitrofurant No 100 mg = 1 Memoria oin 100 MG 1-11 cap, PO, l Oral 18:27: BID, X 7 Supa Capsule 00 day, # 14 [Macrobid] cap, 0 Refill(s), Pharmacy: [place] [address] Nitrofurant No 100 mg = 1 Memoria oin 100 MG 1-11 cap, PO, l Oral 18:27: BID, X 7 Supa Capsule 00 day, # 14 [Macrobid] cap, 0 Refill(s), Pharmacy: [place] [address] Nitrofurant No 100 mg = 1 Memoria oin 100 MG 1-11 cap, PO, l Oral 18:27: BID, X 7 [place] Capsule 00 day, # 14 [Macrobid] cap, 0 Refill(s), Pharmacy: [place] [address] 200 ACTUAT 0 Yes 180 Memoria Albuterol 1-08 microgram l 0.09 22:29: = 2 puff, [place] MG/ACTUAT 02 INHALER, Metered Q4H, PRN Dose wheezing, Inhaler coughing, [ProAir or HFA] shortness of breath, # 1 ea, 2 Refill(s), Pharmacy: [place] [address] ProAir HFA 2018-0 Yes 180 Memoria 90 mcg/inh 1-08 microgram l inhalation 22:29: = 2 puff, He rmann aerosol 02 INHALER, with Q4H, PRN adapter wheezing, coughing, or shortness of breath, # 1 ea, 2 Refill(s), Pharmacy: [place] [address] 200 ACTUAT 2018-0 Yes 180 Memoria Albuterol 1-08 microgram l 0.09 22:29: = 2 puff, [place] MG/ACTUAT 02 INHALER, Metered Q4H, PRN Dose wheezing, Inhaler coughing, [ProAir or HFA] shortness of breath, # 1 ea, 2 Refill(s), Pharmacy: [place] [address] 200 ACTUAT 2018-0 Yes 180 Memoria Albuterol 1-08 microgram l 0.09 22:29: = 2 puff, [place] MG/ACTUAT 02 INHALER, Metered Q4H, PRN Dose wheezing, Inhaler coughing, [ProAir or HFA] shortness of breath, # 1 ea, 2 Refill(s), Pharmacy: [place] [address] ProAir HFA 2017-0 Yes 180 Memoria 90 mcg/inh 1-08 microgram l inhalation 22:29: = 2 puff, He rmann aerosol 02 INHALER, with Q4H, PRN adapter wheezing, coughing, or shortness of breath, # 1 ea, 2 Refill(s), Pharmacy: [place] [address] Oseltamivir 2018-0 No 75 mg, PO, Memoria 75 MG Oral 1-08 Q12H, X 5 l Capsule 22:24: day, # 10 Kareen nn [Tamiflu] 57 cap, 0 Refill(s), Pharmacy: [place] [address] Oseltamivir 2018-0 No 75 mg, PO, Memoria 75 MG Oral 1-08 Q12H, X 5 l Capsule 22:24: day, # 10 Kareen nn [Tamiflu] 57 cap, 0 Refill(s), Pharmacy: [place] [address] Oseltamivir 2018-0 No 75 mg, PO, Memoria 75 MG Oral 1-08 Q12H, X 5 l Capsule 22:24: day, # 10 Kareen nn [Tamiflu] 57 cap, 0 Refill(s), Pharmacy: [place] [address] Oseltamivir 2018-0 No 75 mg, PO, Memoria 75 MG Oral 1-08 Q12H, X 5 l Capsule 22:21: day, # 10 Kareen nn [Tamiflu] 00 cap, 0 Refill(s), Pharmacy: [place] [address] Oseltamivir 0 No 75 mg, PO, Memoria 75 MG Oral 1-08 Q12H, X 5 l Capsule 22:21: day, # 10 Kareen nn [Tamiflu] 00 cap, 0 Refill(s), Pharmacy: [place] [address] Oseltamivir 2017-0 No 75 mg, PO, Memoria 75 MG Oral 1-08 Q12H, X 5 l Capsule 22:21: day, # 10 Kareen nn [Tamiflu] 00 cap, 0 Refill(s), Pharmacy: [place] [address] mometasone Yes See Memoria 100 mcg/inh 9-15 Instructio l inhalation 19:36: ns, 100 Herm chauncey aerosol 11 microgram INHALATION BID, # 1 vial, 3 Refill(s), Pharmacy: [place] [address] mometasone Yes See Memoria 100 mcg/inh 9-15 Instructio l inhalation 19:36: ns, 100 Herm chauncey aerosol 11 microgram INHALATION BID, # 1 vial, 3 Refill(s), Pharmacy: [place] [id number] Immunizations Ordered Filled Immunization Date Status Comments [facility] e Immunization Name Name Influenza Virus 2021-05-11 Completed [facility], [facility]00 [place] [facility] Preserv and ABX Branch Free 6 MO-64 YRS Influenza Virus 2021-05-11 Completed [facility], 00:00:00 [place] [facility] Preserv and ABX Branch Free 6 MO-64 YRS Influenza Virus 2021-05-11 Completed [facility], 00:00:00 [place] [facility] Preserv and ABX Branch Free 6 MO-64 YRS Influenza Virus 2021-05-11 Completed [facility], 00:00:00 [place] [facility] Preserv and ABX Branch Free 6 MO-64 YRS Influenza Virus 2021-05-11 Completed [facility], 00:00:00 [place] [facility] Preserv and ABX Branch Free 6 MO-64 YRS Influenza Virus 2021-05-11 Completed [facility], 00:00:00 [place] [facility] Preserv and ABX Branch Free 6 MO-64 YRS Influenza Virus 2021-05-11 Completed [facility], 00:00:00 [place] [facility] Preserv and ABX Branch Free 6 MO-64 YRS Influenza Virus 2021-05-11 Completed [facility], 00:00:00 [place] [facility] Preserv and ABX Branch Free 6 MO-64 YRS Influenza Virus 2021-05-11 Completed [facility], 00:00:00 [place] [facility] Preserv and ABX Branch Free 6 MO-64 YRS Influenza Virus 2021-05-11 Completed [facility], 00:00:00 [place] [facility] Preserv and ABX Branch Free 6 MO-64 YRS Influenza Virus 2021-05-11 Completed [facility]it y [facility] Vaccine Quad IM, 00:00:00 [place] [facility] Preserv and ABX Branch Free 6 MO-64 YRS Influenza Virus 2021-05-11 Completed [facility]it y of Vaccine [facility] IM, 00:00:00 [place] [facility] Preserv and ABX Branch Free 6 MO-64 YRS Influenza Virus 2021-05-11 Completed [facility]it y of Vaccine [facility] IM, 00:00:00 [place] [facility] Preserv and ABX Branch Free 6 MO-64 YRS Influenza Virus 2020-03-16 Completed Universit y of Vaccine Recomb Quad 00:00:00 [place] [facility], Preserv and ABX Branc h Free 18-64 YRS Influenza Virus 2020-03-16 Completed Universit y of Vaccine Recomb Quad 00:00:00 [place] [facility] IM, Preserv and ABX Branc h Free 18-64 YRS Influenza Virus 2020-03-16 Completed Universit y of Vaccine Recomb Quad 00:00:00 [place] [facility] IM, Preserv and ABX Branc h Free 18-64 YRS Influenza Virus 2020-03-16 Completed Universit y of Vaccine Recomb Quad 00:00:00 [place] [facility] IM, Preserv and ABX Branc h Free 18-64 YRS Influenza Virus 2020-03-16 Completed Universit y of Vaccine Recomb Quad 00:00:00 [place] [facility] IM, Preserv and ABX Branc h Free 18-64 YRS Influenza Virus 2020-03-16 Completed Universit y of Vaccine Recomb Quad 00:00:00 [place] [facility] IM, Preserv and ABX Branc h Free 18-64 YRS Influenza Virus 2018-04-14 Completed Universit y of Vaccine Quad .5 mL 00:00:00 [place] [facility] IM 6+ MO Branch Influenza Virus 2018-04-14 Completed Universit y of Vaccine Quad .5 mL 00:00:00 [place] [facility] IM 6+ MO Branch Influenza Virus 2018-04-14 Completed Universit y of Vaccine Quad .5 mL 00:00:00 [place] [facility] IM 6+ MO Branch Influenza Virus 2018-04-14 Completed Universit y of Vaccine Quad .5 mL 00:00:00 [place] [facility] IM 6+ MO Branch Influenza Virus 2018-04-14 Completed Universit y of Vaccine Quad .5 mL 00:00:00 [place] [facility] IM 6+ MO Branch Influenza Virus 2018-04-14 Completed Universit y of Vaccine Quad .5 mL 00:00:00 [place] [facility] IM 6+ MO Branch Influenza Virus 2018-04-14 Completed Universit y of Vaccine Quad .5 mL 00:00:00 [place] [facility] IM 6+ MO Branch Influenza Virus 2018-04-14 Completed [facility]it y of Vaccine Quad .5 mL 00:00:00 [place] [facility] IM 6+ MO Branch Influenza Virus 2018-04-14 Completed [facility]it y of Vaccine Quad .5 mL 00:00:00 [place] [facility] IM 6+ MO Branch Influenza Virus 2018-04-14 Completed [facility]it [facility] of Vaccine Quad .5 mL 00:00:00 [place] [facility] IM 6+ MO Branch Influenza Virus 2018-04-14 Completed [facility]it y of Vaccine Quad .5 mL 00:00:00 [place] [facility] IM 6+ MO Branch Influenza Virus 2018-04-14 Completed [facility]it y of Vaccine Quad .5 mL 00:00:00 [place] [facility] IM 6+ MO Branch Influenza Virus 2018-04-14 Completed Universit y of Vaccine Quad .5 mL 00:00:00 [place] [facility] IM 6+ MO Branch TDAP 2018-01-19 Completed University 00:00:00 [facility] TDAP 2018-01-19 Completed [facility] 00:00:00 [facility] TDAP 2018-01-19 Completed [facility] 00:00:00 [place] [facility] [place] TDAP 2018-01-19 Completed University of 00:00:00 [facility] Branch TDAP 2018-01-19 Completed University of 00:00:00 [facility] Branch TDAP 2018-01-19 Completed University of 00:00:00 [place] [facility] Branch TDAP 2018-01-19 Completed University of 00:00:00 [facility] Branch TDAP 2018-01-19 Completed University of 00:00:00 [facility] Branch TDAP 2018-01-19 Completed University of 00:00:00 [facility] [place] [facility] Branch TDAP 2018-01-19 Completed University of 00:00:00 [facility] Branch TDAP 2018-01-19 Completed University of 00:00:00 [facility] Branch TDAP 2018-01-19 Completed University of 00:00:00 [facility] Branch TDAP 2018-01-19 Completed University of 00:00:00 [facility] Branch Rho (d) Immune 2017-12-17 Completed University of Globulin 00:00:00 [facility] Rho (d) Immune 2017-12-17 Completed University of Globulin 00:00:00 [facility] Branch Rho (d) Immune 2017-12-17 Completed University of Globulin 00:00:00 [facility] Branch Rho (d) Immune 2017-12-17 Completed University of Globulin 00:00:00 [facility] Branch Rho (d) Immune 2017-12-17 Completed University of Globulin 00:00:00 [facility] Branch Rho (d) Immune 2017-12-17 Completed University of Globulin 00:00:00 [facility] Branch Rho (d) Immune 2017-12-17 Completed University of Globulin 00:00:00 [facility] Branch Rho (d) Immune 2017-12-17 Completed University of Globulin 00:00:00 [facility] Branch Rho (d) Immune 2017-12-17 Completed University of Globulin 00:00:00 [facility] Branch Rho (d) Immune 2017-12-17 Completed University of Globulin 00:00:00 [facility] Branch Rho (d) Immune 2017-12-17 Completed University of Globulin 00:00:00 [facility] Branch Rho (d) Immune 2017-12-17 Completed University of Globulin 00:00:00 [facility] Branch Rho (d) Immune 2017-12-17 Completed University of Globulin 00:00:00 [facility] Branch Rho (d) Immune 2017-07-31 Completed University of Globulin 00:00:00 [facility] Branch Rho (d) Immune 2017-07-31 Completed University of Globulin 00:00:00 [facility] Rho (d) Immune 2017-07-31 Completed University of Globulin 00:00:00 [facility] Rho (d) Immune 2017-07-31 Completed University of Globulin 00:00:00 [facility] Rho (d) Immune 2017-07-31 Completed University of Globulin 00:00:00 [facility] Rho (d) Immune 2017-07-31 Completed University of Globulin 00:00:00 [facility] Rho (d) Immune 2017-07-31 Completed University of Globulin 00:00:00 [facility] Rho (d) Immune 2017-07-31 Completed University of Globulin 00:00:00 [facility] Rho (d) Immune 2017-07-31 Completed University of Globulin 00:00:00 [facility] Rho (d) Immune 2017-07-31 Completed University of Globulin 00:00:00 [facility] Rho (d) Immune 2017-07-31 Completed University of Globulin 00:00:00 [facility] Rho (d) Immune 2017-07-31 Completed University of Globulin 00:00:00 [facility] Rho (d) Immune 2017-07-31 Completed University of Globulin 00:00:00 [facility] Vital Signs Vital Name Observation Time Observation Value Comments Source Systolic blood 2022-08-07 17:05:00 130 mm[Hg] Univer sity of pressure [facility] Diastolic blood 2022-08-07 17:05:00 87 mm[Hg] Unive rsity of pressure [facility] Heart rate 2022-08-07 17:05:00 67 /min [facility] Body temperature 2022-08-07 17:05:00 36.72 Isabel [facility] Respiratory rate 2022-08-07 17:05:00 17 /min [facility] Body height 2022-08-07 17:05:00 157.5 cm [facility] Body weight 2022-08-07 17:05:00 61.78 kg [facility] BMI 2022-08-07 17:05:00 24.91 kg/m2 [facility] Systolic blood 2021-05-11 19:14:00 121 mm[Hg] Univer sity of pressure [facility] Diastolic blood 2021-05-11 19:14:00 79 mm[Hg] Unive rsity of pressure [facility] Heart rate 2021-05-11 19:14:00 64 /min Universi ty [facility] Respiratory rate 2021-05-11 19:14:00 18 /min Univ ersity of [facility] Body height 2021-05-11 19:14:[address] [facility] Body weight 2021-05-11 19:14:00 [facility] 2021-05-11 19:14:00 21.77 kg/m2 [facility] Oxygen saturation in 2021-05-11 19:14:00 100 /min [facility] Arterial blood by [facility] Pulse oximetry Branch Systolic (mm Hg) 2022-07-18 16:18:00 [facility] rial Supa Diastolic (mm Hg) 2022-07-18 16:18:00 [facility] [place] Heart Rate 2022-07-18 16:18:00 [facility] [place] Height 2022-07-18 16:18:00 5 [ft_i] [facility] Weight 2022-07-18 16:18:00 [facility] [place] BMI Calculated 2022-07-18 16:18:00 Memori al [facility] Systolic (mm Hg) 2021-10-12 15:43:00 [facility] [place] Diastolic (mm Hg) 2021-10-12 15:43:00 [facility] [place] Heart Rate 2021-10-12 15:43:00 [facility] [place] Respitory Rate 2021-10-12 15:43:00 [facility] [place] Height 2021-10-12 15:43:00 161.29 cm [facility] Weight 2021-10-12 15:43:00 [facility] [place] BMI Calculated 2021-10-12 15:43:00 Mem[facility] Systolic (mm Hg) 2021-04-12 15:09:00 [facility] Supa Diastolic (mm Hg) 2021-04-12 15:09:00 [facility] [place] Heart Rate 2021-04-12 15:09:00 [facility] [place] Respitory Rate 2021-04-12 15:09:00 Mem[facility] Height 2021-04-12 15:09:00 157.48 cm [facility] Weight 2021-04-12 15:09:00 [facility] BMI Calculated 2021-04-12 15:09:00 Mem[facility] Systolic (mm Hg) 2020-12-06 14:13:00 [facility] Diastolic (mm Hg) 2020-12-06 14:13:00 [facility] [place] Heart Rate 2020-12-06 14:13:00 [facility] Respitory Rate 2020-12-06 14:13:00 [facility] Height 2020-12-06 14:13:00 157.48 cm [facility] [place] Weight 2020-12-06 14:13:00 [facility] [place] BMI Calculated 2020-12-06 14:13:00 [facility] [place] Systolic (mm Hg) 2020-09-05 15:23:00 [facility]a Diastolic (mm Hg) 2020-09-05 15:23:00 [facility] Heart Rate 2020-09-05 15:23:00 [facility] Respitory Rate 2020-09-05 15:23:00 Mem[facility] Systolic (mm Hg) 2020-08-11 19:24:00 [facility] [place] Diastolic (mm Hg) 2020-08-11 19:24:00 [facility] [place] Heart Rate 2020-08-11 19:24:00 [facility] [place] Respitory Rate 2020-08-11 19:24:00 [facility] Height 2020-08-11 19:24:00 157.48 cm [facility] Weight 2020-08-11 19:24:00 [facility] BMI Calculated 2020-08-11 19:24:00 [facility] [place] Systolic (mm Hg) 2020-05-09 15:36:00 [facility]a Diastolic (mm Hg) 2020-05-09 15:36:00 [facility] Heart Rate 2020-05-09 15:36:00 [facility] [place] Respitory Rate 2020-05-09 15:36:00 [facility] [place] Height 2020-05-09 15:36:00 157.48 cm [facility] [place] Weight 2020-05-09 15:36:00 [facility] [place] BMI Calculated 2020-05-09 15:36:00 [facility] [place] Systolic (mm Hg) 2019-12-23 21:09:00 [facility] Supa Diastolic (mm Hg) 2019-12-23 21:09:00 [facility] Heart Rate 2019-12-23 21:09:00 [facility] Respitory Rate 2019-12-23 21:09:00 [facility] [place] Height 2019-12-23 21:09:00 157.48 cm [facility] [place] Weight 2019-12-23 21:09:00 [facility] [place] BMI Calculated 2019-12-23 21:09:00 Mem[facility] Systolic (mm Hg) 2019-09-22 21:21:00 [facility] [place] Diastolic (mm Hg) 2019-09-22 21:21:00 [facility] [place] Heart Rate 2019-09-22 21:21:00 [facility] [place] Respitory Rate 2019-09-22 21:21:00 [facility] Height 2019-09-22 21:21:00 160.02 cm [facility] Weight 2019-09-22 21:21:00 [facility] BMI Calculated 2019-09-22 21:21:00 [facility] Systolic (mm Hg) 2019-09-07 19:15:00 [facility] [place] Diastolic (mm Hg) 2019-09-07 19:15:00 [facility] [place] Heart Rate 2019-09-07 19:15:00 [facility] Respitory Rate 2019-09-07 19:15:00 [facility] Height 2019-09-07 19:15:00 160.02 cm [facility] [place] Weight 2019-09-07 19:15:00 [facility] [place] BMI Calculated 2019-09-07 19:15:00 [facility] BMI Calculated 2019-01-20 15:32:00 [facility] Weight 2019-01-20 15:32:00 [facility] [place] Height 2019-01-20 15:32:00 160.02 cm [facility] [place] Systolic (mm Hg) 2019-01-20 15:32:00 [facility]a Diastolic (mm Hg) 2019-01-20 15:32:00 [facility] Heart Rate 2019-01-20 15:32:00 [facility] Respitory Rate 2019-01-20 15:32:00 [facility] [place] Weight 2018-11-18 18:37:00 [facility] [place] Height 2018-11-18 18:37:00 157.48 cm [facility] BMI Calculated 2018-11-18 18:37:00 Mem[facility] Systolic (mm Hg) 2018-11-18 18:37:00 [facility] [place] Diastolic (mm Hg) 2018-11-18 18:37:00 [facility] Heart Rate 2018-11-18 18:37:00 [facility] Respitory Rate 2018-11-18 18:37:00 [facility] [place] Height 2018-07-17 16:56:00 157.48 cm [facility] [place] BMI Calculated 2018-07-17 16:56:00 [facility] Weight 2018-07-17 16:56:00 [facility] [place] Systolic (mm Hg) 2018-07-17 16:56:00 [facility] Supa Diastolic (mm Hg) 2018-07-17 16:56:00 [facility] Heart Rate 2018-07-17 16:56:00 [facility] Respitory Rate 2018-07-17 16:56:00 [facility] [place] BMI Calculated 2018-04-10 13:52:00 [facility] Weight 2018-04-10 13:52:00 [facility] [place] Height 2018-04-10 13:52:00 154.94 cm [facility] Heart Rate 2018-04-10 13:52:00 [facility] Systolic (mm Hg) 2018-04-10 13:52:00 [facility] [place] Diastolic (mm Hg) 2018-04-10 13:52:00 [facility] [place] Height 2017-07-25 20:14:00 154.94 cm [facility] [place] Weight 2017-07-25 20:14:00 [facility] BMI Calculated 2017-07-25 20:14:00 [facility] Temperature Oral (F) 2017-07-25 20:14:00 98.0 F [facility] Heart Rate 2017-07-25 20:14:00 [facility] Systolic (mm Hg) 2017-07-25 20:14:00 [facility] Diastolic (mm Hg) 2017-07-25 20:14:00 [facility] [place] Height 2017-07-14 22:05:00 154.94 cm [facility] Weight 2017-07-14 22:05:00 [facility] Temperature Oral (F) 2017-07-14 22:05:00 98.2 F [facility] BMI Calculated 2017-07-14 22:05:00 Carmen toney Supa Systolic (mm Hg) 2017-07-14 22:05:00 Farooq riggins Supa Diastolic (mm Hg) 2017-07-14 22:05:00 Mem [facility] Procedures Procedure Date / Time Performing Clinician Source Performed ASSIGNMENT OF BENEFITS 2022-08-07 17:57:08 Doctor Unassigned, No [facility] POCT URINALYSIS W/O 2022-08-07 17:21:00 Neli Olea [facility] SPECIFIC GRAVITY Medical Branch BI BREAST CYST 2021-07-03 15:58:13 Vladislav [facility] ASPIRATION LEFT Medical Branch ASSIGNMENT OF BENEFITS 2021-07-03 15:02:52 Doctor Unassigned, No [facility] BI ULTRASOUND BREAST 2021-06-09 16:48:05 Annel Loomis [facility] COMPLETE BILATERAL Medical Branc h BI DIAGNOSTIC 2021-06-09 16:10:00 Vladislav Annel [place] [facility] TOMOSYNTHESIS BILATERAL Medical Branch FLU VACC ([phone]), 2021-05-11 19:47:20 Annel Loomis [facility] 2-64 YRS, .5ML, IM, QUAD Medical Branch (FLUCELVAX) LEEP procedure of cervix [facility] Encounters Start End Encounter Admission Attending Care Care Encounter Source Date/Time Date/Time Type Type Clinicians Facility Department ID 2022-10-23 Outpatient Acevedo, STLMLC [facility] [id number] Common 08:21:02 [facility] [address] [facility] 2021-08-01 Outpatient Acevedo, STLMLC [facility] [id number] Common 13:44:46 [facility] [address] [facility] 2021-08-01 Outpatient Acevedo, STLMLC [facility] [id number] Common 12:53:23 [facility] [address] [facility] 2021-08-01 Outpatient Acevedo, STLMLC [facility] [id number] Common [facility] [address] [facility] 2023-01-15 2023-01-15 Outpatient MHIE MHIE [id number] Memoria 10:30:00 10:30:00 34 ellen Cowart 2023-01-15 2023-01-15 Outpatient MHIE MHIE [id number] Memoria 10:30:00 10:30:00 34 l Supa 2023-01-15 2023-01-15 Outpatient MHIE MHIE [id number] Memoria 09:30:00 09:30:00 33 l Supa 2023-01-15 2023-01-15 Outpatient MHIE MHIE [id number] Memoria 09:30:00 09:30:00 33 ellen Cowart 2022-08-09 2022-08-09 Case VALERIE Olea [id number] Univers 00:00:00 00:00:00 Management Neli PEDIATRIC [id number] [id number] [id number] [address] 2022-08-07 2022-08-07 Rim Rol[employer]ter Dao, [facility] Main [facility] [id number] Univers 12:00:00 12:15:00 Visit Neli Olea 350.1.13.10 [id number] [id number] Me dical NAL 353 [facility] 2022-08-07 2022-08-07 Outpatient Kat OLEA [facility] [id number] Univers 10:45:00 11:46:16 NELI ity of [facility] 2022-08-07 2022-08-07 Office Emmie MASHANT [id number] Univers 10:45:00 11:46:16 Visit Neli HARRIS 350.1.13.10 i ty [place] [id number] Me dical NAL 134 [facility] 2022-08-07 2022-08-07 Orders Doctor GARCIA [id number] Univers 00:00:00 00:00:00 Only Unassigned, LATRICE 350.1.13.10 ity of [place] [facility] [id number] [place] as [id number] [address] 2022-07-18 2022-07-19 Outpatient MHIE MNA [id number] Memoria 16:15:00 05:59:59 Neurology 32 l Eriberto Cowart 2022-07-18 2022-07-19 Outpatient MHIE MNA [id number] Memoria 16:15:00 05:59:59 Neurology 32 l Eriberto Cowart 2022-07-18 2022-07-18 Outpatient KEARA Hill MHMISCHER [id number] 10:15:00 23:59:59 Galdino 32 Yahir 2022-07-18 2022-07-18 Outpatient MHIE MHIE [id number] Memoria 10:15:00 10:15:00 32 l Supa 2022-05-21 2022-05-21 Outpatient MHIE MHIE [id number] Memoria 14:30:00 14:30:00 30 l Supa 2022-05-21 2022-05-21 Outpatient MHIE MHIE [id number] Memoria 14:30:00 14:30:00 30 l Supa 2022-05-20 2022-05-20 Ambulatory MHIE MNA [id number] Memoria 19:00:00 19:00:00 Pre-Reg Neurology 31 l Eriberto Abdiann 2022-05-20 2022-05-20 Ambulatory MHIE MNA [id number] Memoria 19:00:00 19:00:00 Pre-Reg Neurology 31 l Eriberto Cowart 2022-05-20 2022-05-20 Ambulatory MHIE MNA [id number] Memoria 15:45:00 15:45:00 Pre-Reg Neurology 30 l Eriberto Abdiann 2022-05-20 2022-05-20 Outpatient MHIE MHIE [id number] Memoria 13:00:00 13:00:00 31 l [place] 2022-05-20 2022-05-20 Outpatient RILEY HillSCHSHRAVAN MHMISCHER [id number] 13:00:00 13:00:00 [place] 31 Yhair 2022-05-20 2022-05-20 Outpatient RILEY HillSCHER MHMISCHER [id number] 09:45:00 09:45:00 Gald[place] 30 Yahir 2022-05-14 2022-05-14 Outpatient R CRISTOBAL CHISHOLM [facility] B [id number] Univers 13:30:00 13:30:00 CRISTOBAL CHISHOLM [facility] 2022-05-13 2022-05-13 Outpatient R CRISTOBAL CHISHOLM [facility] B [id number] Univers 10:00:00 10:00:[address] [facility] 2022-04-01 2022-04-01 Outpatient R CRISTOBAL CHISHOLM [facility] B [id number] [facility] 11:30:00 11:30:00 CRISTOBAL CHISHOLM [facility] 2022-01-23 2022-01-24 Outpatient nullFlavo MNA [id number] Memoria 15:30:00 04:59:59 r Neurology 29 l Eriberto Cowart 2022-01-23 2022-01-24 Outpatient nullFlavo MNA [id number] Memoria 15:30:00 04:59:59 r Neurology 29 l Eriberto Cowart 2022-01-23 2022-01-23 Outpatient RILEY HillSCHER MISCHER [id number] 10:30:00 23:59:59 Gal[place] 29 Yahir 2022-01-23 2022-01-23 Outpatient MHIE MHIE [id number] Memoria 10:30:00 10:30:00 29 l Supa 2022-01-11 2022-01-11 Ambulatory nullFlavo MNA [id number] Memoria 16:30:00 16:30:00 Pre-Reg r Neurology 28 l Eriberto Cowart 2022-01-11 2022-01-11 Ambulatory nullFlavo MNA [id number] Memoria 16:30:00 16:30:00 Pre-Reg r Neurology 28 l Eriberto Abdiann 2022-01-11 2022-01-11 Outpatient MHIE MHIE [id number] Memoria 11:30:00 11:30:00 28 l Supa 2022-01-11 2022-01-11 [id number] 11:30:00 11:30:00 Gald[place] 28 Yahir 2021-10-12 2021-10-13 Outpatient nullFlavo MNA [id number] Memoria 15:30:00 04:59:59 r Neurology 25 l Eriberto Cowart 2021-10-12 2021-10-13 Outpatient nullFlavo MNA [id number] Memoria 15:30:00 04:59:59 r Neurology 25 l Eriberto Cowart 2021-10-12 2021-10-12 [facility] [id number] 10:30:00 23:59:59 Gal[place] 25 Yahir 2021-10-12 2021-10-12 Outpatient MHIE MHIE [id number] Memoria 10:30:00 10:30:00 25 ellen Cowart 2021-09-12 2021-09-12 Ambulatory nullFlavo MNA [id number] Memoria 16:00:00 16:00:00 Pre-Reg r Neurology 27 l Eriberto Cowart 2021-09-12 2021-09-12 Ambulatory nullFlavo MNA [id number] Memoria 16:00:00 16:00:00 Pre-Reg r Neurology 27 l Eriberto Cowart 2021-09-12 2021-09-12 Outpatient MHIE MHIE [id number] Memoria 10:00:00 10:00:00 27 ellen Cowart 2021-09-12 2021-09-12 [id number] 10:00:00 10:00:00 Gal[place] 27 Yahir 2021-08-01 2021-08-02 Outpatient nullFlavo MNA [id number] Memoria 17:00:00 05:59:59 r Neurology 26 l Eriberto Cowart 2021-08-01 2021-08-02 Outpatient nullFlavo MNA [id number] Memoria 17:00:00 05:59:59 r Neurology 26 l Eriberto Cowart 2021-08-01 2021-08-01 Outpatient RILEY HillSCHER MISCHER [id number] 11:00:00 23:59:59 Gald[place] 26 Yahir 2021-08-01 2021-08-01 Outpatient MHIE MHIE [id number] [facility] 11:00:00 11:00:00 26 ellen Cowart 2021-07-03 2021-07-03 [facility] Annel Loomis [facility] [id number] Univers 09:06:22 23:59:00 Encounter [place] 350.1.13.10 ity of [facility] 4.2.7.2.686 [facility] [id number] [facility] 806 Branch 2021-07-03 2021-07-03 Outpatient R ANNEL LOOMIS [facility] [id number] Univers 00:00:00 23:59:00 ity of [facility] 2021-07-03 2021-07-03 [facility] Annel Loomis [facility] [id number] Univers 09:04:09 09:05:00 Encounter [place] 350.1.13.10 ity of [place] 4.2.7.2.686 [facility] [id number] [facility] 806 Branch 2021-07-03 2021-07-03 Orders Doctor RADHA [id number] [id number] Univers 00:00:00 00:00:00 Only Unassigned, LATRICE 350.1.13.10 ity of [place] [facility] 4.2.7.2.686 Nader [id number] [facility] 009 Branch 2021-06-11 2021-06-11 Case Annel Loomis [facility] 1.2.840.114 [id number] Univers 00:00:00 00:00:00 Management HUE 350.1.13.10 [place] [facility] [id number] [facility] 134 Branch 2021-06-09 2021-06-09 [facility] Annel Loomis [facility] [id number] Univers 09:28:55 23:59:00 Encounter [place] 350.1.13.10 ity of [facility] 4.2.7.2.686 [facility] [id number] [facility] 806 Branch 2021-06-09 2021-06-09 Outpatient R ANNEL LOOMIS [facility] [id number] Univers 09:28:31 23:59:[address] [facility] 2021-06-09 2021-06-09 Hospital Annel Loomis [facility] [id number] Univers 09:28:31 23:59:00 Encounter [place] 350.1.13.10 ity [facility] 4.2.7.2.686 [facility] s CAMPUS [id number] [facility] [address] [place] 2021-05-11 2021-05-11 Office Annel Loomis [facility] 1.2.840.114 [id number] Univers 13:24:25 14:42:16 Visit [place] 350.1.13.10 i ty [facility] 4.2.7.2.686 [facility] PROFESSIO [id number] Mi dical [address] 2021-05-11 2021-05-11 Outpatient R ANNEL LOOMIS [facility] [id number] Univers 13:15:00 [facility] 2021-[facility]11 2021-05-11 Outpatient R ANNEL LOOMIS [facility] [id number] Univers 13:15:00 14:42:16 [facility] 2021-05-02 2021-05-02 Outpatient R EMMIE [facility] [id number] Univers 09:00:00 09:00:00 NELI [facility] 2021-04-12 2021-04-13 Outpatient nullFlavo MNA [id number] Memoria 15:00:00 04:59:59 r Neurology 24 l Eriberto Cowart 2021-04-12 2021-04-13 Outpatient nullFlavo MNA [id number] Memoria 15:00:00 04:59:59 r Neurology 24 l Eriberto Cowart 2021-04-12 2021-04-12 Outpatient KEARA Hill [id number] 10:00:00 23:59:59 Galdino 24 Yahir 2021-04-12 2021-04-12 Outpatient SWETA SOL [id number] Memoria 10:00:00 10:00:00 24 l Supa 2021-02-24 2021-02-24 [facility] 1.2.263.155 [id number] Univers 00:00:00 00:00:00 Neli Harris 350.1.13.10 i romie Taver[place] 4.2.7.2.686 [place] Profkeeshaio [phone] Mi dical nal [address] [facility] 2020-12-06 2020-12-07 Outpatient nullFlavo MNA [id number] Memoria 14:00:00 04:59:59 r Neurology 23 l Eriberto Abdiann 2020-12-06 2020-12-07 Outpatient nullFlavo MNA [id number] Memoria 14:00:00 04:59:59 r Neurology 23 l Eriberto [place] 2020-12-06 2020-12-06 Outpatient KEARA Hill RORO [id number] 09:00:00 23:59:59 Galdino 23 Yahir 2020-12-06 2020-12-06 Ambulatory nullFlavo MNA [id number] Memoria 18:30:00 18:30:00 Pre-Reg r Neurology 22 l Eriberto Abdiann 2020-12-06 2020-12-06 Ambulatory nullFlavo MNA [id number] Memoria 18:30:00 18:30:00 Pre-Reg r Neurology 22 l Eriberto Supa 2020-12-06 2020-12-06 Outpatient MHIE SWETA [id number] Memoria 13:30:00 13:30:00 22 ellen [place] 2020-12-06 2020-12-06 Outpatient KEARA Hill MISCHSHRAVAN [id number] 13:30:00 13:30:00 Galdino 22 Yahir 2020-12-06 2020-12-06 Outpatient MHIE MHIE [id number] Memoria 09:00:00 09:00:00 23 l [place] 2020-10-17 2020-10-19 Outside nullFlavo MNA [id number] Memoria 20:34:08 04:59:59 Medical r Neurology 44 l Records Eriberto Supa 2020-10-17 2020-10-19 Outside nullFlavo MNA [id number] Memoria 20:34:08 04:59:59 Medical r Neurology 44 l Records Eriberto Cowart 2020-10-17 2020-10-18 Outpatient MHMISCHER MHMISCHER [id number] 15:34:08 23:59:59 44 2020-09-26 2020-09-28 Outside nullFlavo MNA [id number] Memoria 14:02:19 04:59:59 Medical r Neurology 43 l Records Eriberto Cowart 2020-09-26 2020-09-28 Outside nullFlavo MNA [id number] Memoria 14:02:19 04:59:59 Medical r Neurology 43 l Records Eriberto Cowart 2020-09-26 2020-09-27 Outpatient MHMISCHER MHMISCHER [id number] 09:02:19 23:59:59 43 2020-09-25 2020-09-25 Patient [facility] 1.2.840.114 [id number] Univers 00:00:00 00:00:00 Outreach [facility] 350.1.13.[address] [facility] [place] [phone] Mi dical [address] 2020-09-25 2020-09-25 Patient [facility] 1.2.840.114 [id number] 00:00:00 00:00:00 Outreach [facility]13.10 [facility] 4.2.7.2.686 PAVILLION [phone] [id number] 2020-09-05 2020-09-06 Outpatient nullFlavo MNA [id number] Memoria 15:30:00 05:59:59 r Neurology 20 l Eriberto Abdiann 2020-09-05 2020-09-06 Outpatient nullFlavo MNA [id number] Memoria 15:30:00 05:59:59 r Neurology 20 l Eriberto Abdiann 2020-09-05 2020-09-05 Outpatient RILEY HillSCHER MHADESCHER [id number] 09:30:00 23:59:59 Galdino Sinclair 2020-09-05 2020-09-05 Outpatient LAURAIE SWETA [id number] Memoria 09:30:00 09:30:00 20 l Supa 2020-08-11 2020-08-12 Outpatient nullFlavo MNA [id number] Memoria 19:30:00 05:59:59 r Neurology 21 l Eriberto Cowart 2020-08-11 2020-08-12 Outpatient nullFlavo MNA [id number] Memoria 19:30:00 05:59:59 r Neurology 21 l Eriberto Cowart 2020-08-11 2020-08-11 Outpatient Sergio MISCHER MHMISCHER [id number] 13:30:00 23:59:59 Galdino Martin Sinclair 2020-08-11 2020-08-11 Outpatient MHIE MHIE [id number] Memoria 13:30:00 13:30:00 21 ellen Cowart 2020-08-04 2020-08-06 Outside nullFlavo MNA [id number] Memoria 17:34:53 05:59:59 Medical r Neurology 42 l Records Eriberto Cowart 2020-08-04 2020-08-06 Outside nullFlavo MNA [id number] Memoria 17:34:53 05:59:59 Medical r Neurology 42 l Records Eriberto Cowart 2020-08-04 2020-08-05 Outpatient MHMISCHER MHMISCHER [id number] 11:34:53 23:59:59 42 2020-06-20 2020-06-20 Liang [facility] 1.2.500.905 [id number] [facility] 00:00:00 00:00:00 Neli Harris 350.1.13.10 i ty of [place] [phone] Mi dical nal [address] [place] [address] 2020-06-20 2020-06-20 [place] Emmie [facility] 1.2.840.114 [id number] [facility] 00:00:00 00:00:00 Neli Harris 350.1.13.10 i ty of [place] [phone] Mi dical nal [address] [place] [address] 2020-06-20 2020-06-20 Refill [facility] 1.2.028.680 [id number] 00:00:00 00:00:00 Neli Harris 350.1.13.10 [place] 4.2.7.2.686 Professio [phone] [address] 2020-06-20 2020-06-20 Telephone SISI Olea 1.2.840.114 [id number] 00:00:00 00:00:00 Neli Harris 350.1.13.10 [place] 4.2.7.2.686 Professio [phone] [address] 2020-05-21 2020-05-21 Orders Doctor RADHA 1.2.840.114 [id number] Univers 00:00:00 00:00:00 Only Unassigned, LATRICE 350.1.13.10 ity of [place] [facility] 4.2.7.2.686 Nader as [phone] [address] 2020-05-21 2020-05-21 Orders Doctor RADHA 1.2.840.114 [id number] 00:00:00 00:00:00 Only Unassigned, LATRICE 350.1.13.10 [place] [facility] 4.2.7.2.686 [phone] [facility] 2020-05-09 2020-05-10 Outpatient nullFlavo MNA [id number] Memoria 15:30:00 05:59:59 r Neurology 19 l Eriberto Cowart 2020-05-09 2020-05-10 Outpatient nullFlavo MNA [id number] Memoria 15:30:00 05:59:59 r Neurology 19 l Eriberto Cowart 2020-05-09 2020-05-09 Outpatient KEARA Hill MHMISCHER [id number] 09:30:00 23:59:59 Galdino Shyam Yahir 2020-05-09 2020-05-09 Outpatient MHIE MHIE [id number] Memoria 09:30:00 09:30:00 19 l Supa 2020-05-09 2020-05-09 Telephone SISI Olea 1.2.840.114 [id number] 00:00:00 00:00:00 Neli Harris 350.1.13.10 [place] 4.2.7.2.686 Professio [phone] [address] 2020-05-09 2020-05-09 Telephone [facility] 1.2.840.114 [id number] Univers 00:00:00 00:00:00 Neli Ritu 350.1.13.10 i ty of [place] [phone] [address] 2020-05-04 2020-05-04 Case [facility] 1.2.932.654 [id number] 00:00:00 00:00:00 Management Neli Harris 350.1.13.10 [place] 4.2.7.2.686 Professio [phone] [address] 2020-05-04 2020-05-04 Case [facility] 1.2.618.155 [id number] [facility] 00:00:00 00:00:00 Management Neli Harris 350.1.13.10 ity of [place] [phone] [address] 2020-05-03 2020-05-03 [facility] [id number] [facility] 10:30:00 10:30:[address] 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1.13.10 i ty of [place].2.[place] [phone] [address] 2020-05-02 2020-05-02 Outpatient R EMMIE [facility] [id number] Univers 10:00:00 10:00:00 NELI ity of [facility] 2020-05-02 2020-05-02 Orders Doctor RADHA 1.2.840.114 [id number] Univers 00:00:00 00:00:00 Only Unassigned, LATRICE 350.1.13.10 ity of [facility] 4.2.7.2.686 Nader as [phone] [address] 2020-04-03 2020-04-03 RefShari Briseno [facility] 1.2.745.466 [id number] Univers 00:00:00 00:00:00 Cam Ritu 350.1.13.10 i ty of [place] [phone] [address] 2020-03-24 2020-03-24 Ambulatory nullFlavo MNA [id number] Memoria 20:30:00 20:30:00 [facility] 2020-03-24 Ambulatory nullFlavo MNA [id number] Memoria 20:30:00 20:30:00 Pre-Reg r Neurology 18 l [facility] 2020-03-24 2020-03-24 Ambulatory nullFlavo MNA [id number] Memoria 20:30:00 20:30:00 Pre-Reg r Neurology 17 l [facility] 2020-03-24 2020-03-24 Ambulatory nullFlavo MNA [id number] Memoria 20:30:00 20:30:00 Pre-Reg r Neurology 18 l [facility] 2020-03-24 2020-03-24 Outpatient MHIE MHIE [id number] Memoria 15:30:00 15:30:00 17 l [place] 2020-03-24 2020-03-24 Outpatient MHIE MHIE [id number] Memoria 15:30:00 15:30:00 18 [facility] 2020-03-24 2020-03-24 Outpatient KEARA Hill MISCHER [id number] 15:30:00 15:30:00 Galdino 17 Yahir 2020-03-24 2020-03-24 [facility]patient [facility] [id number] 15:30:00 15:30:00 Galdino 18 Yahir 2020-02-25 2020-02-25 Telephone Shari Sin [facility] 1.2.840.114 [id number] Univers 00:00:00 00:00:00 Cam Jeannette 350.1.13.10 i ty of [place] [phone] Mi dical nal [address] [place] [address] 2020-02-17 2020-02-17 Refill Shari Sin [facility] 1.2.430.726 [id number] Univers 00:00:00 00:00:00 Cam Jeannette 350.1.13.10 i ty of [place].2.[place] [phone] Mi dical nal [address] [place] [address] 2020-02-10 2020-02-11 Between nullFlavo MNA [id number] Memoria 19:38:26 19:38:26 Visit r Neurology 54 l [facility] 2020-02-10 2020-02-11 Between nullFlavo MNA [id number] Memoria 19:38:26 19:38:26 Visit r Neurology 54 l Goshen [place] 2020-02-10 2020-02-11 [facility]patient [facility] [id number] 14:38:26 14:38:26 54 2020-02-11 2020-02-11 Refill Shari Sin [facility] 1.2.515.603 [id number] Univers 00:00:00 00:00:00 Cam Jeannette 350.1.13.10 i ty of [place].2.[place] [phone] Mi dical nal [address] [place] [address] 2020-02-08 2020-02-08 Refill Shari Sin [facility] 1.2.178.009 [id number] Univers 00:00:00 00:00:00 Cam Jeannette 350.1.13.10 i ty of [place].2.[place] [phone] Mi dical nal [address] [facility] 2020-01-10 2020-01-11 Between nullFlavo MNA [id number] Memoria 20:55:56 20:55:56 Visit r Neurology 53 l Eriberto Cowart 2020-01-10 2020-01-11 Between nullFlavo MNA [id number] Memoria 20:55:56 20:55:56 Visit r Neurology 53 l Eriberto Abdiann 2020-01-10 2020-01-11 Outpatient MHMISCHER MHMISCHER [id number] 15:55:56 15:55:56 53 2019-12-23 2019-12-24 Outpatient nullFlavo MNA [id number] Memoria 20:45:00 04:59:59 r Neurology 16 l Eriberto Abdiann 2019-12-23 2019-12-24 Outpatient nullFlavo MNA [id number] Memoria 20:45:00 04:59:59 r Neurology 16 l Goshen [place] 2019-12-23 2019-12-23 Outpatient Sergio ADESCHER MHMISCHER [id number] 15:45:00 23:59:59 Galdino 16 Yahir 2019-12-23 2019-12-23 Outpatient MHIE MHIE [id number] Memoria 15:45:00 15:45:00 16 l [place] 2019-09-22 2019-09-23 Outpatient nullFlavo MNA [id number] Memoria 21:15:00 04:59:59 r Neurology 13 l Goshen [place] 2019-09-22 2019-09-23 Outpatient nullFlavo MNA [id number] Memoria 21:15:00 04:59:59 r Neurology 13 l Goshen [place] 2019-09-22 2019-09-22 [facility]patient [facility] [id number] 16:15:00 23:59:59 Galdino 13 Yahir 2019-09-22 2019-09-22 Outpatient MHIE MHIE [id number] Memoria 16:15:00 16:15:00 13 ellen Supa 2019-09-07 2019-09-08 Outpatient nullFlavo MNA [id number] Memoria 19:00:00 05:59:59 r Neurology 15 l Goshen Supa 2019-09-07 2019-09-08 Outpatient nullFlavo MNA [id number] Memoria 19:00:00 05:59:59 r Neurology 15 l Eriberto Cowart 2019-09-07 2019-09-07 Outpatient Sergio, MHMISCHER MHMISCHER [id number] 13:00:00 23:59:59 Galdino 15 Yahir 2019-09-07 2019-09-07 Outpatient MHIE MHIE [id number] Memoria 13:00:00 13:00:00 15 ellen Cowart 2019-08-24 2019-08-24 Telephone [facility] 1.2.840.114 [id number] Univers 00:00:00 00:00:00 Cam Jeannette 350.1.13.10 [place] [phone] [address] 2019-08-20 2019-08-20 Ambulatory nullFlavo MNA [id number] Memoria 22:30:00 22:30:00 Pre-Reg r Neurology 14 l Eriberto Cowart 2019-08-20 2019-08-20 Ambulatory nullFlavo MNA [id number] Memoria 22:30:00 22:30:00 Pre-Reg r Neurology 14 l Eriberto Cowart 2019-08-20 2019-08-20 Outpatient MHIE MHIE [id number] Memoria 16:30:00 16:30:00 14 ellen Cowart 2019-08-20 2019-08-20 Outpatient S[facility], [facility] [id number] 16:30:00 16:30:00 Galdino 14 Yahir 2019-08-20 2019-08-20 Telephone [facility] 1.2.840.114 [id number] Univers 00:00:00 00:00:00 Cam Jeannette 350.1.13.10 i ty of [place] [phone] Mi dical nal [address] [place] [address] 2019-08-18 2019-08-18 Telephone [facility] 1.2.840.114 [id number] Univers 00:00:00 00:00:00 Cam Jeannette 350.1.13.10 i ty of [place] [phone] Mi dical nal [address] [place] [address] 2019-08-09 2019-08-09 Refill Shari Sin [facility] 1.2.436.258 [id number] Univers 00:00:00 00:00:00 Cam Jeannette 350.1.13.10 i ty of [place].2.[place] [phone] Mi dical nal [address] [place] [address] 2019-07-29 2019-07-29 Refill Shari Sin [facility] 1.2.646.364 [id number] Univers 00:00:00 00:00:00 Cam Jeannette 350.1.13.10 i ty of [place].2.[place] [phone] Mi dicct nal [address] [place] [address] 2019-07-20 2019-07-20 Telephone Shari Sin [facility] 1.2.840.114 [id number] Univers 00:00:00 00:00:00 Cam Jeannette 350.1.13.10 i ty [place] [phone] [address] 2019-05-26 2019-05-26 Ambulatory nullFlavo MNA [id number] Memoria 17:45:00 17:45:00 Pre-Reg r Neurology 12 ellen Wei [place] 2019-05-26 2019-05-26 Ambulatory nullFlavo MNA [id number] Memoria 17:45:00 17:45:00 Pre-Reg r Neurology 12 ellen Goshen [place] 2019-05-26 2019-05-26 Outpatient MHIE MHIE [id number] Memoria 11:45:00 11:45:00 Gladys ellen [place] 2019-05-26 2019-05-26 Outpatient LAURA HillMABEST MISCHER [id number] 11:45:00 11:45:00 Galdino Gladys Yahir 2019-04-21 2019-04-22 Outpatient nullFlavo MNA [id number] Memoria 20:00:00 04:59:59 r Neurology 11 ellen Cowart 2019-04-21 2019-04-22 Outpatient nullFlavo MNA [id number] Memoria 20:00:00 04:59:59 r Neurology 11 ellen Cowart 2019-04-21 2019-04-21 Outpatient RILEY HillSCHER MISCHER [id number] 15:00:00 23:59:59 Galdino Sinclair 2019-04-21 2019-04-21 Ambulatory nullFlavo MNA [id number] Memoria 16:00:00 16:00:00 Pre-Reg r Neurology 09 ellen Cowart 2019-04-21 2019-04-21 Ambulatory nullFlavo MNA [id number] Memoria 16:00:00 16:00:00 Pre-Reg r Neurology 09 ellen Cowart 2019-04-21 2019-04-21 Outpatient MHIE MHIE [id number] Memoria 15:00:00 15:00:00 11 ellen Cowart 2019-04-21 2019-04-21 Outpatient MHIE MHIE [id number] Memoria 11:00:00 11:00:00 09 ellen Cowart 2019-04-21 2019-04-21 Outpatient RILEY HillSCHER MISCHER [id number] 11:00:00 11:00:00 Galdino Sinclair 2019-04-07 2019-04-07 Ambulatory nullFlavo MNA [id number] Memoria 20:00:00 20:00:00 Pre-Reg r Neurology 10 ellen Cowart 2019-04-07 2019-04-07 Ambulatory nullFlavo MNA [id number] Memoria 20:00:00 20:00:00 Pre-Reg r Neurology 10 ellen Abdiann 2019-04-07 2019-04-07 Outpatient MHIE MHIE [id number] Memoria 15:00:00 15:00:00 10 ellen Supa 2019-04-07 2019-04-07 Outpatient RILEY HillSCHER MISCHER [id number] 15:00:00 15:00:00 Galdino Sinclair 2019-03-17 2019-03-17 Shari Ibanez [facility] 1.2.097.606 [id number] Univers 00:00:00 00:00:00 Management Cam Jeannette 350.1.13.10 [place] [phone] Mi dical formerly [facility] 134 [facility] 2019-01-20 2019-01-21 Outpatient nullFlavo MNA [id number] Memoria 15:45:00 04:59:59 r Neurology 08 ellen Cowart 2019-01-20 2019-01-21 Outpatient nullFlavo MNA [id number] Memoria 15:45:00 04:59:59 r Neurology 08 ellen Cowart 2019-01-20 2019-01-20 [id number] 10:45:00 23:59:59 Galdino Sinclair 2019-01-20 2019-01-20 Outpatient MHIE MHIE [id number] Memoria 10:45:00 10:45:00 08 ellen Cowart 2018-11-18 2018-11-19 Outpatient nullFlavo MNA [id number] Memoria 18:45:00 04:59:59 r Neurology 07 ellen Cowart 2018-11-18 2018-11-19 Outpatient nullFlavo MNA [id number] Memoria 18:45:00 04:59:59 r Neurology 07 ellen Cowart 2018-11-18 2018-11-18 [facility] [id number] 13:45:00 23:59:59 Galdino Sinclair 2018-11-18 2018-11-18 Outpatient MHIE MHIE [id number] Memoria 13:45:00 13:45:00 07 ellen Cowart 2018-11-12 2018-11-14 Phone nullFlavo MNA [id number] Memoria 19:08:52 04:59:59 Message r Neurology 41 l Eriberto Cowart 2018-11-12 2018-11-14 Phone nullFlavo MNA [id number] Memoria 19:08:52 04:59:59 Message r Neurology 41 l Eriberto Cowart 2018-11-12 2018-11-14 Phone nullFlavo MNA [id number] Memoria 19:05:59 04:59:59 Message r Neurology 40 l Eriberto Cowart 2018-11-12 2018-11-14 Phone nullFlavo MNA [id number] Memoria 19:05:59 04:59:59 Message r Neurology 40 l Eriberto Cowart 2018-11-12 2018-11-14 Phone nullFlavo MNA [id number] Memoria 18:56:37 04:59:59 Message r Neurology 39 l Eriberto Cowart 2018-11-12 2018-11-14 Phone nullFlavo MNA [id number] Memoria 18:56:37 04:59:59 Message r Neurology 39 l Eriberto Cowart 2018-11-12 2018-11-13 Outpatient MHMISCHER MHMISCHER [id number] 14:08:52 23:59:59 41 2018-11-12 2018-11-13 Outpatient MHMISCHER MHMISCHER [id number] 14:05:59 23:59:59 40 2018-11-12 2018-11-13 Outpatient MHMISCHER MHMISCHER [id number] 13:56:37 23:59:59 39 2018-10-09 2018-10-09 Outpatient MHIE MHIE [id number] Memoria 14:00:00 14:00:00 06 ellen Supa 2018-10-09 2018-10-09 Outpatient MHIE MHIE [id number] Memoria 14:00:00 14:00:00 06 ellen Supa 2018-07-17 2018-07-18 Outpatient nullFlavo MNA [id number] Memoria 17:00:00 05:59:59 r Neurology 05 ellen Wei Supa 2018-07-17 2018-07-18 Outpatient nullFlavo MNA [id number] Memoria 17:00:00 05:59:59 r Neurology 05 ellen Wei Supa 2018-07-17 2018-07-17 Outpatient Sergio, MHMISCHER MHMISCHER [id number] 11:00:00 23:59:59 Galdino Tiff Sinclair 2018-07-17 2018-07-17 Outpatient MHIE MHIE [id number] Memoria 11:00:00 11:00:00 05 ellen Supa 2018-07-10 2018-07-10 Ambulatory nullFlavo MNA [id number] Memoria 15:00:00 15:00:00 Pre-Reg r Neurology 04 ellen Goshen Supa 2018-07-10 2018-07-10 Ambulatory nullFlavo MNA [id number] Memoria 15:00:00 15:00:00 Pre-Reg r Neurology 04 ellen Cowart 2018-07-10 2018-07-10 Outpatient MHIE MHIE [id number] Memoria 09:00:00 09:00:00 Amadou Cowart 2018-07-10 2018-07-10 [facility] [id number] 09:00:00 09:00:00 Galdino Sinclair 2018-06-09 2018-06-11 Phone nullFlavo MNA [id number] Memoria 17:57:00 05:59:59 Message r Neurology 38 l Eriberto Cowart 2018-06-09 2018-06-11 Phone nullFlavo MNA [id number] Memoria 17:57:00 05:59:59 Message r Neurology 38 ellen Cowart 2018-06-09 2018-06-10 [id number] 11:57:00 23:59:59 38 2018-06-08 2018-06-10 Phone nullFlavo MHMG [id number] Memoria 19:59:00 05:59:59 Message r Primary 37 l Agus Mathur 2018-06-08 2018-06-10 Phone nullFlavo MHMG [id number] Memoria 19:59:00 05:59:59 Message r Primary 37 l Agus hollis 2018-06-08 2018-06-09 Outpatient MHMG MHMG [id number] 13:59:00 23:59:59 37 2018-06-05 2018-06-07 Phone nullFlavo MNA [id number] Memoria 20:42:00 05:59:59 Message r Neurology 36 l Eriberto Cowart 2018-06-05 2018-06-07 Phone nullFlavo MNA [id number] Memoria 20:42:00 05:59:59 Message r Neurology 36 l Eriberto Cowart 2018-06-05 2018-06-07 Phone nullFlavo MNA [id number] Memoria 16:16:00 05:59:59 Message r Neurology 35 l Eriberto Cowart 2018-06-05 2018-06-07 Phone nullFlavo MNA [id number] Memoria 16:16:00 05:59:59 Message r Neurology 35 l Eriberto Cowart 2018-06-05 2018-06-06 Outpatient MHMISCHER MHMISCHER [id number] 14:42:00 23:59:59 36 2018-06-05 2018-06-06 Outpatient MHMASCHER MHMASCHER [id number] 10:16:00 23:59:59 35 2018-04-22 2018-04-24 Phone nullFlavo MNA [id number] Memoria 15:14:00 04:59:59 Message r Neurology 34 l Eriberto Cowart 2018-04-22 2018-04-24 Phone nullFlavo MNA [id number] Memoria 15:14:00 04:59:59 Message r Neurology 34 l Eriberto Abdiann 2018-04-22 2018-04-23 Outpatient [facility] [id number] 10:14:00 23:59:59 34 2018-04-10 2018-04-11 Outpatient nullFlavo MNA [id number] Memoria 14:00:00 04:59:59 r Neurology 03 l Goshen Supa 2018-04-10 2018-04-11 Outpatient nullFlavo MNA [id number] Memoria 14:00:00 04:59:59 r Neurology 03 l Goshen Spua 2018-04-10 2018-04-10 [facility] [id number] 09:00:00 23:59:59 Galdino 03 Yahir 2018-04-10 2018-04-10 Outpatient MHIE MHIE [id number] Memoria 09:00:00 09:00:00 03 ellen Cowart 2018-03-31 2018-04-02 Outside nullFlavo MG [id number] Memoria 14:16:00 04:59:59 Medical r Primary 33 l Records Care Valerie Kareen 2018-03-31 2018-04-02 Outside nullFlavo MG [id number] Memoria 14:16:00 04:59:59 Medical r Primary 33 l Records Care Valerie Kareen 2018-03-31 2018-04-01 Outpatient MHMG MG [id number] 09:16:00 23:59:59 33 2017-12-12 2017-12-12 Outpatient MHIE MHIE [id number] Memoria 09:30:00 09:30:00 02 ellen Cowart 2017-12-12 2017-12-12 Outpatient MHIE MHIE [id number] Memoria 09:30:00 09:30:00 02 ellen Supa 2017-11-25 2017-11-25 Outpatient MHIE MHIE [id number] Memoria 15:00:00 15:00:00 01 ellen [place] 2017-11-25 2017-11-25 Outpatient MHIE MHIE [id number] Memoria 15:00:00 15:00:00 01 ellen Supa 2017-11-05 2017-11-05 Outpatient MHIE MHIE [id number] Memoria 13:30:00 13:30:00 00 ellen Supa 2017-11-05 2017-11-05 Outpatient MHIE MHIE [id number] Memoria 13:30:00 13:30:00 00 ellen Supa 2017-09-15 2017-09-17 Phone nullFlavo MHMG [id number] Memoria 13:44:00 04:59:59 Message r Primary 32 l Agus Mathur 2017-09-15 2017-09-17 Phone nullFlavo MHMG [id number] Memoria 13:44:00 04:59:59 Message r Primary 32 l Agus Mathur 2017-09-15 2017-09-16 Outpatient MHMG MHMG [id number] 08:44:00 23:59:59 32 2017-07-25 2017-07-26 Outpatient nullFlavo [facility]MG [id number] Memoria 20:15:00 05:59:59 r Primary 17 l Agus Mathur 2017-07-25 2017-07-26 Outpatient nullFlavo [facility]MG [id number] Memoria 20:15:00 05:59:59 r Primary 17 l Agus Mathur 2017-07-25 2017-07-25 Outpatient Pete, MHMG MHMG [id number] 14:15:00 23:59:59 Trevor 17 Eric 2017-07-25 2017-07-25 Outpatient MHIE MHIE [id number] Memoria 14:15:00 14:15:00 17 ellen Cowart 2017-07-17 2017-07-19 Phone nullFlavo MHMG [id number] Memoria 16:56:00 05:59:59 Message r Primary 31 l Agus Mathur nn 2017-07-17 2017-07-19 Phone nullFlavo MHMG [id number] Memoria 16:56:00 05:59:59 Message r Primary 31 ellen Mathur nn 2017-07-17 2017-07-18 Outpatient [facility] MHMG [id number] 10:56:00 23:59:59 31 2017-07-14 2017-07-15 Outpatient nullFlavo [facility]MG [id number] Memoria 22:00:00 05:59:59 r Primary 16 ellen Mathur nn 2017-07-14 2017-07-15 Outpatient nullFlavo [facility] [id number] Memoria 22:00:00 05:59:59 r Primary 16 ellen Mathur nn 2017-07-14 2017-07-14 Outpatient Sean, [facility] [id number] 16:00:00 23:59:59 Toribio Cash 16 2017-07-14 2017-07-14 Outpatient MHIE MHIE [id number] Memoria 16:00:00 16:00:00 16 ellen Cowart 2017-07-02 2017-07-02 Outpatient MHIE MHIE [id number] Memoria 10:00:00 10:00:00 15 ellen Cowart 2017-07-02 2017-07-02 Outpatient MHIE MHIE [id number] Memoria 10:00:00 10:00:00 15 ellen Cowart 2017-05-13 2017-05-13 Outpatient MHIE MHIE [id number] Memoria 11:00:00 11:00:00 14 ellen Cowart 2017-05-13 2017-05-13 Outpatient MHIE MHIE [id number] Memoria 11:00:00 11:00:00 14 ellen Cowart 2017-05-06 2017-05-06 Outpatient MHIE MHIE [id number] Memoria 11:00:00 11:00:00 13 ellen Cowart 2017-05-06 2017-05-06 Outpatient MHIE MHIE [id number] [facility] 11:00:00 11:00:00 13 ellen Cowart 2017-04-15 2017-04-15 Outpatient MHIE MHIE [id number] [facility] 16:00:00 16:00:00 12 ellen Cowart 2017-04-15 2017-04-15 Outpatient MHIE MHIE [id number] [facility] 16:00:00 16:00:00 12 ellen Cowart 2017-04-08 2017-04-08 Outpatient MHIE MHIE [id number] [facility] 16:15:00 16:15:00 11 ellen Cowart 2017-04-08 2017-04-08 Outpatient MHIE MHIE [id number] [facility] 16:15:00 16:15:00 11 ellen Cowart 2017-02-28 2017-02-28 Outpatient MHIE MHIE [id number] [facility] 09:30:00 09:30:00 10 ellen Cowart 2017-02-28 2017-02-28 Outpatient MHIE MHIE [id number] [facility] 09:30:00 09:30:00 10 ellen Cowart 2017-02-21 2017-02-21 Outpatient MHIE MHIE [id number] [facility] 15:00:00 15:00:00 09 ellen Cowart 2017-02-21 2017-02-21 Outpatient MHIE MHIE [id number] [facility] 15:00:00 15:00:00 09 ellen Cowart 2017-02-07 2017-02-07 Outpatient MHIE MHIE [id number] [facility] 14:30:00 14:30:00 08 ellen Cowart 2017-02-07 2017-02-07 Outpatient MHIE MHIE [id number] [facility] 14:30:00 14:30:00 08 ellen Cowart 2017-01-13 2017-01-13 Outpatient MHIE MHIE [id number] [facility] 13:30:00 13:30:00 07 ellen Cowart 2017-01-13 2017-01-13 Outpatient MHIE MHIE [id number] [facility] 13:30:00 13:30:00 07 ellen Cowart 2016-12-13 2016-12-13 Outpatient MHIE MHIE [id number] [facility] 14:15:00 14:15:00 06 ellen Cowart 2016-12-13 2016-12-13 Outpatient MHIE MHIE [id number] [facility] 14:15:00 14:15:00 06 ellen Cowart 2016-11-20 2016-11-20 Outpatient MHIE MHIE [id number] [facility] 14:30:00 14:30:00 05 ellen Cowart 2016-11-20 2016-11-20 Outpatient MHIE MHIE [id number] [facility] 14:30:00 14:30:00 05 ellen Cowart 2016-10-25 2016-10-25 Outpatient MHIE MHIE [id number] [facility] 15:30:00 15:30:00 04 ellen Supa 2016-10-25 2016-10-25 Outpatient MHIE MHIE [id number] [facility] 15:30:00 15:30:00 04 ellen Cowart 2016-09-23 2016-09-23 Outpatient MHIE MHIE [id number] [facility] 10:30:00 10:30:00 03 ellen Cowart 2016-09-23 2016-09-23 Outpatient MHIE MHIE [id number] [facility] 10:30:00 10:30:00 03 ellen Cowart 2016-08-14 2016-08-14 Outpatient MHIE MHIE [id number] [facility] 15:00:00 15:00:00 02 ellen Cowart 2016-08-14 2016-08-14 Outpatient MHIE MHIE [id number] [facility] 15:00:00 15:00:00 02 ellen Cowart 2015-10-23 2015-10-23 Outpatient MHIE IE [id number] [facility] 15:00:00 15:00:00 01 ellen Cowart 2015-10-23 2015-10-23 Outpatient MHIE IE [id number] [facility] 15:00:00 15:00:00 01 ellen Cowart 2015-02-14 2015-02-14 Outpatient MHIE IE [id number] [facility] 10:00:00 10:00:00 00 ellen Cowart 2015-02-14 2015-02-14 Outpatient MHIE IE [id number] [facility] 10:00:00 10:00:00 00 ellen Cowart Results Test Description Test Time Test Comments Results Result Comments Source POCT URINALYSIS W/O SPECIFIC GRAVITY 2022-08-07 17:21:00 Test Item Value Reference Range Interpretation Comme nts POCT PH U (test code = 3254) 9 mg/dl 5-8 A POCT U LEUK EST (test code = 3263) trace Negative - Negative POCT U NIT (test code = 3262) negative Negative - Negative POCT U PROT (test code = 3259) trace Negative - Negative POCT U GLU (test code = 3256) negative Negative - Negative POCT U KETONE (test code = 3258) negative Negative - Negative POCT U BLD (test code = 3257) 50 Negative - Negative Lab Interpretation (test code = 61238-5) [facility] SPECIFIC [id number] 17:21:00 Test Item Value Reference Range Interpretation Comments POCT PH U (test code = 3254) 9 mg/dl 5-8 A POCT U LEUK EST (test code = trace Negative - Negative 3263) POCT U NIT (test code = 3262) negative Negative - Negative POCT U PROT (test code = 3259) trace Negative - Negative POCT U GLU (test code = 3256) negative Negative - Negative POCT U KETONE (test code = 3258) negative Negative - Negative POCT U BLD (test code = 3257) 50 Negative - Negative Lab Interpretation (test code = Abnormal 48808-1) [facility] [id number] 18:33:00 Test Item Value Reference Range Interpretation Comments eGFR (test code = eGFR 134 ) [facility] [id number] 18:33:00 Test Item Value Reference Range Interpretation Comments B/C Ratio (test code = B/C NOT APPLICABLE 6-22 Ratio) [facility] [id number] 18:33:00 Test Item Value Reference Range Interpretation Comments Glucose Lvl (test code = Glucose Lvl) 83 65-139 [facility] [id number] 18:33:00 Test Item Value Reference Range Interpretation Comments BUN (test code = BUN) 9 7-25 [facility] [id number] 18:33:00 Test Item Value Reference Range Interpretation Comments Sodium Lvl (test code = Sodium Lvl) 129 135-146 [facility] [id number] 18:33:00 Test Item Value Reference Range Interpretation Comments Creatinine Lvl (test code = Creatinine 0.60 0.50-1.10 Lvl) [facility] [id number] 18:33:00 Test Item Value Reference Range Interpretation Comments eGFR NON-AFR. MAURITANIAN (test code = 116 eGFR NON-AFR. MAURITANIAN) [facility] [id number] 18:33:00 Test Item Value Reference Range Interpretation Comments eGFR (test code = eGFR 134 ) [facility]2020-11-19 18:33:00 Test Item Value Reference Range Interpretation Comments B/C Ratio (test code = B/C NOT APPLICABLE 622 Ratio) [facility]2020-11-19 18:33:00 Test Item Value Reference Range Interpretation Comments Sodium Lvl (test code = Sodium Lvl) 129 135-146 [facility]2020-11-19 18:33:00 Test Item Value Reference Range Interpretation Comments Potassium Lvl (test code = Potassium 4.3 3.5-5.3 Lvl) [facility]2020-11-19 18:33:00 Test Item Value Reference Range Interpretation Comments Chloride Lvl (test code = Chloride Lvl) 95 98-110 [facility]2020-11-19 18:33:00 Test Item Value Reference Range Interpretation Comments CO2 (test code = CO2) 25 20-32 [facility]2020-11-19 18:33:00 Test Item Value Reference Range Interpretation Comments Calcium Lvl (test code = Calcium Lvl) 9.5 8.6-10.2 [facility]2020-11-19 18:33:00 Test Item Value Reference Range Interpretation Comments Total Protein (test code = Total 7.5 6.1-8.1 Protein) [facility]2020-11-19 18:33:00 Test Item Value Reference Range Interpretation Comments Potassium Lvl (test code = Potassium 4.3 3.5-5.3 Lvl) [facility]2020-11-19 18:33:00 Test Item Value Reference Range Interpretation Comments Albumin Lvl (test code = Albumin Lvl) 4.5 3.6-5.1 [facility]2020-11-19 18:33:00 Test Item Value Reference Range Interpretation Comments Globulin (test code = Globulin) 3.0 1.9-3.7 [facility]2020-11-19 18:33:00 Test Item Value Reference Range Interpretation Comments A/G Ratio (test code = A/G Ratio) 1.5 1.0-2.5 [place] [id number] 18:33:00 Test Item Value Reference Range Interpretation Comments Bili Total (test code = Bili Total) 0.3 0.2-1.2 [facility]2020-11-19 18:33:00 Test Item Value Reference Range Interpretation Comments Alk Phos (test code = Alk Phos) 77 31-125 [facility]2020-11-19 18:33:00 Test Item Value Reference Range Interpretation Comments ASPARTATE TRANSAMINASE (test code = 15 10-30 ASPARTATE TRANSAMINASE) [facility]2020-11-19 18:33:00 Test Item Value Reference Range Interpretation Comments ALANINE AMINOTRANSFERASE (test code = 11 6-29 ALANINE AMINOTRANSFERASE) [facility]HzstjwtQGWEQSHBTN8575-98-13 18:33:00 Test Item Value Reference Range Interpretation Comments WBC X 10x3 (test code = WBC X 10x3) 8.5 3.8-10.8 [facility] C[id number] 18:33:00 Test Item Value Reference Range Interpretation Comments RBC X 10x6 (test code = RBC X 10x6) 3.90 3.80-5.10 [facility] CenterBovhimjDUXQUHHYUJ7885-86-95 18:33:00 Test Item Value Reference Range Interpretation Comments Hgb (test code = Hgb) 12.4 11.7-15.5 [facility]2020-11-19 18:33:00 Test Item Value Reference Range Interpretation Comments Chloride Lvl (test code = Chloride Lvl) 95 98-110 [facility] CenterKbafidqDTLXRNILTH9547-26-74 18:33:00 Test Item Value Reference Range Interpretation Comments Hct (test code = Hct) 36.6 35.0-45.0 [facility] CenterLcowfqqWWRWIBXYDA1852-25-38 18:33:00 Test Item Value Reference Range Interpretation Comments MCV (test code = MCV) 93.8 80.0-100.0 [facility] CenterKjrljjrJKKRYTMZJZ3671-24-23 18:33:00 Test Item Value Reference Range Interpretation Comments MCH (test code = MCH) 31.8 pg 27.0-33.0 [facility] CenterJqjbtveBPYTPFPDKS2701-77-39 18:33:00 Test Item Value Reference Range Interpretation Comments MCHC (test code = MCHC) 33.9 32.0-36.0 [facility] CenterLyzwyzeKXVXIGYFKF8197-59-78 18:33:00 Test Item Value Reference Range Interpretation Comments RDW (test code = RDW) 12.2 11.0-15.0 [facility] CenterHerjrayTEXHDGJUVT9065-70-44 18:33:00 Test Item Value Reference Range Interpretation Comments Platelet (test code = Platelet) 390 140-400 [facility] HospitalPisblrlGLFDWZAVHN7074-62-68 18:33:00 Test Item Value Reference Range Interpretation Comments MPV (test code = MPV) 9.4 7.5-12.5 [facility] HospitalHwgnqrtYSPLSGLPLI4937-56-26 18:33:00 Test Item Value Reference Range Interpretation Comments Neutrophils # (test code = Neutrophils 6035 8750-0784 #) [facility]neUzxtbpzFPRMDDKCGP9776-59-33 18:33:00 Test Item Value Reference Range Interpretation Comments Lymphocytes # (test code = Lymphocytes 1783 936-8008 #) [facility]neFzpprzyAPKZQSLEVM5957-14-59 18:33:00 Test Item Value Reference Range Interpretation Comments Monocytes # (test code = Monocytes #) 349 200-950 [facility]2020-11-19 18:33:00 Test Item Value Reference Range Interpretation Comments CO2 (test code = CO2) 25 20-32 [facility]neXncuwbnTBQVAJGFCZ2210-54-13 18:33:00 Test Item Value Reference Range Interpretation Comments Eosinophils # (test code = Eosinophils 136 15-500 #) [facility] HospitalMybhsnvCKQMLUHJQV5494-26-72 18:33:00 Test Item Value Reference Range Interpretation Comments Basophils # (test code 51 See_Comment [Aut omated message] The = Basophils #) system which generated this result tra nsmitted reference range : <=200. The reference r cole was not used to int erpret this result as normal/abnormal . [facility] HospitalBginghpUVIJJHRMME7105-05-86 18:33:00 Test Item Value Reference Range Interpretation Comments Segs (test code = Segs) 71 [facility] HospitalCunyqbtBQHRFLVVDA9276-01-73 18:33:00 Test Item Value Reference Range Interpretation Comments Lymphocytes (test code = Lymphocytes) 22.7 [facility]neCujranxXDGKRVBHFE8230-89-31 18:33:00 Test Item Value Reference Range Interpretation Comments Monocytes (test code = Monocytes) 4.1 [facility]nePokhbmqNWCMPKEQXP7943-00-95 18:33:00 Test Item Value Reference Range Interpretation Comments Eosinophils (test code = Eosinophils) 1.6 [facility]neTivkbtxTDHIHTLJTL0753-48-81 18:33:00 Test Item Value Reference Range Interpretation Comments Basophils (test code = Basophils) 0.6 [place] [id number] 18:33:00 Test Item Value Reference Range Interpretation Comments Trileptal Lvl (test code = Trileptal 20.5 8.0-35.0 Lvl) [facility] CampusTvdololIKQLXQYVRT1976-91-21 18:33:00 Test Item Value Reference Range Interpretation Comments Lamotrigine Lvl (test code = 1.7 4.0-18.0 Lamotrigine Lvl) [facility]2020-11-19 18:33:00 Test Item Value Reference Range Interpretation Comments Calcium Lvl (test code = Calcium Lvl) 9.5 8.6-10.2 [facility]2020-11-19 18:33:00 Test Item Value Reference Range Interpretation Comments Total Protein (test code = Total 7.5 6.1-8.1 Protein) [facility]2020-11-19 18:33:00 Test Item Value Reference Range Interpretation Comments Albumin Lvl (test code = Albumin Lvl) 4.5 3.6-5.1 [facility]2020-11-19 18:33:00 Test Item Value Reference Range Interpretation Comments Globulin (test code = Globulin) 3.0 1.9-3.7 [facility]2020-11-19 18:33:00 Test Item Value Reference Range Interpretation Comments A/G Ratio (test code = A/G Ratio) 1.5 1.0-2.5 [facility]2020-11-19 18:33:00 Test Item Value Reference Range Interpretation Comments Bili Total (test code = Bili Total) 0.3 0.2-1.2 [facility]2020-11-19 18:33:00 Test Item Value Reference Range Interpretation Comments Alk Phos (test code = Alk Phos) 77 31-125 [facility]2020-11-19 18:33:00 Test Item Value Reference Range Interpretation Comments ASPARTATE TRANSAMINASE (test code = 15 10-30 ASPARTATE TRANSAMINASE) [facility]2020-11-19 18:33:00 Test Item Value Reference Range Interpretation Comments ALANINE AMINOTRANSFERASE (test code = 11 6-29 ALANINE AMINOTRANSFERASE) [facility] CenterDtvulnwBAZOCBWIKO9176-96-01 18:33:00 Test Item Value Reference Range Interpretation Comments WBC X 10x3 (test code = WBC X 10x3) 8.5 3.8-10.8 [facility] HospitalAnaihvdSGIANYHORC9329-13-55 18:33:00 Test Item Value Reference Range Interpretation Comments RBC X 10x6 (test code = RBC X 10x6) 3.90 3.80-5.10 [facility] HospitalJyqjhbxHOFAYSUWLN8036-78-59 18:33:00 Test Item Value Reference Range Interpretation Comments Hgb (test code = Hgb) 12.4 11.7-15.5 [facility] Hospit[id number] 18:33:00 Test Item Value Reference Range Interpretation Comments Hct (test code = Hct) 36.6 35.0-45.0 [facility] HospitalXtennuxRRZTGXGQUX4564-56-12 18:33:00 Test Item Value Reference Range Interpretation Comments MCV (test code = MCV) 93.8 80.0-100.0 [facility] CenterQxqaqcoMWKNPCSHWF7502-08-18 18:33:00 Test Item Value Reference Range Interpretation Comments MCH (test code = MCH) 31.8 pg 27.0-33.0 [facility] CenterPxaiykfBZKGYVYTNV3838-76-88 18:33:00 Test Item Value Reference Range Interpretation Comments MCHC (test code = MCHC) 33.9 32.0-36.0 [facility] HospitalXzysfbyKAWADMSOFJ2148-29-74 18:33:00 Test Item Value Reference Range Interpretation Comments RDW (test code = RDW) 12.2 11.0-15.0 [facility] CenterXqflessQDBEAFVWPE3145-07-19 18:33:00 Test Item Value Reference Range Interpretation Comments Platelet (test code = Platelet) 390 140-400 [facility] CenterCkqpaqeXOWSKHFZRB4004-41-32 18:33:00 Test Item Value Reference Range Interpretation Comments MPV (test code = MPV) 9.4 7.5-12.5 [facility] CenterGgfxzqvXRJWIVRXPK0476-01-42 18:33:00 Test Item Value Reference Range Interpretation Comments Neutrophils # (test code = Neutrophils 6035 8376-6899 #) [facility] CenterWxopncfOLMOGAFZGC6016-18-81 18:33:00 Test Item Value Reference Range Interpretation Comments Lymphocytes # (test code = Lymphocytes 3071 714-7734 #) [facility] CenterOblbdfaCAJZWQXOJX3019-68-36 18:33:00 Test Item Value Reference Range Interpretation Comments Monocytes # (test code = Monocytes #) 349 200-950 [facility] CenterRypjultZTRMMYJUFL8043-96-10 18:33:00 Test Item Value Reference Range Interpretation Comments Eosinophils # (test code = Eosinophils 136 15-500 #) [facility] CenterYjqvqgqQBREVXBYSV4780-32-58 18:33:00 Test Item Value Reference Range Interpretation Comments Basophils # (test code 51 See_Comment [Aut omated message] The = Basophils #) system which generated this result tra nsmitted reference range : <=200. The reference r cole was not used to int erpret this result as normal/abnormal . [facility] CenterEfrgmhtFQHZZNZREF6723-52-39 18:33:00 Test Item Value Reference Range Interpretation Comments Segs (test code = Segs) 71 [facility] CenterRofkzogTKCXTRHDWE7252-09-76 18:33:00 Test Item Value Reference Range Interpretation Comments Lymphocytes (test code = Lymphocytes) 22.7 [place] [id number] 18:33:00 Test Item Value Reference Range Interpretation Comments Monocytes (test code = Monocytes) 4.1 [facility] CenterPhprtkuGYSUGKKKQQ9609-41-57 18:33:00 Test Item Value Reference Range Interpretation Comments Eosinophils (test code = Eosinophils) 1.6 [place] 384030-11-19 18:33:00 Test Item Value Reference Range Interpretation Comments Basophils (test code = Basophils) 0.6 [place] [id number] 18:33:00 Test Item Value Reference Range Interpretation Comments Trileptal Lvl (test code = Trileptal 20.5 8.0-35.0 Lvl) [place] [id number] 18:33:00 Test Item Value Reference Range Interpretation Comments Lamotrigine Lvl (test code = 1.7 4.0-18.0 Lamotrigine Lvl) [facility] HospitalVideof[facility] [id number] 18:33:00 Test Item Value Reference Range Interpretation Comments Glucose Lvl (test code = Glucose Lvl) 83 65-139 [facility]2020-11-19 18:33:00 Test Item Value Reference Range Interpretation Comments BUN (test code = BUN) 9 7-25 [facility]2020-11-19 18:33:00 Test Item Value Reference Range Interpretation Comments Creatinine Lvl (test code = Creatinine 0.60 0.50-1.10 Lvl) [facility] HospitalCHEM [id number] 18:33:00 Test Item Value Reference Range Interpretation Comments eGFR NON-AFR. MAURITANIAN (test code = 116 eGFR NON-AFR. MAURITANIAN) [facility]2020-11-19 18:33:00 Test Item Value Reference Range Interpretation Comments eGFR (test code = eGFR 134 ) [facility]2020-11-19 18:33:00 Test Item Value Reference Range Interpretation Comments B/C Ratio (test code = B/C NOT APPLICABLE 622 Ratio) [facility] Cle[facility]neContour, LLCFORMERLY P[facility] [id number] 18:33:00 Test Item Value Reference Range Interpretation Comments Sodium Lvl (test code = Sodium Lvl) 129 135-146 [facility] [id number] 18:33:00 Test Item Value Reference Range Interpretation Comments Potassium Lvl (test code = Potassium 4.3 3.5-5.3 Lvl) [facility] [id number] 18:33:00 Test Item Value Reference Range Interpretation Comments Chloride Lvl (test code = Chloride Lvl) 95 98-110 [facility] [id number] 18:33:00 Test Item Value Reference Range Interpretation Comments CO2 (test code = CO2) 25 20-32 [facility] [id number] 18:33:00 Test Item Value Reference Range Interpretation Comments Calcium Lvl (test code = Calcium Lvl) 9.5 8.6-10.2 [facility] [id number] 18:33:00 Test Item Value Reference Range Interpretation Comments Total Protein (test code = Total 7.5 6.1-8.1 Protein) [facility] [id number] 18:33:00 Test Item Value Reference Range Interpretation Comments Albumin Lvl (test code = Albumin Lvl) 4.5 3.6-5.1 [facility] [id number] 18:33:00 Test Item Value Reference Range Interpretation Comments Globulin (test code = Globulin) 3.0 1.9-3.7 [facility] [id number] 18:33:00 Test Item Value Reference Range Interpretation Comments A/G Ratio (test code = A/G Ratio) 1.5 1.0-2.5 [facility] [id number] 18:33:00 Test Item Value Reference Range Interpretation Comments Bili Total (test code = Bili Total) 0.3 0.2-1.2 [facility]2020-11-19 18:33:00 Test Item Value Reference Range Interpretation Comments Alk Phos (test code = Alk Phos) 77 31-125 [facility]2020-11-19 18:33:00 Test Item Value Reference Range Interpretation Comments ASPARTATE TRANSAMINASE (test code = 15 10-30 ASPARTATE TRANSAMINASE) [facility]2020-11-19 18:33:00 Test Item Value Reference Range Interpretation Comments ALANINE AMINOTRANSFERASE (test code = 11 6-29 ALANINE AMINOTRANSFERASE) [facility] CenterCqvdgxbFWDGSZCMTL0895-47-09 18:33:00 Test Item Value Reference Range Interpretation Comments WBC X 10x3 (test code = WBC X 10x3) 8.5 3.8-10.8 [facility] CenterRbrxikmADSHDDOTUG3770-55-30 18:33:00 Test Item Value Reference Range Interpretation Comments RBC X 10x6 (test code = RBC X 10x6) 3.90 3.80-5.10 [facility] CenterUwjhjdoMAAECRMTLV4399-21-04 18:33:00 Test Item Value Reference Range Interpretation Comments Hgb (test code = Hgb) 12.4 11.7-15.5 [facility] CenterWiuhnncRSHLCWAKVP2893-88-22 18:33:00 Test Item Value Reference Range Interpretation Comments Hct (test code = Hct) 36.6 35.0-45.0 [facility] CenterIentdboNSUMYOWTQP0878-93-06 18:33:00 Test Item Value Reference Range Interpretation Comments MCV (test code = MCV) 93.8 80.0-100.0 [facility] CenterMfjypakILQDYEEWKK9741-58-97 18:33:00 Test Item Value Reference Range Interpretation Comments MCH (test code = MCH) 31.8 pg 27.0-33.0 [facility] CenterXlbsuqeTNHVORHRYQ3275-30-25 18:33:00 Test Item Value Reference Range Interpretation Comments MCHC (test code = MCHC) 33.9 32.0-36.0 [facility] CenterVkcmfdzLRTJFCWWTR1244-68-48 18:33:00 Test Item Value Reference Range Interpretation Comments RDW (test code = RDW) 12.2 11.0-15.0 [facility] CenterJkkhlqlODWOEKIKWX2199-90-69 18:33:00 Test Item Value Reference Range Interpretation Comments Platelet (test code = Platelet) 390 140-400 [facility] HospitalWmbodkdSQJGYEKZNE4222-37-70 18:33:00 Test Item Value Reference Range Interpretation Comments MPV (test code = MPV) 9.4 7.5-12.5 [facility] HospitalPrqiuffFNKUBRIAWM4936-23-70 18:33:00 Test Item Value Reference Range Interpretation Comments Neutrophils # (test code = Neutrophils 6035 7887-7148 #) [facility] HospitalDdjqyegAXRFGPZPHX4073-05-38 18:33:00 Test Item Value Reference Range Interpretation Comments Lymphocytes # (test code = Lymphocytes 1489 686-2045 #) [facility] HospitalZzgvmunFQPOJCOXUH7324-81-17 18:33:00 Test Item Value Reference Range Interpretation Comments Monocytes # (test code = Monocytes #) 349 200-950 [facility] HospitalWxgewelKPCMJJRQMB3329-78-95 18:33:00 Test Item Value Reference Range Interpretation Comments Eosinophils # (test code = Eosinophils 136 15-500 #) [facility] HospitalPleyeuzBNHTHMACXY1794-29-98 18:33:00 Test Item Value Reference Range Interpretation Comments Basophils # (test code 51 See_Comment [Aut omated message] The = Basophils #) system which generated this result tra nsmitted reference range : <=200. The reference r cole was not used to int erpret this result as normal/abnormal . [facility] CenterKnngpskMAMFCHPHKP7992-01-80 18:33:00 Test Item Value Reference Range Interpretation Comments Segs (test code = Segs) 71 [facility] CenterSdfzdyuDMHQWZJLIQ4071-13-19 18:33:00 Test Item Value Reference Range Interpretation Comments Lymphocytes (test code = Lymphocytes) 22.7 [facility] HospitalDfepyndULHYYUDUAI2638-83-80 18:33:00 Test Item Value Reference Range Interpretation Comments Monocytes (test code = Monocytes) 4.1 [facility] HospitalWrrrdlkNJFIRKEFNU6210-96-51 18:33:00 Test Item Value Reference Range Interpretation Comments Eosinophils (test code = Eosinophils) 1.6 [facility] HospitalDxwpkntIKEHOOTGIA4478-67-44 18:33:00 Test Item Value Reference Range Interpretation Comments Basophils (test code = Basophils) 0.6 [facility] HospitalXvfexeqIRYNKWWZBI8949-66-73 18:33:00 Test Item Value Reference Range Interpretation Comments Trileptal Lvl (test code = Trileptal 20.5 8.0-35.0 L[facility]) [id number] 18:33:00 Test Item Value Reference Range Interpretation Comments Lamotrigine Lvl (test code = 1.7 4.0-18.0 Lamotrigine Lvl) [facility]2020-11-19 18:33:00 Test Item Value Reference Range Interpretation Comments Glucose Lvl (test code = Glucose Lvl) 83 65-139 [facility]2020-11-19 18:33:00 Test Item Value Reference Range Interpretation Comments BUN (test code = BUN) 9 7-25 [facility]2020-11-19 18:33:00 Test Item Value Reference Range Interpretation Comments Creatinine Lvl (test code = Creatinine 0.60 0.50-1.10 Lvl) [facility]2020-11-19 18:33:00 Test Item Value Reference Range Interpretation Comments eGFR NON-AFR. MAURITANIAN (test code = 116 eGFR NON-AFR. [facility]URITANIAN) [facility]
[2022-11-23] MEDS ORDERED: MORPHINE 4 MG/ML SYR ONE ×2 (13:23→14:20)
--- NOTE | 2022-11-23 14:31 | RAD REPORT ---
EXAM DESCRIPTION: RAD - Ankle Left 3 View -11/23/2022 2:09 pm CLINICAL HISTORY: Left ankle pain status post injury FINDINGS: Comminuted fracture involves medial aspect of talus with avulsed fracture fragments. Possible talocalcaneal dislocation
--- NOTE | 2022-11-23 14:33 | RAD REPORT ---
EXAM DESCRIPTION: Bessy Mendenhall Left11/23/2022 2:09 pm CLINICAL HISTORY: Left leg pain status post injury FINDINGS: Comminuted fracture involves medial aspect of talus with avulsed fracture fragments.
--- NOTE | 2022-11-23 14:34 | RAD REPORT ---
EXAM DESCRIPTION: RAD - Hip Bilateral With Pelvis - 11/23/2022 2:09 pm CLINICAL HISTORY: Pelvic pain FINDINGS: No fracture or dislocation seen.
--- NOTE | 2022-11-23 14:35 | RAD REPORT ---
EXAM DESCRIPTION: RAD - Femur Left - 11/23/2022 2:09 pm CLINICAL HISTORY: Left leg pain FINDINGS: No fracture is seen
--- NOTE | 2022-11-23 15:21 | RAD REPORT ---
EXAM DESCRIPTION: CT - Head C Spine Cap Carlie Avila - 11/23/2022 3:03 pm CLINICAL HISTORY: Head and neck injury with chest and abdominal pain status post fall. Head and neck pain . TECHNIQUE: Computed axial tomography of the head and cervical spine was obtained Computed axial tomography of the chest, abdomen and pelvis was obtained. 100 cc Isovue-300 was given intravenously coronal and sagittal reconstruction was performed. All CT scans are performed using dose optimization technique as appropriate and may include automated exposure control or mA/KV adjustment according to patient size. COMPARISON: November 05, 2022 CT abdomen FINDINGS: An intracranial bleed is not seen. The ventricles are normal in caliber. An extra-axial fl uid collection is not noted. Fluid within the sinuses is not seen A cervical fracture is not seen. No dislocation is seen. A mediastinal hematoma is not noted. A pleural effusion is not present. A lung contusion is not seen. A pectus deformity 6 millimeter subpleural right upper lobe nodule. 5 millimeter nodule abuts the right fissure. The liver, spleen, pancreas, adrenals, kidneys and bladder do not demonstrate an acute traumatic inju ry 3 millimeter nonobstructing left renal calculus IMPRESSION: No acute intracranial abnormality is seen A cervical fracture is not visualized. If the patient continues have symptoms to suggest intracranial /spinal cord pathology then MRI would be recommended. No acute traumatic injury involving the chest, abdomen or pelvis is seen. Two right lung nodules. Largest measures [address] chest in 6-12 months recommended
--- NOTE | 2022-11-23 15:37 | RAD REPORT ---
EXAM DESCRIPTION: CT - Ankle Left Wo Con - 11/23/2022 3:16 pm CLINICAL HISTORY: Talus fracture COMPARISON: X-ray November 23, 2022 TECHNIQUE: Computed axial tomography left ankle obtained with coronal and sagittal reconstruction All CT scans are performed using dose optimization technique as appropriate and may include automated exposure control or mA/KV adjustment according to patient size. FINDINGS: A markedly comminuted fracture involves with talus. The fracture predominantly involves mi d and posterior aspect of the talus. Talocalcaneal dislocation is present. IMPRESSION: Markedly comminuted talar fracture Talocalcaneal dislocation
[2022-11-23] MEDS ORDERED: HYDROMORPHONE HCL 1 MG/ML INJ ONE ×2 (15:39→17:45)
[2022-11-23] MEDS ORDERED: TDAP (DIPHTH,PERTUSS(ACELL),TET VAC) 0.5 ML VIAL IMVAC ONE (16:14)
--- NOTE | 2022-11-23 16:20 | ER ---
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 Abrasions down R arm and ll1 leg. L ankle pain. No LOC or head injury. 13:04 Chief complaint: EMS states: VSS 20 L FA, Ketamine 15 MG IV x 2 given, Zofran 4 MG IV ll1 given en route. Coronavirus screen: Vaccine status: Patient reports receiving the 2nd dose of the covid vaccine. Client denies travel out of the [place] in the last 14 days. At this time, the client does not indicate any symptoms associated with coronavirus-19. Ebola Screen: Patient denies travel to an Ebola-affected area in the 21 days before illness onset. Initial Sepsis Screen: Does the patient meet any 2 criteria? No. Patient's initial sepsis screen is negative. Does the patient have a suspected source of infection? Yes: Skin breakdown/wound. Risk Assessment: Do you want to hurt yourself or someone else? Patient reports no desire to harm self or others. Onset of symptoms was November 23, 2022. 13:04 Method Of Arrival: EMS: [facility] 1 13:04 Acuity: [place] 3 ll1 Triage Assessment: 13:03 General: Appears uncomfortable, Behavior is cooperative, appropriate for age, anxious. ll1 Pain: Complains of pain in L ankle Quality of pain is described as aching, throbbing. Derm: abrasions down R arm and R leg. Musculoskeletal: Reports pain in L ankle. 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25 mL after meals and before bedtime [Active]; Ventolin HFA 90 mcg/actuation Nebulizer HFAA 2 puffs every 6 hours [Active]; 16:15 Lamictal 25 mg Oral tablet 2 tabs every 12 hours [Active]; Valtrex 1 gram Oral tablet snw once [Active]; - PMHx: 13:02 Anxiety; Asthma; epilepsy; ll1 - PSHx: 13:02 Tonsillectomy; section; ll1 - Immunization history:: Adult Immunizations up to date. - Social history:: Smoking status: Patient denies any tobacco usage or history of. Screenin:23 [facility] ED Fall Risk Assessment (Adult) History of falling in the last 3 months, ll1 including since admission Yes- single mechanical fall (1 pt) Impaired Gait Yes (1 pt) Mobility Assist Device Used Yes (1 pt) Score/Fall Risk Level 3 or more points = High Risk Oriented to surroundings, Maintained a safe environment, Educated pt \T\ family on fall prevention, incl call for assistance when getting out of bed, Hourly rounding (assess needs \T\ fall precautionary measures) done, Remained with patient while ambulating. Abuse screen: Denies threats or abuse. Nutritional screening: No deficits noted. Tuberculosis screening: No symptoms or risk factors identified. Assessment: 13:23 Reassessment: No changes from previously documented assessment. Patient and/or family ll1 updated on plan of care and expected duration. Pain level reassessed. Patient is alert, oriented x 3, equal unlabored respirations, skin warm/dry/pink. 13:34 Reassessment: No changes from previously documented assessment. Patient and/or family ll1 updated on plan of care and expected duration. Pain level reassessed. states the pain medicine hasn't started to help yet. Katharine Sexton, informed. 14:46 Reassessment: No changes from previously documented assessment. To CT via stretcher. ll1 15:38 Reassessment: No changes from previously documented assessment. Patient and/or family ll1 updated on plan of care and expected duration. Pain level reassessed. Patient is alert, oriented x 3, equal unlabored respirations, skin warm/dry/pink. 16:19 Reassessment: No changes from previously documented assessment. Patient and/or family ll1 updated on plan of care and expected duration. Pain level reassessed. Patient is alert, oriented x 3, equal unlabored respirations, skin warm/dry/pink. 17:48 Reassessment: No changes from previously documented assessment. Patient and/or family ll1 updated on plan of care and expected duration. Pain level reassessed. Patient is alert, oriented x 3, equal unlabored respirations, skin warm/dry/pink. Vital Signs: 13:04 BP 129 / 89; Pulse 62; Resp 18; Temp 98.1; Pulse Ox 100% on R/A; Weight 63.05 kg; ll1 Height 5 ft. 2 in. ; Pain 10/10; 15:37 BP 129 / 89; Pulse 70; Resp 17; Pulse Ox 100% on R/A; Pain 10/10; ll1 17:47 BP 128 / 86; Pulse 72; Resp 16; Pulse Ox 100% ; Pain 9/10; ll1 13:04 Body Mass Index 25.42 (63.05 kg, 157.48 cm) ll1 13:04 Pain Scale: Adult ll1 15:37 Pain Scale: Adult ll1 17:47 Pain Scale: Adult ll1 ED Course: 13:00 Patient arrived in ED. mm9 13:02 Jamie Madera, JEFRY is Primary Nurse. ll1 13:02 Arm band placed on Patient placed in an exam room, on a stretcher. ll1 13:03 Katharine Larsen FNP-C is PHCP. snw 13:03 Den Nogueira MD is Attending Physician. snw 13:03 Maintain EMS IV. Dressing intact. Good blood return noted. Site clean \T\ dry. Gauge \T\ ll 1 site: 20 L FA. 13:06 Katharine Larsen FNP-C is PHCP. snw 13:06 Triage completed. ll1 13:24 Patient has correct armband on for positive identification. Bed in low position. Call ll1 light in reach. Side rails up X2. Client placed on continuous cardiac and pulse oximetry monitoring. NIBP monitoring applied. 14:10 XRAY Tib Fib LEFT In Process Unspecified. EDMS 14:10 Ankle Left 3 View XRAY In Process Unspecified. EDMS 14:10 Femur Left XRAY In Process Unspecified. EDMS 14:10 Hip Bilateral With Pelvis In Process Unspecified. EDMS 15:05 CT Traumagram (Head C Spine CAP W Con) In Process Unspecified. EDMS 15:16 Ankle Left Wo Con In Process Unspecified. EDMS 16:03 initiated a transfer with Amparo from the [facility] due to trauma. 16:14 administrative approval given by Amparo Chen Rn/ patient has been accepted to [facility] ER/ Dr. Trevor Padilla has accepted the patient without conference with Katharine James/ report to be called to [phone]. 16:19 Boateng cath inserted, using sterile technique, 16 Fr., by ma, balloon inflated, to ll1 gravity drainage, urine specimen collected. Patient tolerated well. 16:50 No provider procedures requiring assistance completed. Patient transferred, IV remains ll1 in place. Administered Medications: 13:21 Drug: morphine IVP or IV 4 mg {Note: RASS 0, pain 10/10.} Route: IVP; Infused Over: 4 ll1 mins; Site: left forearm; 16:04 Follow up: Response: No adverse reaction; Pain is unchanged, physician notified ll1 14:16 Drug: morphine IVP or IV 4 mg {Note: pain 10/10, RASS 0.} Route: IVP; Infused Over: 4 ll1 mins; Site: left forearm; 16:04 Follow up: Response: No adverse reaction; Pain is unchanged, physician notified ll1 15:37 Drug: HYDROmorphone IVP 1 mg Route: IVP; Site: left forearm; ll1 16:19 Follow up: Response: No adverse reaction; Pain is decreased; RASS: Alert and Calm (0) ll1 16:16 Drug: Boostrix Tdap IM 0.5 ml Route: IM; Site: right deltoid; ll1 17:47 Follow up: Response: No adverse reaction ll1 17:47 Drug: HYDROmorphone IVP 1 mg Route: IVP; Site: left forearm; ll1 17:47 Follow up: Response: No adverse reaction ll1 Medication: 13:24 VIS not applicable for this client. ll1 Outcome: 16:19 ER care complete, transfer ordered by . snw 16:50 Transferred by ground EMS to [facility], Transfer form completed. Note: ll1 Diane 16:50 Transferred Note: Report called to Carlos at [facility] ER 16:50 Condition: stable 16:50 Instructed on the need for transfer. 17:48 Patient left the ED. ll1 Signatures: Dispatcher [employer] EDMS Katharine Larsen, MEMS PROCESS ENGINEER-C MEMS PROCESS ENGINEER-Csnw Diane Box Lynsay, RN RN ll1 Gabriela Oreilly mm9 Corrections: (The following items were deleted from the chart) 13:21 13:21 morphine IVP or IV 4 mg IVP in left forearm over 4 mins ll1 ll1 16:17 16:11 Home Meds: sertraline 100 mg oral tablet 1 tab daily; toi cm
--- NOTE | 2022-11-23 16:20 | EDPHYS ---
Physician Documentation [facility] Name: Dionne Ventura Age: 42 yrs Sex: Female : 1980 Arrival Date: 11/23/2022 Time: 12:58 Bed 19 Private MD: ED Physician Den Nogueira HPI: 11/23 13:15 This 42 yrs old Female presents to ER via EMS with complaints of fall. snw 13:15 Trauma demographics: County: The injury occurred in [place]. Mechanism of injury: snw Fall: the patient fell from a ladder approximately "high up". Onset: The symptoms/episode began/occurred suddenly, just prior to arrival. The patient has not experienced similar symptoms in the past. It is unknown whether or not the patient has recently seen a physician. no LOC. 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25 mL after meals and before bedtime [Active]; Ventolin HFA 90 mcg/actuation Nebulizer HFAA 2 puffs every 6 hours [Active]; 16:15 Lamictal 25 mg Oral tablet 2 tabs every 12 hours [Active]; Valtrex 1 gram Oral tablet snw once [Active]; - PMHx: 13:02 Anxiety; Asthma; epilepsy; ll1 - PSHx: 13:02 Tonsillectomy; section; ll1 - Immunization history:: Adult Immunizations up to date. - Social history:: Smoking status: Patient denies any tobacco usage or history of. ROS: 13:16 Constitutional: Negative for fever, chills, and weight loss, Eyes: Negative for injury, snw pain, redness, and discharge, ENT: Negative for injury, pain, and discharge, Neck: Negative for injury, pain, and swelling, Cardiovascular: Negative for chest pain, palpitations, and edema, Respiratory: Negative for shortness of breath, cough, wheezing, and pleuritic chest pain, Abdomen/GI: Negative for abdominal pain, nausea, vomiting, diarrhea, and constipation, Back: Negative for injury and pain, : Negative for injury, bleeding, discharge, and swelling, Skin: Negative for injury, rash, and discoloration, Neuro: Negative for headache, weakness, numbness, tingling, and seizure, Psych: Negative for depression, anxiety, suicide ideation, homicidal ideation, and hallucinations. 13:16 MS/extremity: Positive for injury or acute deformity, of the left leg with severe pain, abrasion to right forearm. Exam: 13:16 Head/Face: Normocephalic, atraumatic. Eyes: Pupils equal round and reactive to light, snw extra-ocular motions intact. Lids and lashes normal. Conjunctiva and sclera are non-icteric and not injected. Cornea within normal limits. Periorbital areas with no swelling, redness, or edema. ENT: Nares patent. No nasal discharge, no septal abnormalities noted. Tympanic membranes are normal and external auditory canals are clear. Oropharynx with no redness, swelling, or masses, exudates, or evidence of obstruction, uvula midline. Mucous membranes moist. Neck: Trachea midline, no thyromegaly or masses palpated, and no cervical lymphadenopathy. Supple, full range of motion without nuchal rigidity, or vertebral point tenderness. No Meningismus. Chest/axilla: Normal chest wall appearance and motion. Nontender with no deformity. No lesions are appreciated. Cardiovascular: Regular rate and rhythm with a normal S1 and S2. No gallops, murmurs, or rubs. Normal PMI, no JVD. No pulse deficits. Respiratory: Lungs have equal breath sounds bilaterally, clear to auscultation and percussion. No rales, rhonchi or wheezes noted. No increased work of breathing, no retractions or nasal flaring. Abdomen/GI: Soft, non-tender, with normal bowel sounds. No distension or tympany. No guarding or rebound. No evidence of tenderness throughout. Back: No spinal tenderness. No costovertebral tenderness. Full range of motion. 13:16 Neuro: Awake and alert, GCS 15, oriented to person, place, time, and situation. Cranial nerves II-XII grossly intact. Motor strength 5/5 in all extremities. Sensory grossly intact. Cerebellar exam normal. Normal gait. Psych: Awake, alert, with orientation to person, place and time. Behavior, mood, and affect are within normal limits. 13:16 Constitutional: The patient appears alert, awake, anxious, uncomfortable. 13:16 Musculoskeletal/extremity: ROM: limited active range of motion due to pain, limited passive range of motion due to pain, the left quadriceps, left dyson and anterior aspect of left ankle 13:16 Skin: Appearance: normal except for affected area, injury, abrasion(s), small abrasion noted, of the dorsal aspect of right forearm. Vital Signs: 13:04 BP 129 / 89; Pulse 62; Resp 18; Temp 98.1; Pulse Ox 100% on R/A; Weight 63.05 kg; ll1 Height 5 ft. 2 in. ; Pain 10/10; 15:37 BP 129 / 89; Pulse 70; Resp 17; Pulse Ox 100% on R/A; Pain 10/10; ll1 17:47 BP 128 / 86; Pulse 72; Resp 16; Pulse Ox 100% ; Pain 9/10; ll1 13:04 Body Mass Index 25.42 (63.05 kg, 157.48 cm) ll1 13:04 Pain Scale: Adult ll1 15:37 Pain Scale: Adult ll1 17:47 Pain Scale: Adult ll1 MDM: 13:19 Differential diagnosis: extremity fracture. Data reviewed: vital signs, nurses notes. snw Historians other than the Patient: EMS: [facility]. Counseling: I had a detailed discussion with the patient and/or guardian regarding: the historical points, exam findings, and any diagnostic results supporting the discharge/admit diagnosis. 13:20 Patient medically screened. snw 14:31 Independent interpretation of the following test(s) in the Emergency Department X-Ray: snw My interpretation is talus comminuted, posterior tibia fx, will CT traumagram. 16:03 Response to treatment: the patient's symptoms have mildly improved after treatment. snw 16:04 ED course: Request transfer for ortho trauma. snw 16:19 Management of patient was discussed with the following: Accepted at [facility] per Dr. toi West without report. I considered the following discharge prescriptions or medication management in the emergency department Medications were administered in the Emergency Department. See SEP. 11/23 13:15 Order name: XRAY Tib Fib LEFT; Complete Time: 14:36 snw 11/23 13:15 Order name: Ankle Left 3 View XRAY; Complete Time: 14:36 snw 11/23 13:15 Order name: Femur Left XRAY; Complete Time: 14:36 snw 11/23 13:52 Order name: Hip Bilateral With Pelvis; Complete Time: 14:36 EDMS 11/23 14:31 Order name: CT Traumagram (Head C Spine CAP W Con); Complete Time: 15:27 snw 11/23 15:10 Order name: Ankle Left Wo Con; Complete Time: 15:42 EDMS 11/23 16:05 Order name: Boateng; Complete Time: 16:16 snw Administered Medications: 13:21 Drug: morphine IVP or IV 4 mg {Note: RASS 0, pain 10/10.} Route: IVP; Infused Over: 4 ll1 mins; Site: left forearm; 16:04 Follow up: Response: No adverse reaction; Pain is unchanged, physician notified ll1 14:16 Drug: morphine IVP or IV 4 mg {Note: pain 10/10, RASS 0.} Route: IVP; Infused Over: 4 ll1 mins; Site: left forearm; 16:04 Follow up: Response: No adverse reaction; Pain is unchanged, physician notified ll1 15:37 Drug: HYDROmorphone IVP 1 mg Route: IVP; Site: left forearm; ll1 16:19 Follow up: Response: No adverse reaction; Pain is decreased; RASS: Alert and Calm (0) ll1 16:16 Drug: Boostrix Tdap IM 0.5 ml Route: IM; Site: right deltoid; ll1 17:47 Follow up: Response: No adverse reaction ll1 17:47 Drug: HYDROmorphone IVP 1 mg Route: IVP; Site: left forearm; ll1 17:47 Follow up: Response: No adverse reaction ll1 Disposition Summary: 11/23/22 16:19 Transfer Ordered Transfer Location: [facility] snw Reason: Higher level of care snw Condition: Stable snw Problem: new snw Symptoms: are unchanged snw Accepting Physician: Dr. Trevor West(11/23/22 17:48) ll1 Diagnosis - Comminuted Talar fx with talocalcaneal dislocation snw - Fall on and from ladder, initial encounter snw Forms: - Medication Reconciliation Form snw - SBAR form snw Signatures: Dispatcher [employer] EDMS Katharine Larsen, JUDY-C RECYCLING COORDINATOR-Csnw Jamie Madera, RN RN ll1 Corrections: (The following items were deleted from the chart) 15:10 14:59 CT LEFT ANKLE WO CONTRAST ordered. EDMS EDMS 16:03 13:16 Skin: Appearance: normal except for affected area, injury, abrasion(s), small snw abrasion noted, of the right bicep, snw 16:17 16:11 Home Meds: sertraline 100 mg oral tablet 1 tab daily; snw snw 17:48 16:19 Dr. Trevor West snw ll1
[2022-11-23 18:01] VITALS: TEMP 98.1; O2SAT 100
[2022-11-23 18:10] VITALS: BP 128/86
== END 2022-11-23 17:48 | disposition short-term general hospital (02) ==
LOC: ER 12:58
DX: S92.102A Unspecified fracture of left talus, initial encounter for closed fracture (principal); S50.811A Abrasion of right forearm, initial encounter; W11.XXXA Fall on and from ladder, initial encounter; F41.9 Anxiety disorder, unspecified; J45.909 Unspecified asthma, uncomplicated; G40.909 Epilepsy, unspecified, not intractable, without status epilepticus; Z88.1 Allergy status to other antibiotic agents; Z88.2 Allergy status to sulfonamides; Z88.3 Allergy status to other anti-infective agents
CPT/HCPCS: 70450; 72125; 71260; 73700; 74177; 73521; 73552; 73590; 73610; Q9967; J1170 ×2

== ENCOUNTER 2022-12-18 14:54 | Emergency (ER) | payer OTHER ==
--- OUTSIDE RECORDS SUMMARY | 2022-12-18 15:03 | XMS REPORT | Continuity of Care Document ---
:[address] [facility] t Address [address] [facility] [address] [place] [address] Care Team Providers Name Role Phone No , Pcp Primary Care Physician Unavailable Brady Acevedo Attending Clinician Unavailable NELI OLEA Attending Clinician Unavailable DAGMAR VELAZQUEZ Attending Clinician Unavailable COURT COLVIN Attending Clinician Unavailable DORIS CLAUDIO Attending Clinician Unavailable Neli Olea PA-C Attending Clinician Pob, [facility] Main Attending Clinician Unavailable Doctor Unassigned, [place] Attending Clinician Unavailable Galdino Hill Attending Clinician CRISTOBAL CHISHOLM Attending Clinician Unavailable CRISTOBAL CHISHOLM Attending Clinician Unavailable Annel Loomis MD Attending Clinician ANNEL LOOMIS Attending Clinician Unavailable Odilon Desai DO Attending Clinician 2, [facility] Attending Clinician Unavailable Shari Sin MD Attending Clinician Trevor Freeman Attending Clinician Toribio Estrada Attending Clinician DORIS CLAUDIO Admitting Clinician Unavailable Payers Payer Name Policy Type Policy Number Effective Date Expiration Date S stewart [place] [id number] 2019 STARPLUS OON EXC 00:00:00 [facility] MEDICARE PART A [id number] 2005 \T\ B 00:00:00 Problems Condition Condition Condition Status Onset Resolution Last Treating Co mments Source Name Details Category Date Date Treatment Clinician Date Disp fx of Disp fx of Disease Active U T body of body of 12-05 Health left left 00:00: [place], [place], 00 init init encntr for encntr for open open fracture fracture Lump or Lump or Disease Active 2020-07 Univers mass in mass in 05 ity of breast breast 00:00: [place] [facility] Branch Family Family Disease Active 2020-07 Univers history of history of 07-11 it y of breast breast 00:00: [place] cancer cancer Medical Branch Disease Active Unive rs wound wound 9-18 ity of infection infection 00:00: [facility] Branch Disease Active Unive rs delivery delivery 9-12 ity of delivered delivered 00:00: [address] Branch High risk High risk Disease Active Uni vers , , 9-06 it y of antepartum antepartum [place] [facility] Seizure Seizure Disease Active Univers disorder disorder 9-06 ity of during during 00:00: [place] 00 Medi harlan in third in third Branch trimester trimester 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 00:00: [place] (HSV-2) (HSV-2) 00 Medical infection infection Bran ch affecting affecting , , antepartum antepartum Obesity Obesity Disease Active Univers (BMI (BMI 8-27 ity of 30-39.9) 30-39.9) 00:00: [address] Branch Asthma Asthma Disease Active Univers complicati complicati 8-24 it y of ng ng 00:00: [place] , , 00 Me dical antepartum antepartum Br anch Excessive Excessive Disease Active Uni vers weight weight 7-16 ity of gain gain 00:00: [place] [id number] Medical Branch Herpes Herpes Disease Active Univers simplex simplex 6-09 ity of virus type virus [place] 2 (HSV-2) 2 (HSV-2) 00 Medi harlan infection infection Bran ch affecting affecting in second in second trimester trimester History of History of Disease Active U nivers herpes herpes 3-22 ity of genitalis genitalis [place] Seizure Seizure Disease Active Univers disorder disorder 3-22 ity of 00:00: [place] 00 Medical Branch Anxiety Anxiety Disease Active Univers disorder, disorder, 3-22 ity of unspecifie unspecifie [place] type d type 00 Medical [place] Bipolar Bipolar Disease Active Univers affective affective 3-22 ity of disorder, disorder, 00:[place] remission 00 Med[place] harlan status status Branch unspecifie unspecifie d d History of History of Disease Active U nivers substance substance 3-22 ity of use use 00:00: [place] 00 Medical Branch 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 Candido n (disorder) (disorder) Active Problem 07/21/2022 [facility] her [facility] Epilepsy Epilepsy Problem Active 2022-07-21 Memoria (disorder) (disorder) 12:14:08 l Active [place] Problem 07/21/2022 [facility] her [facility] Hand pain Hand pain Problem Active 2022-07-21 Memoria (finding) (finding) 12:14:08 l Active [place] Problem 07/21/2022 [facility] her [facility] Insomnia Insomnia Problem Active 2022 Memoria (disorder) (disorder) 04:15:35 l Active [place] Problem 2022 Data migrated from [facility] on 12/03/14. 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 12:14:08 l s s Supa (disorder) (disorder) Active Problem 07/21/2022 [facility] Depressive Depressiv Problem Active 2022-07-21 Memoria disorder e disorder 12:14:08 l (disorder) (disorder) He rmann Active Problem 07/21/2022 [facility] Migraine Migraine Problem Active 2022-07-21 Memoria (disorder) (disorder) 12:14:08 l Active Supa Problem 07/21/2022 [facility] 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 y 12:14:08 l on-related localizati [facility] epilepsy on-related (disorder) epilepsy (disorder) Active Problem 07/21/2022 [facility] Anxiety Anxiety Problem Resolve 2015-2022-01-26 2022 Memoria state state d 4-18 04:15:35 04:15:35 l (finding) (finding) 00:00: [place] chauncey Resolved 00 10/23/2015 Problem 2022 Medical Group,[facility] her Neuro Low back Low back Problem Resolve 2013-2022-01-26 2022 Memoria pain pain d 7-14 04:15:35 04:15:35 l (disorder) (disorder) 00:00: [place] Resolved 00 01/17/2014 Problem 2022 Data migrated from [email or web address] on 12/03/14. [facility] her Neuro Allergies, Adverse Reactions, Alerts Allergy Allergy Status Severity Reaction(s) Onset Inactive Treating Comm ents Source Name Type Date Date Clinician Sulfa Allergy Active [place] Antibiot to 11-29 Health ics substanc 00:00: e 00 Aspirin Allergy Active [place] to 11-29 Health substanc 00:00: e 00 Other Allergy Active Nausea And Data [place] to Vomiting - migrated Health substanc 00:00: from GE e 00 Centricit y on 02/02/15. Originall y documente d as SULFA. Amoxicil Propensi Active Hives Univer s gal-Pot ty to 1-24 ity of Clavulan adverse 00:00: [place] ate reaction 00 Medical s Branch Clindamy Propensi Active Hives Univer s brionna ty to 1-24 ity of adverse 00:00: [place] reaction 00 Medical s Branch Penicill Allergy Active Nausea And Pt states [place] ins to Vomiting -24 she has Health substanc 00:00: taken e 00 before with no reaction Penicill Propensi Active Nausea Univer s ins ty to and/or 1-24 ity of adverse Vomiting 00:00: [place] reaction 00 Medical s Branch Sulfa Propensi Active Nausea Univers (Sulfona ty to and/or 1-24 ity of mide adverse Vomiting 00:00: [place] Antibiot reaction 00 Medica l ics) s Branch AMOXICIL DRUG Active Hives Univers GAL-POT 1-24 ity of CLAVULAN 00:00: [place] ATE 00 Medical Branch CLINDAMY DRUG Active Hives Univers BRIONNA INGREDI 1-24 ity of 00:00: [place] 00 Medical Branch Amoxicil Drug Active Hives UT gal-Pot Allergy 1-24 Health Clavulan 00:00: ate 00 PENICILL Drug Active N/V Univers INS Class 1-24 ity of 00:00: [place] 00 Medical Branch SULFA Drug Active N/V 2017- Univers (SULFONA Class 1-24 ity of MIDE 00:00: [place] ANTIBIOT 00 [...] Memori a n<sup>2< n<sup>2< l /sup> /sup> [place] cephalex cephalex Active Memori a in<sup>3 in<sup>3 l </sup> </sup> Supa aspirin aspirin Active Memoria l [place] clindamy clindamy Active Memori a brionna brionna l Supa Social History Social Habit Start Date Stop Date Quantity Comments Source History of Cigarette Smoker Universi ty of tobacco use [facility] [place] Exposure to 2022-11-25 2022-12-05 Not sure [facility] SARS-CoV-2 00:00:00 11:43:00 (event) Alcohol intake 2022-08-07 2022-08-07 Current University 00:00:00 00:00:00 non-drinker of [facility] alcohol (finding) Branch Tobacco use and 2022-08-07 2022-08-07 Smokeless tobacco Un iversity of exposure 00:00:00 00:00:00 non-user [facility] [place] Social History 2017-11-05 2017-11-05 [facility] 18:52:09 18:52:09 Sex Ass[birth year] At [birth year] [facility] 00:00:00 00:00:00 Smoking Status Start Date Stop Date Source Tobacco smoking consumption [facility] unknown Tobacco smoking status 2022-07-18 16:19:18 2022-07-18 16:19:18 M kym Cowart Medications Ordered Filled Start Stop Current Ordering Indication Dosage Frequency Signature Comments Components Source Medication Medication Date Date Medication? Clinician (SIG) Name Name fluconazole Yes [id number] 150mg Take 1 Univers (DIFLUCAN) 2-03 tablet by ity of 150 mg 00:00: mouth [place] tablet 00 every 72 Medical (seventy-t Branch ) hours. 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, 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, 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, kg, 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, 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 OXcarbazepi 2022-0 Yes See Memori a ne 600 mg 1-12 Instructio l oral tablet 17:10: ns, TAKE He rmann 00 ONE TABLET BY MOUTH TWICE A DAY, # 60 tab, 5 Refill(s), Pharmacy: [facility] [id number], 160.02, cm, 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, 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, 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, kg, 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, 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 acetaminoph 2023-0 Yes 1-2 tab, Me moria en-hydrocod 1-12 PO, Q4-6H, l one 325 16:46: PRN Pain, Kareen nn mg-7.5 mg 00 # 30 tab, oral tablet 0 Refill(s) acetaminoph 2023-0 Yes 1-2 tab, Me moria en-hydrocod 1-12 PO, Q4-6H, l one 325 16:46: PRN Pain, Kareen nn mg-7.5 mg 00 # 30 tab, oral tablet 0 Refill(s) acetaminoph 2023-0 Yes 1-2 tab, Me moria en-hydrocod 1-12 PO, Q4-6H, l one 325 16:46: PRN Pain, Kareen nn mg-7.5 mg 00 # 30 tab, oral tablet 0 Refill(s) sertraline 2021-07 Yes See Memoria 50 mg oral 2-05 Instructio l tablet 19:55: ns, TAKE Supa 00 ONE TABLET BY MOUTH DAILY, # 90 tab, 0 Refill(s), Pharmacy: [facility] [id number], 161.29, cm, 10/12/21 10:47:00 CDT, Height, 60.091, kg, 10/12/21 10:47:00 CDT, Weight sertraline 2021-07 Yes See Memoria 50 mg oral 2-05 Instructio l tablet 19:55: ns, TAKE Supa 00 ONE TABLET BY MOUTH DAILY, # 90 tab, 0 Refill(s), Pharmacy: [facility] [id number], 161.29, cm, 10/12/21 10:47:00 CDT, Height, 60.091, kg, 10/12/21 10:47:00 CDT, Weight sertraline 2021-07 Yes See Memoria 50 mg oral 2-05 Instructio l tablet 19:55: ns, TAKE [place] 00 ONE TABLET BY MOUTH DAILY, # 90 tab, 0 Refill(s), Pharmacy: [facility] [id number], 161.29, cm, 10/12/21 10:47:00 CDT, Height, 60.091, kg, 10/12/21 10:47:00 CDT, Weight sertraline Yes 100 mg = 1 M emoria 100 mg oral 8-11 tab, PO, l tablet 16:00: Daily, # Supa 00 30 tab, 4 Refill(s), Pharmacy: [facility] [id number], 161.29, cm, 10/12/21 10:47:00 CDT, Height, 60.091, kg, 10/12/21 10:47:00 CDT, Weight sertraline Yes 100 mg = 1 M emoria 100 mg oral 8-11 tab, PO, l tablet 16:00: Daily, # Supa 00 30 tab, 4 Refill(s), Pharmacy: [facility] [id number], 161.29, cm, 10/12/21 10:47:00 CDT, Height, 60.091, kg, 10/12/21 10:47:00 CDT, Weight sertraline 2021-0 Yes 100 mg = 1 M emoria 100 mg oral 8-11 tab, PO, l tablet 16:00: Daily, # [place] 00 30 tab, 4 Refill(s), Pharmacy: [facility] [id number], 161.29, cm, 10/12/21 10:47:00 CDT, Height, 60.091, kg, 10/12/21 10:47:00 CDT, Weight Diastat 0 Yes 15 mg, MN, Farooq shamika AcuDial 20 7-29 ONCE, # 1 l mg rectal 14:46: kit, 2 Candido n kit 00 Refill(s), Pharmacy: [facility] [id number], 161.29, cm, 10/12/21 10:47:00 CDT, Height, 60.091, kg, 10/12/21 10:47:00 CDT, Weight Diastat 0 Yes 15 mg, MN, Farooq shamika AcuDial 20 7-29 ONCE, # 1 l mg rectal 14:46: kit, 2 Candido n kit 00 Refill(s), Pharmacy: [facility] [id number], 161.29, cm, 10/12/21 10:47:00 CDT, Height, 60.091, kg, 10/12/21 10:47:00 CDT, Weight Diastat 2021-0 Yes 15 mg, MN, Farooq shamika AcuDial 20 7-29 ONCE, # 1 l mg rectal 14:46: kit, 2 Candido n kit 00 Refill(s), Pharmacy: [facility] [id number], 161.29, cm, 10/12/21 10:47:00 CDT, Height, 60.091, kg, 10/12/21 10:47:00 CDT, Weight SUMAtriptan 2021-0 Yes See Memori a Succinate 7-29 Instructio l Syringe 6 14:44: ns, INJECT He rmann mg/0.5 mL 00 ONE subcutaneou SYRINGE s solution UNDER THE SKIN ONCE DAILY NEEDED, # 3 mL, 1 Refill(s), Pharmacy: [facility] [id number], 161.29, cm, 10/12/21 10:47:00 CDT, Height, 60.091, kg, 10/12/21 10:47:00 CDT, Weight SUMAtriptan 2021-0 Yes See Memori a Succinate 7-29 Instructio l Syringe 6 14:44: ns, INJECT He rmann mg/0.5 mL 00 ONE subcutaneou SYRINGE s solution UNDER THE SKIN ONCE DAILY NEEDED, # 3 mL, 1 Refill(s), Pharmacy: [facility] [id number], 161.29, cm, 10/12/21 10:47:00 CDT, Height, 60.091, kg, 10/12/21 10:47:00 CDT, Weight SUMAtriptan 2021-0 Yes See Memori a Succinate 7-29 Instructio l Syringe 6 14:44: ns, INJECT He rmann mg/0.5 mL 00 ONE subcutaneou SYRINGE s solution UNDER THE SKIN ONCE DAILY NEEDED, # 3 mL, 1 Refill(s), Pharmacy: [facility] [id number], 161.29, cm, 10/12/21 10:47:00 CDT, Height, 60.091, kg, 10/12/21 10:47:00 CDT, Weight sertraline 2021-0 Yes 50 mg = 1 Me moria 50 mg oral 7-20 tab, PO, l tablet 16:07: Daily, # [place] 00 30 tab, 4 Refill(s), Pharmacy: [facility] [id number], 161.29, cm, 10/12/21 10:47:00 CDT, Height, 60.091, kg, 10/12/21 10:47:00 CDT, Weight sertraline 2021-0 Yes 50 mg = 1 Me moria 50 mg oral 7-20 tab, PO, l tablet 16:07: Daily, # Supa 00 30 tab, 4 Refill(s), Pharmacy: [facility] [id number], 161.29, cm, 10/12/21 10:47:00 CDT, Height, 60.091, kg, 10/12/21 10:47:00 CDT, Weight sertraline 2021-0 Yes 50 mg = 1 Me moria 50 mg oral 7-20 tab, PO, l tablet 16:07: Daily, # Supa 00 30 tab, 4 Refill(s), Pharmacy: [facility] [id number], 161.29, cm, 10/12/21 10:47:00 CDT, Height, 60.091, kg, 10/12/21 10:47:00 CDT, Weight sertraline 2021-0 Yes 50 mg = 1 Me moria 50 mg oral 7-20 tab, PO, l tablet 16:07: Daily, # Supa 00 30 tab, 4 Refill(s), Pharmacy: [facility] [id number], 161.29, cm, 10/12/21 10:47:00 CDT, Height, 60.091, kg, 10/12/21 10:47:00 CDT, Weight sertraline 2021-0 Yes See Memoria 100 mg oral 7-06 Instructio l tablet 14:13: ns, TAKE [place] 00 ONE TABLET BY MOUTH DAILY, # 30 tab, 3 Refill(s), Pharmacy: [facility] [id number], 161.29, cm, 10/12/21 10:47:00 CDT, Height, 60.091, kg, 10/12/21 10:47:00 CDT, Weight sertraline 2021-0 Yes See Memoria 100 mg oral 7-06 Instructio l tablet 14:13: ns, TAKE [place] 00 ONE TABLET BY MOUTH DAILY, # 30 tab, 3 Refill(s), Pharmacy: [facility] [id number], 161.29, cm, 10/12/21 10:47:00 CDT, Height, 60.091, kg, 10/12/21 10:47:00 CDT, Weight sertraline 2021-0 Yes See Memoria 100 mg oral 7-06 Instructio l tablet 14:13: ns, TAKE Supa 00 ONE TABLET BY MOUTH DAILY, # 30 tab, 3 Refill(s), Pharmacy: [facility] [id number], 161.29, cm, 10/12/21 10:47:00 CDT, Height, 60.091, kg, 10/12/21 10:47:00 CDT, Weight sertraline 2022-0 Yes See Memoria 100 mg oral 7-06 Instructio l tablet 14:13: ns, TAKE [place] 00 ONE TABLET BY MOUTH DAILY, # 30 tab, 3 Refill(s), Pharmacy: [facility] [id number], 161.29, cm, 10/12/21 10:47:00 CDT, Height, 60.091, kg, 10/12/21 10:47:00 CDT, Weight OXcarbazepi 2022-0 Yes See Memori a ne 600 mg 6-07 Instructio l oral tablet 15:19: ns, TAKE He rmann 00 ONE TABLET BY MOUTH TWICE A DAY, # 60 tab, 5 Refill(s), Pharmacy: [facility] [id number], 161.29, cm, 10/12/21 10:47:00 CDT, Height, 60.091, kg, 10/12/21 10:47:00 CDT, Weight OXcarbazepi 2022-0 Yes See Memori a ne 600 mg 6-07 Instructio l oral tablet 15:19: ns, TAKE He rmann 00 ONE TABLET BY MOUTH TWICE A DAY, # 60 tab, 5 Refill(s), Pharmacy: [facility] [id number], 161.29, cm, 10/12/21 10:47:00 CDT, Height, 60.091, kg, 10/12/21 10:47:00 CDT, Weight OXcarbazepi 2022-0 Yes See Memori a ne 600 mg 6-07 Instructio l oral tablet 15:19: ns, TAKE He rmann 00 ONE TABLET BY MOUTH TWICE A DAY, # 60 tab, 5 Refill(s), Pharmacy: [facility] [id number], 161.29, cm, 10/12/21 10:47:00 CDT, Height, 60.091, kg, 10/12/21 10:47:00 CDT, Weight OXcarbazepi 2022-0 Yes See Memori a ne 600 mg 6-07 Instructio l oral tablet 15:19: ns, TAKE He rmann 00 ONE TABLET BY MOUTH TWICE A DAY, # 60 tab, 5 Refill(s), Pharmacy: [facility] [id number], 161.29, cm, 10/12/21 10:47:00 CDT, Height, 60.091, kg, 10/12/21 10:47:00 CDT, Weight baclofen Yes = 1 tab, Me moria mg oral 5-23 PO, l tablet 16:41: Bedtime, # Kareen nn 00 30 tab, 2 Refill(s), Pharmacy: [facility] [id number], 161.29, cm, 10/12/21 10:47:00 CDT, Height, 60.091, kg, 10/12/21 10:47:00 CDT, Weight baclofen 0 Yes = 1 tab, Me moria mg oral 5-23 PO, l tablet 16:41: Bedtime, # Kareen nn 00 30 tab, 2 Refill(s), Pharmacy: [facility] [id number], 161.29, cm, 10/12/21 10:47:00 CDT, Height, 60.091, kg, 10/12/21 10:47:00 CDT, Weight baclofen Yes = 1 tab, Me moria mg oral 5-23 PO, l tablet 16:41: Bedtime, # Kareen nn 00 30 tab, 2 Refill(s), Pharmacy: [facility] [id number], 161.29, cm, 10/12/21 10:47:00 CDT, Height, 60.091, kg, 10/12/21 10:47:00 CDT, Weight baclofen No 10 mg = 1 M emoria mg oral 4-22 tab, PO, l tablet 15:01: BID, # 60 Candido n 00 tab, 2 Refill(s), Pharmacy: [facility] [id number], 161.29, cm, 10/12/21 10:47:00 CDT, Height, 60.091, kg, 10/12/21 10:47:00 CDT, Weight baclofen 0 No 10 mg = 1 M emoria mg oral 4-22 tab, PO, l tablet 15:01: BID, # 60 Candido n 00 tab, 2 Refill(s), Pharmacy: [facility] [id number], 161.29, cm, 10/12/21 10:47:00 CDT, Height, 60.091, kg, 10/12/21 10:47:00 CDT, Weight baclofen 0 No 10 mg = 1 M emoria mg oral 4-22 tab, PO, l tablet 15:01: BID, # 60 Candido n 00 tab, 2 Refill(s), Pharmacy: [facility] [id number], 161.29, cm, 10/12/21 10:47:00 CDT, Height, 60.091, kg, 10/12/21 10:47:00 CDT, Weight baclofen 10 0 No 10 mg = 1 M emoria mg oral 4-22 tab, PO, l tablet 15:01: BID, # 60 Candido n 00 tab, 2 Refill(s), Pharmacy: [facility] [id number], 161.29, cm, 10/12/21 10:47:00 CDT, Height, 60.091, kg, 10/12/21 10:47:00 CDT, Weight sertraline 2021-0 Yes See Memoria 100 mg oral 2-16 Instructio l tablet 21:06: ns, TAKE [place] 00 ONE TABLET BY MOUTH DAILY, # 30 tab, 4 Refill(s), Pharmacy: [facility] [id number], 157.48, cm, 04/12/21 10:20:00 CDT, Height, 55.455, kg, 04/12/21 10:20:00 CDT, Weight sertraline 2021-0 Yes See Memoria 100 mg oral 2-16 Instructio l tablet 21:06: ns, TAKE Supa 00 ONE TABLET BY MOUTH DAILY, # 30 tab, 4 Refill(s), Pharmacy: [facility] [id number], 157.48, cm, 04/12/21 10:20:00 CDT, Height, 55.455, kg, 04/12/21 10:20:00 CDT, Weight sertraline 2021-0 Yes See Memoria 100 mg oral 2-16 Instructio l tablet 21:06: ns, TAKE Supa 00 ONE TABLET BY MOUTH DAILY, # 30 tab, 4 Refill(s), Pharmacy: [facility] [id number], 157.48, cm, 04/12/21 10:20:00 CDT, Height, 55.455, kg, 04/12/21 10:20:00 CDT, Weight sertraline 2021-0 Yes See Memoria 100 mg oral 2-16 Instructio l tablet 21:06: ns, TAKE Supa 00 ONE TABLET BY MOUTH DAILY, # 30 tab, 4 Refill(s), Pharmacy: [facility] [id number], 157.48, cm, 04/12/21 10:20:00 CDT, Height, 55.455, kg, 04/12/21 10:20:00 CDT, Weight lamoTRIgine 2021-0 Yes See Memori a 150 mg oral 2-11 Instructio l tablet 20:45: ns, TAKE Supa 00 ONE TABLET BY MOUTH TWICE A DAY, # 180 tab, 5 Refill(s), Pharmacy: [facility] [id number], 157.48, cm, 04/12/21 10:20:00 CDT, Height, 55.455, kg, 04/12/21 10:20:00 CDT, Weight lamotrigine 2021-0 Yes See Memori a 150 MG Oral 2-11 Instructio l Tablet 20:45: ns, TAKE Supa 00 ONE TABLET BY MOUTH TWICE A DAY, # 180 tab, 5 Refill(s), Pharmacy: [facility] [id number], 157.48, cm, 04/12/21 10:20:00 CDT, Height, 55.455, kg, 04/12/21 10:20:00 CDT, Weight lamotrigine 2021-0 Yes See Memori a 150 MG Oral 2-11 Instructio l Tablet 20:45: ns, TAKE [place] 00 ONE TABLET BY MOUTH TWICE A DAY, # 180 tab, 5 Refill(s), Pharmacy: [facility] [id number], 157.48, cm, 04/12/21 10:20:00 CDT, Height, 55.455, kg, 04/12/21 10:20:00 CDT, Weight lamoTRIgine 2021-0 Yes See Memori a 150 mg oral 2-11 Instructio l tablet 20:45: ns, TAKE Supa 00 ONE TABLET BY MOUTH TWICE A DAY, # 180 tab, 5 Refill(s), Pharmacy: [facility] [id number], 157.48, cm, 04/12/21 10:20:00 CDT, Height, 55.455, kg, 04/12/21 10:20:00 CDT, Weight lamoTRIgine 2021-0 Yes See Memori a 150 mg oral 2-11 Instructio l tablet 20:45: ns, TAKE Supa 00 ONE TABLET BY MOUTH TWICE A DAY, # 180 tab, 5 Refill(s), Pharmacy: [facility] [id number], 157.48, cm, 04/12/21 10:20:00 CDT, Height, 55.455, kg, 04/12/21 10:20:00 CDT, Weight lamotrigine 2021-0 Yes See Memori a 150 MG Oral 2-11 Instructio l Tablet 20:45: ns, TAKE [place] 00 ONE TABLET BY MOUTH TWICE A DAY, # 180 tab, 5 Refill(s), Pharmacy: [facility] [id number], 157.48, cm, 04/12/21 10:20:00 CDT, Height, 55.455, kg, 04/12/21 10:20:00 CDT, Weight lamotrigine 2021-0 Yes See Memori a 150 MG Oral 2-11 Instructio l Tablet 20:45: ns, TAKE [place] 00 ONE TABLET BY MOUTH TWICE A DAY, # 180 tab, 5 Refill(s), Pharmacy: [facility] [id number], 157.48, cm, 04/12/21 10:20:00 CDT, Height, 55.455, kg, 04/12/21 10:20:00 CDT, Weight baclofen 10 2021-0 Yes 10 mg = 1 M emoria mg oral 1-26 tab, PO, l tablet 17:24: Bedtime, # Kareen nn 00 30 tab, 3 Refill(s), Pharmacy: [facility] [id number], 157.48, cm, 04/12/21 10:20:00 CDT, Height, 55.455, kg, 04/12/21 10:20:00 CDT, Weight baclofen 10 2021-0 Yes 10 mg = 1 M emoria mg oral 1-26 tab, PO, l tablet 17:24: Bedtime, # Kareen nn 00 30 tab, 3 Refill(s), Pharmacy: [facility] [id number], 157.48, cm, 04/12/21 10:20:00 CDT, Height, 55.455, kg, 04/12/21 10:20:00 CDT, Weight baclofen 10 2021-0 Yes 10 mg = 1 M emoria mg oral 1-26 tab, PO, l tablet 17:24: Bedtime, # Kareen nn 30 tab, 3 Refill(s), Pharmacy: [facility] [id number], 157.48, cm, 04/12/21 10:20:00 CDT, Height, 55.455, kg, 04/12/21 10:20:00 CDT, Weight baclofen 10 2021-0 Yes 10 mg = 1 M emoria mg oral 1-26 tab, PO, l tablet 17:24: Bedtime, # Kareen nn 00 30 tab, 3 Refill(s), Pharmacy: [facility] [id number], 157.48, cm, 04/12/21 10:20:00 CDT, Height, 55.455, kg, 04/12/21 10:20:00 CDT, Weight SUMAtriptan 2022-0 Yes 6 mg, Memor ia Succinate 1-14 SUB-Q, l Syringe 6 15:05: ONCE, # 5 Her ugalde mg/0.5 mL 00 ea, 1 subcutaneou Refill(s), s solution Pharmacy: [facility] [id number], 157.48, cm, 04/12/21 10:20:00 CDT, Height, 55.455, kg, 04/12/21 10:20:00 CDT, Weight SUMAtriptan 2022-0 Yes 6 mg, Memor ia Succinate 1-14 SUB-Q, l Syringe 6 15:05: ONCE, # 5 Her ugalde mg/0.5 mL 00 ea, 1 subcutaneou Refill(s), s solution Pharmacy: [facility] [id number], 157.48, cm, 04/12/21 10:20:00 CDT, Height, 55.455, kg, 04/12/21 10:20:00 CDT, Weight SUMAtriptan 2022-0 Yes 6 mg, Memor ia Succinate 1-14 SUB-Q, l Syringe 6 15:05: ONCE, # 5 Her ugalde mg/0.5 mL 00 ea, 1 subcutaneou Refill(s), s solution Pharmacy: [facility] [id number], 157.48, cm, 04/12/21 10:20:00 CDT, Height, 55.455, kg, 04/12/21 10:20:00 CDT, Weight SUMAtriptan 0 Yes 6 mg, Memor ia Succinate 1-14 SUB-Q, l Syringe 6 15:05: ONCE, # 5 Her ugalde mg/0.5 mL 00 ea, 1 subcutaneou Refill(s), s solution Pharmacy: [facility] [id number], 157.48, cm, 04/12/21 10:20:00 CDT, Height, 55.455, kg, 04/12/21 10:20:00 CDT, Weight eletriptan 2020-07 Yes = 1 tab, Mem oria 40 mg oral 1-04 PO, Daily, l tablet 14:27: PRN Supa 00 NEEDED FOR MIGRAINE HEADACHE (NOVEMBER REPEAT DOSE IN, # 6 tab, 3 Refill(s), Pharmacy: [facility] [id number], 157.48, cm, 04/12/21 10:20:00 CDT, Height, 55.455, kg, 04/12/21 10:20:00 CDT, Weight eletriptan 2020-07 Yes = 1 tab, Mem oria 40 mg oral 1-04 PO, Daily, l tablet 14:27: PRN Supa 00 NEEDED FOR MIGRAINE HEADACHE (NOVEMBER REPEAT DOSE IN, # 6 tab, 3 Refill(s), Pharmacy: [facility] [id number], 157.48, cm, 04/12/21 10:20:00 CDT, Height, 55.455, kg, 04/12/21 10:20:00 CDT, Weight eletriptan 2020-07 Yes = 1 tab, Mem oria 40 mg oral 1-04 PO, Daily, l tablet 14:27: PRN Supa 00 NEEDED FOR MIGRAINE HEADACHE (NOVEMBER REPEAT DOSE IN, # 6 tab, 3 Refill(s), Pharmacy: [facility] [id number], 157.48, cm, 04/12/21 10:20:00 CDT, Height, 55.455, kg, 04/12/21 10:20:00 CDT, Weight eletriptan 2020-07 Yes = 1 tab, Mem oria 40 mg oral 1-04 PO, Daily, l tablet 14:27: PRN Supa 00 NEEDED FOR MIGRAINE HEADACHE (MAY REPEAT DOSE IN, # 6 tab, 3 Refill(s), Pharmacy: [facility] [id number], 157.48, cm, 04/12/21 10:20:00 CDT, Height, 55.455, kg, 04/12/21 10:20:00 CDT, Weight Relpax 40 2020-07 No 40 mg = 1 Mem oria mg oral 0-21 tab, PO, l tablet 13:48: Daily, PRN Kareen nn 00 for migraine headache, may repeat dose once in 2 hours, X 3 day, # 6 tab, 0 Refill(s), Pharmacy: [facility] [id number], 157.48, cm, 04/12/21 10:20:00 CDT, Height, 55.455, kg, 04/12/21 10:20:00 CDT, Weight Relpax 40 2020-07 No 40 mg = 1 Mem oria mg oral 0-21 tab, PO, l tablet 13:48: Daily, PRN Kareen nn 00 for migraine headache, may repeat dose once in 2 hours, X 3 day, # 6 tab, 0 Refill(s), Pharmacy: [facility] [id number], 157.48, cm, 04/12/21 10:20:00 CDT, Height, 55.455, kg, 04/12/21 10:20:00 CDT, Weight Relpax 40 2020-07 No 40 mg = 1 Mem oria mg oral 0-21 tab, PO, l tablet 13:48: Daily, PRN Kareen nn 00 for migraine headache, may repeat dose once in 2 hours, X 3 day, # 6 tab, 0 Refill(s), Pharmacy: [facility] [id number], 157.48, cm, 04/12/21 10:20:00 CDT, Height, 55.455, kg, 04/12/21 10:20:00 CDT, Weight Relpax 40 2020-07 No 40 mg = 1 Mem oria mg oral 0-21 tab, PO, l tablet 13:48: Daily, PRN Kareen nn 00 for migraine headache, may repeat dose once in 2 hours, X 3 day, # 6 tab, 0 Refill(s), Pharmacy: [facility] [id number], 157.48, cm, 04/12/21 10:20:00 CDT, Height, 55.455, kg, 04/12/21 10:20:00 CDT, Weight lamotrigine 0 Yes See Memori a 150 MG Oral 8-20 Instructio l Tablet 15:07: ns, TAKE Supa 00 ONE TABLET BY MOUTH TWICE A DAY, # 180 tab, 2 Refill(s), Pharmacy: [facility] [id number], 157.48, cm, 12/06/20 9:13:00 CDT, Height, 75.455, kg, 12/06/20 9:13:00 CDT, Weight lamotrigine 0 Yes See Memori a 150 MG Oral 8-20 Instructio l Tablet 15:07: ns, TAKE [place] 00 ONE TABLET BY MOUTH TWICE A DAY, # 180 tab, 2 Refill(s), Pharmacy: [facility] [id number], 157.48, cm, 12/06/20 9:13:00 CDT, Height, 75.455, kg, 12/06/20 9:13:00 CDT, Weight lamotrigine 2020-0 Yes See Memori a 150 MG Oral 8-20 Instructio l Tablet 15:07: ns, TAKE [place] 00 ONE TABLET BY MOUTH TWICE A DAY, # 180 tab, 2 Refill(s), Pharmacy: [facility] [id number], 157.48, cm, 12/06/20 9:13:00 CDT, Height, 75.455, kg, 12/06/20 9:13:00 CDT, Weight lamotrigine 2020-0 Yes See Memori a 150 MG Oral 8-20 Instructio l Tablet 15:07: ns, TAKE Supa 00 ONE TABLET BY MOUTH TWICE A DAY, # 180 tab, 2 Refill(s), Pharmacy: [facility] [id number], 157.48, cm, 12/06/20 9:13:00 CDT, Height, 75.455, kg, 12/06/20 9:13:00 CDT, Weight OXcarbazepi 0 Yes = 1 tab, Me moria ne 600 mg 6-17 PO, BID, # l oral tablet 18:42: 60 tab, 4 H ermann 00 Refill(s), Pharmacy: [facility] 149, 157.48, cm, 12/06/20 9:13:00 CDT, Height, 75.455, kg, 12/06/20 9:13:00 CDT, Weight OXcarbazepi 2020-0 Yes = 1 tab, Me moria ne 600 mg 6-17 PO, BID, # l oral tablet 18:42: 60 tab, 4 H ermann 00 Refill(s), Pharmacy: [facility] 149, 157.48, cm, 12/06/20 9:13:00 CDT, Height, 75.455, kg, 12/06/20 9:13:00 CDT, Weight OXcarbazepi 2020-0 Yes = 1 tab, Me moria ne 600 mg 6-17 PO, BID, # l oral tablet 18:42: 60 tab, 4 H ermann 00 Refill(s), Pharmacy: [place] [id number], 157.48, cm, 12/06/20 9:13:00 CDT, Height, 75.455, kg, 12/06/20 9:13:00 CDT, Weight OXcarbazepi 2020-0 Yes = 1 tab, Me moria ne 600 mg 6-17 PO, BID, # l oral tablet 18:42: 60 tab, 4 H ermann 00 Refill(s), Pharmacy: [facility] 149, 157.48, cm, 12/06/20 9:13:00 CDT, Height, 75.455, kg, 12/06/20 9:13:00 CDT, Weight Ubrelvy 100 2020-0 Yes See Memori a mg oral 6-02 Instructio l tablet 23:00: ns, TAKE Supa 00 ONE TABLET BY MOUTH NEEDED FOR MIGRAINE MAY REPEAT DOSE AFTER 2 HOURS MAX DOSE 200MG/24 HOURS, # 10 tab, 2 Refill(s), Pharmacy: [facility] [id number], 157.48, cm, 12/06/20 9:13:00 CDT, Height, 75.455, kg, 12/06/20 9:13:00... Ubrelvy 100 0 Yes See Memori a mg oral 6-02 Instructio l tablet 23:00: ns, TAKE [place] 00 ONE TABLET BY MOUTH NEEDED FOR MIGRAINE MAY REPEAT DOSE AFTER 2 HOURS MAX DOSE 200MG/24 HOURS, # 10 tab, 2 Refill(s), Pharmacy: [facility] [id number], 157.48, cm, 12/06/20 9:13:00 CDT, Height, 75.455, kg, 12/06/20 9:13:00... Ubrelvy 100 Yes See Memori a mg oral 6-02 Instructio l tablet 23:00: ns, TAKE Supa 00 ONE TABLET BY MOUTH NEEDED FOR MIGRAINE MAY REPEAT DOSE AFTER 2 HOURS MAX DOSE 200MG/24 HOURS, # 10 tab, 2 Refill(s), Pharmacy: [facility] [id number], 157.48, cm, 12/06/20 9:13:00 CDT, Height, 75.455, kg, 12/06/20 9:13:00... 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, Weight 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, Weight mirtazapine 1-0 Yes 15 mg = 1 M emoria 15 mg oral 3-02 tab, PO, l tablet 16:00: Bedtime, # Kareen nn 00 30 tab, 3 Refill(s), Pharmacy: [facility] 149, 157.48, cm, 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, Height, 82.273, kg, 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, Weight Mirtazapine 1-0 Yes 15 mg = 1 M emoria 15 MG Oral 3-02 tab, PO, l Tablet 16:00: Bedtime, # Kareen nn 00 30 tab, 3 Refill(s), Pharmacy: [facility] 149, 157.48, cm, 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, Height, 82.273, kg, 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, Weight mirtazapine 1-0 Yes 15 mg = 1 M emoria 15 mg oral 3-02 tab, PO, l tablet 16:00: Bedtime, # Kareen nn 00 30 tab, 3 Refill(s), Pharmacy: [facility] 149, 157.48, cm, 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, Height, 82.273, kg, 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, Weight Mirtazapine 1-0 Yes 15 mg = 1 M emoria 15 MG Oral 3-02 tab, PO, l Tablet 16:00: Bedtime, # Kareen nn 00 30 tab, 3 Refill(s), Pharmacy: [facility] 149, 157.48, cm, 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, Height, 82.273, kg, 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, Weight sertraline 1-0 Yes 100 mg = 1 M emoria 100 mg oral 3-02 tab, PO, l tablet 15:58: Daily, # Supa 00 30 tab, 5 Refill(s), Pharmacy: [facility] 149, 157.48, cm, 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, Height, 82.273, kg, 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, Weight sertraline 2020-0 Yes 100 mg = 1 M emoria 100 mg oral 3-02 tab, PO, l tablet 15:58: Daily, # [place] 00 30 tab, 5 Refill(s), Pharmacy: [facility] 149, 157.48, cm, 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, Height, 82.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, kg, 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, Weight sertraline 2020-0 Yes 100 mg = 1 M emoria 100 mg oral 3-02 tab, PO, l tablet 15:58: Daily, # Supa 00 30 tab, 5 Refill(s), Pharmacy: [facility] 149, 157.48, cm, 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, Height, 82.273, kg, 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, Weight sertraline 2020-0 Yes 100 mg = 1 M emoria 100 mg oral 3-02 tab, PO, l tablet 15:58: Daily, # [place] 00 30 tab, 5 Refill(s), Pharmacy: [facility] 149, 157.48, cm, 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, Height, 82.273, kg, 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, Weight Rimegepant 2020-0 Yes 75 mg = 1 Me moria 75 MG 2-05 tab, PO, l Disintegrat 20:13: ONCE, 0 Her ugalde ing Oral 00 Refill(s) Tablet [Nurtec] Nurtec ODT 2020-0 Yes 75 mg = 1 Me moria 75 mg oral 2-05 tab, PO, l tablet, 20:13: ONCE, 0 [place] disintegrat 00 Refill(s) ing Rimegepant 2020-0 Yes 75 mg = 1 Me moria 75 MG 2-05 tab, PO, l Disintegrat 20:13: ONCE, 0 Her ugalde ing Oral 00 Refill(s) Tablet [Nurtec] Rimegepant 2020-0 Yes 75 mg = 1 Me moria 75 MG 2-05 tab, PO, l Disintegrat 20:13: ONCE, 0 Her ugalde ing Oral 00 Refill(s) Tablet [Nurtec] Nurtec ODT 2021-0 Yes 75 mg = 1 Me moria 75 mg oral 2-05 tab, PO, l tablet, 20:13: ONCE, 0 [place] disintegrat 00 Refill(s) ing Rimegepant Yes 75 mg = 1 Me moria 75 MG 2-05 tab, PO, l Disintegrat 20:13: ONCE, 0 Her ugalde ing Oral 00 Refill(s) Tablet [Nurtec] Nurtec ODT Yes 75 mg = 1 Me moria 75 mg oral 2-05 tab, PO, l tablet, 20:13: ONCE, 0 Supa disintegrat 00 Refill(s) ing OXcarbazepi Yes = 1 tab, Me moria ne 600 mg 2-05 PO, BID, # l oral tablet 20:11: 60 tab, 4 H ermann 00 Refill(s), Pharmacy: [facility] 149, 157.48, cm, 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, Height, 82.273, kg, 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, Weight zolpidem 10 Yes 0 Memori a mg oral 2-05 Refill(s) l tablet 20:11: [place] 00 zolpidem 10 0 Yes 0 Memori a mg oral 2-05 Refill(s) l tablet 20:11: [place] 00 OXcarbazepi 0 Yes = 1 tab, Me moria ne 600 mg 2-05 PO, BID, # l oral tablet 20:11: 60 tab, 4 H ermann 00 Refill(s), Pharmacy: [facility] 149, 157.48, cm, 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, Height, 82.273, kg, 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, Weight OXcarbazepi 0 Yes = 1 tab, Me moria ne 600 mg 2-05 PO, BID, # l oral tablet 20:11: 60 tab, 4 H ermann 00 Refill(s), Pharmacy: [facility] 149, 157.48, cm, 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, Height, 82.273, kg, 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, Weight zolpidem 10 Yes 0 Memori a mg oral 2-05 Refill(s) l tablet 20:11: Supa OXcarbazepi Yes = 1 tab, Me moria ne 600 mg 2-05 PO, BID, # l oral tablet 20:11: 60 tab, 4 H ermann 00 Refill(s), Pharmacy: [place] [id number], 157.48, cm, 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, Height, 82.273, kg, 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, Weight zolpidem 10 Yes 0 Memori a mg oral 2-05 Refill(s) l tablet 20:11: Supa 00 rizatriptan No See Memori a 5 mg oral 1-24 Instructio l tablet, 21:34: ns, PLACE Kareen nn disintegrat 00 ONE TABLET ing BY MOUTH DAILY NEEDED FOR MIGRAINE HEADACHE, # 10 unknown unit, 2 Refill(s), Pharmacy: [facility] [id number], 157.48, cm, 05/09/20 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, Height, 81.818, kg, 05/09/20 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, Weight rizatriptan No See Memori a 5 mg oral 1-24 Instructio l tablet, 21:34: ns, PLACE K[place]en nn disintegrat 00 ONE TABLET ing BY MOUTH DAILY NEEDED FOR MIGRAINE HEADACHE, # 10 unknown unit, 2 Refill(s), Pharmacy: [place] [id number], 157.48, cm, 05/09/20 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, Height, 81.818, kg, 05/09/20 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, Weight rizatriptan 0 No See Memori a 5 mg oral 1-24 Instructio l tablet, 21:34: ns, PLACE K[place]en nn disintegrat 00 ONE TABLET ing BY MOUTH DAILY NEEDED FOR MIGRAINE HEADACHE, # 10 unknown unit, 2 Refill(s), Pharmacy: [facility] [id number], 157.48, cm, 05/09/20 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, Height, 81.818, kg, 05/09/20 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, Weight rizatriptan No See Memori a 5 mg oral 1-24 Instructio l tablet, 21:34: ns, PLACE [place] nn disintegrat 00 ONE TABLET ing BY MOUTH DAILY NEEDED FOR MIGRAINE HEADACHE, # 10 unknown unit, 2 Refill(s), Pharmacy: [facility] [id number], 157.48, cm, 05/09/20 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, Height, 81.818, kg, 05/09/20 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, Weight Mirtazapine 2019- No See Memori a 15 MG Oral 2-01 Instructio l Tablet 14:41: ns, TAKE Supa 00 ONE TABLET BY MOUTH EVERY NIGHT AT BEDTIME, # 30 tab, 3 Refill(s), Pharmacy: [facility] [id number], 157.48, cm, 05/09/20 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, Height, 81.818, kg, 05/09/20 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, Weight Mirtazapine 2019- No See Memori a 15 MG Oral 2-01 Instructio l Tablet 14:41: ns, TAKE [place] 00 ONE TABLET BY MOUTH EVERY NIGHT AT BEDTIME, # 30 tab, 3 Refill(s), Pharmacy: [facility] [id number], 157.48, cm, 05/09/20 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, Height, 81.818, kg, 05/09/20 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, Weight Mirtazapine 2019- No See Memori a 15 MG Oral 2-01 Instructio l Tablet 14:41: ns, TAKE Supa 00 ONE TABLET BY MOUTH EVERY NIGHT AT BEDTIME, # 30 tab, 3 Refill(s), Pharmacy: [facility] [id number], 157.48, cm, 05/09/20 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, Height, 81.818, kg, 05/09/20 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, Weight Mirtazapine 2019- No See Memori a 15 MG Oral 2-01 Instructio l Tablet 14:41: ns, TAKE [place] 00 ONE TABLET BY MOUTH EVERY NIGHT AT BEDTIME, # 30 tab, 3 Refill(s), Pharmacy: [facility] [id number], 157.48, cm, 05/09/20 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, Height, 81.818, kg, 05/09/20 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, Weight sertraline 2019-07 No See Memoria 50 mg oral 1-06 Instructio l tablet 02:09: ns, TAKE Supa 00 ONE TABLET BY MOUTH DAILY, # 30 tab, 5 Refill(s), Pharmacy: [facility] [id number], 157.48, cm, 05/09/20 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, Height, 81.818, kg, 05/09/20 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, Weight sertraline 2019-07 No See Memoria 50 mg oral 1-06 Instructio l tablet 02:09: ns, TAKE [place] 00 ONE TABLET BY MOUTH DAILY, # 30 tab, 5 Refill(s), Pharmacy: [facility] [id number], 157.48, cm, 05/09/20 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, Height, 81.818, kg, 05/09/20 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, Weight sertraline 2019-07 No See Memoria 50 mg oral 1-06 Instructio l tablet 02:09: ns, TAKE [place] 00 ONE TABLET BY MOUTH DAILY, # 30 tab, 5 Refill(s), Pharmacy: [facility] [id number], 157.48, cm, 05/09/20 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, Height, 81.818, kg, 05/09/20 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, Weight sertraline 2019-07 No See Memoria 50 mg oral 1-06 Instructio l tablet 02:09: ns, TAKE Supa 00 ONE TABLET BY MOUTH DAILY, # 30 tab, 5 Refill(s), Pharmacy: [facility] [id number], 157.48, cm, 05/09/20 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, Height, 81.818, kg, 05/09/20 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, Weight lamotrigine 2019-07 Yes = 1 tab, Me moria 100 MG Oral 1-03 PO, BID, # l Tablet 15:51: 60 tab, 2 [place] n 00 Refill(s), Pharmacy: [place] [address], 157.48, cm, 05/09/20 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, Height, 81.818, kg, 05/09/20 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, Weight lamotrigine 2019-07 Yes = 1 tab, Me moria 100 MG Oral 1-03 PO, BID, # l Tablet 15:51: 60 tab, 2 [place] n 00 Refill(s), Pharmacy: [facility] 149, 157.48, cm, 05/09/20 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, Height, 81.818, kg, 05/09/20 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, Weight lamotrigine 2019-07 Yes = 1 tab, Me moria 100 MG Oral 1-03 PO, BID, # l Tablet 15:51: 60 tab, 2 [place] n 00 Refill(s), Pharmacy: [facility] 149, 157.48, cm, 05/09/20 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 Medical mg-mcg per Branch tablet norgestimat 2019- Yes [id number] 1{tbl} Take 1 Univers e-ethinyl 0-27 tablet by ity o f estradioL 00:00: mouth [place] 0.25-35 00 daily. Medical mg-mcg per Branch tablet norgestimat 2019- Yes [id number] 1{tbl} Take 1 Univers e-ethinyl 0-27 tablet by ity o f estradioL 00:00: mouth [place] 0.25-35 00 daily. Medical mg-mcg per Branch tablet norgestimat 2019- Yes [id number] 1{tbl} Take 1 [facility] e-ethinyl 0-27 tablet by ity o f estradioL 00:00: mouth [place] 0.25-35 00 daily. Medical mg-mcg per Branch tablet norgestimat 2020- Yes [id number] 1{tbl} Take 1 [facility] e-ethinyl 0-27 tablet by ity o f estradioL 00:00: mouth [place] 0.25-35 00 daily. Medical mg-mcg per Branch tablet norgestimat 2020- Yes [id number] 1{tbl} Take 1 [facility] e-ethinyl 0-27 tablet by ity o f estradioL 00:00: mouth [place] 0.25-35 00 daily. Medical mg-mcg per Branch tablet norgestimat 2020- Yes [id number] 1{tbl} Take 1 [facility] e-ethinyl 0-27 tablet by ity o f estradioL 00:00: mouth [place] 0.25-35 00 daily. Medical mg-mcg per Branch tablet norgestimat 2020- Yes [id number] 1{tbl} Take 1 [facility] e-ethinyl 0-27 tablet by ity o f estradioL 00:00: mouth [place] 0.25-35 00 daily. Medical mg-mcg per Branch tablet norgestimat 2020- Yes [id number] 1{tbl} Take 1 [facility] e-ethinyl 0-27 tablet by ity o f estradioL 00:00: mouth [place] 0.25-35 00 daily. Medical mg-mcg per Branch tablet norgestimat 2020- Yes [id number] 1{tbl} Take 1 [facility] e-ethinyl 0-27 tablet by ity o f estradioL 00:00: mouth [place] 0.25-35 00 daily. Medical mg-mcg per Branch tablet norgestimat 2020- Yes [id number] 1{tbl} Take 1 [facility] e-ethinyl 0-27 tablet by ity o f estradioL 00:00: mouth [place] 0.25-35 00 daily. Medical mg-mcg per Branch tablet norgestimat 2020- Yes [id number] 1{tbl} Take 1 [facility] e-ethinyl 0-27 tablet by ity o f estradioL 00:00: mouth [place] 0.25-35 00 daily. Medical mg-mcg per Branch tablet norgestimat 2020- Yes [id number] 1{tbl} Take 1 Univers e-ethinyl 0-27 tablet by ity o f estradioL 00:00: mouth [place] 0.25-35 00 daily. Medical mg-mcg per Branch tablet zolpidem 10 2019-07 Yes Univer s mg tablet 0-08 ity of 00:00: [facility] zolpidem 10 2019- Yes Univer s mg tablet 0-08 ity of 00:00: [facility] zolpidem 10 2019-07 Yes Univer s mg tablet 0-08 ity of 00:00: [facility] zolpidem 10 2019-07 Yes Univer s mg tablet 0-08 ity of 00:00: [facility] zolpidem 10 2019-07 Yes Univer s mg tablet 0-08 ity of 00:00: [facility] zolpidem 10 2019-07 Yes Univer s mg tablet 0-08 ity of 00:00: [facility] zolpidem 10 2019-07 Yes Univer s mg tablet 0-08 ity of 00:00: [facility] zolpidem 10 2019-07 Yes Univer s mg tablet 0-08 ity of 00:00: [facility] zolpidem 10 2019-07 Yes Univer s mg tablet 0-08 ity of 00:00: [facility] zolpidem 10 2019- Yes Univer s mg tablet 0-08 ity of 00:00: [facility] zolpidem 10 2019- Yes Univer s mg tablet 0-08 ity of 00:00: [facility] zolpidem 10 2019- Yes Univer s mg tablet 0-08 ity of 00:00: [facility] zolpidem 10 2019-07 Yes Univer s mg tablet 0-08 ity of 00:00: [facility] mirtazapine 2019- Yes Univer s 15 mg 0-06 ity of tablet 00:00: [facility] mirtazapine 2019- Yes Univer s 15 mg 0-06 ity of tablet 00:00: [facility] mirtazapine 2020- Yes Univer s 15 mg 0-06 ity of tablet 00:00: [facility] mirtazapine 2020- Yes Univer s 15 mg 0-06 ity of tablet 00:00: [facility] mirtazapine 2020- Yes Univer s 15 mg 0-06 ity of tablet 00:00: [facility] mirtazapine 2020-1 Yes Univer s 15 mg 0-06 ity of tablet 00:00: [facility] mirtazapine 2020-1 Yes Univer s 15 mg 0-06 ity of tablet 00:00: [facility] mirtazapine 2020-1 Yes Univer s 15 mg 0-06 ity of tablet 00:00: [facility] mirtazapine 2020-1 Yes Univer s 15 mg 0-06 ity of tablet 00:00: [facility] mirtazapine 2020-1 Yes Univer s 15 mg 0-06 ity of tablet 00:00: [facility] mirtazapine 2020-1 Yes Univer s 15 mg 0-06 ity of tablet 00:00: [facility] mirtazapine 2020-1 Yes Univer s 15 mg 0-06 ity of tablet 00:00: [address] mirtazapine 2020- Yes Univer s 15 mg 0-06 ity of tablet 00:00: [facility] sertraline 2020-0 Yes See Memoria 50 mg oral 8-06 Instructio l tablet 19:38: ns, TAKE Supa 00 ONE TABLET BY MOUTH DAILY, # 30 tab, 2 Refill(s), Pharmacy: [facility] [id number], 157.48, cm, 12/23/19 16:09:00 CDT, Height, 77.273, kg, 12/23/19 16:09:00 CDT, Weight sertraline 2020-0 Yes See Memoria 50 mg oral 8-06 Instructio l tablet 19:38: ns, TAKE Supa 00 ONE TABLET BY MOUTH DAILY, # 30 tab, 2 Refill(s), Pharmacy: [facility] [id number], 157.48, cm, 12/23/19 16:09:00 CDT, Height, 77.273, kg, 12/23/19 16:09:00 CDT, Weight sertraline 2020-0 Yes See Memoria 50 mg oral 8-06 Instructio l tablet 19:38: ns, TAKE Supa 00 ONE TABLET BY MOUTH DAILY, # 30 tab, 2 Refill(s), Pharmacy: [facility] [id number], 157.48, cm, 12/23/19 16:09:00 CDT, Height, 77.273, kg, 12/23/19 16:09:00 CDT, Weight sertraline 2020-0 Yes See Memoria 50 mg oral 8-06 Instructio l tablet 19:38: ns, TAKE Supa 00 ONE TABLET BY MOUTH DAILY, # 30 tab, 2 Refill(s), Pharmacy: [facility] [id number], 157.48, cm, 12/23/19 16:09:00 CDT, Height, 77.273, kg, 12/23/19 16:09:00 CDT, Weight lamotrigine 2020-0 Yes = 1 tab, Me moria 100 MG Oral 7-23 PO, BID, # l Tablet 19:05: 60 tab, 2 [place] n 00 Refill(s), Pharmacy: [place] [id number], 157.48, cm, 12/23/19 16:09:00 CDT, Height, 77.273, kg, 12/23/19 16:09:00 CDT, Weight lamotrigine 2020-0 Yes = 1 tab, Me moria 100 MG Oral 7-23 PO, BID, # l Tablet 19:05: 60 tab, 2 Candido n 00 Refill(s), Pharmacy: [facility] [id number], 157.48, cm, 12/23/19 16:09:00 CDT, Height, 77.273, kg, 12/23/19 16:09:00 CDT, Weight lamotrigine 2020-0 Yes = 1 tab, Me moria 100 MG Oral 7-23 PO, BID, # l Tablet 19:05: 60 tab, 2 [place] n 00 Refill(s), Pharmacy: [facility] 149, 157.48, cm, 12/23/19 16:09:00 CDT, Height, 77.273, kg, 12/23/19 16:09:00 CDT, Weight lamotrigine 2020-0 Yes = 1 tab, Me moria 100 MG Oral 7-23 PO, BID, # l Tablet 19:05: 60 tab, 2 Candido n 00 Refill(s), Pharmacy: [facility] 149, 157.48, cm, 12/23/19 16:09:00 CDT, Height, 77.273, kg, 12/23/19 16:09:00 CDT, Weight Mirtazapine 2020-0 Yes See Memori a 15 MG Oral 7-06 Instructio l Tablet 20:56: ns, TAKE [place] 00 ONE TABLET BY MOUTH EVERY NIGHT AT BEDTIME, # 30 tab, 4 Refill(s), Pharmacy: [facility] [id number], 157.48, cm, 12/23/19 16:09:00 CDT, Height, 77.273, kg, 12/23/19 16:09:00 CDT, Weight sertraline 2020-0 Yes See Memoria 50 mg oral 7-06 Instructio l tablet 20:56: ns, TAKE Supa 00 ONE TABLET BY MOUTH DAILY, # 30 tab, 0 Refill(s), Pharmacy: [facility] [id number], 157.48, cm, 12/23/19 16:09:00 CDT, Height, 77.273, kg, 12/23/19 16:09:00 CDT, Weight Mirtazapine 2020-0 Yes See Memori a 15 MG Oral 7-06 Instructio l Tablet 20:56: ns, TAKE [place] 00 ONE TABLET BY MOUTH EVERY NIGHT AT BEDTIME, # 30 tab, 4 Refill(s), Pharmacy: [facility] [id number], 157.48, cm, 12/23/19 16:09:00 CDT, Height, 77.273, kg, 12/23/19 16:09:00 CDT, Weight sertraline 2020-0 Yes See Memoria 50 mg oral 7-06 Instructio l tablet 20:56: ns, TAKE [place] 00 ONE TABLET BY MOUTH DAILY, # 30 tab, 0 Refill(s), Pharmacy: [facility] [id number], 157.48, cm, 12/23/19 16:09:00 CDT, Height, 77.273, kg, 12/23/19 16:09:00 CDT, Weight Mirtazapine 2020-0 Yes See Memori a 15 MG Oral 7-06 Instructio l Tablet 20:56: ns, TAKE [place] 00 ONE TABLET BY MOUTH EVERY NIGHT AT BEDTIME, # 30 tab, 4 Refill(s), Pharmacy: [facility] [id number], 157.48, cm, 12/23/19 16:09:00 CDT, Height, 77.273, kg, 12/23/19 16:09:00 CDT, Weight sertraline 2020-0 Yes See Memoria 50 mg oral 7-06 Instructio l tablet 20:56: ns, TAKE Supa 00 ONE TABLET BY MOUTH DAILY, # 30 tab, 0 Refill(s), Pharmacy: [facility] [id number], 157.48, cm, 12/23/19 16:09:00 CDT, Height, 77.273, kg, 12/23/19 16:09:00 CDT, Weight Mirtazapine 2020-0 Yes See Memori a 15 MG Oral 7-06 Instructio l Tablet 20:56: ns, TAKE [place] 00 ONE TABLET BY MOUTH EVERY NIGHT AT BEDTIME, # 30 tab, 4 Refill(s), Pharmacy: [facility] [id number], 157.48, cm, 12/23/19 16:09:00 CDT, Height, 77.273, kg, 12/23/19 16:09:00 CDT, Weight sertraline 2020-0 Yes See Memoria 50 mg oral 7-06 Instructio l tablet 20:56: ns, TAKE Supa 00 ONE TABLET BY MOUTH DAILY, # 30 tab, 0 Refill(s), Pharmacy: [facility] [id number], 157.48, cm, 12/23/19 16:09:00 CDT, Height, 77.273, kg, 12/23/19 16:09:00 CDT, Weight OXcarbazepi 2020-0 Yes = 1 tab, Me moria ne 600 mg 6-18 PO, TID, # l oral tablet 21:24: 90 tab, 5 H ermann 00 Refill(s), Pharmacy: [facility] 149, 157.48, cm, 12/23/19 16:09:00 CDT, Height, 77.273, kg, 12/23/19 16:09:00 CDT, Weight OXcarbazepi 2020-0 Yes = 1 tab, Me moria ne 600 mg 6-18 PO, TID, # l oral tablet 21:24: 90 tab, 5 H ermann 00 Refill(s), Pharmacy: [facility] 149, 157.48, cm, 12/23/19 16:09:00 CDT, Height, 77.273, kg, 12/23/19 16:09:00 CDT, Weight OXcarbazepi 2020-0 Yes = 1 tab, Me moria ne 600 mg 6-18 PO, TID, # l oral tablet 21:24: 90 tab, 5 H ermann 00 Refill(s), Pharmacy: [place] [address], 157.48, cm, 12/23/19 16:09:00 CDT, Height, 77.273, kg, 12/23/19 16:09:00 CDT, Weight OXcarbazepi 2020-0 Yes = 1 tab, Me moria ne 600 mg 6-18 PO, TID, # l oral tablet 21:24: 90 tab, 5 H ermann 00 Refill(s), Pharmacy: [place] [address], 157.48, cm, 12/23/19 16:09:00 CDT, Height, 77.273, kg, 12/23/19 16:09:00 CDT, Weight sertraline 2020-0 Yes See Memoria 50 mg oral 5-04 Instructio l tablet 19:59: ns, # 30 [place] 06 tab, Refill(s) 1, TAKE ONE TABLET BY MOUTH DAILY, Pharmacy: [place] [address] sertraline 2020-0 Yes See Memoria 50 mg oral 5-04 Instructio l tablet 19:59: ns, # 30 Supa 06 tab, Refill(s) 1, TAKE ONE TABLET BY MOUTH DAILY, Pharmacy: [place] [address] sertraline 2020-0 Yes See Memoria 50 mg oral 5-04 Instructio l tablet 19:59: ns, # 30 [place] 06 tab, Refill(s) 1, TAKE ONE TABLET BY MOUTH DAILY, Pharmacy: [place] [address] sertraline 2020-0 Yes See Memoria 50 mg oral 5-04 Instructio l tablet 19:59: ns, # 30 [place] 06 tab, Refill(s) 1, TAKE ONE TABLET BY MOUTH DAILY, Pharmacy: [place] [address] 4 ML 2020-0 Yes 15 mg, MN, Memoria Diazepam 3-03 ONCE, # 1 l 0.005 MG/MG 19:33: kit, 2 Herm chauncey Prefilled 00 Refill(s), Applicator Pharmacy: [place] [address] 4 ML 2020-0 Yes 15 mg, [place], Memoria Diazepam 3-03 ONCE, # 1 l 0.005 MG/MG 19:33: kit, 2 Herm chauncey Prefilled 00 Refill(s), Applicator Pharm[facility]: [facility] Navid 4 ML 2020-0 Yes 15 mg, [place], Memoria Diazepam 3-03 ONCE, # 1 l 0.005 MG/MG 19:33: kit, 2 Herm chauncey Prefilled 00 Refill(s), [facility]ator [facility] Navid 4 ML 2020-0 Yes 15 mg, [place], Memoria Diazepam 3-03 ONCE, # 1 l 0.005 MG/MG 19:33: kit, 2 Herm chauncey Prefilled 00 Refill(s), Applicator Pharmacy: [place] [address] lamotrigine 2020-0 Yes 100 mg = 1 Memoria 100 MG Oral 3-02 tab, PO, l Tablet 20:12: BID, # 60 Candido n 00 tab, 2 Refill(s), Pharmacy: [place] [address] lamotrigine 2020-0 Yes 100 mg = 1 Memoria 100 MG Oral 3-02 tab, PO, l Tablet 20:12: BID, # 60 Candido n 00 tab, 2 Refill(s), Pharmacy: [facility] Navid lamotrigine 2020-0 Yes 100 mg = 1 Memoria 100 MG Oral 3-02 tab, PO, l Tablet 20:12: BID, # 60 Candido n 00 tab, 2 Refill(s), Pharmacy: [place] [address] lamotrigine 2020-0 Yes 100 mg = 1 Memoria 100 MG Oral 3-02 tab, PO, l Tablet 20:12: BID, # 60 Candido n 00 tab, 2 Refill(s), Pharmacy: [place] [address] acyclovir 2020-0 Yes TAKE ONE Univ ers [...] TABLET BY ity of tablet 00:00: MOUTH 00 THREE Medical TIMES A Branch DAY FOR 5 DAYS FOR OUTBREAK acyclovir 2020-0 Yes TAKE ONE Univ ers 400 mg 1-07 TABLET BY ity of tablet 00:00: MOUTH 00 THREE Medical TIMES A Branch DAY FOR 5 DAYS FOR OUTBREAK acyclovir 2020-0 Yes TAKE ONE Univ ers 400 mg 1-07 TABLET BY ity of tablet 00:00: THREE Medical TIMES A Branch DAY FOR 5 DAYS FOR OUTBREAK acyclovir 2020-0 Yes TAKE ONE Univ ers 400 mg 1-07 TABLET BY ity of tablet 00:00: MOUTH 00 THREE Medical TIMES A Branch DAY FOR 5 DAYS FOR OUTBREAK acyclovir 2020-0 Yes TAKE ONE Univ ers 400 mg 1-07 TABLET BY ity of tablet 00:00: THREE Medical TIMES A Branch DAY FOR 5 DAYS FOR OUTBREAK acyclovir 2020-0 Yes TAKE ONE Univ ers 400 mg 1-07 TABLET BY ity of tablet 00:00: THREE Medical TIMES A Branch DAY FOR 5 DAYS FOR OUTBREAK acyclovir 2020-0 Yes TAKE ONE Univ ers 400 mg 1-07 TABLET BY ity of tablet 00:00: MOUTH 00 THREE Medical TIMES A Branch DAY FOR 5 DAYS FOR OUTBREAK acyclovir 2020-0 Yes TAKE ONE Univ ers 400 mg 1-07 TABLET BY ity of tablet 00:00: THREE Medical TIMES A Branch DAY FOR 5 DAYS FOR OUTBREAK acyclovir 2020-0 Yes TAKE ONE Univ ers 400 mg 1-07 TABLET BY ity of tablet 00:00: THREE Medical TIMES A Branch DAY FOR 5 DAYS FOR OUTBREAK acyclovir 2020-0 Yes TAKE ONE Univ ers 400 mg 1-07 TABLET BY ity of tablet 00:00: MOUTH THREE Medical TIMES A Branch DAY FOR 5 DAYS FOR OUTBREAK OXcarbazepi 2020-0 Yes = 1 tab, Me moria ne 600 mg 1-03 PO, TID, # l oral tablet 14:32: 90 tab, Her ugalde 49 Refill(s) 5, Pharmacy: [place] [address] Mirtazapine 2020-0 Yes = 1 tab, Me moria 15 MG Oral 1-03 PO, l Tablet 14:32: Bedtime, # Kareen nn 49 30 tab, Refill(s) 5, Pharmacy: [place] [address] OXcarbazepi 2020-0 Yes = 1 tab, Me moria ne 600 mg 1-03 PO, TID, # l oral tablet 14:32: 90 tab, Her ugalde 49 Refill(s) 5, Pharmacy: [place] [address] Mirtazapine 2020-0 Yes = 1 tab, Me moria 15 MG Oral 1-03 PO, l Tablet 14:32: Bedtime, # Kareen nn 49 30 tab, Refill(s) 5, Pharmacy: [place] [address] OXcarbazepi 2020-0 Yes = 1 tab, Me moria ne 600 mg 1-03 PO, TID, # l oral tablet 14:32: 90 tab, Her ugalde 49 Refill(s) 5, Pharmacy: [place] [address] Mirtazapine 2020-0 Yes = 1 tab, Me moria 15 MG Oral 1-03 PO, l Tablet 14:32: Bedtime, # Kareen nn 49 30 tab, Refill(s) 5, Pharmacy: [place] [address] OXcarbazepi 2020-0 Yes = 1 tab, Me moria ne 600 mg 1-03 PO, TID, # l oral tablet 14:32: 90 tab, Her ugalde 49 Refill(s) 5, Pharmacy: [place] [address] Mirtazapine 2020-0 Yes = 1 tab, Me moria 15 MG Oral 1-03 PO, l Tablet 14:32: Bedtime, # Kareen nn 49 30 tab, Refill(s) 5, Pharmacy: [place] [address] KlonoPIN 2018-07 Yes 1 mg = 1 [...] nn 18 30 tab, Refill(s) 2, Pharmacy: [place] [address] Mirtazapine 2018-07 Yes = 1 tab, Me moria 15 MG Oral 0-17 PO, l Tablet 13:25: Bedtime, # Kareen nn 18 30 tab, Refill(s) 2, Pharmacy: [place] [address] Mirtazapine 2018-07 Yes = 1 tab, Me moria 15 MG Oral 0-17 PO, l Tablet 13:25: Bedtime, # Kareen nn 18 30 tab, Refill(s) 2, Pharmacy: [place] [address] Mirtazapine 2018-07 Yes = 1 tab, Me moria 15 MG Oral 0-17 PO, l Tablet 13:25: Bedtime, # Kareen nn 18 30 tab, Refill(s) 2, Pharmacy: [place] [address] Sertraline 2018-07 Yes 50 mg = 1 Me moria 50 MG Oral 0-16 tab, PO, l Tablet 22:39: Daily, # Supa [Zoloft] 00 30 tab, 3 Refill(s), Pharmacy: [place] [address] Sertraline 2018-07 Yes 50 mg = 1 Me moria 50 MG Oral 0-16 tab, PO, l Tablet 22:39: Daily, # [place] [Zoloft] 00 30 tab, 3 Refill(s), Pharmacy: [place] [address] Sertraline 2018-07 Yes 50 mg = 1 Me moria 50 MG Oral 0-16 tab, PO, l Tablet 22:39: Daily, # [place] [Zoloft] 00 30 tab, 3 Refill(s), Pharmacy: [place] [address] Sertraline 2018-07 Yes 50 mg = 1 Me moria 50 MG Oral 0-16 tab, PO, l Tablet 22:39: Daily, # Supa [Zoloft] 00 30 tab, 3 Refill(s), Pharmacy: [place] [address] clonazePAM Yes TK 1 T PO Un rozina 1 mg tablet 9-12 TID ity of 00:00: [address] clonazePAM 2018- Yes TK 1 T PO Un rozina 1 mg tablet 9-12 TID ity of 00:00: [address] clonazePAM 2018- Yes TK 1 T PO Un rozina 1 mg tablet 9-12 TID ity of 00:00: [place] 00 [facility] clonazePAM 2019-0 Yes TK 1 T PO Un rozina 1 mg tablet 9-12 TID ity of 00:00: [place] 00 [facility] clonazePAM 2019-0 Yes TK 1 T PO Un rozina 1 mg tablet 9-12 TID ity of 00:00: [place] 00 [facility] clonazePAM 2019-0 Yes TK 1 T PO Un rozina 1 mg tablet 9-12 TID ity of 00:00: [place] [facility] clonazePAM 2019-0 Yes TK 1 T PO Un rozina 1 mg tablet 9-12 TID ity of 00:00: [place] 00 [facility] clonazePAM 2019-0 Yes TK 1 T PO Un rozina 1 mg tablet 9-12 TID ity of 00:00: [place] [facility] clonazePAM 2019-0 Yes TK 1 T PO Un rozina 1 mg tablet 9-12 TID ity of 00:00: [place] 00 [facility] clonazePAM 2019-0 Yes TK 1 T PO Un rozina 1 mg tablet 9-12 TID ity of 00:00: [place] [facility] clonazePAM 2019-0 Yes TK 1 T PO Un rozina 1 mg tablet 9-12 TID ity of 00:00: [place] 00 [facility] clonazePAM 2019-0 Yes TK 1 T PO Un rozina 1 mg tablet 9-12 TID ity of 00:00: [place] 00 [facility] clonazePAM 2019-0 Yes TK 1 T PO Un orzina 1 mg tablet 9-12 TID ity of 00:00: [place] 00 [facility] Branch budesonide- 2018- Yes 2{puff} Inhale 2 Univers formoterol 9-11 Puffs 2 ity of (SYMBICORT) 00:00: (two) [place] 80-4.5 00 times Medical mcg/actuati daily. Branch on inhaler SERTraline Yes [id number] 50mg Take 1 U nivers (ZOLOFT) 50 9-11 tablet by ity of mg tablet 00:00: mouth [place] 00 daily. Medical Branch budesonide- Yes 2{puff} Inhale 2 Univers formoterol 9-11 Puffs 2 ity of (SYMBICORT) 00:00: (two) [place] 80-4.5 00 times Medical mcg/actuati daily. Branch on inhaler SERTraline Yes [id number] 50mg Take 1 U nivers (ZOLOFT) 50 9-11 tablet by ity of mg tablet 00:00: mouth [place] 00 daily. Medical Branch budesonide- Yes 2{puff} Inhale 2 Univers formoterol 9-11 Puffs 2 ity of (SYMBICORT) 00:00: (two) [place] 80-4.5 00 times Medical mcg/actuati daily. Branch on inhaler SERTraline Yes [id number] 50mg Take 1 U nivers (ZOLOFT) 50 9-11 tablet by ity of mg tablet 00:00: mouth [place] 00 daily. Medical Branch budesonide- Yes 2{puff} Inhale 2 Univers formoterol 9-11 Puffs 2 ity of (SYMBICORT) 00:00: (two) [place] 80-4.5 00 times Medical mcg/actuati daily. Branch on inhaler SERTraline Yes [id number] 50mg Take 1 U nivers (ZOLOFT) 50 9-11 tablet by ity of mg tablet 00:00: mouth [place] 00 daily. Medical Branch budesonide- Yes 2{puff} Inhale 2 Univers formoterol 9-11 Puffs 2 ity of (SYMBICORT) 00:00: (two) [place] 80-4.5 00 times Medical mcg/actuati daily. Branch on inhaler SERTraline Yes [id number] 50mg Take 1 U nivers (ZOLOFT) 50 9-11 tablet by ity of mg tablet 00:00: mouth [place] 00 daily. Medical Branch budesonide- Yes 2{puff} Inhale 2 Univers formoterol 9-11 Puffs 2 ity of (SYMBICORT) 00:00: (two) [place] 80-4.5 00 times Medical mcg/actuati daily. Branch on inhaler SERTraline Yes [id number] 50mg Take 1 U nivers (ZOLOFT) 50 9-11 tablet by ity of mg tablet 00:00: mouth [place] 00 daily. Medical Branch budesonide- Yes 2{puff} Inhale 2 Univers formoterol 9-11 Puffs 2 ity of (SYMBICORT) 00:00: (two) [place] 80-4.5 00 times Medical mcg/actuati daily. Branch on inhaler SERTraline Yes [id number] 50mg Take 1 U nivers (ZOLOFT) 50 9-11 tablet by ity of mg tablet 00:00: mouth [place] 00 daily. Medical Branch budesonide- Yes 2{puff} Inhale 2 Univers formoterol 9-11 Puffs 2 ity of (SYMBICORT) 00:00: (two) [place] 80-4.5 00 times Medical mcg/actuati daily. Branch on inhaler SERTraline Yes [id number] 50mg Take 1 U nivers (ZOLOFT) 50 9-11 tablet by ity of mg tablet 00:00: mouth [place] 00 daily. Medical Branch budesonide Yes 2{puff} Inhale 2 Univers formoterol 9-11 Puffs 2 ity of (SYMBICORT) 00:00: (two) [place] 80-4.5 00 times Medical mcg/actuati daily. Branch on inhaler SERTraline Yes [id number] 50mg Take 1 U nivers (ZOLOFT) 50 9-11 tablet by ity of mg tablet 00:00: mouth [place] 00 daily. Medical Branch budesonide- Yes 2{puff} Inhale 2 Univers formoterol 9-11 Puffs 2 ity of (SYMBICORT) 00:00: (two) [place] 80-4.5 00 times Medical mcg/actuati daily. Branch on inhaler SERTraline Yes [id number] 50mg Take 1 U nivers (ZOLOFT) 50 9-11 tablet by ity of mg tablet 00:00: mouth [place] 00 daily. Medical Branch budesonide Yes 2{puff} Inhale 2 Univers formoterol 9-11 Puffs 2 ity of (SYMBICORT) 00:00: (two) [place] 80-4.5 00 times Medical mcg/actuati daily. Branch on inhaler SERTraline Yes [id number] 50mg Take 1 U nivers (ZOLOFT) 50 9-11 tablet by ity of mg tablet 00:00: mouth [place] 00 daily. Medical Branch budesonide- Yes 2{puff} Inhale 2 Univers formoterol 9-11 Puffs 2 ity of (SYMBICORT) 00:00: (two) [place] 80-4.5 00 times Medical mcg/actuati daily. Branch on inhaler SERTraline Yes [id number] 50mg Take 1 U nivers (ZOLOFT) 50 9-11 tablet by ity of mg tablet 00:00: mouth [place] 00 daily. Medical Branch budesonide- Yes 2{puff} Inhale 2 Univers formoterol 9-11 Puffs 2 ity of (SYMBICORT) 00:00: (two) [place] 80-4.5 00 times Medical mcg/actuati daily. Branch on inhaler SERTraline Yes [id number] 50mg Take 1 U nivers (ZOLOFT) 50 [...] [Remeron] 00 30 tab, 1 Refill(s), Pharmacy: [place] [address] Mirtazapine No 15 mg = 1 M emoria 15 MG Oral 8-21 tab, PO, l Tablet 14:15: Bedtime, # Kareen nn [Remeron] 00 30 tab, 1 Refill(s), Pharmacy: [place] [address] Mirtazapine No 15 mg = 1 M emoria 15 MG Oral 8-21 tab, PO, l Tablet 14:15: Bedtime, # Kareen nn [Remeron] 00 30 tab, 1 Refill(s), Pharmacy: [place] [address] Mirtazapine No 15 mg = 1 M emoria 15 MG Oral 8-21 tab, PO, l Tablet 14:15: Bedtime, # Kareen nn [Remeron] 00 30 tab, 1 Refill(s), Pharmacy: [place] [address] Clonazepam Yes 1 mg = 1 Mem [...] 00 # 20 tab, 0 Refill(s) lamotrigine 2019- Yes 50 mg = 2 M emoria 25 MG Oral 5-30 tab, PO, l Tablet 14:46: BID, # 120 Kareen nn [Lamictal] 22 tab, 2 Refill(s), Pharmacy: [place] [address] lamotrigine 2019-0 Yes 50 mg = 2 M emoria 25 MG Oral 5-30 tab, PO, l Tablet 14:46: BID, # 120 Kareen nn [Lamictal] 22 tab, 2 Refill(s), Pharmacy: [place] [address] lamotrigine 2019-0 Yes 50 mg = 2 M emoria 25 MG Oral 5-30 tab, PO, l Tablet 14:46: BID, # 120 Kareen nn [Lamictal] 22 tab, 2 Refill(s), Pharmacy: [place] [address] lamotrigine 2018- Yes 50 mg = 2 M emoria 25 MG Oral 5-30 tab, PO, l Tablet 14:46: BID, # 120 Kareen nn [Lamictal] 22 tab, 2 Refill(s), Pharmacy: [place] [address] lamotrigine 0 No 50 mg = 2 M emoria 25 MG Oral 5-29 tab, PO, l Tablet 15:36: BID, X 30 Candido n [Lamictal] 55 day, # 120 tab, 2 Refill(s), Pharmacy: [facility] lamotrigine No 50 mg = 2 M emoria 25 MG Oral 5-29 tab, PO, l Tablet 15:36: BID, X 30 Cand[place] n [Lamictal] 55 day, # 120 tab, 2 Refill(s), Pharmacy: [facility] lamotrigine 2018-0 No 50 mg = 2 M emoria 25 MG Oral 5-29 tab, PO, l Tablet 15:36: BID, X 30 [place] n [Lamictal] 55 day, # 120 tab, 2 Refill(s), Pharmacy: [facility] lamotrigine No 50 mg = 2 M emoria 25 MG Oral 5-29 tab, PO, l Tablet 15:36: BID, X 30 Candido n [Lamictal] 55 day, # 120 tab, 2 Refill(s), Pharmacy: [facility] [place] [address] meloxicam 2020- No Univers 15 mg 5-17 05 ity of tablet 00:00: 00:00 [place] 00 :00 [facility] lamotrigine 2019-0 Yes 25 mg = 1 M emoria 25 MG Oral 5-15 tab, PO, l Tablet 19:55: BID, # 60 [place] n [Lamictal] 00 tab, 3 Refill(s), Pharmacy: [place] [address] lamotrigine 2018-0 Yes 25 mg = 1 M emoria 25 MG Oral 5-15 tab, PO, l Tablet 19:55: BID, # 60 [place] n [Lamictal] 00 tab, 3 Refill(s), Pharmacy: [place] [address] lamotrigine 2019-0 Yes 25 mg = 1 M emoria 25 MG Oral 5-15 tab, PO, l Tablet 19:55: BID, # 60 Cand[place] n [Lamictal] 00 tab, 3 Refill(s), Pharmacy: [place] [address] lamotrigine 201[address] Yes 25 mg = 1 M emoria 25 MG Oral 5-15 tab, PO, l Tablet 19:55: BID, # 60 [place] n [Lamictal] 00 tab, 3 Refill(s), Pharmacy: [place] [address] lamoTRIgine 0 Yes Univer s 25 mg 5-15 ity of tablet 00:00: [address] lamoTRIgine [address] Yes Univer s 25 mg 5-15 ity of tablet 00:00: [address] lamoTRIgine 2019-0 Yes Univer s 25 mg 5-15 ity of tablet 00:00: [address] lamoTRIgine 2019-0 Yes Univer s 25 mg 5-15 ity of tablet 00:00: [address] lamoTRIgine 2019-0 Yes Univer s 25 mg 5-15 ity of tablet 00:00: [address] lamoTRIgine 2019-0 Yes Univer s 25 mg 5-15 ity of tablet 00:00: [address] lamoTRIgine 2019-0 Yes Univer s 25 mg 5-15 ity of tablet 00:00: [address] lamoTRIgine 2019-0 Yes Univer s 25 mg 5-15 ity of tablet 00:00: [address] lamoTRIgine 2019-0 Yes Univer s 25 mg 5-15 ity of tablet 00:00: [address] lamoTRIgine 2019-0 Yes Univer s 25 mg 5-15 ity of tablet 00:00: [address] lamoTRIgine 2019-0 Yes Univer s 25 mg 5-15 ity of tablet 00:00: [address] lamoTRIgine 2019-0 Yes Univer s 25 mg 5-15 ity of tablet 00:00: [address] lamoTRIgine 2019-0 Yes Univer s 25 mg 5-15 ity of tablet 00:00: [address] Clonazepam 2019-0 Yes 1 mg = 1 Mem oria 1 MG Oral 5-09 tab, PO, l Tablet 21:18: TID, # 90 Candido n [Klonopin] 58 tab, 2 Refill(s), called to pharmacy Clonazepam 2018- Yes 1 mg = 1 Mem oria [...] H ermann 44 tab, 3 Refill(s), Pharmacy: [place] [address] OXcarbazepi Yes 600 mg = 1 Memoria ne 600 mg 5-09 tab, PO, l oral tablet 21:18: TID, # 90 H ermann 44 tab, 3 Refill(s), Pharmacy: [place] [address] OXcarbazepi Yes 600 mg = 1 Memoria ne 600 mg 5-09 tab, PO, l oral tablet 21:18: TID, # 90 H ermann 44 tab, 3 Refill(s), Pharmacy: [place] [address] OXcarbazepi Yes 600 mg = 1 Memoria ne 600 mg 5-09 tab, PO, l oral tablet 21:18: TID, # 90 H ermann 44 tab, 3 Refill(s), Pharmacy: [place] [address] fluconazole 2020- No [id number] 200mg Take 1 Univers (DIFLUCAN) 07-29 tablet by ity of 200 mg 00:00: 00:00 mouth [place] tablet 00 :00 daily. Medical Branch OXcarbazepi No 600 mg = 1 Memoria ne 600 mg 1-11 tab, PO, l oral tablet 17:19: TID, X 30 H ermann 01 day, # 90 tab, 3 Refill(s), Pharmacy: [place] [address] OXcarbazepi 2019-0 No 600 mg = 1 Memoria ne 600 mg 1-11 tab, PO, l oral tablet 17:19: TID, X 30 H ermann 01 day, # 90 tab, 3 Refill(s), Pharmacy: [place] [address] OXcarbazepi 2019-0 No 600 mg = 1 Memoria ne 600 mg 1-11 tab, PO, l oral tablet 17:19: TID, X 30 H ermann 01 day, # 90 tab, 3 Refill(s), Pharmacy: [place] [address] OXcarbazepi 2019-0 No 600 mg = 1 Memoria ne 600 mg 1-11 tab, PO, l oral tablet 17:19: TID, X 30 H ermann 01 day, # 90 tab, 3 Refill(s), Pharmacy: [place] [address] Clonazepam 2017-07 No 1 mg = 1 [...] DAY, # 90 tab, 3 Refill(s), Pharmacy: [place] [address] OXcarbazepi 2017-07 No See Memori a ne 600 mg 0-17 Instructio l oral tablet 15:32: ns, TAKE He rmann 51 1.5 TABLET BY MOUTH TWICE A DAY, # 90 tab, 3 Refill(s), Pharmacy: [place] [address] OXcarbazepi 2017-07 No See Memori a ne 600 mg 0-17 Instructio l oral tablet 15:32: ns, TAKE He rmann 51 1.5 TABLET BY MOUTH TWICE A DAY, # 90 tab, 3 Refill(s), Pharmacy: [place] [address] OXcarbazepi 2017-07 No See Memori a ne 600 mg 0-17 Instructio l oral tablet 15:32: ns, TAKE He rmann 51 1.5 TABLET BY MOUTH TWICE A DAY, # 90 tab, 3 Refill(s), Pharmacy: [place] [address] Sertraline 2017-07 Yes 50 mg = 1 Me moria 50 MG Oral 0-05 tab, PO, l Tablet 14:19: Daily, # [place] [Zoloft] 00 30 tab, 0 Refill(s) Sertraline 2017-07 Yes 50 mg = 1 Me moria 50 MG Oral 0-05 tab, PO, l Tablet 14:19: Daily, # Supa [Zoloft] 00 30 tab, 0 Refill(s) Sertraline 2017-07 Yes 50 mg = 1 Me moria 50 MG Oral 0-05 tab, PO, l Tablet 14:19: Daily, # [place] [Zoloft] 00 30 tab, 0 Refill(s) Sertraline 2017-07 Yes 50 mg = 1 Me moria 50 MG Oral 0-05 tab, PO, l Tablet 14:19: Daily, # [place] [Zoloft] 00 30 tab, 0 Refill(s) Symbicort 2017-07 Yes 2 puff, Memor ia 160/4.5 0-05 INHALATION l inhalation 14:16: , BID, 0 Her gualde aerosol 00 Refill(s) with adapter Symbicort 2017-07 [...] Tablet 22:08: Bedtime, X Kareen nn [Klonopin] day, # 30 tab, 3 Refill(s), called to pharmacy Clonazepam 2017-07 No 0.5 mg = 1 M emoria 0.5 MG Oral 0-02 tab, PO, l Tablet 22:08: Bedtime, X Kareen nn [Klonopin] day, # 30 tab, 3 Refill(s), called to pharmacy Clonazepam 2017-07 No 0.5 mg = 1 M emoria 0.5 MG Oral 0-02 tab, PO, l Tablet 22:08: Bedtime, X Kareen nn [Klonopin] 29 30 day, # 30 tab, 3 Refill(s), called to pharmacy Clonazepam 2018-1 No 0.5 mg = 1 M emoria 0.5 MG Oral 0-02 tab, PO, l Tablet 22:08: Bedtime, Andrew Mathur nn [Klonopin] day, # 30 tab, 3 Refill(s), called to pharmacy OXcarbazepi [id number] Yes Univer s ne 600 mg 9-14 ity of tablet 00:00: [facility] OXcarbazepi 2018-0 Yes Univer s ne 600 mg 9-14 ity of tablet 00:00: [facility] OXcarbazepi 2018-0 Yes Univer s ne 600 mg 9-14 ity of tablet 00:00: [facility] OXcarbazepi 2018-0 Yes Univer s ne 600 mg 9-14 ity of tablet 00:00: [facility] OXcarbazepi 2018-0 Yes Univer s ne 600 mg 9-14 ity of tablet 00:00: [facility] OXcarbazepi 2018-0 Yes Univer s ne 600 mg 9-14 ity of tablet 00:00: [facility] OXcarbazepi 2018-0 Yes Univer s ne 600 mg 9-14 ity of tablet 00:00: [facility] OXcarbazepi 2018-0 Yes Univer s ne 600 mg 9-14 ity of tablet 00:00: [facility] OXcarbazepi 2018-0 Yes Univer s ne 600 mg 9-14 ity of tablet 00:00: [facility] OXcarbazepi 2018-0 Yes Univer s ne 600 mg 9-14 ity of tablet 00:00: [facility] OXcarbazepi 2018-0 Yes Univer s ne 600 mg 9-14 ity of tablet 00:00: [facility] OXcarbazepi 2018-0 Yes Univer s ne 600 mg 9-14 ity of tablet 00:00: [facility] OXcarbazepi 2018-0 Yes Univer s ne 600 mg 9-14 ity of tablet 00:00: [address] clonazePAM 2018-0 2020- No Univer s 0.5 mg 8- 11-05 ity of tablet 00:00: 00:00 [place] 00 :00 [facility] ipratropium 2017- Yes [id number] 2{puff} Inhale 2 [facility] 17 7-23 Puffs 3 ity of mcg/actuati 00:00: (three) Nader as on inhaler 00 times Medical daily. Branch ipratropium 2017- Yes [id number] 2{puff} Inhale 2 [facility] 17 7-23 Puffs 3 ity of mcg/actuati 00:00: (three) Nader as on inhaler 00 times Medical daily. Branch ipratropium 2017- Yes [id number] 2{puff} Inhale 2 [facility] 17 7-23 Puffs 3 ity of mcg/actuati 00:00: (three) Nader as on inhaler 00 times Medical daily. Branch ipratropium 2017- Yes [id number] 2{puff} Inhale 2 [facility] 17 7-23 Puffs 3 ity of mcg/actuati 00:00: (three) Nader as on inhaler 00 times Medical daily. Branch ipratropium 2017- Yes [id number] 2{puff} Inhale 2 Univers 17 7-23 Puffs 3 ity of mcg/actuati 00:00: (three) Nader as on inhaler 00 times Medical daily. Branch ipratropium 2017- Yes [id number] 2{puff} Inhale 2 Univers 17 7-23 Puffs 3 ity of mcg/actuati 00:00: (three) Nader as on inhaler 00 times Medical daily. Branch ipratropium 2017- Yes [id number] 2{puff} Inhale 2 Univers 17 7-23 Puffs 3 ity of mcg/actuati 00:00: (three) Nader as on inhaler 00 times Medical daily. Branch ipratropium 2017- Yes [id number] 2{puff} Inhale 2 Univers 17 7-23 Puffs 3 ity of mcg/actuati 00:00: (three) Nader as on inhaler 00 times Medical daily. Branch ipratropium 2017-0 Yes [id number] 2{puff} Inhale 2 Univers 17 7-23 Puffs 3 ity of mcg/actuati 00:00: (three) Nader as on inhaler 00 times Medical daily. Branch ipratropium 2017- Yes [id number] 2{puff} Inhale 2 Univers 17 7-23 Puffs 3 ity of mcg/actuati 00:00: (three) Nader as on inhaler 00 times Medical daily. Branch ipratropium 2017- Yes [id number] 2{puff} Inhale 2 Univers 17 7-23 Puffs 3 ity of mcg/actuati 00:00: (three) Nader as on inhaler 00 times Medical daily. Branch ipratropium 2017- Yes [id number] 2{puff} Inhale 2 Univers 17 7-23 Puffs 3 ity of mcg/actuati 00:00: (three) Nader as on inhaler 00 times Medical daily. Branch ipratropium Yes [id number] 2{puff} Inhale 2 Univers 17 7-23 Puffs [...] for Wheezing or Shortness of Breath. Prenate 2017-0 Yes 1 cap, PO, Farooq shamika mini with 5-02 Daily, 0 l DHA 18:46: Refill(s) Supa 00 folic acid 2017-0 Yes Daily, 0 Mem oria 5-02 Refill(s) l 18:46: [place] Prenate Yes 1 cap, PO, Farooq shamika mini with 5-02 Daily, 0 l DHA 18:46: Refill(s) folic acid Yes Daily, 0 Mem oria 5-02 Refill(s) l 18:46: Supa Prenate Yes 1 cap, PO, Farooq shamika mini with 5-02 Daily, 0 l DHA 18:46: Refill(s) folic acid Yes Daily, 0 Mem oria 5-02 Refill(s) l 18:46: [place] Nitrofurant No 100 mg = 1 Memoria oin 100 MG 1-11 cap, PO, l Oral 18:27: BID, X 7 [place] Capsule 00 day, # 14 [Macrobid] cap, 0 Refill(s), Pharmacy: [place] [address] Nitrofurant No 100 mg = 1 Memoria oin 100 MG 1-11 cap, PO, l Oral 18:27: BID, X 7 Supa Capsule 00 day, # 14 [Macrobid] cap, 0 Refill(s), Pharmacy: [facility] [address] Nitrofurant No 100 mg = 1 Memoria oin 100 MG 1-11 cap, PO, l Oral 18:27: BID, X 7 Supa Capsule 00 day, # 14 [Macrobid] cap, 0 Refill(s), Pharmacy: [facility] [address] Nitrofurant No 100 mg = 1 Memoria oin 100 MG 1-11 cap, PO, l Oral 18:27: BID, X 7 [place] Capsule 00 day, # 14 [Macrobid] cap, 0 Refill(s), Pharmacy: [facility] [id number] 200 ACTUAT 0 Yes 180 Memoria Albuterol 1-08 microgram l 0.09 22:29: = 2 puff, Supa MG/ACTUAT 02 INHALER, Metered Q4H, PRN Dose wheezing, Inhaler coughing, [ProAir or HFA] shortness of breath, # 1 ea, 2 Refill(s), Pharmacy: [place] [address] ProAir HFA Yes 180 Memoria 90 mcg/inh 1-08 microgram l inhalation 22:29: = 2 puff, He rmann aerosol 02 INHALER, with Q4H, PRN adapter wheezing, coughing, or shortness of breath, # 1 ea, 2 Refill(s), Pharmacy: [place] [address] 200 ACTUAT 2018-0 Yes 180 Memoria Albuterol 1-08 microgram l 0.09 22:29: = 2 puff, Supa MG/ACTUAT 02 INHALER, Metered Q4H, PRN Dose wheezing, Inhaler coughing, [ProAir or HFA] shortness of breath, # 1 ea, 2 Refill(s), Pharmacy: [place] [address] 200 ACTUAT [id number] Yes 180 Memoria Albuterol 1-08 microgram l 0.09 22:29: = 2 puff, [place] MG/ACTUAT 02 INHALER, Metered Q4H, PRN Dose wheezing, Inhaler coughing, [ProAir or HFA] shortness of breath, # 1 ea, 2 Refill(s), Pharmacy: [place] [address] ProAir HFA Yes 180 Memoria 90 mcg/inh 1-08 microgram l inhalation 22:29: = 2 puff, He rmann aerosol 02 INHALER, with Q4H, PRN adapter wheezing, coughing, or shortness of breath, # 1 ea, 2 Refill(s), Pharmacy: [place] [address] 200 ACTUAT [id number] Yes 180 Memoria Albuterol 1-08 microgram l 0.09 22:29: = 2 puff, [place] MG/ACTUAT 02 INHALER, Metered Q4H, PRN Dose wheezing, Inhaler coughing, [ProAir or HFA] shortness of breath, # 1 ea, 2 Refill(s), Pharmacy: [place] [address] ProAir HFA Yes 180 Memoria 90 mcg/inh 1-08 microgram l inhalation 22:29: = 2 puff, He rmann aerosol 02 INHALER, with Q4H, PRN adapter wheezing, coughing, or shortness of breath, # 1 ea, 2 Refill(s), Pharmacy: [place] [address] Oseltamivir No 75 mg, PO, Memoria 75 MG Oral 1-08 Q12H, X 5 l Capsule 22:24: day, # 10 Kareen nn [Tamiflu] 57 cap, 0 Refill(s), Pharmacy: [place] [address] Oseltamivir 2018-0 No 75 mg, PO, Memoria 75 MG Oral 1-08 Q12H, X 5 l Capsule 22:24: day, # 10 Kareen nn [Tamiflu] 57 cap, 0 Refill(s), Pharmacy: [place] [address] Oseltamivir 2018-0 No 75 mg, PO, Memoria 75 MG Oral 1-08 Q12H, X 5 l Capsule 22:24: day, # 10 Kareen nn [Tamiflu] 57 cap, 0 Refill(s), Pharmacy: [place] [address] Oseltamivir 2018-0 No 75 mg, PO, Memoria 75 MG Oral 1-08 Q12H, X 5 l Capsule 22:24: day, # 10 Kareen nn [Tamiflu] 57 cap, 0 Refill(s), Pharmacy: [place] [address] Oseltamivir 2018-0 No 75 mg, PO, Memoria 75 MG Oral 1-08 Q12H, X 5 l Capsule 22:21: day, # 10 Kareen nn [Tamiflu] 00 cap, 0 Refill(s), Pharmacy: [place] [address] Oseltamivir 2018-0 No 75 mg, PO, Memoria 75 MG Oral 1-08 Q12H, X 5 l Capsule 22:21: day, # 10 Kareen nn [Tamiflu] 00 cap, 0 Refill(s), Pharmacy: [place] [address] Oseltamivir 2018-0 No 75 mg, PO, Memoria 75 MG Oral 1-08 Q12H, X 5 l Capsule 22:21: day, # 10 Kareen nn [Tamiflu] 00 cap, 0 Refill(s), Pharmacy: [place] [address] Oseltamivir 2018-0 No 75 mg, PO, Memoria 75 MG Oral 1-08 Q12H, X 5 l Capsule 22:21: day, # 10 Kareen nn [Tamiflu] 00 cap, 0 Refill(s), Pharmacy: [place] [address] mometasone Yes See Memoria 100 mcg/inh 9-15 Instructio l inhalation 19:36: ns, 100 Herm chauncey aerosol 11 microgram INHALATION BID, # 1 vial, 3 Refill(s), Pharmacy: [place] [address] mometasone Yes See Memoria 100 mcg/inh 9-15 Instructio l inhalation 19:36: ns, 100 Herm chauncey aerosol 11 microgram INHALATION BID, # 1 vial, 3 Refill(s), Pharmacy: [place] [address] mometasone Yes See Memoria 100 mcg/inh 9-15 Instructio l inhalation 19:36: ns, 100 Herm chauncey aerosol 11 microgram INHALATION BID, # 1 vial, 3 Refill(s), Pharmacy: [place] [address] Immunizations Ordered Filled Immunization Date Status Comments [facility] e Immunization Name Name Influenza Virus 2021-05-11 Completed Universit y of Vaccine Quad IM, 00:00:00 [place] [facility] dical Preserv and ABX Branch Free 6 MO-64 YRS Influenza Virus 2021-05-11 Completed Universit y of Vaccine [place] IM, 00:00:00 [place] Me dical Preserv and ABX Branch Free 6 MO-64 YRS Influenza Virus 2021-05-11 Completed Universit y of Vaccine [facility] IM, 00:00:00 [place] Me dical Preserv and ABX Branch Free 6 MO-64 YRS Influenza Virus 2021-05-11 Completed Universit y of Vaccine [facility] IM, 00:00:00 [place] [facility]ical Preserv and ABX Branch Free 6 MO-64 YRS Influenza Virus 2021-05-11 Completed Universit y of Vaccine [facility] IM, 00:00:00 [place] [facility]ical Preserv and ABX Branch Free [...] Universit y of Vaccine Quad IM, 00:00:00 [place] [facility] Preserv and ABX Branch Free [...] y of Vaccine Quad .5 mL 00:00:00 [place] [facility] IM 6+ MO Branch Influenza Virus [...] y of Vaccine Quad .5 mL 00:00:00 [place] [facility] IM 6+ MO Branch Influenza Virus 2018-04-14 Completed Universit y of Vaccine Quad .5 mL 00:00:00 [facility] 6+ MO Branch TDAP 2018-01-19 Completed University of 00:00:00 [facility] [place] TDAP 2018-01-19 Completed University of 00:00:00 [facility] [place] TDAP 2018-01-19 Completed University of 00:00:00 [facility] [place] TDAP 2018-01-19 Completed University of 00:00:00 [facility] [place] TDAP 2018-01-19 Completed University of 00:00:00 [facility] [place] TDAP 2018-01-19 Completed University of 00:00:00 [facility] [place] TDAP 2018-01-19 Completed University of 00:00:00 [facility] [place] TDAP 2018-01-19 Completed University of 00:00:00 [facility] [place] TDAP 2018-01-19 Completed University of 00:00:00 [facility] [place] TDAP 2018-01-19 Completed University of 00:00:00 [facility] [place] TDAP 2018-01-19 Completed University of 00:00:00 [facility] [place] TDAP 2018-01-19 Completed University of 00:00:00 [facility] [place] TDAP 2018-01-19 Completed University of 00:00:00 [facility] [place] Rho (d) Immune 2017-12-17 Completed University of Globulin 00:00:00 [facility] [place] Rho (d) Immune 2017-12-17 Completed University of Globulin 00:00:00 [facility] [place] Rho (d) Immune 2017-12-17 Completed University of Globulin 00:00:00 [place] [facility] Rho (d) Immune 2017-12-17 Completed University of Globulin 00:00:00 [place] [facility] Rho (d) Immune 2017-12-17 Completed University of Globulin 00:00:00 [place] [facility] Rho (d) Immune 2017-12-17 Completed University of Globulin 00:00:00 [place] [facility] Rho (d) Immune 2017-12-17 Completed University of Globulin 00:00:00 [place] [facility] Rho (d) Immune 2017-12-17 Completed University of Globulin 00:00:00 [place] [facility] Rho (d) Immune 2017-12-17 Completed University of Globulin 00:00:00 [place] [facility] Rho (d) Immune 2017-12-17 Completed University of Globulin 00:00:00 [facility] Branch Rho (d) Immune 2017-12-17 Completed University of Globulin 00:00:00 [facility] Branch Rho (d) Immune 2017-12-17 Completed University of Globulin 00:00:00 [facility] Branch Rho (d) Immune 2017-12-17 Completed University of Globulin 00:00:00 [place] [facility] Rho (d) Immune 2017-07-31 Completed University of Globulin 00:00:00 [facility] Branch Rho (d) Immune 2017-07-31 Completed University of Globulin 00:00:00 [facility] Branch Rho (d) Immune 2017-07-31 Completed University of Globulin 00:00:00 [place] [facility] Rho (d) Immune 2017-07-31 Completed University of Globulin 00:00:00 [facility] Rho (d) Immune 2017-07-31 Completed University of Globulin 00:00:00 [place] [facility] Rho (d) Immune 2017-07-31 Completed University of Globulin 00:00:00 [place] [facility] Rho (d) Immune 2017-07-31 Completed University of Globulin 00:00:00 [facility] Branch Rho (d) Immune 2017-07-31 Completed University of Globulin 00:00:00 [place] [facility] Rho (d) Immune 2017-07-31 Completed University of Globulin 00:00:00 [place] [facility] Rho (d) Immune 2017-07-31 Completed University of Globulin 00:00:00 [place] [facility] Rho (d) Immune 2017-07-31 Completed University of Globulin 00:00:00 [place] [facility] Rho (d) Immune 2017-07-31 Completed University of Globulin 00:00:00 [place] [facility] Rho (d) Immune 2017-07-31 Completed [facility] 00:00:00 [facility] [place] Vital Signs Vital Name Observation Time Observation Value Comments Source Systolic blood 2022-08-07 17:05:00 130 mm[Hg] Univer sity of pressure [facility] [place] Diastolic blood 2022-08-07 17:05:00 87 mm[Hg] Unive rsity of pressure [facility] [place] Heart rate 2022-08-07 17:05:00 67 /min Universi ty of [facility] [place] Body temperature 2022-08-07 17:05:00 36.72 Isabel Univ ersity of [facility] [place] Respiratory rate 2022-08-07 17:05:00 17 /min Univ ersity of [facility] [place] Body height 2022-08-07 17:05:00 157.5 cm Universi ty of [facility] [place] Body weight 2022-08-07 17:05:00 61.78 kg Universi ty of [facility] [place] BMI 2022-08-07 17:05:00 24.91 kg/m2 Universi ty of [facility] [place] Systolic blood 2021-05-11 19:14:00 121 mm[Hg] Univer sity of pressure [facility] [place] Diastolic blood 2021-05-11 19:14:00 79 mm[Hg] Unive rsity of pressure [facility] [place] Heart rate 2021-05-11 19:14:00 64 /min Universi ty of [facility] [place] Respiratory rate 2021-05-11 19:14:00 18 /min Univ ersity of [facility] [place] Body height 2021-05-11 19:14:00 157.5 cm Universi ty of [place] [facility] [place] Body weight 2021-05-11 19:14:00 53.978 kg Universi ty of [place] [facility] BMI 2021-05-11 19:14:00 21.77 kg/m2 Universi ty of [facility] [place] Oxygen saturation in 2021-05-11 19:14:00 100 /min [facility] Arterial blood by [facility] Pulse oximetry Branch Systolic (mm Hg) 2022-07-18 16:18:00 Farooq Cowart Diastolic (mm Hg) 2022-07-18 16:18:00 Alyssa Cowart Heart Rate 2022-07-18 16:18:00 [facility] [place] Height 2022-07-18 16:18:00 5 [ft_i] [facility]a Weight 2022-07-18 16:18:00 [facility] [place] BMI Calculated 2022-07-18 16:18:00 Memori al Supa Systolic (mm Hg) 2021-10-12 15:43:00 Farooq rial [place] Diastolic (mm Hg) 2021-10-12 15:43:00 Mem orial [place] Heart Rate 2021-10-12 15:43:00 [facility] Respitory Rate 2021-10-12 15:43:00 Memori al Supa Height 2021-10-12 15:43:00 161.29 cm [facility] Weight 2021-10-12 15:43:00 [facility] BMI Calculated 2021-10-12 15:43:00 Memori al [place] Systolic (mm Hg) 2021-04-12 15:09:00 Farooq rial Supa Diastolic (mm Hg) 2021-04-12 15:09:00 Mem orial Supa Heart Rate 2021-04-12 15:09:00 [facility] [place] Respitory Rate 2021-04-12 15:09:00 Memori al [place] Height 2021-04-12 15:09:00 157.48 cm [facility] [place] Weight 2021-04-12 15:09:00 [facility] [place] BMI Calculated 2021-04-12 15:09:00 Memori al [place] Systolic (mm Hg) 2020-12-06 14:13:00 Farooq rial [place] Diastolic (mm Hg) 2020-12-06 14:13:00 Mem orial Supa Heart Rate 2020-12-06 14:13:00 [facility] Respitory Rate 2020-12-06 14:13:00 Memori al [place] Height 2020-12-06 14:13:00 157.48 cm [facility] Weight 2020-12-06 14:13:00 [facility] BMI Calculated 2020-12-06 14:13:00 Memori al [place] Systolic (mm Hg) 2020-09-05 15:23:00 Farooq rial Supa Diastolic (mm Hg) 2020-09-05 15:23:00 Mem orial Supa Heart Rate 2020-09-05 15:23:00 [facility] [place] Respitory Rate 2020-09-05 15:23:00 Memori al [place] Systolic (mm Hg) 2020-08-11 19:24:00 Farooq rial Supa Diastolic (mm Hg) 2020-08-11 19:24:00 Mem orial Supa Heart Rate 2020-08-11 19:24:00 [facility] [place] Respitory Rate 2020-08-11 19:24:00 Memori al [place] Height 2020-08-11 19:24:00 157.48 cm [facility] [place] Weight 2020-08-11 19:24:00 [facility] BMI Calculated 2020-08-11 19:24:00 Memori al [facility]a Systolic (mm Hg) 2020-05-09 15:36:00 Farooq rial [place] Diastolic (mm Hg) 2020-05-09 15:36:00 Mem orial [place] Heart Rate 2020-05-09 15:36:00 [facility] [place] Respitory Rate 2020-05-09 15:36:00 Memori al [facility]a Height 2020-05-09 15:36:00 157.48 cm [facility] Weight 2020-05-09 15:36:00 [facility] BMI Calculated 2020-05-09 15:36:00 Memori al [place] Systolic (mm Hg) 2019-12-23 21:09:00 Farooq rial Supa Diastolic (mm Hg) 2019-12-23 21:09:00 Mem orial Supa Heart Rate 2019-12-23 21:09:00 [facility] [place] Respitory Rate 2019-12-23 21:09:00 Memori al [place] Height 2019-12-23 21:09:00 157.48 cm [facility] Weight 2019-12-23 21:09:00 [facility] [place] BMI Calculated 2019-12-23 21:09:00 Memori al [facility]a Systolic (mm Hg) 2019-09-22 21:21:00 Farooq rial [place] Diastolic (mm Hg) 2019-09-22 21:21:00 Mem orial [place] Heart Rate 2019-09-22 21:21:00 [facility] [place] Respitory Rate 2019-09-22 21:21:00 Memori al [facility]a Height 2019-09-22 21:21:00 160.02 cm [facility] Weight 2019-09-22 21:21:00 [facility] BMI Calculated 2019-09-22 21:21:00 Memori al [place] Systolic (mm Hg) 2019-09-07 19:15:00 Farooq rial Supa Diastolic (mm Hg) 2019-09-07 19:15:00 Mem orial [place] Heart Rate 2019-09-07 19:15:00 [facility] Respitory Rate 2019-09-07 19:15:00 Memori al [place] Height 2019-09-07 19:15:00 160.02 cm [facility] Weight 2019-09-07 19:15:00 [facility] BMI Calculated 2019-09-07 19:15:00 Memori al [place] BMI Calculated 2019-01-20 15:32:00 Memori al [place] Weight 2019-01-20 15:32:00 [facility] [place] Height 2019-01-20 15:32:00 160.02 cm [facility] [place] Systolic (mm Hg) 2019-01-20 15:32:00 Farooq rial Supa Diastolic (mm Hg) 2019-01-20 15:32:00 Mem orial [facility]a Heart Rate 2019-01-20 15:32:00 [facility] [place] Respitory Rate 2019-01-20 15:32:00 Memori al Supa Weight 2018-11-18 18:37:00 [facility] Height 2018-11-18 18:37:00 157.48 cm [facility] [place] BMI Calculated 2018-11-18 18:37:00 Memori al Supa Systolic (mm Hg) 2018-11-18 18:37:00 Farooq rial Supa Diastolic (mm Hg) 2018-11-18 18:37:00 Mem orial [facility]a Heart Rate 2018-11-18 18:37:00 [facility] Respitory Rate 2018-11-18 18:37:00 Memori al [place] Height 2018-07-17 16:56:00 157.48 cm [facility] [place] BMI Calculated 2018-07-17 16:56:00 Memori al Supa Weight 2018-07-17 16:56:00 [facility] [place] Systolic (mm Hg) 2018-07-17 16:56:00 Farooq rial Supa Diastolic (mm Hg) 2018-07-17 16:56:00 Mem orial Supa Heart Rate 2018-07-17 16:56:00 [facility] Respitory Rate 2018-07-17 16:56:00 Memori al [place] BMI Calculated 2018-04-10 13:52:00 Memori al Supa Weight 2018-04-10 13:52:00 [facility] Height 2018-04-10 13:52:00 154.94 cm [facility] Heart Rate 2018-04-10 13:52:00 [facility] Systolic (mm Hg) 2018-04-10 13:52:00 Farooq rial Supa Diastolic (mm Hg) 2018-04-10 13:52:00 Mem orial [place] Height 2017-07-25 20:14:00 154.94 cm [facility] [place] Weight 2017-07-25 20:14:00 [facility] BMI Calculated 2017-07-25 20:14:00 Memori al [place] Temperature Oral (F) 2017-07-25 20:14:00 98.0 F [facility] [place] Heart Rate 2017-07-25 20:14:00 [facility] Systolic (mm Hg) 2017-07-25 20:14:00 Farooq rial [place] Diastolic (mm Hg) 2017-07-25 20:14:00 Mem orial [place] Height 2017-07-14 22:05:00 154.94 cm [facility] [place] Weight 2017-07-14 22:05:00 [facility] [place] Temperature Oral (F) 2017-07-14 22:05:00 98.2 F [facility] BMI Calculated 2017-07-14 22:05:00 Memori al [facility] Systolic (mm Hg) 2017-07-14 22:05:00 Farooq rial [facility]a Diastolic (mm Hg) 2017-07-14 22:05:00 Mem orial [place] Procedures Procedure Date / Time Performing Clinician Source Performed ASSIGNMENT OF BENEFITS 2022-08-07 17:57:08 Doctor Unassigned, No [facility] Name [facility] Branch POCT URINALYSIS W/O 2022-08-07 17:21:00 [facility] [place] SPECIFIC GRAVITY Medical Branch BI BREAST CYST 2021-07-03 15:58:13 Annel Loomis f [place] ASPIRATION LEFT Medical Branch ASSIGNMENT OF BENEFITS 2021-07-03 15:02:52 Doctor Unassigned, No [facility] Name Medical Branch BI ULTRASOUND BREAST 2021-06-09 16:48:05 Annel Loomis [facility] COMPLETE BILATERAL Medical Branc h BI DIAGNOSTIC 2021-06-09 16:10:00 Annel Loomis [place] [facility] [place] TOMOSYNTHESIS BILATERAL Medical Branch FLU VACC ([id number]), 2021-05-11 19:47:20 Annel Loomis [facility] 2-64 YRS, .5ML, IM, QUAD Medical Branch (FLUCELVAX) LEEP procedure of cervix Memmya hughes [place] Tonsillectomy [facility] Encounters Start End Encounter Admission Attending Care Care Encounter Source Date/Time Date/Time Type Type Clinicians Facility Department ID 2022-12-06 Outpatient [facility] [id number] [place] 10:09:46 [id number] [facility] 2022-12-05 Outpatient [facility] [id number] [place] 11:43:36 [id number] [facility] 2022-12-03 Outpatient [facility] [id number] PA 10:28:20 [id number] [facility] 2022-11-26 Outpatient [facility] [id number] PA 15:52:57 [id number] [facility] 2022-10-23 Outpatient Acevedo, STLMLC STLMLC [id number] Common 08:21:02 Liss-Gildardo [id number] Spir [facility] 2021-08-01 Outpatient Acevedo, STLMLC STLMLC [id number] Common 13:44:46 Liss-Gildardo [id number] [facility] 2021-08-01 Outpatient Acevedo, STLMLC STLMLC [id number] Common 12:53:23 Liss-Gildardo [id number] Spir [facility] 2021-08-01 Outpatient Acevedo, STLMLC STLMLC [id number] Common 12:44:28 Liss-Gildardo [id number] Spir [facility] 2023-01-15 2023-01-15 Outpatient MHIE MHIE [id number] Memoria 10:30:00 10:30:00 34 ellen Cowart 2023-01-15 2023-01-15 Outpatient MHIE MHIE [id number] Memoria 10:30:00 10:30:00 34 ellen Cowart 2023-01-15 2023-01-15 Outpatient MHIE MHIE [id number] Memoria 09:30:00 09:30:00 33 ellen Cowart 2023-01-15 2023-01-15 Outpatient IE IE [id number] Memoria 09:30:00 09:30:00 33 ellen Cowart 2022-12-26 2022-12-26 Outpatient MARCUS, [facility] [id number] [place] 13:30:00 13:30:00 DAGMAR Thomas 2022-12-26 2022-12-26 Outpatient [facility] [id number] [place] 13:15:00 13:15:00 Health 2022-12-13 2022-12-14 Outpatient VINICIUS [facility] [id number] [facility] 11:55:00 15:35:00 COURT 2022-12-05 2022-12-05 Office JEFFREY Velazquez [id number] [place] 11:30:00 12:34:30 Visit Dagmar GEORGETTE [id number] Health [id number] 2022-11-23 2022-11-26 Inpatient E DORIS CLAUDIO [facility] [address] [facility] 23:28:00 14:06:00 2022-08-09 2022-08-09 Case VALERIE Olea [id number] Univers 00:00:00 00:00:00 Management Neli PEDIATRIC [id number] [id number] [id number] [address] 2022-08-07 2022-08-07 Documentation Writer Dao, Dana [facility] Main [facility] [id number] [facility] 12:00:00 12:15:00 Visit Neli Olea [id number] [place]y [place] [id number] [address] 2022-08-07 2022-08-07 Outpatient Kat OLEA [facility] [id number] [facility] 10:45:00 11:46:16 NELI [place] [facility] [place] 2022-08-07 2022-08-07 Office Emmie [facility] [id number] Univers 10:45:00 11:46:16 Visit Neli HARRIS [id number] i ty of [place] [id number] [place] dical NAL 134 [facility] 2022-08-07 2022-08-07 Orders Doctor RADHA [id number] Univers 00:00:00 00:00:00 Only Unassigned, LATRICE [id number] [facility] [id number] Nader as [id number] [address] 2022-07-18 2022-07-19 Outpatient MHIE MNA [id number] Memoria 16:15:00 05:59:59 Neurology 32 l Eriberto Cowart 2022-07-18 2022-07-19 Outpatient MHIE MNA [id number] Memoria 16:15:00 05:59:59 Neurology 32 l Eriberto Cowart 2022-07-18 2022-07-18 Outpatient Sergio MHMISCHER MHMISCHER [id number] 10:15:00 23:59:59 Galdino 32 Yahir 2022-07-18 2022-07-18 Outpatient MHIE MHIE [id number] Memoria 10:15:00 10:15:00 34 ellen Supa 2022-05-21 2022-05-21 Outpatient MHIE MHIE [id number] Memoria 14:30:00 14:30:00 30 ellen Supa 2022-05-21 2022-05-21 Outpatient MHIE MHIE [id number] Memoria 14:30:00 14:30:00 30 ellen Supa 2022-05-20 2022-05-20 Ambulatory MHIE MNA [id number] Memoria 19:00:00 19:00:00 Pre-Reg Neurology 31 l Eriberto Cowart 2022-05-20 2022-05-20 Ambulatory MHIE MNA [id number] Memoria 19:00:00 19:00:00 Pre-Reg Neurology 31 l Eriberto Cowart 2022-05-20 2022-05-20 Ambulatory MHIE MNA [id number] Memoria 15:45:00 15:45:00 Pre-Reg Neurology 30 l Eriberto Cowart 2022-05-20 2022-05-20 Outpatient MHIE MHIE [id number] Memoria 13:00:00 13:00:00 31 l Supa 2022-05-20 2022-05-20 Outpatient Sergio RILEYSCHER MHMISCHER [id number] 13:00:00 13:00:00 Gald[place] 33 Yahir 2022-05-20 2022-05-20 Outpatient LAURA HillMISCHER MHMISCHER [id number] 09:45:00 09:45:00 Gald[place] 30 Yahir 2022-05-14 2022-05-14 Outpatient R CRISTOBAL [facility] B [id number] Univers 13:30:00 13:30:00 MOISESCRISTOBAL GUTHIRE [facility] 2022-05-13 2022-05-13 Outpatient R MOISESCRISTOBAL [facility] B [id number] Univers 10:00:00 10:00:00 MOISESCRISTOBAL GUTHRIE [facility] 2022-04-01 2022-04-01 Outpatient R CRISTOBAL [facility]ISH[facility] B [id number] Univers 11:30:00 11:30:00 CRISTOBAL CHISHOLM [facility] 2022-01-23 2022-01-24 Outpatient nullFlavo MNA [id number] Memoria 15:30:00 04:59:59 r Neurology 29 l Eriberto Cowart 2022-01-23 2022-01-24 Outpatient nullFlavo MNA [id number] Memoria 15:30:00 04:59:59 r Neurology 29 l Eriberto Cowart 2022-01-23 2022-01-23 Outpatient Sergio RILEYSCHER MHMISCHER [id number] 10:30:00 23:59:59 Galdino 29 Yahir 2022-01-23 2022-01-23 Outpatient MHIE MHIE [id number] Memoria 10:30:00 10:30:00 29 ellen Cowart 2022-01-11 2022-01-11 Ambulatory nullFlavo MNA [id number] Memoria 16:30:00 16:30:00 Pre-Reg r Neurology 28 l Eriberto Cowart 2022-01-11 2022-01-11 Ambulatory nullFlavo MNA [id number] Memoria 16:30:00 16:30:00 Pre-Reg r Neurology 28 l Eriberto Cowart 2022-01-11 2022-01-11 Outpatient MHIE CLAUDY [id number] Memoria 11:30:00 11:30:00 28 ellen Cowart 2022-01-11 2022-01-11 [id number] 11:30:00 11:30:00 Galdino 28 Yahir 2021-10-12 2021-10-13 Outpatient nullFlavo MNA [id number] Memoria 15:30:00 04:59:59 r Neurology 25 l Eriberto Cowart 2021-10-12 2021-10-13 Outpatient nullFlavo MNA [id number] Memoria 15:30:00 04:59:59 r Neurology 25 l Eriberto Cowart 2021-10-12 2021-10-12 [facility] [id number] 10:30:00 23:59:59 Galdino 25 Yahir 2021-10-12 2021-10-12 Outpatient MHIE IE [id number] Memoria 10:30:00 10:30:00 25 ellen Cowart 2021-09-12 2021-09-12 Ambulatory nullFlavo MNA [id number] Memoria 16:00:00 16:00:00 Pre-Reg r Neurology 27 l Eriberto Cowart 2021-09-12 2021-09-12 Ambulatory nullFlavo MNA [id number] Memoria 16:00:00 16:00:00 Pre-Reg r Neurology 27 l Eriberto Cowart 2021-09-12 2021-09-12 Outpatient MHIE IE [id number] Memoria 10:00:00 10:00:00 27 ellen Cowart 2021-09-12 2021-09-12 [facility] [id number] 10:00:00 10:00:00 Galdino 27 Yahir 2021-08-01 2021-08-02 Outpatient nullFlavo MNA [id number] Memoria 17:00:00 05:59:59 r Neurology 26 l Eriberto Cowart 2021-08-01 2021-08-02 Outpatient nullFlavo MNA [id number] Memoria 17:00:00 05:59:59 r Neurology 26 l Eriberto Cowart 2021-08-01 2021-08-01 Outpatient Sergio, MHMISCHER MHMISCHER [id number] 11:00:00 23:59:59 Galdino 26 Yahir 2021-08-01 2021-08-01 Out[facility] [id number] 11[facility]00:00 26 l Supa 2021-07-03 2021-07-03 [facility] Annel Loomis [facility] 1.2.840.114 [id number] Univers 09:06:22 23:59:00 Encounter KIMBERLY 350.1.13.10 ity of [place] 4.2.7.2.686 [facility] [id number] [facility] [address] 2021-07-03 2021-07-03 Outpatient R ANNEL LOOMIS [facility] [id number] Univers 00:00:00 23:59:00 ity of [facility] 2021-07-03 2021-07-03 [facility] Annel Loomis [facility] 1.2.840.114 [id number] Univers 09:04:09 09:05:00 Encounter ANGLEMARILYN 350.1.13.10 ity of [place] 4.2.7.2.686 [facility] [id number] [facility] [address] 2021-07-03 2021-07-03 Orders Doctor RADHA 1.2.840.114 [id number] Univers 00:00:00 00:00:00 Only Unassigned, LATRICE 350.1.13.10 ity of [place] [facility] 4.2.7.2.686 [facility] [id number] [facility] [address] 2021-06-11 2021-06-11 Case Annel Loomis [facility] 1.2.840.114 [id number] Univers 00:00:00 00:00:00 Management HUE 350.1.13.10 ity of [place] [facility] [id number] [facility] [address] 2021-06-09 2021-06-09 Hospital Annel Loomis [facility] 1.2.840.114 [id number] Univers 09:28:55 23:59:00 Encounter [place] 350.1.13.10 ity [facility] 4.2.7.2.686 [facility] [id number] [facility] [address] 2021-06-09 2021-06-09 Outpatient R ANNEL LOOMIS [facility] [id number] Univers 09:28:31 23:59:00 ity [facility] 2021-06-09 2021-06-09 [facility] Annel Loomis [facility] 1.2.840.114 [id number] Univers 09:28:31 23:59:00 Encounter [place] 350.1.13.10 ity [facility] 4.2.7.2.686 [facility] [id number] [facility] [address] 2021-05-11 2021-05-11 Office Annel Loomis [facility] 1.2.840.114 [id number] Univers 13:24:25 14:42:16 Visit [place] 350.1.13.10 i ty [facility] 4.2.7.2.686 [facility] PROFESSIO [phone] Ks dic[address] 2021-05-11 2021-05-11 Outpatient R ANNEL LOOMIS [facility] [id number] Univers 13:15:00 14:42:[facility] 2021-05-11 2021-05-11 Outpatient R ANNEL LOOMIS [facility] [id number] Univers 13:15:00 14:42:[facility] 2021-05-02 2021-05-02 Outpatient R EMMIE [facility] [id number] Univers 09:00:00 09:00:00 [facility] 2021-04-12 2021-04-13 Outpatient nullFlavo MNA [id number] Memoria 15:00:00 04:59:59 r Neurology 24 l Ann Arbormya Cowart 2021-04-12 2021-04-13 Outpatient nullFlavo MNA [id number] Memoria 15:00:00 04:59:59 r Neurology 24 l Ann Arbormya Abdiann 2021-04-12 2021-04-12 Outpatient KEARA Hill RORO [id number] 10:00:00 23:59:59 Galdino 24 Yahir 2021-04-12 2021-04-12 Outpatient SWETA SOL [id number] Memoria 10:00:00 10:00:00 24 ellen [place] 2021-02-24 2021-02-24 [facility] 1.2.133.818 [id number] Univers 00:00:00 00:00:00 Neli Harris 350.1.13.10 i roselyn [place] 4.2.7.2.686 [place] [phone] Ks dical nal 134 [facility] 2020-12-06 2020-12-07 Outpatient nullFlavo MNA [id number] Memoria 14:00:00 04:59:59 r Neurology 23 l [place] 2020-12-06 2020-12-07 Outpatient nullFlavo MNA [id number] Memoria 14:00:00 04:59:59 r Neurology 23 l [place] 2020-12-06 2020-12-06 Outpatient KE[facility] Hill [facility] [id number] 09:00:00 23:59:59 Galdino 23 Yahir 2020-12-06 2020-12-06 Ambulatory nullFlavo MNA [id number] Memoria 18:30:00 18:30:00 Pre-Reg r Neurology 22 l [place] Supa 2020-12-06 2020-12-06 Ambulatory nullFlavo MNA [id number] Memoria 18:30:00 18:30:00 Pre-Reg r Neurology 22 l [place] Supa 2020-12-06 2020-12-06 Outpatient MHIE IE [id number] Memoria 13:30:00 13:30:00 22 ellen Supa 2020-12-06 2020-12-06 Outpatient KEARA Hill MISCHSHRAVAN [id number] 13:30:00 13:30:00 Galdino 22 Yahir 2020-12-06 2020-12-06 Outpatient MHIE MHIE [id number] Memoria 09:00:00 09:00:00 23 l Supa 2020-10-17 2020-10-19 Outside nullFlavo MNA [id number] Memoria 20:34:08 04:59:59 Medical r Neurology 44 l Records Eriberto Cowart 2020-10-17 2020-10-19 Outside nullFlavo MNA [id number] Memoria 20:34:08 04:59:59 Medical r Neurology 44 l Records Eriberto Cowart 2020-10-17 2020-10-18 Outpatient MHMISCHER MHMISCHER [id number] 15:34:08 23:59:59 44 2020-09-26 2020-09-28 Outside nullFlavo MNA [id number] Memoria 14:02:19 04:59:59 Medical r Neurology 43 l Records Eriberto Cowart 2020-09-26 2020-09-28 Outside nullFlavo MNA [id number] Memoria 14:02:19 04:59:59 Medical r Neurology 43 l Records Eriberto Cowart 2020-09-26 2020-09-27 Outpatient MHMISCHER MHMISCHER [id number] 09:02:19 23:59:59 43 2020-09-25 2020-09-25 Patient Lloyd [facility] 1.2.840.114 [id number] Univers 00:00:00 00:00:00 Outreach [facility] 350.1.13.10 i ty of [facility] [place] [phone] [place] dical [address] [place] 2020-09-25 2020-09-25 [facility] 1.2.840.114 [id number] 00:00:00 00:00:00 Outreach [facility] 350.1.13.10 Alexis CARE 4.2.7.2.686 [facility] [id number] 388 2020-09-05 2020-09-06 Outpatient nullFlavo MNA [id number] Memoria 15:30:00 05:59:59 r Neurology 20 l Eriberto Abdiann 2020-09-05 2020-09-06 Outpatient nullFlavo MNA [id number] Memoria 15:30:00 05:59:59 r Neurology 20 l Eriberto Cowart 2020-09-05 2020-09-05 Outpatient [facility] [id number] 09:30:00 23:59:59 Galdino 20 Yahir 2020-09-05 2020-09-05 Outpatient MHIE MHIE [id number] Memoria 09:30:00 09:30:00 20 l Supa 2020-08-11 2020-08-12 Outpatient nullFlavo MNA [id number] Memoria 19:30:00 05:59:59 r Neurology 21 l Eriberto Cowart 2020-08-11 2020-08-12 Outpatient nullFlavo MNA [id number] Memoria 19:30:00 05:59:59 r Neurology 21 l Eriberto Cowart 2020-08-11 2020-08-11 Outpatient Sergio [facility]ER [id number] 13:30:00 23:59:59 Galdino 21 Yahir 2020-08-11 2020-08-11 Outpatient MHIE MHIE [id number] Memoria 13:30:00 13:30:00 21 l Supa 2020-08-04 2020-08-06 Outside nullFlavo MNA [id number] Memoria 17:34:53 05:59:59 Medical r Neurology 42 l Records Eriberto Cowart 2020-08-04 2020-08-06 Outside nullFlavo MNA [id number] Memoria 17:34:53 05:59:59 Medical r Neurology 42 l Records Eriberto Abdiann 2020-08-04 2020-08-05 Outpatient MHMISCHER MHMISCHER [id number] 11:34:53 23:59:59 42 2020-06-20 2020-06-20 Refill SISI Olea 1.2.484.661 [id number] Univers 00:00:00 00:00:00 Neli Harris 350.1.13.10 i ty of [place] [phone] [place] dical [address] 2020-06-20 2020-06-20 Telephone SISI Olea 1.2.840.114 [id number] Univers 00:00:00 00:00:00 Neli Aragont[place] 350.1.13.10 i ty [place] [phone] K[place] dical [address] 2020-06-20 2020-06-20 Refill [facility] 1.2.384.228 [id number] 1912 00:00:00 00:00:00 Neli Kimberly 350.1.13.10 [place] 4.2.7.2.686 Professio [phone] [address] 2020-06-20 2020-06-20 Telephone [facility] 1.2.840.114 [id number] 00:00:00 00:00:00 Neli Kimberly 350.1.13.10 [place] 4.2.7.2.686 Professio [phone] [address] 2020-05-21 2020-05-21 Orders Doctor RADHA 1.2.840.114 [id number] Univers 00:00:00 00:00:00 Only Unassigned, LATRICE 350.1.13.10 ity of [place] [facility] 4.2.7.2.686 Nader as [phone] [address] 2020-05-21 2020-05-21 Orders Doctor RADHA 1.2.840.114 [id number] 00:00:00 00:00:00 Only Unassigned, LATRICE 350.1.13.10 [place] [facility] 4.2.7.2.686 [id number] [facility] 2020-05-09 2020-05-10 Outpatient nullFlavo MNA [id number] Memoria 15:30:00 05:59:59 r Neurology 19 l Eriberto Cowart 2020-05-09 2020-05-10 Outpatient nullFlavo MNA [id number] Memoria 15:30:00 05:59:59 r Neurology 19 l Eriberto Cowart 2020-05-09 2020-05-09 Outpatient RILEY HillSCHSHRAVAN SARAH [id number] 09:30:00 23:59:59 Galdino Sinclair 2020-05-09 2020-05-09 Outpatient MHIE MHIE [id number] [facility] 09:30:00 09:30:00 19 l Supa 2020-05-09 2020-05-09 Telephone Emmie [facility] 1.2.840.114 [id number] [facility] 00:00:00 00:00:00 Neli Kibmerly 350.1.13.10 i [place] [phone] [place] dical nal 134 [facility] 2020-05-09 2020-05-09 Telephone Emmie [facility] 1.2.840.114 [id number] 00:00:00 00:00:00 Neliclaudia [place] 350.1.13.10 [place] 4.2.7.2.[address] Professio [phone] [address] 2020-05-04 2020-05-04 Case [facility] 1.2.689.362 [id number] Univers 00:00:00 00:00:00 Management Neli Harris 350.1.13.10 [place] [phone] [place] dical nal 134 [facility] 2020-05-04 2020-05-04 Case [facility] 1.2.404.413 [id number] 00:00:00 00:00:00 Management Neli Harris 350.1.13.10 [place] 4.2.7.2.686 Professio [phone] [address] 2020-05-03 2020-05-03 [facility] [id number] [facility] 10:30:00 10:30:00 NELI itpao [facility] 2020-05-02 2020-05-02 Documentation Writer 2, Adc Lab [facility] 1.2.840.114 [id number] [facility] 11:01:55 11:16:55 Visit Neli Olea 350.1.13.10 [place] [phone] [place] dical nal 353 [facility] 2020-05-02 2020-05-02 Documentation Writer 2, Adc Lab [facility] 1.2.840.114 [id number] 11:01:55 11:16:55 Visit Kimberly 350.1.13.10 [place] 4.2.7.2.686 Professio [phone] [address] 2020-05-02 2020-05-02 Office [facility] 1.2.554.721 [id number] Univers 10:12:57 10:42:57 Visit Neli Kimberly 350.1.13.10 i ty [place] [phone] [address] 2020-05-02 2020-05-02 Outpatient R EMMIE [facility] [id number] Univers 10:00:00 10:00:00 NELI [place] [facility] 2020-05-02 2020-05-02 Orders Doctor RADHA 1.2.840.114 [id number] Univers 00:00:00 00:00:00 Only Unassigned, LATRICE 350.1.13.10 ity of [place] [facility] 4.2.7.2.686 Nader as [phone] [address] 2020-04-03 2020-04-03 Refill Mallory Sinen [facility] 1.2.839.308 [id number] Univers 00:00:00 00:00:00 Cam Kimberly 350.1.13.10 i [place] [phone] [address] 2020-03-24 2020-03-24 Ambulatory nullFlavo MNA [id number] Memoria 20:30:00 20:30:00 Pre-Reg r Neurology 17 l [place] 2020-03-24 2020-03-24 Ambulatory nullFlavo MNA [id number] Memoria 20:30:00 20:30:00 Pre-Reg r Neurology 18 l [place] 2020-03-24 2020-03-24 Ambulatory nullFlavo MNA [id number] Memoria 20:30:00 20:30:00 Pre-Reg r Neurology 17 l [place] 2020-03-24 2020-03-24 Ambulatory nullFlavo MNA [id number] Memoria 20:30:00 20:30:00 Pre-Reg r Neurology 18 l [place] Supa 2020-03-24 2020-03-24 Outpatient MHIE MHIE [id number] Memoria 15:30:00 15:30:00 17 ellen Cowart 2020-03-24 2020-03-24 Outpatient MHIE MHIE [id number] Memoria 15:30:00 15:30:00 18 ellen Cowart 2020-03-24 2020-03-24 Outpatient Krenelsy, MHMISCHER MHMISCHER [id number] 15:30:00 15:30:00 Galdino 17 Yahir 2020-03-24 2020-03-24 Outpatient Krenelsy, MHMISCHER MHMISCHER [id number] 15:30:00 15:30:00 Galdino 18 Yahir 2020-02-25 2020-02-25 Telephone Shari Sin [facility] 1.2.840.114 [id number] Univers 00:00:00 00:00:00 Cam [place] 350.1.13.10 i [place] [phone] [place] dical nal [address] [place] [address] 2020-02-17 2020-02-17 Refill Doris Shari [facility] 1.2.110.743 [id number] Univers 00:00:00 00:00:00 Cam [place] 350.1.13.10 i ty [place].2.[place] [phone] [place] dical nal [address] [place] [address] 2020-02-10 2020-02-11 Between nullFlavo MNA [id number] Memoria 19:38:26 19:38:26 Visit r Neurology 54 l Eriberto Abdiann 2020-02-10 2020-02-11 Between nullFlavo MNA [id number] Memoria 19:38:26 19:38:26 Visit r Neurology 54 l Eriberto Cowart 2020-02-10 2020-02-11 Outpatient MHMISCHER MHMISCHER [id number] 14:38:26 14:38:26 54 2020-02-11 2020-02-11 Refill Shari Sin [facility] 1.2.823.561 [id number] Univers 00:00:00 00:00:00 Cam [place] 350.1.13.10 i [place] [phone] [place] dical nal 134 [facility] 2020-02-08 2020-02-08 Shari Tomlinson [facility] 1.2.478.221 [id number] Univers 00:00:00 00:00:00 Cam [place] 350.1.13.10 i ty [place] [phone] [place] dical nal [address] [place] [address] 2020-01-10 2020-01-11 Between nullFlavo MNA [id number] Memoria 20:55:56 20:55:56 Visit r Neurology 53 l [place] 2020-01-10 2020-01-11 Between nullFlavo MNA [id number] Memoria 20:55:56 20:55:56 Visit r Neurology 53 l Ann Arbormya Abdiann 2020-01-10 2020-01-11 Outpatient MHMISCHER MHMISCHER [id number] 15:55:56 15:55:56 53 2019-12-23 2019-12-24 Outpatient nullFlavo MNA [id number] Memoria 20:45:00 04:59:59 r Neurology 16 l [place] Supa 2019-12-23 2019-12-24 Outpatient nullFlavo MNA [id number] Memoria 20:45:00 04:59:59 r Neurology 16 l [place] Sup[place] 2019-12-23 2019-12-23 Outpatient RILEY HillSCHER MISCHER [id number] 15:45:00 23:59:59 Galdino Conor Yahir 2019-12-23 2019-12-23 Outpatient MHIE MHIE [id number] Memoria 15:45:00 15:45:00 16 l Supa 2019-09-22 2019-09-23 Outpatient nullFlavo MNA [id number] Memoria 21:15:00 04:59:59 r Neurology 13 l [place] 2019-09-22 2019-09-23 Outpatient nullFlavo MNA [id number] Memoria 21:15:00 04:59:59 r Neurology 13 l [place] Supa 2019-09-22 2019-09-22 Outpatient Sergio ADESCHER MISCHER [id number] 16:15:00 23:59:59 Galdino 13 [facility] 2019-09-22 2019-09-22 Outpatient MHIE MHIE [id number] Memoria 16:15:00 16:15:00 13 l [place] 2019-09-07 2019-09-08 Outpatient nullFlavo MNA [id number] Memoria 19:00:00 05:59:59 r Neurology 15 l Eriberto [place] 2019-09-07 2019-09-08 Outpatient nullFlavo MNA [id number] Memoria 19:00:00 05:59:59 r Neurology 15 l Eriberto Cowart 2019-09-07 2019-09-07 Outpatient Sergio MHMISCHER MHMISCHER [id number] 13:00:00 23:59:59 Galdino 15 Yahir 2019-09-07 2019-09-07 Outpatient MHIE MHIE [id number] Memoria 13:00:00 13:00:00 15 ellen [place] 2019-08-24 2019-08-24 Telephone Shari Sin [facility] 1.2.840.114 [id number] Univers 00:00:00 00:00:00 Cam [place] 350.1.13.10 i ty [facility] [place]2.7.2.[place] [phone] [place] dical nal 134 [facility] 2019-08-20 2019-08-20 Ambulatory nullFlavo MNA [id number] Memoria 22:30:00 22:30:00 Pre-Reg r Neurology 14 l Eriberto Supa 2019-08-20 2019-08-20 Ambulatory nullFlavo MNA [id number] Memoria 22:30:00 22:30:00 Pre-Reg r Neurology 14 l Eriberto Supa 2019-08-20 2019-08-20 Outpatient MHIE MHIE [id number] Memoria 16:30:00 16:30:00 14 ellen [place] 2019-08-20 2019-08-20 Outpatient RILEY HillSCHER MHMISCHER [id number] 16:30:00 16:30:00 Galdino 14 [facility] 2019-08-20 2019-08-20 Telephone Shari Sin [facility] 1.2.840.114 [id number] Univers 00:00:00 00:00:00 Cam [place] 350.1.13.10 i [place] [phone] [place] dical nal [address] [place] [address] 2019-08-18 2019-08-18 Telephone Shari Sin [facility] 1.2.840.114 [id number] Univers 00:00:00 00:00:00 Cam [place] 350.1.13.10 i ty [place].2.[place] [phone] [place]s dical nal [address] [place] [address] 2019-08-09 2019-08-09 Refill Shari Sin [facility] 1.2.997.139 [id number] Univers 00:00:00 00:00:00 Cam [place] 350.1.13.10 i ty [place].2.[place] [phone] [place]s dical nal [address] [place] [address] 2019-07-29 2019-07-29 Refill Shari Sin [facility] 1.2.476.815 [id number] Univers 00:00:00 00:00:00 Cam [place] 350.1.13.10 i ty of [place] 4[place].2.[place] [phone] Ks dical nal [address] [place] [address] 2019-07-20 2019-07-20 Telephone Shari Sin [facility] 1.2.840.114 [id number] Univers 00:00:00 00:00:00 Cam [place] 350.1.13.10 i ty of [place] 4[place].2.[place] [phone] Ks dical nal [address] [place] [address] 2019-05-26 2019-05-26 Ambulatory nullFlavo MNA [id number] Memoria 17:45:00 17:45:00 Pre-Reg r Neurology 12 l [place] 2019-05-26 2019-05-26 Ambulatory nullFlavo MNA [id number] Memoria 17:45:00 17:45:00 Pre-Reg r Neurology 12 l [place] 2019-05-26 2019-05-26 Outpatient MHIE MHIE [id number] Memoria 11:45:00 11:45:00 12 ellen Supa 2019-05-26 2019-05-26 [facility] [id number] 11:45:00 11:45:00 Galdino 12 Yahir 2019-04-21 2019-04-22 Outpatient nullFlavo MNA [id number] Memoria 20:00:00 04:59:59 r Neurology 11 ellen Cowart 2019-04-21 2019-04-22 Outpatient nullFlavo MNA [id number] Memoria 20:00:00 04:59:59 r Neurology 11 ellen Cowart 2019-04-21 2019-04-21 Outpatient [facility] [id number] 15:00:00 23:59:59 Galdino 11 Yahir 2019-04-21 2019-04-21 Ambulatory nullFlavo MNA [id number] Memoria 16:00:00 16:00:00 Pre-Reg r Neurology 09 ellen Abdiann 2019-04-21 2019-04-21 Ambulatory nullFlavo MNA [id number] Memoria 16:00:00 16:00:00 Pre-Reg r Neurology 09 ellen Wei Supa 2019-04-21 2019-04-21 Outpatient MHIE MHIE [id number] Memoria 15:00:00 15:00:00 11 ellen Supa 2019-04-21 2019-04-21 Outpatient MHIE MHIE [id number] Memoria 11:00:00 11:00:00 09 ellen AbdiEaston 2019-04-21 2019-04-21 Outpatient [facility] [id number] 11:00:00 11:00:00 Galdino 09 Yahir 2019-04-07 2019-04-07 Ambulatory nullFlavo MNA [id number] Memoria 20:00:00 20:00:00 Pre-Reg r Neurology 10 ellen Wei Supa 2019-04-07 2019-04-07 Ambulatory nullFlavo MNA [id number] Memoria 20:00:00 20:00:00 Pre-Reg r Neurology 10 ellen Wei Supa 2019-04-07 2019-04-07 Outpatient MHIE MHIE [id number] Memoria 15:00:00 15:00:00 10 ellen Supa 2019-04-07 2019-04-07 [id number] 15:00:00 15:00:00 Galdino 10 [facility] 2019-03-17 2019-03-17 Case Shari Sin [facility] [id number] 00:00:00 00:00:00 Management Cam Kimberly [id number] ity of [place] [id number] Nadera s Professio [id number] Ks dical nal 134 [facility] 2019-01-20 2019-01-21 Outpatient nullFlavo MNA [id number] Memoria 15:45:00 04:59:59 r Neurology 08 [facility] 2019-01-20 2019-01-21 Outpatient nullFlavo MNA [id number] Memoria 15:45:00 04:59:59 r Neurology 08 [facility] 2019-01-20 2019-01-20 [id number] 10:45:00 23:59:[address] 2019-01-20 2019-01-20 Outpatient MHIE MHIE [id number] Memoria 10:45:00 10:45:00 08 [facility] 2018-11-18 2018-11-19 Outpatient nullFlavo MNA [id number] Memoria 18:45:00 04:59:59 r Neurology 07 ellen [facility] 2018-11-18 2018-11-19 Outpatient nullFlavo MNA [id number] Memoria 18:45:00 04:59:59 r Neurology 07 [facility] 2018-11-18 2018-11-18 [id number] 13:45:00 23:59:59 Galdino Stephani [facility] 2018-11-18 2018-11-18 Outpatient MHIE MHIE [id number] Memoria 13:45:00 13:45:00 07 [facility] 2018-11-12 2018-11-14 Phone nullFlavo MNA [id number] Memoria 19:08:52 04:59:59 Message r Neurology 41 [facility] 2018-11-12 2018-11-14 Phone nullFlavo MNA [id number] Memoria 19:08:52 04:59:59 Message r Neurology 41 l Eriberto Cowart 2018-11-12 2018-11-14 Phone nullFlavo MNA [id number] Memoria 19:05:59 04:59:59 Message r Neurology 40 l Eriberto Cowart 2018-11-12 2018-11-14 Phone nullFlavo MNA [id number] Memoria 19:05:59 04:59:59 Message r Neurology 40 l Eriberto Cowart 2018-11-12 2018-11-14 Phone nullFlavo MNA [id number] Memoria 18:56:37 04:59:59 Message r Neurology 39 l Eriberto Cowart 2018-11-12 2018-11-14 Phone nullFlavo MNA [id number] Memoria 18:56:37 04:59:59 Message r Neurology 39 l Eriberto Cowart 2018-11-12 2018-11-13 Outpatient MHMISCHER MHMISCHER [id number] 14:08:52 23:59:59 41 2018-11-12 2018-11-13 Outpatient MHMISCHER MHMISCHER [id number] 14:05:59 23:59:59 40 2018-11-12 2018-11-13 Outpatient MHMISCHER MHMISCHER [id number] 13:56:37 23:59:59 39 2018-10-09 2018-10-09 Outpatient MHIE MHIE [id number] Memoria 14:00:00 14:00:00 06 ellen Cowart 2018-10-09 2018-10-09 Outpatient MHIE MHIE [id number] Memoria 14:00:00 14:00:00 06 ellen Supa 2018-07-17 2018-07-18 Outpatient nullFlavo MNA [id number] Memoria 17:00:00 05:59:59 r Neurology 05 ellen Cowart 2018-07-17 2018-07-18 Outpatient nullFlavo MNA [id number] Memoria 17:00:00 05:59:59 r Neurology 05 ellen Cowart 2018-07-17 2018-07-17 Outpatient Sergio, MHMISCHER MHMISCHER [id number] 11:00:00 23:59:59 Galdino Tiff Sinclair 2018-07-17 2018-07-17 Outpatient MHIE MHIE [id number] Memoria 11:00:00 11:00:00 05 ellen Cowart 2018-07-10 2018-07-10 Ambulatory nullFlavo MNA [id number] Memoria 15:00:00 15:00:00 Pre-Reg r Neurology 04 ellen Cowart 2018-07-10 2018-07-10 Ambulatory nullFlavo MNA [id number] Memoria 15:00:00 15:00:00 Pre-Reg r Neurology 04 ellen Cowart 2018-07-10 2018-07-10 Outpatient MHIE IE [id number] Memoria 09:00:00 09:00:00 04 ellen Cowart 2018-07-10 2018-07-10 [facility] [id number] 09:00:00 09:00:00 Galdino Amadou Sinclair 2018-06-09 2018-06-11 Phone nullFlavo MNA [id number] Memoria 17:57:00 05:59:59 Message r Neurology 38 l Eriberto Cowart 2018-06-09 2018-06-11 Phone nullFlavo MNA [id number] Memoria 17:57:00 05:59:59 Message r Neurology 38 l Eriberto Cowart 2018-06-09 2018-06-10 [id number] 11:57:00 23:59:59 38 2018-06-08 2018-06-10 Phone nullFlavo MHMG [id number] Memoria 19:59:00 05:59:59 Message r Primary 37 l Care Valerie Mathur 2018-06-08 2018-06-10 Phone nullFlavo MHMG [id number] Memoria 19:59:00 05:59:59 Message r Primary 37 l Care Valerie Mathur 2018-06-08 2018-06-09 Outpatient MHMG MHMG [id number] 13:59:00 23:59:59 37 2018-06-05 2018-06-07 Phone nullFlavo MNA [id number] Memoria 20:42:00 05:59:59 Message r Neurology 36 l Eriberto Cowart 2018-06-05 2018-06-07 Phone nullFlavo MNA [id number] Memoria 20:42:00 05:59:59 Message r Neurology 36 l Eriberto Cowart 2018-06-05 2018-06-07 Phone nullFlavo MNA [id number] Memoria 16:16:00 05:59:59 Message r Neurology 35 l Eriberto Cowart 2018-06-05 2018-06-07 Phone nullFlavo MNA [id number] Memoria 16:16:00 05:59:59 Message r Neurology 35 l Eriberto Cowart 2018-06-05 2018-06-06 Outpatient MHMISCHER MHMISCHER [id number] 14:42:00 23:59:59 36 2018-06-05 2018-06-06 Outpatient MHM[facility]ER MHMISCHER [id number] 10:16:00 23:59:59 35 2018-04-22 2018-04-24 Phone nullFlavo MNA [id number] Memoria 15:14:00 04:59:59 Message r Neurology 34 l Eriberto Cowart 2018-04-22 2018-04-24 Phone nullFlavo MNA [id number] Memoria 15:14:00 04:59:59 Message r Neurology 34 l Eriberto Cowart 2018-04-22 2018-04-23 Outpatient MHMISCHER MHMISCHER [id number] 10:14:00 23:59:59 34 2018-04-10 2018-04-11 Outpatient nullFlavo MNA [id number] Memoria 14:00:00 04:59:59 r Neurology 03 ellen Cowart 2018-04-10 2018-04-11 Outpatient nullFlavo MNA [id number] Memoria 14:00:00 04:59:59 r Neurology 03 ellen Cowart 2018-04-10 2018-04-10 Outpatient Sergio, MHMISCHER MISCHER [id number] 09:00:00 23:59:59 Galdino Babs Yahir 2018-04-10 2018-04-10 Outpatient MHIE MHIE [id number] Memoria 09:00:00 09:00:00 Babs hughes Supa 2018-03-31 2018-04-02 Outside nullFlavo MHMG [id number] Memoria 14:16:00 04:59:59 Medical r Primary 33 l [facility] Valerie Mathur 2018-03-31 2018-04-02 Outside nullFlavo MHMG [id number] Memoria 14:16:00 04:59:59 Medical r Primary 33 l Records Agus Mathur 2018-03-31 2018-04-01 Outpatient MHMG MG [id number] 09:16:00 23:59:59 33 2017-12-12 2017-12-12 Outpatient MHIE MHIE [id number] Memoria 09:30:00 09:30:00 02 ellen Supa 2017-12-12 2017-12-12 Outpatient MHIE MHIE [id number] Memoria 09:30:00 09:30:00 02 ellen Supa 2017-11-25 2017-11-25 Outpatient MHIE MHIE [id number] Memoria 15:00:00 15:00:00 01 ellen Supa 2017-11-25 2017-11-25 Outpatient MHIE MHIE [id number] Memoria 15:00:00 15:00:00 01 ellen AbdiEaston 2017-11-05 2017-11-05 Outpatient MHIE MHIE [id number] Memoria 13:30:00 13:30:00 00 ellen Easton 2017-11-05 2017-11-05 Outpatient MHIE MHIE [id number] Memoria 13:30:00 13:30:00 00 ellen Supa 2017-09-15 2017-09-17 Phone nullFlavo MHMG [id number] Memoria 13:44:00 04:59:59 Message r Primary 32 l Agus Mathur 2017-09-15 2017-09-17 Phone nullFlavo MG [id number] Memoria 13:44:00 04:59:59 Message r Primary 32 l Agus Mathur 2017-09-15 2017-09-16 Outpatient MHMG MG [id number] 08:44:00 23:59:59 32 2017-07-25 2017-07-26 Outpatient nullFlavo MHMG [id number] Memoria 20:15:00 05:59:59 r Primary 17 l Agus Mathur 2017-07-25 2017-07-26 Outpatient nullFlavo MHMG [id number] Memoria 20:15:00 05:59:59 r Primary 17 l Agus Mathur 2017-07-25 2017-07-25 Outpatient Pete MHMG MHMG [id number] 14:15:00 23:59:59 Trevor 17 Eric 2017-07-25 2017-07-25 Outpatient MHIE MHIE [id number] Memoria 14:15:00 14:15:00 17 ellen Supa 2017-07-17 2017-07-19 Phone nullFlavo MHMG [id number] Memoria 16:56:00 05:59:59 Message r Primary 31 l Agus Mathur nn 2017-07-17 2017-07-19 Phone nullFlavo MHMG [id number] Memoria 16:56:00 05:59:59 Message r Primary 31 l Agus Mathur nn 2017-07-17 2017-07-18 Outpatient MHMG MHMG [id number] 10:56:00 23:59:59 31 2017-07-14 2017-07-15 Outpatient nullFlavo MHMG [id number] Memoria 22:00:00 05:59:59 r Primary 16 l Agus Mathur 2017-07-14 2017-07-15 Outpatient nullFlavo MHMG [id number] Memoria 22:00:00 05:59:59 r Primary 16 l Agus Mathur nn 2017-07-14 2017-07-14 Outpatient Estrada, MHMG MHMG [id number] 16:00:00 23:59:59 Toribio Cash 16 2017-07-14 2017-07-14 Outpatient MHIE MHIE [id number] Memoria 16:00:00 16:00:00 16 ellen Cowart 2017-07-02 2017-07-02 Outpatient MHIE MHIE [id number] Memoria 10:00:00 10:00:00 15 ellen Cowart 2017-07-02 2017-07-02 Outpatient MHIE MHIE [id number] Memoria 10:00:00 10:00:00 15 ellen Cowart 2017-05-13 2017-05-13 Outpatient MHIE MHIE [id number] Memoria 11:00:00 11:00:00 14 ellen Cowart 2017-05-13 2017-05-13 Outpatient MHIE MHIE [id number] Memoria 11:00:00 11:00:00 14 ellen Cowrat 2017-05-06 2017-05-06 Outpatient MHIE MHIE [id number] Memoria 11:00:00 11:00:00 13 ellen Cowart 2017-05-06 2017-05-06 Outpatient MHIE MHIE [id number] Memoria 11:00:00 11:00:00 13 ellen Cowart 2017-04-15 2017-04-15 Outpatient MHIE MHIE [id number] Memoria 16:00:00 16:00:00 12 ellen Cowart 2017-04-15 2017-04-15 Outpatient MHIE MHIE [id number] Memoria 16:00:00 16:00:00 12 eleln Cowart 2017-04-08 2017-04-08 Outpatient MHIE MHIE [id number] Memoria 16:15:00 16:15:00 11 ellen Cowart 2017-04-08 2017-04-08 Outpatient MHIE MHIE [id number] Memoria 16:15:00 16:15:00 11 ellen Cowart 2017-02-28 2017-02-28 Outpatient MHIE MHIE [id number] Memoria 09:30:00 09:30:00 10 ellen Cowart 2017-02-28 2017-02-28 Outpatient MHIE MHIE [id number] Memoria 09:30:00 09:30:00 10 ellen Cowart 2017-02-21 2017-02-21 Outpatient MHIE MHIE [id number] Memoria 15:00:00 15:00:00 09 ellen Cowart 2017-02-21 2017-02-21 Outpatient MHIE MHIE [id number] Memoria 15:00:00 15:00:00 09 ellen Cowart 2017-02-07 2017-02-07 Outpatient MHIE MHIE [id number] Memoria 14:30:00 14:30:00 08 ellen Cowart 2017-02-07 2017-02-07 Outpatient MHIE MHIE [id number] Memoria 14:30:00 14:30:00 08 ellen Cowart 2017-01-13 2017-01-13 Outpatient MHIE MHIE [id number] Memoria 13:30:00 13:30:00 07 ellen Cowart 2017-01-13 2017-01-13 Outpatient MHIE MHIE [id number] Memoria 13:30:00 13:30:00 07 ellen Cowart 2016-12-13 2016-12-13 Outpatient MHIE MHIE [id number] Memoria 14:15:00 14:15:00 06 ellen Cowart 2016-12-13 2016-12-13 Outpatient MHIE MHIE [id number] Memoria 14:15:00 14:15:00 06 ellen Cowart 2016-11-20 2016-11-20 Outpatient MHIE MHIE [id number] Memoria 14:30:00 14:30:00 05 ellen Cowart 2016-11-20 2016-11-20 Outpatient MHIE MHIE [id number] Memoria 14:30:00 14:30:00 05 ellen Cowart 2016-10-25 2016-10-25 Outpatient MHIE MHIE [id number] Memoria 15:30:00 15:30:00 04 ellen Cowart 2016-10-25 2016-10-25 Outpatient MHIE MHIE [id number] Memoria 15:30:00 15:30:00 04 ellen Cowart 2016-09-23 2016-09-23 Outpatient MHIE MHIE [id number] Memoria 10:30:00 10:30:00 03 ellen Cowart 2016-09-23 2016-09-23 Outpatient MHIE MHIE [id number] Memoria 10:30:00 10:30:00 03 ellen Cowart 2016-08-14 2016-08-14 Outpatient MHIE MHIE [id number] Memoria 15:00:00 15:00:00 02 ellen Cowart 2016-08-14 2016-08-14 Outpatient MHIE MHIE [id number] Memoria 15:00:00 15:00:00 02 ellen Cowart 2015-10-23 2015-10-23 Outpatient MHIE MHIE [id number] Memoria 15:00:00 15:00:00 01 ellen Cowart 2015-10-23 2015-10-23 Outpatient MHIE MHIE [id number] Memoria 15:00:00 15:00:00 01 ellen Cowart 2015-02-14 2015-02-14 Outpatient MHIE MHIE [id number] Memoria 10:00:00 10:00:00 00 ellen Cowart 2015-02-14 2015-02-14 Outpatient MHIE MHIE [id number] Memoria 10:00:00 10:00:00 00 ellen Cowart [...] - Negative Lab Interpretation (test code = 74913-7) [facility] SPECIFIC [id number] 17:21:00 Test Item Value Reference Range Interpretation [...] Negative Lab Interpretation (test code = Abnormal 15558-2) [facility] [id number] 18:33:00 Test Item Value Reference Range Interpretation Comments Glucose Lvl (test code = Glucose Lvl) 83 65-139 [facility] [employer] [id number] 18:33:00 Test Item Value Reference Range Interpretation Comments BUN (test code = BUN) 9 7-25 [facility] [employer] [id number] 18:33:00 Test Item Value Reference Range Interpretation Comments Creatinine Lvl (test code = Creatinine 0.60 0.50-1.10 Lvl) [facility] [employer] [id number] 18:33:00 Test Item Value Reference Range Interpretation Comments eGFR NON-AFR. [place] (test code = 116 eGFR NON-AFR. [place]) [facility] [employer] [id number] 18:33:00 Test Item Value Reference Range Interpretation Comments eGFR (test code = eGFR 134 ) [facility]2020-11-19 18:33:00 Test Item Value Reference Range Interpretation Comments B/C Ratio (test code = B/C NOT APPLICABLE 22 Ratio) [facility]2020-11-19 18:33:00 Test Item Value Reference Range Interpretation Comments Sodium Lvl (test code = Sodium Lvl) 129 135-146 [facility]2020-11-19 18:33:00 Test Item Value Reference Range Interpretation Comments Potassium Lvl (test code = Potassium 4.3 3.5-5.3 Lvl) [facility]2020-11-19 18:33:00 Test Item Value Reference Range Interpretation Comments Chloride Lvl (test code = Chloride Lvl) 95 98-110 [facility]2020-11-19 18:33:00 Test Item Value Reference Range Interpretation Comments CO2 (test code = CO2) 25 20-32 [facility] SystemsWAK[facility] [id number] 18:33:00 Test Item Value Reference Range Interpretation Comments Calcium Lvl (test code = Calcium Lvl) 9.5 8.6-10.2 [facility]2020-11-19 18:33:00 Test Item Value Reference Range Interpretation Comments Total Protein (test code = Total 7.5 6.1-8.1 Protein) [facility]2020-11-19 18:33:00 Test Item Value Reference Range Interpretation Comments Albumin Lvl (test code = Albumin Lvl) 4.5 3.6-5.1 [facility] SystemsWAKEMED NORTH [id number] 18:33:00 Test Item Value Reference Range Interpretation Comments Globulin (test code = Globulin) 3.0 1.9-3.7 [place] [id number] 18:33:00 Test Item Value Reference Range Interpretation Comments A/G Ratio (test code = A/G Ratio) 1.5 1.0-2.5 [facility]2020-11-19 18:33:00 Test Item Value Reference Range Interpretation Comments Bili Total (test code = Bili Total) 0.3 0.2-1.2 [facility]2020-11-19 18:33:00 Test Item Value Reference Range Interpretation Comments Alk Phos (test code = Alk Phos) 77 31-125 [place] 352690-11-19 18:33:00 Test Item Value Reference Range Interpretation Comments ASPARTATE TRANSAMINASE (test code = 15 10-30 ASPARTATE TRANSAMINASE) [facility]2020-11-19 18:33:00 Test Item Value Reference Range Interpretation Comments ALANINE AMINOTRANSFERASE (test code = 11 6-29 ALANINE AMINOTRANSFERASE) [id number] 18:33:00 Test Item Value Reference Range Interpretation Comments WBC X 10x3 (test code = WBC X 10x3) 8.5 3.8-10.8 [facility]aredoLhxlepsYRUZQMAPSK2716-45-00 18:33:00 Test Item Value Reference Range Interpretation Comments RBC X 10x6 (test code = RBC X 10x6) 3.90 3.80-5.10 [facility]oAipphoxAKXPLCZVVB1423-82-39 18:33:00 Test Item Value Reference Range Interpretation Comments Hgb (test code = Hgb) 12.4 11.7-15.5 [facility]oVmzyjgsEPFQIDDENC7523-14-35 18:33:00 Test Item Value Reference Range Interpretation Comments Hct (test code = Hct) 36.6 35.0-45.0 [facility]oCuuhbdyPJPNWVYUTF9815-59-36 18:33:00 Test Item Value Reference Range Interpretation Comments MCV (test code = MCV) 93.8 80.0-100.0 [facility]aredoLdekkfpHDHCNRZAMW4308-15-03 18:33:00 Test Item Value Reference Range Interpretation Comments MCH (test code = MCH) 31.8 pg 27.0-33.0 [facility]oZxgiyvkPFTFMSOMIW8012-37-84 18:33:00 Test Item Value Reference Range Interpretation Comments MCHC (test code = MCHC) 33.9 32.0-36.0 [facility]oYmbtjlpTJGWXJYDMG0969-09-74 18:33:00 Test Item Value Reference Range Interpretation Comments RDW (test code = RDW) 12.2 11.0-15.0 [facility]oEjcyarmSJVHYMFUDT4554-15-94 18:33:00 Test Item Value Reference Range Interpretation Comments Platelet (test code = Platelet) 390 140-400 [facility]oJwgwyufITQOFADGNG6263-74-05 18:33:00 Test Item Value Reference Range Interpretation Comments MPV (test code = MPV) 9.4 7.5-12.5 [facility]oVkscmuzCIOYOOENTC9203-94-81 18:33:00 Test Item Value Reference Range Interpretation Comments Neutrophils # (test code = Neutrophils 6035 5328-6166 #) [facility] CenterLqxjutjRTUDBRZQED1187-26-45 18:33:00 Test Item Value Reference Range Interpretation Comments Lymphocytes # (test code = Lymphocytes 8104 432-1486 #) [facility] HospitalIxomsxzBNSDSKXJIX3901-91-35 18:33:00 Test Item Value Reference Range Interpretation Comments Monocytes # (test code = Monocytes #) 349 200-950 [facility] HospitalEjgmofmSHXTFUSVAJ9139-07-37 18:33:00 Test Item Value Reference Range Interpretation Comments Eosinophils # (test code = Eosinophils 136 15-500 #) [facility] CenterEjqvzdtOQOFXYGRSE8750-67-47 18:33:00 Test Item Value Reference Range Interpretation Comments Basophils # (test code 51 See_Comment [Aut omated message] The = Basophils #) system which generated this result tra nsmitted reference range : <=200. The reference r cole was not used to int erpret this result as normal/abnormal . [facility]oWjwunpwDCAFRQUXTN6978-46-22 18:33:00 Test Item Value Reference Range Interpretation Comments Segs (test code = Segs) 71 [facility]oOlcmufdMIVDRPJPRZ9452-51-70 18:33:00 Test Item Value Reference Range Interpretation Comments Lymphocytes (test code = Lymphocytes) 22.7 [facility] CenterXmmniciLVPQXVDZWS3075-18-26 18:33:00 Test Item Value Reference Range Interpretation Comments Monocytes (test code = Monocytes) 4.1 [facility]oCphkpoqXFRDVQPZHY6433-01-83 18:33:00 Test Item Value Reference Range Interpretation Comments Eosinophils (test code = Eosinophils) 1.6 [facility] HospitalFglvpijRRMKQIHUAZ2978-63-34 18:33:00 Test Item Value Reference Range Interpretation Comments Basophils (test code = Basophils) 0.6 [facility] CenterMwqbmtoTALRKFXOSG7167-63-85 18:33:00 Test Item Value Reference Range Interpretation Comments Trileptal Lvl (test code = Trileptal 20.5 8.0-35.0 Lvl) [facility] CenterFjzbdhqSZRKVJMYRO2824-19-57 18:33:00 Test Item Value Reference Range Interpretation Comments Lamotrigine Lvl (test code = 1.7 4.0-18.0 Lamotrigine Lvl) [facility] [id number] 18:33:00 Test Item Value Reference Range Interpretation Comments Glucose Lvl (test code = Glucose Lvl) 83 65-139 [facility] Solar SystemsWAKEMED NORTH HOSPITALRBLBZ8374-48-45 18:33:00 Test Item Value Reference Range Interpretation Comments BUN (test code = BUN) 9 7-25 [facility] Solar SystemsWAKEMED NORTH HOSPITALMYUCI4682-32-16 18:33:00 Test Item Value Reference Range Interpretation Comments Creatinine Lvl (test code = Creatinine 0.60 0.50-1.10 Lvl) [facility]2020-11-19 18:33:00 Test Item Value Reference Range Interpretation Comments eGFR NON-AFR. [place] (test code = 116 eGFR NON-AFR. [place]) [facility] Solar SystemsWAKEMED NORTH HOSPITALDZJPO2984-82-82 18:33:00 Test Item Value Reference Range Interpretation Comments eGFR (test code = eGFR 134 ) [facility] [id number] 18:33:00 Test Item Value Reference Range Interpretation Comments B/C Ratio (test code = B/C NOT APPLICABLE 6-22 Ratio) [facility] [id number] 18:33:00 Test Item Value Reference Range Interpretation Comments Sodium Lvl (test code = Sodium Lvl) 129 135-146 [facility] [id number] 18:33:00 Test Item Value Reference Range Interpretation Comments Potassium Lvl (test code = Potassium 4.3 3.5-5.3 Lvl) [facility] [id number] 18:33:00 Test Item Value Reference Range Interpretation Comments Chloride Lvl (test code = Chloride Lvl) 95 98-110 [facility] [id number] 18:33:00 Test Item Value Reference Range Interpretation Comments CO2 (test code = CO2) 25 20-32 [facility] SystemsWAKEMED NORTH [id number] 18:33:00 Test Item Value Reference Range Interpretation Comments Calcium Lvl (test code = Calcium Lvl) 9.5 8.6-10.2 [facility] [id number] 18:33:00 Test Item Value Reference Range Interpretation Comments Total Protein (test code = Total 7.5 6.1-8.1 Protein) [facility] [id number] 18:33:00 Test Item Value Reference Range Interpretation Comments Albumin Lvl (test code = Albumin Lvl) 4.5 3.6-5.1 [facility]2020-11-19 18:33:00 Test Item Value Reference Range Interpretation Comments Globulin (test code = Globulin) 3.0 1.9-3.7 [facility]2020-11-19 18:33:00 Test Item Value Reference Range Interpretation Comments A/G Ratio (test code = A/G Ratio) 1.5 1.0-2.5 [facility]2020-11-19 18:33:00 Test Item Value Reference Range Interpretation Comments Bili Total (test code = Bili Total) 0.3 0.2-1.2 [place] [id number] 18:33:00 Test Item Value Reference Range Interpretation Comments Alk Phos (test code = Alk Phos) 77 31-125 [facility]2020-11-19 18:33:00 Test Item Value Reference Range Interpretation Comments ASPARTATE TRANSAMINASE (test code = 15 10-30 ASPARTATE TRANSAMINASE) [facility]2020-11-19 18:33:00 Test Item Value Reference Range Interpretation Comments ALANINE AMINOTRANSFERASE (test code = 11 6-29 ALANINE AMINOTRANSFERASE) [place] [id number] 18:33:00 Test Item Value Reference Range Interpretation Comments WBC X 10x3 (test code = WBC X 10x3) 8.5 3.8-10.8 [facility]oDealsjqOCKKRKXYBI0753-02-64 18:33:00 Test Item Value Reference Range Interpretation Comments RBC X 10x6 (test code = RBC X 10x6) 3.90 3.80-5.10 [facility]oJelfxfuIZHZKTZLMC1887-97-44 18:33:00 Test Item Value Reference Range Interpretation Comments Hgb (test code = Hgb) 12.4 11.7-15.5 [place] [id number] 18:33:00 Test Item Value Reference Range Interpretation Comments Hct (test code = Hct) 36.6 35.0-45.0 [place] [address]-11-19 18:33:00 Test Item Value Reference Range Interpretation Comments MCV (test code = MCV) 93.8 80.0-100.0 [place] [address]-11-19 18:33:00 Test Item Value Reference Range Interpretation Comments MCH (test code = MCH) 31.8 pg 27.0-33.0 [place] [id number] 18:33:00 Test Item Value Reference Range Interpretation Comments MCHC (test code = MCHC) 33.9 32.0-36.0 [facility] HospitalNhcfmcwPDDZGZAZTP1402-20-03 18:33:00 Test Item Value Reference Range Interpretation Comments RDW (test code = RDW) 12.2 11.0-15.0 [facility]oEdaikqsPCUQIQQCIH4367-87-89 18:33:00 Test Item Value Reference Range Interpretation Comments Platelet (test code = Platelet) 390 140-400 [facility]oRiicoqcTJICAKPFWR5402-35-30 18:33:00 Test Item Value Reference Range Interpretation Comments MPV (test code = MPV) 9.4 7.5-12.5 [facility]oKrszmdmCUOUCMEROF6503-82-90 18:33:00 Test Item Value Reference Range Interpretation Comments Neutrophils # (test code = Neutrophils 6035 7142-3604 #) [facility]oGbowfebTURUCBMFFK9773-60-45 18:33:00 Test Item Value Reference Range Interpretation Comments Lymphocytes # (test code = Lymphocytes 2056 994-4827 #) [facility]oDlmrdlgTWTLAQJHGS0763-51-95 18:33:00 Test Item Value Reference Range Interpretation Comments Monocytes # (test code = Monocytes #) 349 200-950 [facility]aredoTilptkmNYBSWTKQTU8974-71-47 18:33:00 Test Item Value Reference Range Interpretation Comments Eosinophils # (test code = Eosinophils 136 15-500 #) [facility]oWkkajsmRQEIWRXTYT8666-69-93 18:33:00 Test Item Value Reference Range Interpretation Comments Basophils # (test code 51 See_Comment [Aut omated message] The = Basophils #) system which generated this result tra nsmitted reference range : <=200. The reference r cole was not used to int erpret this result as normal/abnormal . [facility]aredoLmvhiorPCKYQVZTBG2347-97-27 18:33:00 Test Item Value Reference Range Interpretation Comments Segs (test code = Segs) 71 [facility]oGppqunhEREFZVVAXY8772-60-94 18:33:00 Test Item Value Reference Range Interpretation Comments Lymphocytes (test code = Lymphocytes) 22.7 [facility]oCedznzoLNPRNTRXTK7680-55-67 18:33:00 Test Item Value Reference Range Interpretation Comments Monocytes (test code = Monocytes) 4.1 [facility]oBfahfghTSVKHJMQCZ1031-99-05 18:33:00 Test Item Value Reference Range Interpretation Comments Eosinophils (test code = Eosinophils) 1.6 [facility] CentralXjcmrlxYZKKDCRBNP5796-47-70 18:33:00 Test Item Value Reference Range Interpretation Comments Basophils (test code = Basophils) 0.6 [facility] CenterFkufdkpFPWYLRHXJN6319-04-40 18:33:00 Test Item Value Reference Range Interpretation Comments Trileptal Lvl (test code = Trileptal 20.5 8.0-35.0 Lvl) [facility]abavhqSCNJXYDFUS9365-03-43 18:33:00 Test Item Value Reference Range Interpretation Comments Lamotrigine Lvl (test code = 1.7 4.0-18.0 Lamotrigine Lvl) [facility] [id number] 18:33:00 Test Item Value Reference Range Interpretation Comments Glucose Lvl (test code = Glucose Lvl) 83 65-139 [facility] [id number] 18:33:00 Test Item Value Reference Range Interpretation Comments BUN (test code = BUN) 9 7-25 [facility] [id number] 18:33:00 Test Item Value Reference Range Interpretation Comments Creatinine Lvl (test code = Creatinine 0.60 0.50-1.10 Lvl) [facility] [id number] 18:33:00 Test Item Value Reference Range Interpretation Comments eGFR NON-AFR. [place] (test code = 116 eGFR NON-AFR. [place]) [facility] [id number] 18:33:00 Test Item Value Reference Range Interpretation Comments eGFR (test code = eGFR 134 ) [facility] [id number] 18:33:00 Test Item Value Reference Range Interpretation Comments B/C Ratio (test code = B/C NOT APPLICABLE 22 Ratio) [facility] [id number] 18:33:00 Test Item Value Reference Range Interpretation Comments Sodium Lvl (test code = Sodium Lvl) 129 135-146 [facility] CenterSocialtyze [id number] 18:33:00 Test Item Value Reference Range Interpretation Comments Potassium Lvl (test code = Potassium 4.3 3.5-5.3 Lvl) [facility] [id number] 18:33:00 Test Item Value Reference Range Interpretation Comments Chloride Lvl (test code = Chloride Lvl) 95 98-110 [facility]2020-11-19 18:33:00 Test Item Value Reference Range Interpretation Comments CO2 (test code = CO2) 25 20-32 [facility]2020-11-19 18:33:00 Test Item Value Reference Range Interpretation Comments Calcium Lvl (test code = Calcium Lvl) 9.5 8.6-10.2 [facility]2020-11-19 18:33:00 Test Item Value Reference Range Interpretation Comments Total Protein (test code = Total 7.5 6.1-8.1 Protein) [facility]2020-11-19 18:33:00 Test Item Value Reference Range Interpretation Comments Albumin Lvl (test code = Albumin Lvl) 4.5 3.6-5.1 [facility]2020-11-19 18:33:00 Test Item Value Reference Range Interpretation Comments Globulin (test code = Globulin) 3.0 1.9-3.7 [facility]2020-11-19 18:33:00 Test Item Value Reference Range Interpretation Comments A/G Ratio (test code = A/G Ratio) 1.5 1.0-2.5 [facility]2020-11-19 18:33:00 Test Item Value Reference Range Interpretation Comments Bili Total (test code = Bili Total) 0.3 0.2-1.2 [facility]2020-11-19 18:33:00 Test Item Value Reference Range Interpretation Comments Alk Phos (test code = Alk Phos) 77 31-125 [facility]2020-11-19 18:33:00 Test Item Value Reference Range Interpretation Comments ASPARTATE TRANSAMINASE (test code = 15 10-30 ASPARTATE TRANSAMINASE) [place] [id number] 18:33:00 Test Item Value Reference Range Interpretation Comments ALANINE AMINOTRANSFERASE (test code = 11 6-29 ALANINE AMINOTRANSFERASE) [id number] 18:33:00 Test Item Value Reference Range Interpretation Comments WBC X 10x3 (test code = WBC X 10x3) 8.5 3.8-10.8 [place] [id number] 18:33:00 Test Item Value Reference Range Interpretation Comments RBC X 10x6 (test code = RBC X 10x6) 3.90 3.80-5.10 [place] [id number] 18:33:00 Test Item Value Reference Range Interpretation Comments Hgb (test code = Hgb) 12.4 11.7-15.5 [id number] 18:33:00 Test Item Value Reference Range Interpretation Comments Hct (test code = Hct) 36.6 35.0-45.0 [facility]oLuahzinWTOIDQXVBF1250-70-25 18:33:00 Test Item Value Reference Range Interpretation Comments MCV (test code = MCV) 93.8 80.0-100.0 [facility] HospitalGamxxxpHJUNNYXFEL7598-00-80 18:33:00 Test Item Value Reference Range Interpretation Comments MCH (test code = MCH) 31.8 pg 27.0-33.0 [facility] HospitalUbgluwbSMWPSBQKVV1343-37-19 18:33:00 Test Item Value Reference Range Interpretation Comments MCHC (test code = MCHC) 33.9 32.0-36.0 [facility]oQameojqPWZRDMGRKX1532-01-17 18:33:00 Test Item Value Reference Range Interpretation Comments RDW (test code = RDW) 12.2 11.0-15.0 [facility]oCwxbjbaXFXHGRVBAY2954-09-27 18:33:00 Test Item Value Reference Range Interpretation Comments Platelet (test code = Platelet) 390 140-400 [facility]oLurbtioUBKAFMWBXK0175-32-81 18:33:00 Test Item Value Reference Range Interpretation Comments MPV (test code = MPV) 9.4 7.5-12.5 [facility]oKadewlaRGDOTFHKRG3852-27-07 18:33:00 Test Item Value Reference Range Interpretation Comments Neutrophils # (test code = Neutrophils 6035 9601-0471 #) [facility]oTsnvfpyAGDLWHQGWD6033-90-43 18:33:00 Test Item Value Reference Range Interpretation Comments Lymphocytes # (test code = Lymphocytes 9574 703-9993 #) [facility]oLkxfzsjEMIFWDKCUT8923-37-83 18:33:00 Test Item Value Reference Range Interpretation Comments Monocytes # (test code = Monocytes #) 349 200-950 [facility]oWlcszcaZHMMTEIIBA3694-77-27 18:33:00 Test Item Value Reference Range Interpretation Comments Eosinophils # (test code = Eosinophils 136 15-500 #) [facility]oHwhnffnYRPLFYOSGK7566-07-55 18:33:00 Test Item Value Reference Range Interpretation Comments Basophils # (test code 51 See_Comment [Aut omated message] The = Basophils #) system which generated this result tra nsmitted reference range : <=200. The reference r cole was not used to int erpret this result as normal/abnormal . [facility] CenterVekcpipVNPFAURIMB9757-92-95 18:33:00 Test Item Value Reference Range Interpretation Comments Segs (test code = Segs) 71 [facility]oDkhtxduLVZPMNXEUI1702-25-08 18:33:00 Test Item Value Reference Range Interpretation Comments Lymphocytes (test code = Lymphocytes) 22.7 [facility]oDypujfgNHYUCXLIDV4554-65-00 18:33:00 Test Item Value Reference Range Interpretation Comments Monocytes (test code = Monocytes) 4.1 [facility] CenterZgicjfrKQLVDAYFDP4209-53-91 18:33:00 Test Item Value Reference Range Interpretation Comments Eosinophils (test code = Eosinophils) 1.6 [facility]oXdeemqbWOQMDGQHRI5929-08-02 18:33:00 Test Item Value Reference Range Interpretation Comments Basophils (test code = Basophils) 0.6 [facility] CenterPbwgtaoFOWSRMTKYU4860-30-76 18:33:00 Test Item Value Reference Range Interpretation Comments Trileptal Lvl (test code = Trileptal 20.5 8.0-35.0 Lvl) [facility] CenterJqaimdhFAXZQUQAEW4266-63-00 18:33:00 Test Item Value Reference Range Interpretation Comments Lamotrigine Lvl (test code = 1.7 4.0-18.0 Lamotrigine Lvl) [facility] [id number] 18:33:00 Test Item Value Reference Range Interpretation Comments Glucose Lvl (test code = Glucose Lvl) 83 65-139 [facility] [id number] 18:33:00 Test Item Value Reference Range Interpretation Comments BUN (test code = BUN) 9 7-25 [facility] [id number] 18:33:00 Test Item Value Reference Range Interpretation Comments Creatinine Lvl (test code = Creatinine 0.60 0.50-1.10 Lvl) [facility] CenterSocialtyze [id number] 18:33:00 Test Item Value Reference Range Interpretation Comments eGFR NON-AFR. COLOMBIAN (test code = 116 eGFR NON-AFR. COLOMBIAN) [facility] [id number] 18:33:00 Test Item Value Reference Range Interpretation Comments eGFR (test code = eGFR 134 ) [facility]2020-11-19 18:33:00 Test Item Value Reference Range Interpretation Comments B/C Ratio (test code = B/C NOT APPLICABLE 622 Ratio) [facility]2020-11-19 18:33:00 Test Item Value Reference Range Interpretation Comments Sodium Lvl (test code = Sodium Lvl) 129 135-146 [facility]2020-11-19 18:33:00 Test Item Value Reference Range Interpretation Comments Potassium Lvl (test code = Potassium 4.3 3.5-5.3 Lvl) [facility]2020-11-19 18:33:00 Test Item Value Reference Range Interpretation Comments Chloride Lvl (test code = Chloride Lvl) 95 98-110 [facility]2020-11-19 18:33:00 Test Item Value Reference Range Interpretation Comments CO2 (test code = CO2) 25 20-32 [facility]2020-11-19 18:33:00 Test Item Value Reference Range Interpretation Comments Calcium Lvl (test code = Calcium Lvl) 9.5 8.6-10.2 [facility]2020-11-19 18:33:00 Test Item Value Reference Range Interpretation Comments Total Protein (test code = Total 7.5 6.1-8.1 Protein) [facility]2020-11-19 18:33:00 Test Item Value Reference Range Interpretation Comments Albumin Lvl (test code = Albumin Lvl) 4.5 3.6-5.1 [facility]2020-11-19 18:33:00 Test Item Value Reference Range Interpretation Comments Globulin (test code = Globulin) 3.0 1.9-3.7 [place] [id number] 18:33:00 Test Item Value Reference Range Interpretation Comments A/G Ratio (test code = A/G Ratio) 1.5 1.0-2.5 [facility]2020-11-19 18:33:00 Test Item Value Reference Range Interpretation Comments Bili Total (test code = Bili Total) 0.3 0.2-1.2 [place] [id number] 18:33:00 Test Item Value Reference Range Interpretation Comments Alk Phos (test code = Alk Phos) 77 31-125 [facility]2020-11-19 18:33:00 Test Item Value Reference Range Interpretation Comments ASPARTATE TRANSAMINASE (test code = 15 10-30 ASPARTATE TRANSAMINASE) [facility]2020-11-19 18:33:00 Test Item Value Reference Range Interpretation Comments ALANINE AMINOTRANSFERASE (test code = 11 6-29 ALANINE AMINOTRANSFERASE) [facility]oFhwegkaEYYOLQSTJP9625-97-86 18:33:00 Test Item Value Reference Range Interpretation Comments WBC X 10x3 (test code = WBC X 10x3) 8.5 3.8-10.8 [facility]oQnpwragMQCNEAJHZW1746-43-65 18:33:00 Test Item Value Reference Range Interpretation Comments RBC X 10x6 (test code = RBC X 10x6) 3.90 3.80-5.10 [facility]oWpkgrpcMBGZCGDSGV2064-95-49 18:33:00 Test Item Value Reference Range Interpretation Comments Hgb (test code = Hgb) 12.4 11.7-15.5 [facility]oCfujujbBTDMJKVFGJ1622-61-88 18:33:00 Test Item Value Reference Range Interpretation Comments Hct (test code = Hct) 36.6 35.0-45.0 [facility]oPrsuvwiOHMNYVPSZK2294-82-71 18:33:00 Test Item Value Reference Range Interpretation Comments MCV (test code = MCV) 93.8 80.0-100.0 [facility]aredoSshraymLVSIPZETRJ5858-37-53 18:33:00 Test Item Value Reference Range Interpretation Comments MCH (test code = MCH) 31.8 pg 27.0-33.0 [facility]oYxzdzsfIGXAQFTKYY3372-95-15 18:33:00 Test Item Value Reference Range Interpretation Comments MCHC (test code = MCHC) 33.9 32.0-36.0 [facility]oYfycqghGKCEXGEDMZ4704-87-56 18:33:00 Test Item Value Reference Range Interpretation Comments RDW (test code = RDW) 12.2 11.0-15.0 [facility]oVdnsvopTJUWOLSBZS4019-13-53 18:33:00 Test Item Value Reference Range Interpretation Comments Platelet (test code = Platelet) 390 140-400 [facility]oNpfsfudHODNQKOHWX1531-19-24 18:33:00 Test Item Value Reference Range Interpretation Comments MPV (test code = MPV) 9.4 7.5-12.5 [facility]oZziseduGRBMPYUSKF3875-48-45 18:33:00 Test Item Value Reference Range Interpretation Comments Neutrophils # (test code = Neutrophils 6035 6448-1106 #) [facility] HospitalEdnhuiaOQEXYGRAFA1426-82-43 18:33:00 Test Item Value Reference Range Interpretation Comments Lymphocytes # (test code = Lymphocytes 3799 938-9888 #) [facility] HospitalYcmjufhTHVJCQNYHZ8018-02-11 18:33:00 Test Item Value Reference Range Interpretation Comments Monocytes # (test code = Monocytes #) 349 200-950 [facility] HospitalBundyaoYRADLUZQAS6710-41-51 18:33:00 Test Item Value Reference Range Interpretation Comments Eosinophils # (test code = Eosinophils 136 15-500 #) [facility] HospitalBoprdnvISYPMNTXQW6118-11-33 18:33:00 Test Item Value Reference Range Interpretation Comments Basophils # (test code 51 See_Comment [Aut omated message] The = Basophils #) system which generated this result tra nsmitted reference range : <=200. The reference r cole was not used to int erpret this result as normal/abnormal . [facility]oRluurvxDQVSGZYBVV0149-76-78 18:33:00 Test Item Value Reference Range Interpretation Comments Segs (test code = Segs) 71 [facility]oGedtpbmBYFVFMQLNN9813-57-84 18:33:00 Test Item Value Reference Range Interpretation Comments Lymphocytes (test code = Lymphocytes) 22.7 [facility]oNzouvnqIKSXVSTPEF0658-79-07 18:33:00 Test Item Value Reference Range Interpretation Comments Monocytes (test code = Monocytes) 4.1 [facility]oGcbhexbOOKLRUCASQ3416-37-78 18:33:00 Test Item Value Reference Range Interpretation Comments Eosinophils (test code = Eosinophils) 1.6 [facility] HospitalRsaidplTSSBUWEBPY4605-85-49 18:33:00 Test Item Value Reference Range Interpretation Comments Basophils (test code = Basophils) 0.6 [facility] CenterYsxyarlYWEVIYEVLI7310-07-31 18:33:00 Test Item Value Reference Range Interpretation Comments Trileptal Lvl (test code = Trileptal 20.5 8.0-35.0 Lvl) [facility]ogq[facility]xQHYMMDUNOF8021-53-11 18:33:00 Test Item Value Reference Range Interpretation Comments Lamotrigine Lvl (test code = 1.7 4.0-18.0 Lamotrigine Lvl) [facility]
[2022-12-18] MEDS ORDERED: HYDROMORPHONE HCL 1 MG/ML INJ ONE (15:23)
--- NOTE | 2022-12-18 15:44 | ER ---
Nurse's Notes [facility] Name: Dionne Ventura Age: 42 yrs Sex: Female : 1980 Arrival Date: 12/18/2022 Time: 14:54 Bed 16 Private MD: Diagnosis: Pain in left lower leg-post op pain Presentation: 12/18 14:54 Chief complaint: EMS states: left foot pain today after stepping down with broken foot. db States had surgery on Friday for broken foot after falling off of a ladder. Coronavirus screen: Vaccine status: Patient reports receiving the 1st dose of the Covid vaccine. Client denies travel out of the [place] in the last 14 days. At this time, the client does not indicate any symptoms associated with coronavirus-19. Ebola Screen: Patient negative for fever greater than or equal to 101.5 degrees Fahrenheit, and additional compatible Ebola Virus Disease symptoms Patient denies exposure to infectious person. Patient denies travel to an Ebola-affected area in the 21 days before illness onset. No symptoms or risks identified at this time. Initial Sepsis Screen: Does the patient meet any 2 criteria? No. Patient's initial sepsis screen is negative. Does the patient have a suspected source of infection? No. Patient's initial sepsis screen is negative. Risk Assessment: Do you want to hurt yourself or someone else? Patient reports no desire to harm self or others. Onset of symptoms was December 18, 2022. 14:54 Method Of Arrival: EMS: [facility] db 14:54 Acuity: [place] 3 db Triage Assessment: 15:06 General: Appears in no apparent distress. uncomfortable, Behavior is cooperative, db anxious. Pain: Complains of pain in left foot and left leg. 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 - Social history:: Smoking status: Patient denies any tobacco usage or history of. Screenin:38 [facility] ED Fall Risk Assessment (Adult) History of falling in the last 3 months, db including since admission Yes- single mechanical fall (1 pt) Confusion or Disorientation No (0 pts) Intoxicated or Sedated No (0 pts) Impaired Gait Yes (1 pt) Mobility Assist Device Used Yes (1 pt) Altered Elimination No (0 pt) Score/Fall Risk Level 3 or more points = High Risk Oriented to surroundings, Maintained a safe environment. Abuse screen: Denies threats or abuse. Denies injuries from another. Nutritional screening: No deficits noted. Tuberculosis screening: No symptoms or risk factors identified. Assessment: 15:10 Reassessment: Patient appears in no apparent distress at this time. Patient and/or db family updated on plan of care and expected duration. Pain level reassessed. Patient is alert, oriented x 3, equal unlabored respirations, skin warm/dry/pink. General: Appears in no apparent distress. uncomfortable, Behavior is cooperative, anxious. Pain: Complains of pain in left leg and left foot. Neuro: Level of Consciousness is awake, alert, obeys commands, Oriented to person, place, time, situation, Appropriate for age Speech is normal. 16:03 Reassessment: Patient and/or family updated on plan of care and expected duration. Pain eh3 level reassessed. Patient is alert, oriented x 3, equal unlabored respirations, skin warm/dry/pink. Vital Signs: 14:54 BP 129 / 98; Pulse 81; Resp 16; Temp 98.7(O); Pulse Ox 97% on R/A; Weight 63.05 kg; db Height 5 ft. 2 in. ; Pain 10/10; 15:30 BP 135 / 92; Pulse 73; Resp 16; Pulse Ox 96% on R/A; db 14:54 Body Mass Index 25.42 (63.05 kg, 157.48 cm) db 14:54 Pain Scale: Adult db ED Course: 14:57 Patient arrived in ED. bd 15:00 Katharine Larsen FNP-C is PHCP. snw 15:00 Kenneth Rondon MD is Attending Physician. snw 15:01 Melinda Farley, RN is Primary Nurse. db 15:06 Triage completed. db 15:06 Arm band placed on Patient placed in an exam room. db 15:06 Patient has correct armband on for positive identification. eh3 15:25 Ankle Left 2 View XRAY In Process Unspecified. EDMS 16:04 No provider procedures requiring assistance completed. Patient did not have IV access eh3 during this emergency room visit. Administered Medications: 15:19 Drug: HYDROmorphone IM 1 mg Route: IM; Site: left deltoid; db 15:46 Follow up: Response: No adverse reaction db Medication: 16:03 VIS not applicable for this client. eh3 Outcome: 15:43 Discharge ordered by MD. cm 16:04 Discharged to home via wheelchair. eh3 16:04 Condition: stable 16:04 Discharge instructions given to patient, Instructed on discharge instructions, follow up and referral plans. Demonstrated understanding of instructions, follow-up care. 16:07 Patient left the ED. 3 Signatures: Dispatcher [employer] EDMS Cherelle Ravi Shelly, BIOLOGIST AIDE-C BIOLOGIST AIDE-Csnw Diana Downs, RN RN 3 Melinda Farley, RN RN db
--- NOTE | 2022-12-18 15:44 | EDPHYS ---
Physician Documentation [facility] Name: Dionne Ventura Age: 42 yrs Sex: Female : 1980 Arrival Date: 12/18/2022 Time: 14:54 Bed 16 Private MD: ED Physician Kenneth Rondon HPI: 12/18 15:11 This 42 yrs old Female presents to ER via EMS with complaints of left foot pain. snw 15:11 The patient presents with pain, that is acute. The complaints affect the lateral aspect snw of left foot, left Achilles, medial aspect of left foot and anterior aspect of left ankle. The patient has experienced a previous episode. 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 - Social history:: Smoking status: Patient denies any tobacco usage or history of. ROS: 15:09 Constitutional: Negative for fever, chills, and weight loss, Eyes: Negative for injury, snw pain, redness, and discharge, ENT: Negative for injury, pain, and discharge, Neck: Negative for injury, pain, and swelling, Cardiovascular: Negative for chest pain, palpitations, and edema, Respiratory: Negative for shortness of breath, cough, wheezing, and pleuritic chest pain, Abdomen/GI: Negative for abdominal pain, nausea, vomiting, diarrhea, and constipation, Back: Negative for injury and pain, : Negative for injury, bleeding, discharge, and swelling, Skin: Negative for injury, rash, and discoloration, Neuro: Negative for headache, weakness, numbness, tingling, and seizure, Psych: Negative for depression, anxiety, suicide ideation, homicidal ideation, and hallucinations. 15:09 MS/extremity: Positive for injury or acute deformity, of the left foot, pt crushed talus and recently had surgery, stepped on foot today and has severe pain. Exam: 15:08 Head/Face: Normocephalic, atraumatic. Eyes: Pupils equal round and reactive to light, snw extra-ocular motions intact. Lids and lashes normal. Conjunctiva and sclera are non-icteric and not injected. Cornea within normal limits. Periorbital areas with no swelling, redness, or edema. ENT: Nares patent. No nasal discharge, no septal abnormalities noted. Tympanic membranes are normal and external auditory canals are clear. Oropharynx with no redness, swelling, or masses, exudates, or evidence of obstruction, uvula midline. Mucous membranes moist. Neck: Trachea midline, no thyromegaly or masses palpated, and no cervical lymphadenopathy. Supple, full range of motion without nuchal rigidity, or vertebral point tenderness. No Meningismus. Chest/axilla: Normal chest wall appearance and motion. Nontender with no deformity. No lesions are appreciated. Cardiovascular: Regular rate and rhythm with a normal S1 and S2. No gallops, murmurs, or rubs. Normal PMI, no JVD. No pulse deficits. Neuro: Awake and alert, GCS 15, oriented to person, place, time, and situation. Cranial nerves II-XII grossly intact. Motor strength 5/5 in all extremities. Sensory grossly intact. Cerebellar exam normal. Normal gait. 15:08 Constitutional: The patient appears alert, awake, animated 15:08 Musculoskeletal/extremity: Extremities: grossly normal except: noted in the left foot: pain, ROM: splinted s/p surgery, Circulation is intact in all extremities. Severe pain noted. Vital Signs: 14:54 BP 129 / 98; Pulse 81; Resp 16; Temp 98.7(O); Pulse Ox 97% on R/A; Weight 63.05 kg; db Height 5 ft. 2 in. ; Pain 10/10; 15:30 BP 135 / 92; Pulse 73; Resp 16; Pulse Ox 96% on R/A; db 14:54 Body Mass Index 25.42 (63.05 kg, 157.48 cm) db 14:54 Pain Scale: Adult db MDM: 15:00 Patient medically screened. snw 15:44 Differential diagnosis: dislocation, closed fracture, contusion, tendonitis. Data snw reviewed: vital signs, nurses notes, radiologic studies. Counseling: I had a detailed discussion with the patient and/or guardian regarding: the historical points, exam findings, and any diagnostic results supporting the discharge/admit diagnosis, the presence of at least one elevated blood pressure reading (>120/80) during this emergency department visit, radiology results, the need for outpatient follow up, for definitive care, to return to the emergency department if symptoms worsen or persist or if there are any questions or concerns that arise at home. Special discussion: I have referred the patient to see his PCP for further evaluation of high blood pressure. Based on the history and exam findings, there is no indication for further emergent testing or inpatient evaluation. I discussed with the patient/guardian the need to see the orthopedic surgeon for further evaluation of the symptoms. I discussed with the patient/guardian the need to see the primary care provider for further evaluation of the symptoms. 12/18 15:04 Order name: Ankle Left 2 View XRAY snw Administered Medications: 15:19 Drug: HYDROmorphone IM 1 mg Route: IM; Site: left deltoid; db 15:46 Follow up: Response: No adverse reaction db Disposition Summary: 12/18/22 15:43 Discharge Ordered Location: Home snw Condition: Stable snw Diagnosis - Pain in left lower leg - post op pain snw Followup: snw - With: Emergency Department - When: As needed - Reason: Worsening of condition Followup: snw - With: Private Physician - When: 1 - 2 days - Reason: Recheck today's complaints, Continuance of care, Re-evaluation by your physician Discharge Instructions: - Discharge Summary Sheet snw - Musculoskeletal Pain snw - How to Use Cold Therapy, [id number] snw Forms: - Medication Reconciliation Form snw - Thank You Letter snw - Antibiotic Education snw - Prescription Opioid Use snw Signatures: Dispatcher [employer] EDKatharine Shelton, MAINTENANCE MECHANIC SUPERVISOR-C MAINTENANCE MECHANIC SUPERVISOR-Csnw Melinda Farley, RN RN db
--- NOTE | 2022-12-18 16:09 | RAD REPORT ---
EXAM DESCRIPTION: RAD - Ankle Left 2 View - 12/18/2022 3:23 pm CLINICAL HISTORY: PAIN COMPARISON: Ankle Left 3 View dated 11/23/2022 TECHNIQUE: Left ankle, 3 views. FINDINGS: Multiple cannulated screw fixation of the talus, with fragments in improved alignment. Ext ernal fixator screw tracks along the mid to distal tibia. No other acute osseous abnormality. No disl ocation or periosteal reaction. No joint effusion seen. No joint space narrowing. No soft tissue abno rmality. IMPRESSION: Sequelae of prior internal fixation of comminuted talus fracture as above.
[2022-12-18 16:12] VITALS: TEMP 98.7
[2022-12-18 16:14] VITALS: BP 135/92; O2SAT 96
== END 2022-12-18 16:07 | disposition home or self-care (01) ==
LOC: ER 14:54
DX: G89.18 Other acute postprocedural pain (principal); Z98.890 Other specified postprocedural states; Z88.1 Allergy status to other antibiotic agents; Z88.2 Allergy status to sulfonamides; Z88.3 Allergy status to other anti-infective agents
CPT/HCPCS: 73600; J1170; 96372; 99284

== ENCOUNTER 2023-09-17 13:33 | Observation (INO) | payer OTHER ==
[2023-09-17] MEDS ORDERED: ONDANSETRON 4 MG/2 ML VIAL ONE (14:10)
[2023-09-17] MEDS ORDERED: KETOROLAC 30 MG/ML INJ ONE (14:10)
[2023-09-17] MEDS ORDERED: NA CHLORIDE 0.9% 1,000 ML ONE ×2 (14:11→17:48)
[2023-09-17 14:45] LABS: Absolute Eosinophils 0.1 K/uL (0-0.5); Absolute Lymphocytes (CBC) 2.6 K/uL (0.7-4.9); Absolute Monocytes 0.3 K/uL (0.1-1.3); Absolute Neutrophil 2.3 K/uL (1.8-8.0); Basophils % 0.9 % (0-1.3); Eosinophils % 1.3 % (0-4.4); Hematocrit 36.7 % (36.0-45.0); Hemoglobin 12.6 g/dL (12.0-15.0); Lymphocytes % 48.5 % (15.3-44.8); MCH 34.3 pg (27.0-35.0); MCHC 34.4 g/dL (32.0-36.0); MCV 99.6 fL (80-100); MPV 6.9 fL (7.6-11.3); Monocytes % 6.4 % (3.3-12.3); Neutrophils % 42.9 % (41.7-73.7); Platelets 375 thou/uL (152-406); RBC Red Blood Cell Count 3.68 M/uL (3.86-4.86); Red Cell Distribution Width 13.3 % (12.1-15.2)
[2023-09-17 14:59] LABS: Albumin/Globulin Ratio 1.2 (1.1-1.8); Anion Gap 9.5 mEq/L (5.0-15.0); Bilirubin Total 0.6 mg/dL (0.2-1.0); Globulin 3.3 g/dL (2.3-3.5); Potassium 3.5 mEq/L (3.5-5.1); Protein, Total 7.3 g/dL (6.4-8.2)
[2023-09-17 15:27] LABS: Specific Gravity < 1.005 (1.005-1.030); Urine Bilirubin NEGATIVE (Negative); Urine Blood Negative (Negative); Urine Clarity Clear (Clear); Urine Color Colorless (Yellow); Urine Glucose NEGATIVE (Negative); Urine Protein NEGATIVE (Negative); Urine Urobilinogen Normal (Normal)
--- NOTE | 2023-09-17 15:31 | RAD REPORT ---
EXAM DESCRIPTION: CT - Stone Protocol - 09/17/2023 2:19 pm CLINICAL HISTORY: left flank pain COMPARISON: Abdomen Pelvis W/Wo Contrast dated 11/05/2022; Abdomen Pelvis W Contrast dated 07/31/19; Abdomen Pelvis W Contrast dated 03/18/2018 TECHNIQUE: Thin cut axial CT imaging of the abdomen and pelvis was performed without IV contrast. Mu ltiplanar reformats were generated and reviewed. All CT scans are performed using dose optimization technique as appropriate and may include automated exposure control or mA/KV adjustment according to patient size. FINDINGS: No suspicious findings in the lung bases. Lower ribs and xiphoid process demonstrate appea cesar of pectus excavatum. The liver, spleen, and pancreas show no suspicious findings. Gallbladder and biliary tree are also wi thout suspicious finding. Symmetric renal contour, without suspicious parenchymal findings within limits of noncontrast techniq ue. No evidence of hydroureteronephrosis. 5 mm left renal interpolar calculus. No dilated bowel loops or bowel wall thickening. No free air, free fluid or inflammatory stranding. N o hernia, mass or bulky lymphadenopathy. The urinary bladder is without significant finding. No suspicious bony findings. IMPRESSION: Left renal interpolar 5 mm nonobstructing calculus. No other acute intra-abdominal proce ss.
[2023-09-17] MEDS ORDERED: MORPHINE 2 MG/ML SYR ONE ×2 (16:07→19:26)
[2023-09-17] MEDS ORDERED: ACETAMINOPHEN 500 MG TAB PO PRN (16:31)
[2023-09-17] MEDS ORDERED: ONDANSETRON 4 MG/2 ML VIAL IV PRN (16:31)
--- NOTE | 2023-09-17 16:31 | P.HP ---
Certification for Inpatient Patient admitted to: Observation With expected LOS: <2 Midnights Patient will require the following post-hospital care: None Practitioner: I am a practitioner with admitting privileges, knowledge of patient current condition, hospital course, and medical plan of care. Services: Services provided to patient in accordance with Admission requirements found in Title 42 Section 412.3 of the Code of Federal Regulations Patient History Date of Service: 09/17/23 Reason for admission: Hyponatremia/abdominal pain secondary to constipation History of Present Illness: Patient is a 43-year-old female with a history of seizures and abdominal pain who came into the emergency room for further evaluation. Patient is on Lamictal and Trileptal for her seizure disorder. These are notorious for causing hyponatremia. Patient was also having abdominal pain. It pain was mainly in the bilateral lower quadrants. She gets constipated from her narcotic use. Will go ahead and give her lactulose that she takes at home. When she has her BM and we give her bag of saline we will repeat her sodium level and see where she is at. Will check her Trileptal level. As long as her labs are improving and her abdominal pain improves I anticipate discharge in the morning. Allergies ciprofloxacin Allergy (Unverified 08/07/17 21:39) Unknown Penicillins Allergy (Unverified 08/07/17 21:39) Unknown Augmentin Allergy (Uncoded 12/02/17 14:32) Unknown Clindamycin Allergy (Uncoded 08/07/17 21:39) Unknown Sulfa (Sulfon Allergy (Uncoded 12/02/17 14:32) Unknown Sulfa (Sulfonamide Antib Allergy (Uncoded 08/07/17 21:39) Unknown - Past Medical/Surgical History -: Seizure disorder -: Chronic pain syndrome -: Left ankle injury -: Left ankle repair - Family History Father Family History: Reviewed- Non-Contributory - Social History Smoking Status: Former smoker Alcohol use: No CD- Drugs: No Review of Systems 10-point ROS is otherwise unremarkable Physical Examination - Vital Signs Temperature: 98 F (reviewed) Blood Pressure: 130/80 Pulse: 80 Respirations: 18 Pulse Ox (%): 95 - Physical Exam General: Alert, In no apparent distress, Oriented x3 HEENT: Atraumatic, PERRLA, Mucous membr. moist/pink, EOMI, Sclerae nonicteric Neck: Supple, 2+ carotid pulse no bruit, No LAD, Without JVD or thyroid abnormality Respiratory: Clear to auscultation bilaterally, Normal air movement Cardiovascular: Regular rate/rhythm, Normal S1 S2 Gastrointestinal: Normal bowel sounds, Soft and benign, Non-distended, Tenderness (flank) Musculoskeletal: No clubbing, No swelling, No tenderness Integumentary: No rashes Neurological: Normal gait, Normal speech, Normal strength at 5/5 x4 extr, Normal tone, Sensation intact, Cranial nerves 3-12 intact, Normal affect Lymphatics: No axilla or inguinal lymphadenopathy - Studies Laboratory Data (last 24 hrs) 09/17/23 09/17/23 14:25 14:25 WBC 5.30 Hgb 12.6 Hct 36.7 Plt Count 375 Sodium 123 L Potassium 3.5 BUN 4 L Creatinine 0.58 Glucose 94 Total Bilirubin 0.6 AST 14 L ALT 21 Alkaline Phosphatase 96 Lipase 16 Assessment & Plan - Problems (Diagnosis) (1) Abdominal pain Current Visit: Yes Status: Acute (2) Constipation Current Visit: Yes Status: Acute (3) Seizure Current Visit: Yes Status: Acute (4) Hyponatremia Current Visit: Yes Status: Acute - Plan Plan: 1. Continue with lactulose for constipation 2. Continue with seizure medication; continue with Trileptal and Lamictal 3. Saline correction of her sodium 4. 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 Pain control 6. GI DVT prophylaxis Discharge Plan: Home Plan to discharge in: 24 Hours - Advance Directives Does patient have a Living Will: No Does patient have a Durable POA for Healthcare: No - Code Status/Comfort Care Code Status Assessed: Yes Code Status: Full Code Critical Care: No Time Spent Managing PTS Care (In Minutes): 45
[2023-09-17] MEDS: LACTULOSE 20 GM/30 ML UCUP PO ONE (16:42)
--- NOTE | 2023-09-17 16:49 | EDPHYS ---
Physician Documentation [facility] Name: Dionne Ventura Age: 43 yrs Sex: Female : 1980 Arrival Date: 09/17/2023 Time: 13:33 Bed 12 Private MD: Brady Acevedo H ED Physician Toribio Gonzalez HPI: 09/16 15:00 This 43 yrs old Female presents to ER via Ambulatory with complaints of Abdominal Pain. cp 15:00 The patient presents with abdominal pain in the left upper quadrant, left flank. Onset: cp The symptoms/episode began/occurred this morning. The symptoms radiate to left back, the left flank. Associated signs and symptoms: Pertinent positives: nausea, Pertinent negatives: anorexia, blood in stools, diarrhea, dysuria, fever, vomiting. The symptoms are described as constant. Modifying factors: the symptoms are aggravated by movement. Historical: - Allergies: 15:28 Augmentin; iw 15:28 Ciprofloxacin; iw 15:28 Clindamycin; iw 15:28 Sulfa (Sulfonamide Antibiotics); iw - PMHx: 15:28 Anxiety; epilepsy; Asthma; iw - PSHx: 15:28 section; Tonsillectomy; iw - Immunization history:: Adult Immunizations unknown. - Social history:: Smoking status: Patient reports the use of cigarette tobacco products, denies chronic smoking, but will smoke occasionally. ROS: 15:05 Constitutional: Negative for body aches, chills, fever, poor PO intake, cp 15:05 Eyes: Negative for injury, pain, redness, and discharge, cp 15:05 ENT: Negative for drainage from ear(s), ear pain, sore throat, difficulty swallowing, difficulty handling secretions, 15:05 Cardiovascular: Negative for chest pain, palpitations, 15:05 Respiratory: Negative for cough, shortness of breath, wheezing, 15:05 Abdomen/GI: Positive for abdominal pain, nausea, Negative for vomiting, diarrhea, constipation, 15:05 Back: Positive for flank pain, on the left, 15:05 : Negative for urinary symptoms, 15:05 Neuro: Negative for altered mental status, dizziness, headache, weakness, 15:05 All other systems are negative, Exam: 15:10 Constitutional: The patient appears in no acute distress, alert, awake, non-toxic, well cp developed, well nourished, in obvious pain, uncomfortable, 15:10 Head/Face: Normocephalic, atraumatic. cp 15:10 Eyes: Periorbital structures: appear normal, Conjunctiva: normal, no exudate, no injection, Sclera: no appreciated abnormality, Lids and lashes: appear normal, bilaterally, 15:10 ENT: External ear(s): are unremarkable, Nose: is normal, Mouth: Lips: moist, Oral mucosa: pink and intact, moist, Posterior pharynx: is normal, airway is patent, no erythema, no exudate, 15:10 Chest/axilla: Inspection: normal, Palpation: is normal, no crepitus, no tenderness, 15:10 Cardiovascular: Rate: normal, Rhythm: regular, Edema: is not appreciated, JVD: is not appreciated, 15:10 Respiratory: the patient does not display signs of respiratory distress, Respirations: normal, no use of accessory muscles, no retractions, labored breathing, is not present, Breath sounds: are clear throughout, no decreased breath sounds, no stridor, no wheezing, 15:10 Abdomen/GI: Inspection: abdomen appears normal, Bowel sounds: active, all quadrants, Palpation: soft, in all quadrants, severe abdominal tenderness, in the posterior aspect of left lateral abdomen, anterior aspect of left lateral abdomen and left upper quadrant, rebound tenderness, is not appreciated, involuntary guarding, is not appreciated, 15:10 Back: vertebral tenderness, is not appreciated, 15:10 Skin: no rash present. Vital Signs: 14:04 BP 151 / 102; Pulse 68; Resp 18; Temp 98.3; Pulse Ox 95% ; Weight 60.33 kg; Height 5 iw ft. 2 in. ; Pain 9/10; 14:04 Body Mass Index 24.33 (60.33 kg, 157.48 cm) iw 14:04 Pain Scale: Adult iw MDM: 13:49 Patient medically screened. cp 16:50 Data reviewed: vital signs, nurses notes, lab test result(s), EKG, radiologic studies, cp CT scan. 16:50 Differential diagnosis: non-specific abd pain, pancreatitis, Peptic Ulcer Disease, cp Perf. Duodenal Ulcer, Perf. Gastric Ulcer, Pyelonephritis, Ureterolithiasis, urinary tract infection. Consideration of Admission/Observation Patient was admitted/placed on observation. Management of patient was discussed with the following: Hospitalist: DR Awad will admit after discussion. Independent interpretation of the following test(s) in the Emergency Department EKG: See my EKG interpretation above. Counseling: I had a detailed discussion with the patient and/or guardian regarding the historical points, exam findings, and any diagnostic results supporting the discharge/admit diagnosis, lab results, radiology results, the need for further work-up and treatment in the hospital. Response to treatment: the patient's symptoms have mildly improved after treatment, and as a result, I will admit patient. 09/16 14:08 Order name: CBC with Diff; Complete Time: 14:53 cp 09/16 14:53 Interpretation: Normal except: RBC 3.68; MPV 6.9; LYM% 48.5. cp 09/16 14:08 Order name: CMP; Complete Time: 15:50 cp 09/16 15:50 Interpretation: Normal except: NA 123; CL 90; BUN 4; AST 14. cp 09/16 14:08 Order name: Lipase; Complete Time: 15:50 cp 09/16 14:08 Order name: Test, Urine; Complete Time: 15:50 cp 09/16 14:08 Order name: Urinalysis w/ reflexes; Complete Time: 15:50 cp 09/16 16:36 Order name: UR SODIUM EDMS 09/16 16:36 Order name: CBC with Automated Diff EDMS 09/16 16:36 Order name: CBC with Automated Diff EDMS 09/16 16:36 Order name: Comprehensive Metabolic Panel EDMS 09/16 16:36 Order name: Comprehensive Metabolic Panel EDMS 09/16 14:08 Order name: CT Stone Protocol; Complete Time: 15:50 cp 09/16 15:59 Order name: EKG; Complete Time: 15:59 cp 09/16 14:08 Order name: IV Saline Lock; Complete Time: 14:30 cp 09/16 14:08 Order name: Labs collected and sent; Complete Time: 14:30 cp 09/16 15:59 Order name: EKG - Nurse/Tech; Complete Time: 16:06 cp Administered Medications: 14:30 Drug: NS 0.9% IV 1000 ml IV at 1 bolus Per protocol; 1000 mL bolus Route: IV; Rate: 1 ko1 bolus; Site: right forearm; 15:38 Follow up: Response: No adverse reaction; IV Status: Completed infusion; IV Intake: iw 1000ml 14:30 Drug: Ondansetron IVP 4 mg IVP once; over 2 minutes Route: IVP; Site: right forearm; ko1 15:38 Follow up: Response: No adverse reaction iw 14:54 Drug: TORadol - Ketorolac IVP 15 mg IVP once Route: IVP; Site: right forearm; ko1 15:38 Follow up: Response: No adverse reaction iw 16:06 Drug: morphine IVP or IV 2 mg IVP once over 4 mins Route: IVP; Infused Over: 4 mins; ko1 Site: right antecubital; Disposition Summary: 09/17/23 16:49 Hospitalization Ordered Notes: Hospitalization Status: Observation cp Provider: Jaswant Awad cp Condition: Stable cp Problem: new cp Symptoms: have improved cp Bed/Room Type: Standard cp Location: Telemetry/MedSurg (Inpatient)(09/17/23 18:58) bc6 Room Assignment: [facility](09/17/23 18:58) bc6 Diagnosis - Hypo-osmolality and hyponatremia cp - Abdominal pain, unspecified cp - Constipation cp Forms: - Medication Reconciliation Form cp - SBAR form cp - Leadership Thank You Letter cp Addendum: 09/19/2023 16:28 Co-signature as Attending Physician, Toribio Gonzalez MD I reviewed the patient's care r t provided by the Advanced Practice Provider and agree with the diagnosis and treatment plan. Signatures: Dispatcher [employer] Marianna Dumont RN RN iw Page, Corey, PA PA cp Oliver, Kathy, RN RN ko1 Toribio Gonzalez MD MD rt Olga Tamez 6 Corrections: (The following items were deleted from the chart) 09/16 18:09 16:49 Telemetry/MedSurg (observation) cp bc6 18:09 16:49 cp bc6 18:58 18:09 [facility] ER HOLD bc6 bc6 18:58 18:09 ERHOLD- bc6 bc6
--- NOTE | 2023-09-17 16:49 | ER ---
Nurse's Notes [facility] Name: Dionne Ventura Age: 43 yrs Sex: Female : 1980 Arrival Date: 09/17/2023 Time: 13:33 Bed 12 Private MD: Brady Acevedo H Diagnosis: Hypo-osmolality and hyponatremia;Abdominal pain, unspecified;Constipation Presentation: 09/16 14:04 Chief complaint: Patient states: left flank pain since this morning , hx of kidney iw stones. Coronavirus screen: At this time, the client does not indicate any symptoms associated with coronavirus-19. Ebola Screen: Patient negative for fever greater than or equal to 101.5 degrees Fahrenheit, and additional compatible Ebola Virus Disease symptoms Patient denies exposure to infectious person. Patient denies travel to an Ebola-affected area in the 21 days before illness onset. No symptoms or risks identified at this time. Initial Sepsis Screen: Does the patient meet any 2 criteria? No. Patient's initial sepsis screen is negative. Does the patient have a suspected source of infection? No. Patient's initial sepsis screen is negative. Risk Assessment: Do you want to hurt yourself or someone else? Patient reports no desire to harm self or others. Onset of symptoms was September 17, 2023. 14:04 Method Of Arrival: Ambulatory iw 14:04 Acuity: TRINIDAD 3 iw Triage Assessment: 15:28 General: Appears in no apparent distress. Behavior is appropriate for age, anxious. iw Pain: Complains of pain in posterior aspect of left lateral abdomen and anterior aspect of left lateral abdomen. GI: Reports lower abdominal pain, Pain is 9 out of 10 on a pain scale. Historical: - Allergies: 15:28 Augmentin; iw 15:28 Ciprofloxacin; iw 15:28 Clindamycin; iw 15:28 Sulfa (Sulfonamide Antibiotics); iw - PMHx: 15:28 Anxiety; epilepsy; Asthma; iw - PSHx: 15:28 section; Tonsillectomy; iw - Immunization history:: Adult Immunizations unknown. - Social history:: Smoking status: Patient reports the use of cigarette tobacco products, denies chronic smoking, but will smoke occasionally. Screenin:30 [facility] ED Fall Risk Assessment (Adult) History of falling in the last 3 months, iw including since admission No falls in past 3 months (0 pts) Confusion or Disorientation No (0 pts) Intoxicated or Sedated No (0 pts) Impaired Gait No (0 pts) Mobility Assist Device Used No (0 pt) Altered Elimination No (0 pt) Score/Fall Risk Level 0 - 2 = Low Risk Oriented to surroundings, Maintained a safe environment, Educated pt \T\ family on fall prevention, incl call for assistance when getting out of bed, Assessed \T\ reinforced patient's understanding of fall precautions, Provided non-skid footwear, Hourly rounding (assess needs \T\ fall precautionary measures) done, Used ambulatory aids as needed (educated on \T\ assisted with), Used gait belt as appropriate. Abuse screen: Denies threats or abuse. Denies injuries from another. Nutritional screening: No deficits noted. Tuberculosis screening: No symptoms or risk factors identified. Assessment: 14:30 General: Appears distressed, uncomfortable, unkempt, Behavior is anxious. Pain: iw Complains of pain in anterior aspect of left lateral abdomen and posterior aspect of left lateral abdomen. Neuro: No deficits noted. Cardiovascular: No deficits noted. Respiratory: No deficits noted. GI: Bowel sounds present X 4 quads. Abd is soft X 4 quads Reports upper abdominal pain, cramping. : No deficits noted. EENT: No deficits noted. Derm: No deficits noted. Musculoskeletal: No deficits noted. Vital Signs: 14:04 BP 151 / 102; Pulse 68; Resp 18; Temp 98.3; Pulse Ox 95% ; Weight 60.33 kg; Height 5 iw ft. 2 in. ; Pain 9/10; 14:04 Body Mass Index 24.33 (60.33 kg, 157.48 cm) iw 14:04 Pain Scale: Adult iw ED Course: 13:35 Patient arrived in ED. mr 13:35 Brady Acevedo DO is Private Physician. mr 13:43 Den Navarro PA is PHCP. cp 13:43 Toribio Gonzalez MD is Attending Physician. cp 14:00 Taisha Dexter, JEFRY is Primary Nurse. ko1 14:05 Triage completed. iw 14:21 CT Stone Protocol In Process Unspecified. EDMS 14:25 Initial lab(s) drawn, by me, sent to lab. Inserted saline lock: 22 gauge in right ko1 forearm, using aseptic technique. Blood collected. 14:30 CBC with Diff Sent. ko1 14:30 CMP Sent. ko1 14:30 Lipase Sent. ko1 14:30 No provider procedures requiring assistance completed. iw 14:30 Patient has correct armband on for positive identification. Allergy band placed. Placed iw in gown. Bed in low position. Call light in reach. Side rails up X 1. Provided Education on: na. Pulse ox on. NIBP on. Door closed. Noise minimized. Lights dimmed. Warm blanket given. Pillow given. Assisted to bathroom. 15:15 Urinalysis w/ reflexes Sent. iw 15:15 Test, Urine Sent. iw 15:28 Arm band placed on right wrist. Patient placed in an exam room, on a stretcher, on iw cardiac exercise physiologist, on pulse oximetry, Patient notified of wait time. 15:46 Assisted to bathroom. aw1 16:19 EKG done, by ED staff. aw1 16:48 Jaswant Awad MD is Hospitalizing Provider. cp 18:02 Patient admitted, IV remains in place. ko1 Administered Medications: 14:30 Drug: NS 0.9% IV 1000 ml IV at 1 bolus Per protocol; 1000 mL bolus Route: IV; Rate: 1 ko1 bolus; Site: right forearm; 15:38 Follow up: Response: No adverse reaction; IV Status: Completed infusion; IV Intake: iw 1000ml 14:30 Drug: Ondansetron IVP 4 mg IVP once; over 2 minutes Route: IVP; Site: right forearm; ko1 15:38 Follow up: Response: No adverse reaction iw 14:54 Drug: TORadol - Ketorolac IVP 15 mg IVP once Route: IVP; Site: right forearm; ko1 15:38 Follow up: Response: No adverse reaction iw 16:06 Drug: morphine IVP or IV 2 mg IVP once over 4 mins Route: IVP; Infused Over: 4 mins; ko1 Site: right antecubital; Medication: 14:30 VIS not applicable for this client. iw Intake: 15:38 IV: 1000ml; Total: 1000ml. iw Outcome: 16:49 Decision to Hospitalize by Provider. cp 16:49 Admitted to ER Hold. Please see [facility] for further documentation. ko1 16:49 Condition: stable 16:49 Instructed on the need for admit, 20:21 Patient left the ED. jb4 Signatures: Dispatcher [employer] EDMS Dionne Grider, Reg Reg mr Marianna Ellington, RN RN Den Villegas PA PA cp Bryson, James, RN RN jb4 Taisha Dexter RN RN ko1 Yris Padilla aw1 Corrections: (The following items were deleted from the chart) 18:04 18:02 Admitted to ER Hold. Please see [facility] for further documentation. ko1 ko1 18: 18:02 Condition: stable ko1 ko1 18:04 18:02 Instructed on the need for admit, ko1 ko1
[2023-09-17] MEDS: NA CHLORIDE 0.9% 1,000 ML IV SCH (17:00)
[2023-09-17] MEDS ORDERED: LACTULOSE 20 GM/30 ML UCUP ONE (17:48)
[2023-09-17] MEDS: HYDROCODONE/APAP 10/325 TAB PO PRN (17:54)
[2023-09-17] MEDS ORDERED: HYDROCODONE/APAP 10/325 TAB ONE (17:56)
[2023-09-17] MEDS: LACTULOSE 20 GM/30 ML UCUP PO SCH (20:41)
[2023-09-17] MEDS: MORPHINE 2 MG/ML SYR IV PRN (20:47)
[2023-09-17 20:53] VITALS: O2SAT 95
[2023-09-17] MEDS: lamoTRIgine 150 MG TAB PO SCH (21:00)
[2023-09-17] MEDS: VALACYCLOVIR 500 MG TAB PO SCH (22:40)
[2023-09-17] MEDS: ZOLPIDEM TARTRATE 10 MG TABLET PO SCH (22:41)
[2023-09-17] MEDS: OXcarbazepine 150 MG TAB PO SCH (22:41)
[2023-09-17] MEDS: SERTRALINE HCL 50 MG TAB PO SCH (22:41)
[2023-09-17 23:07] VITALS: BMI 24.3
[2023-09-17] MEDS: clonazePAM 1 MG TAB PO SCH (23:35)
[2023-09-18 03:58] LABS: Absolute Basophils 0.1 K/uL (0-0.5); Absolute Eosinophils 0.1 K/uL (0-0.5); Absolute Lymphocytes (CBC) 3.2 K/uL (0.7-4.9); Absolute Monocytes 0.4 K/uL (0.1-1.3); Absolute Neutrophil 2.4 K/uL (1.8-8.0); Basophils % 0.9 % (0-1.3); Eosinophils % 1.6 % (0-4.4); Hematocrit 33.7 % (36.0-45.0); Hemoglobin 11.6 g/dL (12.0-15.0); Lymphocytes % 51.7 % (15.3-44.8); MCH 34.9 pg (27.0-35.0); MCHC 34.5 g/dL (32.0-36.0); MCV 101.1 fL (80-100); Monocytes % 6.6 % (3.3-12.3); Neutrophils % 39.2 % (41.7-73.7); Nucleated Red Blood Cells % 0.2 % (0-0); Platelets 355 thou/uL (152-406); RBC Red Blood Cell Count 3.33 M/uL (3.86-4.86); Red Cell Distribution Width 13.3 % (12.1-15.2)
[2023-09-18 04:09] LABS: ALT/SGPT 20 U/L (13-56); AST/SGOT 14 U/L (15-37); Albumin 3.6 g/dL (3.4-5.0); Albumin/Globulin Ratio 1.4 (1.1-1.8); Alkaline Phosphatase 81 U/L (45-117); Anion Gap 8.4 mEq/L (5.0-15.0); Bicarbonate 26 mEq/L (21-32); Bilirubin Total 0.3 mg/dL (0.2-1.0); Globulin 2.6 g/dL (2.3-3.5); Glomerular Filtration Rate 119 ml/min (=/>90); Glucose Level 89 mg/dL (74-106); Potassium 3.4 mEq/L (3.5-5.1); Protein, Total 6.2 g/dL (6.4-8.2); Sodium Level 131 mEq/L (136-145)
[2023-09-18 04:29] LABS: BUN Blood Urea Nitrogen < 3 mg/dL (7-18)
[2023-09-18 04:52] LABS: Band Neutrophils 2 % (0-1); Blood Morphology Comment NOT SEEN (NOT SEEN); Eosinophils 2 % (0-3); Lymphocytes 54 % (15-42); Monocytes 3 % (0-10); Platelet Estimate ADEQ
[2023-09-18 06:05] VITALS: TEMP 97.3
--- NOTE | 2023-09-18 08:29 | P.PN ---
Subjective Date of Service: 09/18/23 Chief Complaint: Hyponatremia/abdominal pain secondary to constipation Subjective: Improving (continued left upper abd pain) <Katharine Larsen - Last Filed: 09/18/23 08:32> Date of Service: 09/18/23 <Jaswant Awad - Last Filed: 09/19/23 00:14> Review of Systems 10-point ROS is otherwise unremarkable General: Unremarkable Gastrointestinal: Abdominal Pain Musculoskeletal: As per HPI <Katharine Larsen - Last Filed: 09/18/23 08:32> Physical Examination - Vital Signs Temperature: 97.3 F Blood Pressure: 100/63 Pulse: 73 Respirations: 18 Pulse Ox (%): 96 - Physical Exam General: Alert, In no apparent distress HEENT: Atraumatic, Normocephalic Neck: 2+ carotid pulse no bruit Respiratory: Clear to auscultation bilaterally Cardiovascular: Normal pulses Capillary refill: <2 Seconds Gastrointestinal: Soft and benign, Tenderness (minimal ) Musculoskeletal: No clubbing, No swelling Integumentary: No rashes Neurological: Normal speech, Normal tone Lymphatics: No axilla or inguinal lymphadenopathy External genitalia: Deferred Rectal: Deferred - Studies Laboratory Data (last 24 hrs) 09/17/23 09/17/23 14:25 14:25 WBC 5.30 Hgb 12.6 Hct 36.7 Plt Count 375 Sodium 123 L Potassium 3.5 BUN 4 L Creatinine 0.58 Glucose 94 Total Bilirubin 0.6 AST 14 L ALT 21 Alkaline Phosphatase 96 Lipase 16 <Katharine Larsen - Last Filed: 09/18/23 08:32> Assessment And Plan - Plan Assessment & Plan - Problems (Diagnosis) (1) Abdominal pain Current Visit: Yes Status: Acute (2) Constipation Current Visit: Yes Status: Acute (3) Seizure Current Visit: Yes Status: Acute (4) Hyponatremia Current Visit: Yes Status: Acute (5) Chronic Pain Current Visit: yes Plan: 1. Continue with lactulose for constipation 2. Continue with seizure medication; continue with Trileptal and Lamictal 3. Saline correction of her sodium - improving 131 this am 4. 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 Pain control - pt takes [place] BID chronically with Dr Stokes 6. GI DVT prophylaxis Discharge Plan: Home Plan to discharge in: 24 Hours - Advance Directives Does patient have a Living Will: No Does patient have a Durable POA for Healthcare: No Discharge Plan: Home <Katharine Larsen - Last Filed: 09/18/23 08:32> - Current Problems (Diagnosis) (1) Abdominal pain Status: Acute (2) Constipation Status: Acute (3) Seizure Status: Acute (4) Hyponatremia Status: Acute <Jaswant Awad - Last Filed: 09/19/23 00:14> Date of Service: 09/18/23 Patient will be discharge please see discharge summary. <Jaswant Awad - Last Filed: 09/19/23 00:14>
[2023-09-18] MEDS ORDERED: lamoTRIgine 150 MG TAB PO SCH (09:00)
[2023-09-18] MEDS ORDERED: OXcarbazepine 150 MG TAB PO SCH (09:00)
[2023-09-18] MEDS ORDERED: LACTULOSE 20 GM/30 ML UCUP PO SCH ×2 (09:00)
[2023-09-18 10:08] VITALS: BP 101/65
[2023-09-18] MEDS ORDERED: VALACYCLOVIR 500 MG TAB PO SCH (21:00)
[2023-09-18] MEDS ORDERED: ZOLPIDEM TARTRATE 10 MG TABLET PO SCH (21:00)
[2023-09-18] MEDS ORDERED: SERTRALINE HCL 50 MG TAB PO SCH (21:00)
--- NOTE | 2023-09-19 00:16 | P.DS ---
Discharge Date: 09/18/23 Disposition: ROUTINE DISCHARGE Discharge Condition: GOOD Reason for Admission: Hyponatremia/abdominal pain secondary to constipation - Problems (1) Abdominal pain Status: Acute (2) Constipation Status: Acute (3) Seizure Status: Acute (4) Hyponatremia Status: Acute Brief History of Present Illness: Patient is a 43-year-old female with a history of seizures and abdominal pain who came into the emergency room for further evaluation. Patient is on Lamictal and Trileptal for her seizure disorder. These are notorious for causing hyponatremia. Patient was also having abdominal pain. It pain was mainly in the bilateral lower quadrants. She gets constipated from her narcotic use. Will go ahead and give her lactulose that she takes at home. When she has her BM and we give her bag of saline we will repeat her sodium level and see where she is at. Will check her Trileptal level. As long as her labs are improving and her abdominal pain improves I anticipate discharge in the morning. Hospital Course: Patient did well. Sodiums corrected. Patient will continue with antiepileptics. Patient will continue with stool softener going for. Abdominal pain is improved. At this time, patient is stable for discharge with outpatient follow-up with Neurology and with Gastroenterology for constipation. Vital Signs/Physical Exam: Temp Pulse Resp BP Pulse Ox 97.3 F 71 18 101/65 96 09/18/23 08:45 09/18/23 09:00 09/18/23 08:45 09/18/23 09:57 09/18/23 08:45 General: Alert, In no apparent distress, Oriented x3 Laboratory Data at Discharge: WBC 6.20 thou/uL (4.3-10.9) 09/18/23 03:07 Hgb 11.6 g/dL (12.0-15.0) L 09/18/23 03:07 Hct 33.7 % (36.0-45.0) L 09/18/23 03:07 Plt Count 355 thou/uL (152-406) 09/18/23 03:07 Sodium 131 mEq/L (136-145) L D 09/18/23 03:07 Potassium 3.4 mEq/L (3.5-5.1) L 09/18/23 03:07 BUN < 3 mg/dL (7-18) L 09/18/23 03:07 Creatinine 0.54 mg/dL (0.55-1.02) L 09/18/23 03:07 Glucose 89 mg/dL (74-106) 09/18/23 03:07 Total Bilirubin 0.3 mg/dL (0.2-1.0) 09/18/23 03:07 AST 14 U/L (15-37) L 09/18/23 03:07 ALT 20 U/L (13-56) 09/18/23 03:07 Alkaline Phosphatase 81 U/L (45-117) 09/18/23 03:07 Lipase 16 U/L (13-75) 09/17/23 14:25 Home Medications: Lactulose 10 gm PO DAILY 09/17/23 OXcarbazepine [Oxcarbazepine] 1 tab PO BID 09/17/23 Sertraline [Zoloft*] 1 tab PO BEDTIME 09/17/23 Valacyclovir HCl [Valacyclovir] 1 tab PO BEDTIME 09/17/23 Zolpidem Tartrate [Ambien*] 10 mg PO BEDTIME 09/17/23 clonazePAM [Clonazepam] 1 tab PO TID 09/17/23 lamoTRIgine [Lamictal*] 150 mg PO BID 09/17/23 Docusate [Colace Cap] 100 mg PO BID #60 cap 09/18/23 Lactulose 15 ml PO BID PRN #500 ml 09/18/23 Sodium Chloride Tab [Sodium Chloride*] 1 gm PO DAILY #30 tab 09/18/23 New Medications: Docusate [Colace Cap] 100 mg PO BID #60 cap Lactulose 15 ml PO BID PRN #500 ml PRN Reason: Constipation Sodium Chloride Tab [Sodium Chloride*] 1 gm PO DAILY #30 tab Physician Discharge Instructions: -DC IV and DC home -Follow-up with PCP in 1 to 2 weeks -Follow-up with GI in 1 to 2 weeks -Please call Dr. Awad at [phone] if any questions regarding hospital stay -Please call nursing station at [phone] if any nursing or medication questions -Return to the emergency room if symptoms worsen Diet: Regular Activity: Fall precautions Followup: Brady Acevedo DO, DO [Primary Care Provider] - 1-2 Weeks (Call for appointment) Time spent managing pt's care (in minutes): 35
--- NOTE | 2023-09-19 17:29 | EKG ---
Test Date: 2023-09-17 Test Time: 15:16:51 [employer] Operator: NBA MEASUREMENT RESULTS: Intervals: Rate: 59 MI: 170 QRSD: 86 QT: 424 QTc: 419 Lane City: P: 67 MI: 170 QRS: 61 T: 48 INTERPRETIVE STATEMENTS: Sinus bradycardia Otherwise normal ECG Compared to ECG 09/05/2019 14:30:47 Sinus rhythm no longer present Myocardial infarct finding no longer present Electronically Signed On 09-19-23 17:22:07 CDT by Robby Kendall
== END 2023-09-18 11:38 | disposition home or self-care (01) ==
LOC: ER 13:33 → ERHOLD 16:31 → 2ND 19:40
PROVIDERS: ADMIT Hospitalist; ATTEND Hospitalist
DX: R10.9 Unspecified abdominal pain (principal); K59.00 Constipation, unspecified; R56.9 Unspecified convulsions; Z88.0 Allergy status to penicillin; Z88.2 Allergy status to sulfonamides; Z88.1 Allergy status to other antibiotic agents; G89.29 Other chronic pain; E87.1 Hypo-osmolality and hyponatremia
CPT/HCPCS: 36415; 74176; 76377; 80053; 81003; 81025; 83690; 84300; 85025; 93005; 99285; J2270; J2405; J7030